=== PATIENT | female | born 1955 | race Caucasian/White ===

== ENCOUNTER 2020-04-12 12:18 | Emergency (ER) | payer OTHER, SELFPAY ==
[2020-04-12 12:21] VITALS: BP 172/90; PULSE 87; RESP 16; TEMP 36.2; O2SAT 98
--- NOTE | 2020-04-12 12:26 | ECG_ITS ---
Measurements Intervals [place] Rate: 78 P: 156 WV: 151 QRS: 199 QRSD: 116 T: 163 QT: 386 QTc: 441 Interpretive Statements SINUS RHYTHM ARM LEADS REVERSED INTRAVENTRICULAR CONDUCTION DELAY ATYPICAL ECG Electronically Signed On 04-12-2020 15:16:59 TECHNICAL CUSTOMER SUPPORT SPECIALIST by Aníbal Ibarra D.O.
[2020-04-12 13:12] LABS: Alanine Aminotransferase 51 U/L (4-35); Albumin Level 4.7 g/dL (3.5-5.1); Alkaline Phosphatase 93 U/L (38-126); Anion Gap 12 mmol/L (8-16); Aspartate Amino Transferase 52 U/L (14-36); Bilirubin,Total 0.8 mg/dL (0.2-1.3); Blood Urea Nitrogen 12 mg/dL (7-17); Carbon Dioxide 27 mmol/L (22-30); Chloride 100 mmol/L (98-107); Estimated CRCL calculation 84 ml/min; Estimated Glomerular Filt Rate > 60; Glucose 145 mg/dL (65-105); Potassium 3.9 mmol/L (3.4-5.0); Sodium 139 mmol/L (137-145)
[2020-04-12 13:16] LABS: Basophils Percent Auto 0.4 % (0.2-1.2); Eosinophils Absolute Auto 0.1 K/mm3 (0-0.3); Eosinophils Percent Auto 1.6 % (0-4.4); Hematocrit 46.3 % (37.0-47.0); Hemoglobin 15.2 g/dL (12.0-15.0); Immature Granulocyte Absolute 0.02 K/mm3 (0.00-0.031); Immature Granulocyte Percent A 0.2 % (0-0.5); Immature Platelet Fraction Pct 5.2 % (0.9-11.2); Lymphocytes Percent Auto 21.2 % (18.3-44.2); Mean Corpuscular HGB Conc 32.8 g/dl (32-36); Mean Corpuscular Hemoglobin 30.2 pg (26-34); Mean Platelet Volume 10.3 fl (7.4-10.4); Monocytes Absolute Auto 0.7 K/mm3 (0.1-0.6); Monocytes Percent Auto 7.3 % (2.6-8.5); Neutrophils Absolute Auto 6.2 K/mm3 (1.3-6.7); Neutrophils Percent Auto 69.3 % (45.5-73.1); Platelet Count Result 221 k/mm3 (150-375); Red Blood Count 5.03 M/mm3 (4.2-5.4); Red Cell Distribution Width 12.6 % (11.5-14.5)
[2020-04-12 14:02] VITALS: BP 115/69; PULSE 81; RESP 16; O2SAT 99
[2020-04-12] MEDS: MECLIZINE HCL 25 MG TABLET PO (14:11)
--- NOTE | 2020-04-12 15:15 | ED.DIZZY ---
HPI - Dizziness General Chief Complaint: Dizziness Stated Complaint: dizziness, n/v Time Seen by Provider: 04/12/20 13:31 History of Present Illness HPI Narrative: Patient is a 64-year-old female who presents ER with dizziness. Worsening by laying down flat and turning head to the left. Has pressure in left ear. Has had this intermittently since November. Usually improves with meclizine. Has not tried it today. Occasional nausea and vomiting. No focal weakness in arm or leg. Related Data Allergies Allergy/AdvReac Type Severity Reaction Status Date / Time No Known Allergies Allergy Verified 04/12/20 12:26 Review of Systems Review of Systems: All systems reviewed & are unremarkable except as noted in HPI and below Constitutional: Constitutional: Denies chills, Denies fever(s) and Denies weakness ENT: Reports vertigo Comments: left ear pressure Gastrointestinal: Gastrointestinal: Reports nausea and Reports vomiting Neurologic: Denies syncope, Denies focal weakness and Denies numbness PMFSH Past Medical History Medical History (Updated 04/12/20 @ 15:23 by Federico Real MD) Hyperlipidemia Hypertension Surgical History Surgical History (Updated 04/12/20 @ 15:19 by Federico Real MD) H/O section Social History Social History (Updated 04/12/20 @ 15:19 by Federico Real MD) Smoking status: Never smoker Gender identity (if verbalized by the patient): Female Exam Narrative: Exam Narrative: GENERAL: Well-appearing, well-nourished, and in no acute distress. HEAD: Normocephalic, atraumatic. EYES: PERRL and EOMI. ENT:Mucous membranes moist. Left ear with fluid behind the eardrum. CHEST: Clear to auscultation. No respiratory distress. HEART: Regular rate and rhythm. Normal peripheral pulses. EXTREMITIES: Normal range of motion. No edema. NEURO: Alert and oriented x3. PSYCH: Normal mood and affect. Course Course Emergency Course: Sx improved with meclizine. Vital Signs Vital signs: Vital Signs Temperature 97.2 F L 04/12/20 12:21 Pulse Rate 87 04/12/20 12:21 Respiratory Rate 16 04/12/20 12:21 Blood Pressure 172/90 H 04/12/20 12:21 Pulse Oximetry 98 04/12/20 12:21 Temperature 97.2 F L 04/12/20 12:21 Pulse Rate 81 04/12/20 14:02 Respiratory Rate 16 04/12/20 14:02 Blood Pressure 115/69 04/12/20 14:02 Pulse Oximetry 99 04/12/20 14:02 MDM - Dizziness Lab Data Result diagrams: 04/12/20 12:29 04/12/20 12:29 Labs: Lab Results 04/12/20 04/12/20 Range/Units 12:29 12:29 WBC 9.0 (4.5-10.0) K/mm3 RBC 5.03 (4.2-5.4) M/mm3 Hgb 15.2 H (12.0-15.0) g/dL Hct 46.3 (37.0-47.0) % MCV 92.0 (80-100) fl MCH 30.2 (26-34) pg MCHC 32.8 (32-36) g/dl RDW 12.6 (11.5-14.5) % Plt Count 221 (150-375) k/mm3 MPV 10.3 (7.4-10.4) fl Immature Gran % (Auto) 0.2 (0-0.5) % Neut % (Auto) 69.3 (45.5-73.1) % Lymph % (Auto) 21.2 (18.3-44.2) % Slope % (Auto) 7.3 (2.6-8.5) % Eos % (Auto) 1.6 (0-4.4) % Baso % (Auto) 0.4 (0.2-1.2) % Lymph # (Auto) 1.90 (0.9-3.2) K/mm3 Slope # (Auto) 0.7 H (0.1-0.6) K/mm3 Eos # (Auto) 0.1 (0-0.3) K/mm3 Baso # (Auto) 0.0 (0.0-0.1) K/mm3 Abs Immat Gran (auto) 0.02 (0.00-0.031) K/mm3 Absolute Neuts (auto) 6.2 (1.3-6.7) K/mm3 Absolute Nucleated RBC 0.0 (0.0-0.012) K/mm3 Nucleated RBC % 0.0 (0.0-0.2) % % Immature Plt Fraction 5.2 (0.9-11.2) % Sodium 139 (137-145) mmol/L Potassium 3.9 (3.4-5.0) mmol/L Chloride 100 (98-107) mmol/L Carbon Dioxide 27 (22-30) mmol/L Anion Gap 12 (8-16) mmol/L BUN 12 (7-17) mg/dL Creatinine 0.80 (0.7-1.0) mg/dL Estim Creat Clear Calc 84 ml/min Estimated GFR > 60 (59 - ) Glucose 145 H (65-105) mg/dL Calcium 10.0 (8.4-10.2) mg/dL Total Bilirubin 0.8 (0.2-1.3) mg/dL AST 52 H (14-36) U/L ALT 51 H (4-35) U/L Alkaline Phosphatase 93 (3
[2020-04-12 15:17] VITALS: BP 136/67; PULSE 74; RESP 23; O2SAT 92
== END 2020-04-12 15:40 | disposition home or self-care (01) ==
PROVIDERS: Emergency Medicine; Emergency Provider Emergency Medicine; PCP Internal Medicine
DX: H81.10 Benign paroxysmal vertigo, unspecified ear (principal); E78.5 Hyperlipidemia, unspecified; I10 Essential (primary) hypertension
CPT/HCPCS: 36415; 80053; 85025; 85055; 93005; 99283; A9270

== ENCOUNTER 2020-06-03 15:30 | Outpatient (RCR) | payer OTHER, SELFPAY ==
--- NOTE | 2020-04-30 16:15 | PTOPEVAL ---
PHYSICAL THERAPY EVALUATION AND PLAN OF TREATMENT 04-30-20 Thank you for referring Kyung Roe to [facility] [place].? She is scheduled to be seen for therapy? 2x/week for 4 weeks. Please review, sign, date and return this plan of care BRENDON. I agree with and certify that the following plan of care is medically necessary. Referring Physician Date Attending Provider: Kyrie King MD *PT Outpatient Evaluation Document 04/30/20 14:55 JAMES (Rec: 04/30/20 16:15 JAMES [id number]) Therapy Assessment Status Assessment Status Assessment Status Evaluation Outpatient Past Medical History Past Medical History Source of Past Medical History Patient Neurological History Hx Neurological Disorders No Significant History Cardiovascular History Hx Hypercholesterolemia Yes: meds Hx Hypertension Yes: meds; normal per pt: 155/ 90 Respiratory History Hx Respiratory Disorders No Significant History Gastrointestinal History Hx Cholecystectomy Yes Genitourinary History Hx Genitourinary Disorders No Significant History Musculoskeletal History Hx Back Pain Yes: increase with standing/ ease with sitting to rest Hx Other Musculoskeletal Disorders Yes: neck pain Hematological History Hx Hematological Disorders No Significant History Endocrine History Hx Hypothyroidism Yes: meds HEENT History Hx HEENT Disorders No Significant History Reproductive History Hx Section Yes Other History Hx Other Medical Conditions Yes: obesity Evaluation Information Problem Diagnosis BPPV Onset Nov 2019 Prior Level of Function Activity Level (Last 3 Months) Occupation not working outside home Activity of Daily Living Ability Independent Indoor/Home Mobility Independent Community Mobility Independent Stairs Ability Independent Functional Cognition (Planning, Shopping Independent , Taking Medications) Cooking Yes Cleaning Yes Laundry Yes Shopping Yes Driving Yes Medications Home Meds (Include: OTC, RX, Vitamins, hydrochlorothiozide, Herbals, Dose, Route,and Frequency) hydrolazine, losartan- HTN; Query Text:Home Med Entries Will No levothryoxine- thyroid; Longer Recall From Past Visits. Home atorvastatin- cholesterol; Meds Must Be Re-entered With Each Visit. bupropion, omeprazole; vit D; Home Setting Mobility Assistive Devices (Used Last 3 None Months) Comments Additional Prior Level of Function limited home tasks due to low Comments back pain, require multiple
--- NOTE | 2020-05-09 14:09 | PCPTNOTE ---
pt called and canceled today's appt due to too tired ;
--- NOTE | 2020-05-22 12:35 | PCPTNOTE ---
Patient called & cancelled scheduled appointment this date due to the weather.
--- NOTE | 2020-05-27 12:00 | PCPTNOTE ---
pt canceled due to bad weather;
--- NOTE | 2020-06-03 15:27 | PTOPEVAL ---
PHYSICAL THERAPY DISCHARGE 06-03-20 Refer to the clinical summary below. Kyung has improved and all of the goals were achieved. Discharge PT services. Thank you for referring Kyung Roe to [facility]Note 3].? Please review, sign, date and return this discharge BRENDON. I agree with and certify that the following plan of care is medically necessary. Referring Physician Date Attending Provider: Kyrie King MD Document 06/03/20 14:45 JAMES (Rec: 06/03/20 15:26 JAMES [id number]) Assessment Status Discharge Subjective Information Kyung reports: still cautious Query Text:As Reported By Patient/ and move head slowly; is Family cautious when lying down; have not been dizzy for about 3-4 weeks; hectic at home and having problems with water and drains; too much activity and getting anxious about all these problems; is getting new glasses next week- to have bifocals and have to wear all the time; agrees with discharge from PT services. Pain Assessment Timing of Pain Assessment Timing of Pain Assessment Assessment Self Report Self Report Pain Level 0 Pain Score Pain Score 0: Self Report Additional Pain Score Comments reports pain in R groin/hip, neck and back pain; Vestibular Evaluation Vestibular Testing Vestibular Testing Comments 360' turn to R and L - no c/o' s; standing gaze stabilization with head turn to R/L at 80 bpm x 30 reps; walking 50' wtih 4 reps each of head R and L ; supine /sit without any s /s; pick item up off floor indep, with good balance and no dizziness; Dizziness Handicap Index score of 4/100; pt did report back and neck pain during activity; Safety Assessment Patient Safety Factors Affecting Safety No Concerns Rehab Teaching Rehab Teaching Teaching Topic Rehab Teaching Topic Components Exercise,Home Program As Pertains To Plan of Care Discussion Recipient Patient Learning Preferences Audio,Discussion,One-on-One Instruction,Written Barriers to Learning None Readiness to Learn Excellent Response
== END 2020-06-04 10:17 | disposition home or self-care (01) ==
LOC: ANHPT 15:30
PROVIDERS: PCP Internal Medicine; Referring Provider Otolaryngology; Visit Provider Otolaryngology
DX: H81.10 Benign paroxysmal vertigo, unspecified ear (principal)
CPT/HCPCS: 97110; 97162

== ENCOUNTER 2021-05-24 06:28 | Observation (INO) | payer OTHER, SELFPAY ==
[2021-05-24] VITALS (18 sets, daily range): BP systolic 116–169; BP diastolic 45–87; PULSE 61–98; RESP 14–24; TEMP 36.1–37; O2SAT 94–100; BMI 45.6
--- NOTE | ~2021-05-24 | MR_ITS ---
EXAMINATION: MR brain/brain stem wo/w con DATE: 05/26/2021 15:39 INDICATION: Transient ischemic episode with right-sided hemiparesis TECHNIQUE: Magnetic resonance imaging (MRI) of the brain and brainstem was performed without and with 20 mL Multihance intravenous contrast. Sequences included sagittal and axial T1-weighted SE, axial d iffusion-weighted FS SE, axial T2*-weighted GRE, axial T2-weighted FLAIR, and axial T2-weighted FSE. Postcontrast axial and coronal T1-weighted SE was obtained. Apparent diffusion coefficient (ADC) maps were created. COMPARISON: Head CT and CT angiogram dated 05/24/2021 FINDINGS: There are no areas of restricted diffusion to suggest acute infarction. No intracranial hemorrhage or abnormal intracranial mass lesion. There are scattered areas of nonspecific increased T2-weighted si gnal intensity in the cerebral white matter, predominantly involving the deep and periventricular whi te matter. There are no intraparenchymal signal abnormalities seen on the other pulse sequences. The ventricles are symmetric and normal in size. There are no abnormal extra-axial fluid collections. Luis Angel w voids are seen in the cerebral arteries on the T2-weighted sequences consistent with their expected patency. Visualized orbits and soft tissues are unremarkable. There are no areas of abnormal enhance ment on the post contrast images. IMPRESSION: 1. Nonspecific mild scattered foci of white matter T2 hyperintensity which is within normal limits fo r age and consistent with chronic small vessel ischemic disease. No acute intracranial process or abn ormally enhancing brain lesions. Reviewed, dictated and finalized at location A. RECORDER IMPRESSION: 1. Nonspecific mild scattered foci of white matter T2 hyperintensity which is w ithin normal limits for age and consistent with chronic small vessel ischemic d isease. No acute intracranial process or abnormally enhancing brain lesions.
--- NOTE | ~2021-05-24 | US_ITS ---
EXAMINATION: US carotid duplex BI DATE: 05/25/2021 10:42 INDICATION: Right hemiparesis. TECHNIQUE: Grayscale, color Doppler, and pulsed Doppler images of the cervical carotid arteries were obtained. The degree of vessel stenosis is placed in one of the following categories: normal, <50%, 5 0-69%, >=70% but less than near-occlusion, near-occlusion, or total occlusion. Note that percent sten osis relative to normal distal artery lumen diameter is indirectly measured from velocity measurement s as described by Umang, et al. Radiology 2003; 229:340-346. COMPARISON: CTA neck 05/24/2021 FINDINGS: RIGHT: The right common carotid artery (CCA) peak systolic velocity (PSV) is 127 cm/s. The right internal ca rotid artery (ICA) PSV is 107 cm/s. The right ICA end-diastolic velocity (EDV) is 21 cm/s. The right ICA/CCA PSV ratio is 0.8. Grayscale and color Doppler images yield an estimate of <50% diameter reduc tion from plaque in the ICA. There is antegrade flow in the right vertebral artery. LEFT: The left CCA PSV is 145 cm/s. The left ICA PSV is 78 cm/s. The left ICA EDV is 29 cm/s. The left ICA/ CCA PSV ratio is 0.5. Grayscale and color Doppler images yield an estimate of <50% diameter reduction from plaque in the ICA. There is antegrade flow in the left vertebral artery. IMPRESSION: 1. <50% stenosis in the right internal carotid artery. 2. <50% stenosis in the left internal carotid artery. Reviewed, dictated and finalized at location A. [employer] FARM MANAGER
--- NOTE | ~2021-05-24 | CT_ITS ---
EXAMINATION: CT brain wo con INDICATION: Right-sided weakness, dizziness and nausea COMPARISON: None TECHNIQUE: Standard unenhanced head CT. The dose-length product (DLP) was 605.33 mGy-cm. The mA was a djusted according to patient size. Iterative reconstruction technique was employed. FINDINGS: There is no intracranial hemorrhage, acute infarction, or abnormal mass lesion. The ventric les are normal. There is no abnormal mass effect or midline shift. The shea-white matter differentiat ion is normal. The basal cisterns are patent. The orbits are normal. There is mild mucosal thickening of the paranasal sinuses. IMPRESSION: 1. No acute intracranial abnormality. Reviewed, dictated and finalized at location A. UNITY DEVELOPMENT OFFICER
--- NOTE | ~2021-05-24 | CT_ITS ---
EXAMINATION: CTA brain carotid DATE: 05/24/2021 09:52 INDICATION: Right-sided weakness TECHNIQUE: Computed tomographic angiography (CTA) of the head was performed without and with 100 mL O mnipaque-350 intravenous contrast. CTA of the neck was performed with intravenous contrast. The dose- length product was 1171.77 mGy-cm. Maximum intensity projection and volume rendered 3D-reconstruction s were created by the technologist on a separate workstation. Automated exposure control and iterativ e reconstruction technique were employed. COMPARISON: None. FINDINGS: HEAD CTA: There is no intracranial hemorrhage, acute infarction, or abnormal mass lesion. The ventric les are normal. There is no abnormal mass effect or midline shift. The shea-white matter differentiat ion is normal. The basal cisterns are patent. The orbits are normal. The paranasal sinuses, mastoids and calvarium are normal. There is no significant stenosis of the basilar artery or posterior cerebral arteries. There is no si gnificant stenosis of the intracranial internal carotid arteries or the anterior or middle cerebral a rteries. The anterior communicating artery and posterior communicating arteries are normal. There is no aneurysm. NECK CTA: The thyroid gland is unremarkable. The submandibular and parotid glands are symmetric. Ther e is no lymphadenopathy. There are no masses identified. The airway is unremarkable. Mild cervical sp ondylosis is noted. There are healed right-sided rib fractures. The superior mediastinum is unremarka ble. There is 0% stenosis of the proximal right internal carotid artery relative to normal distal artery l umen diameter (NASCET criteria). There is 0% stenosis of the proximal left internal carotid artery re lative to normal distal artery lumen diameter. IMPRESSION: 1. No acute intracranial abnormality. Normal head CTA. 2. 0% stenosis of the proximal right internal carotid artery relative to normal distal artery lumen d iameter (NASCET criteria). 3. 0% stenosis of the proximal left internal carotid artery relative to normal distal artery lumen di ameter. Reviewed, dictated and finalized at location A. OW MAKER IMPRESSION: 1. No acute intracranial abnormality. Normal head CTA. 2. 0% stenosis of the proximal right internal carotid artery relative to normal distal artery lumen diameter (NASCET criteria). 3. 0% stenosis of the proximal left internal carotid artery relative to normal distal artery lumen diameter.
--- NOTE | ~2021-05-24 | XR_ITS ---
EXAMINATION: XR chest 1V portable INDICATION: Dizziness TECHNIQUE: Portable AP chest at 0714 hours COMPARISON: None available FINDINGS: The lungs are free of acute opacities. There is no pleural effusion or pneumothorax. The ca rdiomediastinal silhouette is normal. There is mild elevation of the right hemidiaphragm. IMPRESSION: 1. No acute cardiopulmonary abnormality. Reviewed, dictated and finalized at location A. ERVATOR ARTIFACTS
--- NOTE | 2021-05-24 07:11 | ECG_ITS ---
Measurements Intervals [place] Rate: 73 P: 62 NV: 149 QRS: -19 QRSD: 118 T: 82 QT: 388 QTc: 428 Interpretive Statements SINUS RHYTHM INTRAVENTRICULAR CONDUCTION DELAY DELAYED PRECORDIAL R/S TRANSITION LEFT VENTRICULAR HYPERTROPHY WITH ST-T CHANGE BASELINE ARTIFACT- I, II, III, AVR, AVL, AVF BORDERLINE ECG Electronically Signed On 05-24-2021 7:54:29 WELDER APPRENTICE ARC by Aníbal Ibarra D.O.
--- NOTE | 2021-05-24 07:19 | PC.NURSE ---
Assumed care of pt. at this time. Report from DG Cablalero
[2021-05-24 07:36] LABS: Basophils Absolute Auto 0.1 K/mm3 (0.0-0.1); Basophils Percent Auto 0.5 % (0.2-1.2); Eosinophils Absolute Auto 0.1 K/mm3 (0-0.3); Eosinophils Percent Auto 0.8 % (0-4.4); Hematocrit 48.9 % (37.0-47.0); Hemoglobin 16.1 g/dL (12.0-15.0); Immature Granulocyte Absolute 0.04 K/mm3 (0.00-0.031); Immature Granulocyte Percent A 0.3 % (0-0.5); Lymphocytes Absolute Auto 2.41 K/mm3 (0.9-3.2); Lymphocytes Percent Auto 18.6 % (18.3-44.2); Mean Corpuscular HGB Conc 32.9 g/dl (32-36); Mean Corpuscular Hemoglobin 30.2 pg (26-34); Mean Corpuscular Volume 91.7 fl (80-100); Mean Platelet Volume 10.1 fl (7.4-10.4); Monocytes Absolute Auto 1.1 K/mm3 (0.1-0.6); Monocytes Percent Auto 8.1 % (2.6-8.5); Neutrophils Absolute Auto 9.3 K/mm3 (1.3-6.7); Neutrophils Percent Auto 71.7 % (45.5-73.1); Platelet Count Result 351 k/mm3 (150-375); Red Blood Count 5.33 M/mm3 (4.2-5.4); Red Cell Distribution Width 12.9 % (11.5-14.5)
[2021-05-24 07:43] LABS: Prothrombin Time 12.9 Seconds (11.1-14.7)
[2021-05-24 07:44] LABS: Alanine Aminotransferase 28 U/L (4-35); Alkaline Phosphatase 79 U/L (38-126); Anion Gap 13 mmol/L (8-16); Aspartate Amino Transferase 34 U/L (14-36); Bilirubin,Total 1.1 mg/dL (0.2-1.3); Blood Urea Nitrogen 14 mg/dL (7-17); Calcium 10.3 mg/dL (8.4-10.2); Carbon Dioxide 25 mmol/L (22-30); Chloride 101 mmol/L (98-107); Estimated CRCL calculation 50 ml/min; Estimated Glomerular Filt Rate 45; Glucose 140 mg/dL (65-110); Partial Thromboplastin Time 25.2 SECONDS (22.3-36.8); Potassium 3.2 mmol/L (3.4-5.0); Sodium 139 mmol/L (137-145)
--- NOTE | 2021-05-24 07:46 | ED.GENADULT ---
HPI - General Adult General Chief complaint: Dizziness Stated complaint: ear pressure, dizziness Time Seen by Provider: 05/24/21 07:05 Source: RN notes reviewed History of Present Illness HPI narrative: Patient presents emergency department from home for right arm weakness. Patient states that approximately 4 AM this morning she woke up she states she felt nauseous at that time and had gone to the restroom she states that during this time she noted that her right arm was not working and she was having difficulty moving it having to move it with her left arm states that this weakness in the right arm lasted for approximately 5 minutes she had mild nausea with the episode she had approximately 5 minutes episode resolved she states she did not notice any facial droop or problems speaking during that time states she feels back to baseline at this time she denies any fevers or chills chest pain or shortness of breath. She states that she did stop taking all of her regular medications back in September after the of her boyfriend and just had restarted her medications this past Wednesday Related Data Home Medications Medication Instructions Recorded Confirmed atorvastatin 10 mg tablet 10 mg PO DAILY 04/18/20 05/24/21 bupropion HCl 150 mg 24 hr tablet, 150 mg PO QAM 04/18/20 05/24/21 extended release evening cap PO 04/18/20 gmebygpr-kglwvsun-nhcxqpj-cran 500 mg-365 mg-45 mg-200 mg cap hydralazine 25 mg tablet 25 mg PO BID 04/18/20 05/24/21 hydrochlorothiazide 12.5 mg capsule 12.5 mg PO DAILY 04/18/20 05/24/21 levothyroxine 125 mcg capsule 125 mcg PO DAILY 04/18/20 05/24/21 losartan 50 mg tablet 50 mg PO DAILY 04/18/20 05/24/21 omeprazole 40 mg capsule,delayed 40 mg PO BID 04/18/20 release citalopram 20 mg PO DAILY 05/24/21 05/24/21 Allergies Allergy/AdvReac Type Severity Reaction Status Date / Time No Known Allergies Allergy Verified 04/18/20 08:59 Review of Systems Review of Systems: Gen.: Denies fevers or chills Eyes: Denies eye pain or visual change ENT: Denies congestion Respiratory: Denies shortness of breath or cough CV: Denies chest pain or palpitations GI: Denies abdominal pain vomiting or diarrhea. Reports nausea Musculoskeletal: Denies back pain or muscle pain Neuro: See HPI Skin: Denies rash Except as documented, all other systems reviewed and negative [facility] Past Medical History Medical History Hyperlipidemia Hypertension Surgical History Surgical History H/O section Family History Family History Sibling Diabetes mellitus Father Congestive heart failure Social History Social History Smoking status: Never smoker Second hand tobacco smoke exposure: No Alcohol intake: never Substance use: never Substance use type: does not use Gender identity (if verbalized by the patient): Female Spiritual care concerns: No Exam Narrative: APPEARANCE: No acute distress, nontoxic, resting in bed HEENT: Normocephalic, atraumatic, OMM, TMs clear bilaterally EYES: PERRL, EOMI NECK: Supple, nontender, full range of motion without pain, no meningismus RESPIRATORY: No respiratory distress, clear to auscultation bilaterally with no rhonchi wheezing or rales CARDIOVASCULAR: RRR s murmur ABDOMINAL: Soft, nontender, nondistended MUSCULOSKELETAL: Moves all extremities. No clubbing, cyanosis or edema. NEURO: A and O ?3, following commands, speech normal, cranial nerves II through XII grossly intact,muscle strength 5 out of 5 bilateral upper and lower extremities, no pronator drift SKIN:: Warm, dry. Normal Color PSYCHIATRIC: Normal affect/mood Course Course Emergency Course: Called and discussed with Dr. Mclaughlin presentation work-up request patient receive aspirin 325 at this time request CTA head
[2021-05-24 07:55] LABS: Troponin I < 0.012 ng/mL (0.000-0.034)
[2021-05-24 07:59] LABS: Add Urine Microscopic? YES; Appearance Urine Cloudy (Clear); Bacteria Urine Trace /hpf; Bilirubin Urine Negative (Negative); Blood Urine Negative (Negative); Color Urine Amber (Yellow); Glucose Urine UA Negative (Negative); Hyaline Casts Urine 50+ /lpf; Ketones Urine Negative (Negative); Leukocyte Esterase Ur 3+ LEU/UL (Negative); Mucus Urine Moderate /lpf; Nitrate Urine Negative (Negative); Protein Urine 1+ mg/dL (Negative); Specific Grav Ur 1.025 (1.001-1.035); Squamous Epithelial Cell Urine Many /hpf (Few); Transitional Epi Cells Urine Rare /hpf (None Seen); WBC Urine 51-75 /hpf
[2021-05-24] MEDS: POTASSIUM CHLORIDE 20 MEQ TABLET PO (08:00)
[2021-05-24] MEDS: ASPIRIN 81 MG CHEWABLE TABLET 324 MG PO (09:06)
[2021-05-24] MEDS: SODIUM CHLORIDE 0.9% IV 1,000 ML 999 ML IV CONT (09:13)
--- NOTE | 2021-05-24 09:30 | PC.NURSE ---
pt. to CT
[2021-05-24 09:48] LABS: Lactic Acid Reflex 1.4 mmol/L (0.7-2.1)
--- NOTE | 2021-05-24 10:39 | ADMGEN ---
This patient, Kyung Roe, was admitted to Medical Room 258-01. Patient oriented to hospital policies and general routines including ID bracelet, bed and alarms, visiting hours, pain management, procedures, bathroom and other care routines, personal items, smoking policy, room service/diet, and visiting hours. Information on how to activate the Rapid Response Team has been discussed. Patient are encouraged to report perceived risks to care and to ask questions if they do not understand what they are told or what they should do.
--- NOTE | 2021-05-24 13:33 | WPDNEURCNPN ---
Assessment and Plan Additional Plan TIA Consult date: 05/24/21 HPI: Kyung Roe is a 65 year old female 65 years old right-handed female admitted to the hospital through the emergency room for the complaints of right upper extremity weakness since 4:00 a.m. on the day of admission to the ER along with mild nausea lasting for about 5 minutes without dated facial droop and returning back to the normal, outpatient medications included Wellbutrin 150 mg daily psych tele prime 20 mg daily in addition to the anticholesterol anti hypertension medication additionally she had the ongoing history of hypertension, being never smoker, and never substance abuser, initial CT scan of the head normal, CTA of the brain and carotid revealed no vascular involvement and chest x-ray negative, patient given aspirin in the emergency room and admitted for further observation MRI at this stage is not available, initial blood workup revealed a potassium of 3.2 with glucose 140 creatinine 1.20 AST 52 and ALT 51 in addition to TSH of 8.580, UA abnormal and patient already started on ceftriaxone along with aspirin Review of Systems Review of Systems: All systems reviewed & are unremarkable except as noted in HPI and below PMFSH Past Medical History Medical History Hyperlipidemia Hypertension Surgical History Surgical History H/O section Family History Family History Sibling Diabetes mellitus Father Congestive heart failure Social History Social History Smoking status: Never smoker Second hand tobacco smoke exposure: No Alcohol intake: never Substance use: never Substance use type: does not use Gender identity (if verbalized by the patient): Female Spiritual care concerns: No Meds Home Medications and Allergies Home Medications Medication Instructions Recorded Confirmed Type meclizine 25 mg PO TID PRN #20 tablet 04/12/20 Rx atorvastatin 10 mg tablet 10 mg PO DAILY 04/18/20 05/24/21 History bupropion HCl 150 mg 24 hr tablet, 150 mg PO QAM 04/18/20 05/24/21 History extended release evening cap PO 04/18/20 History vqsbaewq-ymyylwng-ptpctis-cran 500 mg-365 mg-45 mg-200 mg cap hydralazine 25 mg tablet 25 mg PO BID 04/18/20 05/24/21 History hydrochlorothiazide 12.5 mg capsule 12.5 mg PO DAILY 04/18/20 05/24/21 History levothyroxine 125 mcg capsule 125 mcg PO DAILY 04/18/20 05/24/21 History losartan 50 mg tablet 50 mg PO DAILY 04/18/20 05/24/21 History omeprazole 40 mg capsule,delayed 40 mg PO BID 04/18/20 History release citalopram 20 mg PO DAILY 05/24/21 05/24/21 History Allergies Allergy/AdvReac Type Severity Reaction Status Date / Time No Known Allergies Allergy Verified 04/18/20 08:59 Vital Signs Vital Signs - 24 hr 05/24/21 06:40 05/24/21 06:48 05/24/21 07:00 Temperature 37.0 C Pulse Rate 98 79 Respiratory Rate 18 19 Blood Pressure 169/73 H 149/87 H Pulse Oximetry 100 99 05/24/21 08:22 05/24/21 08:25 05/24/21 08:30 Temperature Pulse Rate 67 66 69 Respiratory Rate 16 14 14 Blood Pressure 118/59 L Pulse Oximetry 95 98 96 05/24/21 08:31 05/24/21 08:45 05/24/21 09:00 Temperature Pulse Rate 66 66 71 Respiratory Rate 16 19 17 Blood Pressure 127/67 Pulse Oximetry 96 94 98 05/24/21 09:01 05/24/21 09:15 05/24/21 10:10 Temperature Pulse Rate 76 67 75 Respiratory Rate 22 H 24 H 14 Blood Pressure 143/73 H 135/56 L Pulse Oximetry 97 96 98 05/24/21 10:45 05/24/21 12:00 Temperature 36.3 C L Pulse Rate 61 82 Respiratory Rate 16 Blood Pressure 129/55 L Pulse Oximetry 97 Exam Const: General: cooperative, comfortable and no acute distress Nutritional Appearance: obese Orientation/consciousness: oriented to person, oriented to place and orie
[2021-05-24 16:03] LABS: Troponin I < 0.012 ng/mL (0.000-0.034)
--- NOTE | 2021-05-24 20:18 | PM.IMHP ---
H&P: HPI History of Present Illness Date/Time: 05/24/211599 this is a 65-year-old female patient who lives home alone. The patient came to the emergency room today for complaints of right arm weakness. The patient stated that she got up at 4:00 a.m. this morning and made it to the bathroom because she felt nauseated. The patient did not notice any numbness or tingling to her arm and so she got back in bed and tried to roll over and felt that her arm was floppy. The patient stated that she did take some Pepto-Bismol due to the nausea and that relieve the nausea. And she stated that the weakness to the right arm lasted approximately 5 minutes. She did not notice any facial droop her any trouble speaking that she was aware of. The patient had not been taking any of her routine medication since her significant other Pap recently in September. However she just started taking her medication this last Wednesday. Head neck CTA was read as no acute intracranial abnormality. Normal head CT. 0% stenosis of the right and left internal carotid. Chest x-ray was read as no acute cardiopulmonary abnormality. Head CT was read as no acute intracranial abnormality.Her white count was 13.0. H&H is 16.1 And 48.9. potassium 3.2. Creatinine 1.2. Calcium is 10.3. Glucose 140. TSH was 8.580. Urine positive for UTI. The patient is being admitted to observation status on the date of service of 05/24/2021. Chief Complaint: Right arm weakness Review of Systems Review of Systems: All systems reviewed & are unremarkable except as noted in HPI and below Constitutional: Constitutional: Reports as per HPI and Reports no additional constitutional complaints Eyes: Eyes: Reports as per HPI and Reports no additional eye complaints ENT: Reports system reviewed and no additional complaints, except as documented and Reports Normal hearing present Cardiovascular: Cardiovascular: Reports no additional cardiovascular complaints Respiratory: Respiratory: Reports no additional respiratory complaints and Reports no additional respiratory complaints Gastrointestinal: Gastrointestinal: Reports as per HPI and Reports no additional gastrointestinal complaints Musculoskeletal: Musculoskeletal: Reports no additional musculoskeletal complaints Integumentary/Breasts: Skin/Breast: Reports system reviewed and no additional complaints, except as docu and Reports as per HPI Neurologic: Reports system reviewed and no additional complaints, except as documented, Reports as per HPI and Reports Normal hearing present Psychiatric: Psychiatric: Reports no additional psychiatric complaints and Reports as per HPI Endocrine: Endocrine: Reports no additional endocrine complaints Hematologic/Lymphatic: Hematologic/Lymphatic: Reports no additional hematologic/lymphatic complaints Allergic/Immunologic: Allergic/Immunologic: Reports no additional allergic/immunologic complaints [facility] Past Medical History Medical History (Updated 05/24/21 @ 22:08 by Nevaeh Lopez NP) Anxiety Chronic GERD Hyperlipidemia Hypertension Hypothyroidism Surgical History Surgical History (Updated 05/24/21 @ 22:08 by Nevaeh Lopez NP) H/O section Hx of cholecystectomy Family History Family History Sibling Diabetes mellitus Father Congestive heart failure Social History Social History (Updated 05/24/21 @ 22:09 by Nevaeh Lopez NP) Social History: the patient is a lifelong nonsmoker. She has 2 children. She is . She is unemployed. She does not use any alcohol marijuana or illicit drugs. She does not have a durable power income tax advisor for healthcare. Code status full code Smoking status: Never smoker Second hand tobacco smoke exposure: No Alcohol intake: never Substance use: never Substance use type: does not use Gender identity (if verbalized by the patient): Female Spiritual care gómez
[2021-05-24] MEDS: PANTOPRAZOLE 40 MG TABLET PO (21:19)
[2021-05-25] VITALS (12 sets, daily range): BP systolic 110–139; BP diastolic 52–65; PULSE 59–68; RESP 16–17; TEMP 36.1–36.7; O2SAT 94–100
[2021-05-25] MEDS: ACETAMINOPHEN 325 MG TABLET 650 MG PO ×3 (00:15→20:27)
[2021-05-25 05:13] LABS: Basophils Absolute Auto 0.1 K/mm3 (0.0-0.1); Basophils Percent Auto 0.6 % (0.2-1.2); Eosinophils Absolute Auto 0.1 K/mm3 (0-0.3); Eosinophils Percent Auto 1.5 % (0-4.4); Hematocrit 40.2 % (37.0-47.0); Hemoglobin 13.6 g/dL (12.0-15.0); Immature Granulocyte Absolute 0.02 K/mm3 (0.00-0.031); Immature Granulocyte Percent A 0.2 % (0-0.5); Lymphocytes Absolute Auto 2.87 K/mm3 (0.9-3.2); Lymphocytes Percent Auto 32.5 % (18.3-44.2); Mean Corpuscular HGB Conc 33.8 g/dl (32-36); Mean Corpuscular Hemoglobin 30.2 pg (26-34); Mean Corpuscular Volume 89.3 fl (80-100); Mean Platelet Volume 9.8 fl (7.4-10.4); Monocytes Absolute Auto 0.9 K/mm3 (0.1-0.6); Monocytes Percent Auto 9.8 % (2.6-8.5); Neutrophils Absolute Auto 4.9 K/mm3 (1.3-6.7); Neutrophils Percent Auto 55.4 % (45.5-73.1); Platelet Count Result 239 k/mm3 (150-375); Red Cell Distribution Width 12.5 % (11.5-14.5); White Blood Count 8.8 K/mm3 (4.5-10.0)
[2021-05-25 05:24] LABS: Lactic Acid Reflex 1.5 mmol/L (0.7-2.1)
[2021-05-25 05:26] LABS: Alanine Aminotransferase 22 U/L (4-35); Albumin Level 3.8 g/dL (3.5-5.1); Alkaline Phosphatase 65 U/L (38-126); Anion Gap 7 mmol/L (8-16); Aspartate Amino Transferase 25 U/L (14-36); Bilirubin,Total 0.5 mg/dL (0.2-1.3); Blood Urea Nitrogen 12 mg/dL (7-17); Calcium 9.2 mg/dL (8.4-10.2); Carbon Dioxide 25 mmol/L (22-30); Chloride 106 mmol/L (98-107); Estimated CRCL calculation 67 ml/min; Estimated Glomerular Filt Rate > 60; Glucose 113 mg/dL (65-110); Lipase 98 U/L (23-300); Magnesium 1.7 mg/dL (1.6-2.3); Potassium 3.2 mmol/L (3.4-5.0); Sodium 138 mmol/L (137-145)
[2021-05-25] MEDS: LEVOTHYROXINE SODIUM 125 MCG TABLET PO (05:37)
[2021-05-25 05:45] LABS: D Dimer 0.33 ug/mL (<0.48)
[2021-05-25] MEDS: CITALOPRAM HYDROBROMIDE 20 MG TABLET PO (08:55)
[2021-05-25] MEDS: ATORVASTATIN 10 MG TABLET PO (08:55)
[2021-05-25] MEDS: buPROPion HCL XL (24 HR) 150 MG TABCR PO (08:55)
[2021-05-25] MEDS: PANTOPRAZOLE 40 MG TABLET PO ×2 (08:55→20:28)
[2021-05-25] MEDS: ASPIRIN 325 MG ENTERIC TABLET PO (08:55)
--- NOTE | 2021-05-25 08:57 | PC.NURSE ---
waiting for pharmacy to send 0900 hydralazine and cozaar. will give when I receive them
--- NOTE | 2021-05-25 09:14 | PM.IMPN ---
Progress Note: A&P Assessment and Plan (1) Brain TIA: Code(s): G45.9 - Transient cerebral ischemic attack, unspecified Status: Acute Assessment and Plan: patient's symptoms resolved briefly. The patient was started on an aspirin. Internal carotid arteries are 0% stenosis. PENDING MRI. Neurology consult was greatly be appreciated. Further recommendations per Neurology. Patient has no deficits at this time. (2) UTI (urinary tract infection): Code(s): N39.0 - Urinary tract infection, site not specified Status: Acute Assessment and Plan: The patient was started on Rocephin. Blood cultures and urine cultures are pending. Treat accordingly. (3) Hypothyroidism: Code(s): E03.9 - Hypothyroidism, unspecified Status: Chronic Assessment and Plan: Patient's TSH was high however the patient had not been taking her medication and just recently started the week ago. I suggested that she follow-up with her primary care doctor and possibly recheck her labs in 1-3 months. I strongly encouraged her to continue with her medication. (4) Hypertension: Code(s): I10 - Essential (primary) hypertension Status: Chronic Assessment and Plan: Hold losartan and Hold Hydrochlorothiazide as her creatinine is slightly elevated.. p.r.n. hydralazine. . PERMISSIVE HYPERTENSION FOR THE 1ST 24 HOURS (5) Hyperlipidemia: Code(s): E78.5 - Hyperlipidemia, unspecified Status: Chronic Assessment and Plan: Continue with atorvastatin. (6) Anxiety: Code(s): F41.9 - Anxiety disorder, unspecified Status: Chronic Assessment and Plan: Continue with Celexa (7) Chronic GERD: Code(s): K21.9 - Gastro-esophageal reflux disease without esophagitis Status: Chronic Assessment and Plan: continue with pantoprazole (8) Acute hypokalemia: Code(s): E87.6 - Hypokalemia Status: Acute Assessment and Plan: replace as necessary. Additional Plan . Subjective Date/time seen: 05/25/21 09:14 Interval history: Patient seen and examined Patient feels better today on weakness has resolved Still have intermittent dizziness but patient also have history of benign positional vertigo Patient denies fever headache chest pain shortness of breath I am seeing the patient for TIA Objective Data Vital Signs Vital Signs: Vital Signs - 24 hr 05/24/21 09:15 05/24/21 10:10 02/12/22 10:45 Temperature 97.4 F L Pulse Rate 67 75 61 Respiratory Rate 24 H 14 16 Blood Pressure 135/56 L 129/55 L Pulse Oximetry 96 98 97 05/24/21 12:00 05/24/21 16:00 05/24/21 18:20 Temperature 97.0 F L Pulse Rate 82 64 70 Respiratory Rate Blood Pressure 148/67 H Pulse Oximetry 98 05/24/21 19:57 05/24/21 20:00 05/25/21 00:00 Temperature 97.6 F Pulse Rate 63 66 62 Respiratory Rate 18 Blood Pressure 116/45 L Pulse Oximetry 98 05/25/21 04:00 05/25/21 04:10 05/25/21 08:00 Temperature 97 F L Pulse Rate 59 L 61 63 Respiratory Rate 16 Blood Pressure 110/52 L Pulse Oximetry 99 05/25/21 08:47 Temperature 97.6 F Pulse Rate 66 Respiratory Rate 16 Blood Pressure 127/60 Pulse Oximetry 100 Intake/Output Intake/Output: Intake & Output 05/22/21 05/23/21 05/24/21 05/25/21 23:59 23:59 23:59 23:59 Intake Total 780 440 Output Total 500 800 Balance 280 -360 Meds/Results Medications: Active Medications Generic Name Dose Route Start Last Admin Trade Name Michelle PRN Reason Stop Dose Admin Acetaminophen 650 mg 05/24/21 23:59 05/25/21 08:55 Acetaminophen 325 Mg Tablet PO 650 mg Q4H PRN Administration Headache Aspirin 325 mg 05/25/21 09:00 05/25/21 08:55 Aspirin 325 Mg Enteric Tablet PO 325 mg QAM JUAQUIN Administration Atorvastatin Calcium 10 mg 05/25/21 09:00 05/25/21 08:55 Atorvastatin 10 Mg Tablet PO 10 mg DAILY JUAQUIN Administration Bupropion H
[2021-05-25] MEDS: hydrALAZINE HCL 25 MG TABLET PO ×2 (10:35→16:31)
[2021-05-25] MEDS: LOSARTAN POTASSIUM 50 MG TABLET PO (10:35)
[2021-05-25] MEDS: POTASSIUM CHLORIDE 20 MEQ TABLET 40 MEQ PO (10:36)
[2021-05-26] VITALS (11 sets, daily range): BP systolic 116–141; BP diastolic 51–54; PULSE 56–82; RESP 16; TEMP 36.4–36.6; O2SAT 96–100
--- NOTE | 2021-05-26 | ECHO_ITS ---
Patient Info Name: Kyung Roe Age: 65 years : 1955 Gender: Female Ht: 62 in Wt: 249 lbs BSA: 2.29 m2 HR: 68 bpm BP: 116 / 52 mmHg Heart Rhythm: Sinus Rhythm Technical Quality: Fair Exam Date: 05/26/2021 4:02 PM Exam Location: [facility] Pulmonary Exam Room: 258 Patient Status: Inpatient Admit Date: 05/24/2021 Staff Ordering Physician: Carleen Pardo PA-C Toggle Press Operator: Chiquita Cordero RDCS Attending Provider: Carleen Pardo PA-C Exam Type: CA echo dop color flow w con Study Info Indications - TIA HTN HLD Complete two-dimensional, color flow and Doppler transthoracic echocardiogram is performed with contrast to opacify the left ventricle and to improve the deliniation of the left ventricle endocardial borders. Contrast/Agitated Saline Contrast/Ag. Saline: Definity Amount: 2.00 ml Existing IV Access: Yes IV Access Condition: patent with no signs of infiltration Summary 1. Technically difficult study with limited views. Regional wall motion assessment limited due to poor endomyocardial border definition. With definity contrast enhancement no clear wall motion abnormalities identified. 2. Left ventricular systolic function is normal, estimated at 65-70%. 3. There is mildly increased left ventricular wall thickness. 4. The left ventricular diastolic function is grade I diastolic dysfunction. 5. Left atrial chamber dimension is moderately enlarged. 6. There is no aortic valve stenosis. 7. There is trace mitral valve regurgitation. 8. There is trace tricuspid valve regurgitation. 9. Mild pulmonary hypertension, estimated pulmonary arterial systolic pressure is 36 mmHg. Left Ventricle Left ventricular chamber dimension is normal. Left ventricular systolic function is normal, estimated at 65-70%. There is mildly increased left ventricular wall thickness. The left ventricular diastolic function is grade I diastolic dysfunction. Technically difficult study with limited views. Regional wall motion assessment limited due to poor endomyocardial border definition. With definity contrast enhancement no clear wall motion abnormalities identified. Right Ventricle Right ventricular chamber dimension is normal. Right ventricular systolic function is normal. Left Atria Left atrial chamber dimension is moderately enlarged. Right Atria Right atrial chamber dimension is mildly enlarged. Aortic Valve The aortic valve is probable trileaflet. There is no aortic valve stenosis. There is no aortic valve regurgitation. Pulmonic Valve The pulmonic valve is not well visualized. There is trace pulmonic regurgitation. Mitral Valve The mitral valve has normal leaflets. There is trace mitral valve regurgitation. Tricuspid Valve The tricuspid valve leaflets are not well visualized. There is trace tricuspid valve regurgitation. Mild pulmonary hypertension, estimated pulmonary arterial systolic pressure is 36 mmHg. Pericardium/Pleural The pericardium appears not well visualized. Aorta The aortic root size at the sinus of Valsalva is normal. Left Ventricular Outflow Tract Name Value Normal LVOT 2D LVOT Diameter 1.98 cm
[2021-05-26] MEDS: LEVOTHYROXINE SODIUM 125 MCG TABLET PO (05:54)
[2021-05-26] MEDS: ACETAMINOPHEN 325 MG TABLET 650 MG PO ×2 (05:56→11:27)
[2021-05-26] MEDS: LOSARTAN POTASSIUM 50 MG TABLET PO (08:44)
[2021-05-26] MEDS: buPROPion HCL XL (24 HR) 150 MG TABCR PO (08:44)
[2021-05-26] MEDS: CITALOPRAM HYDROBROMIDE 20 MG TABLET PO (08:44)
[2021-05-26] MEDS: ASPIRIN 325 MG ENTERIC TABLET PO (08:44)
[2021-05-26] MEDS: hydrALAZINE HCL 25 MG TABLET PO ×2 (08:44→16:41)
[2021-05-26] MEDS: ATORVASTATIN 10 MG TABLET PO (08:44)
[2021-05-26] MEDS: PANTOPRAZOLE 40 MG TABLET PO ×2 (08:44→20:11)
[2021-05-26 12:04] LABS: Basophils Absolute Auto 0.1 K/mm3 (0.0-0.1); Basophils Percent Auto 0.6 % (0.2-1.2); Eosinophils Absolute Auto 0.1 K/mm3 (0-0.3); Eosinophils Percent Auto 1.6 % (0-4.4); Hematocrit 41.6 % (37.0-47.0); Hemoglobin 13.8 g/dL (12.0-15.0); Immature Granulocyte Absolute 0.02 K/mm3 (0.00-0.031); Immature Granulocyte Percent A 0.2 % (0-0.5); Lymphocytes Absolute Auto 1.96 K/mm3 (0.9-3.2); Lymphocytes Percent Auto 22.7 % (18.3-44.2); Mean Corpuscular HGB Conc 33.2 g/dl (32-36); Mean Corpuscular Hemoglobin 30.3 pg (26-34); Mean Corpuscular Volume 91.4 fl (80-100); Monocytes Absolute Auto 0.8 K/mm3 (0.1-0.6); Monocytes Percent Auto 8.9 % (2.6-8.5); Neutrophils Absolute Auto 5.7 K/mm3 (1.3-6.7); Platelet Count Result 253 k/mm3 (150-375); Red Blood Count 4.55 M/mm3 (4.2-5.4); Red Cell Distribution Width 12.9 % (11.5-14.5); White Blood Count 8.6 K/mm3 (4.5-10.0)
[2021-05-26 12:24] LABS: Alanine Aminotransferase 22 U/L (4-35); Alkaline Phosphatase 62 U/L (38-126); Anion Gap 7 mmol/L (8-16); Aspartate Amino Transferase 25 U/L (14-36); Bilirubin,Total 0.6 mg/dL (0.2-1.3); Blood Urea Nitrogen 13 mg/dL (7-17); Calcium 9.2 mg/dL (8.4-10.2); Carbon Dioxide 26 mmol/L (22-30); Chloride 105 mmol/L (98-107); Estimated CRCL calculation 84 ml/min; Estimated Glomerular Filt Rate > 60; Glucose 81 mg/dL (65-110); Potassium 4.1 mmol/L (3.4-5.0); Sodium 138 mmol/L (137-145)
[2021-05-26] MEDS: LORazepam (*CRX) 0.5 MG TABLET PO (14:29)
--- NOTE | 2021-05-26 14:46 | P.PNIM_ITS ---
Progress Note: A&P Assessment and Plan (1) Brain TIA: Code(s): G45.9 - Transient cerebral ischemic attack, unspecified Status: Acute Assessment and Plan: Presented with right arm weakness that resolved. * Appreciate neurology consultation * Head CT showed no acute finding * CTA of the head and neck with no acute findings and no stenosis of the internal carotid arteries * Carotid Doppler also with <50% stenosis of the bilateral internal carotid arteries * MRI is pending. (MRI machine being replaced thus has been delayed) * Will also check echocardiogram * Continue atorvastatin. Will check lipid panel to determine if statin needs to be intensified. * Adequate BP control * Will check A1c * Appreciate PT/OT eval (2) UTI (urinary tract infection): Code(s): N39.0 - Urinary tract infection, site not specified Status: Acute Assessment and Plan: Ruled out. UA abnormal on presentation, however the patient was asymptomatic * Started on Rocephin on admission * Urine culture with no growth, therefore will discontinue IV antibiotics at this time. Blood cultures negative to date. (3) Hypothyroidism: Code(s): E03.9 - Hypothyroidism, unspecified Status: Chronic Assessment and Plan: TSH elevated at 8.5 * She had just started taking her medication 1 week ago * Continue her levothyroxine at the present dose and recheck in 4-6 weeks (4) Hypertension: Code(s): I10 - Essential (primary) hypertension Status: Chronic Assessment and Plan: Blood pressure reviewed and has been generally well controlled. Last BP 116/52 * Permissive hypertension allowed for the 1st 24 hours following symptom onset * Continue losartan and hydralazine * HCTZ was held as her creatinine was slightly elevated. Will discontinue as BP is controlled off this medication (5) Hyperlipidemia: Code(s): E78.5 - Hyperlipidemia, unspecified Status: Chronic Assessment and Plan: LFTs are within normal limit * Continue atorvastatin * As above, will evaluate lipid panel (6) Anxiety: Code(s): F41.9 - Anxiety disorder, unspecified Status: Chronic Assessment and Plan: She believes her anxiety has contributed to her symptoms * Continue citalopram and bupropion * Discussed with patient seeking a counselor or therapist, she declined (7) Acute hypokalemia: Code(s): E87.6 - Hypokalemia Status: Acute Assessment and Plan: Resolved. Potassium is 4.1 today * Continue to monitor BMP Subjective Date/time seen: 05/26/21 14:46 Interval history: Date of service: 05/26/2021 Kyung Roe is a 65 year old female with a history of hypertension, hyperlipidemia, hypothyroidism, and anxiety who is seen in follow-up for TIA. The patient was at home when she developed brief flaccidity in the right arm that has since resolved entirely. At this time, she is asymptomatic. She denies numbness or tingling in her extremities. She denies weakness. Denies visual changes, speech changes. No dysphagia. She admits to having anxiety and wonders if her symptoms are related to ?nerves.? She lives alone and often bec omes anxious regarding this after her . She also has vertigo and states that she is ?afraid of falling? so she holds onto things when she walks and tries to be extra cautious. She also endorses restless legs but states this has not been an issue today. She denies any dizziness or lightheadedness presently. No nausea, vomiting, fever, c
--- NOTE | 2021-05-26 14:46 | PM.IMPN ---
Progress Note: A&P Assessment and Plan (1) Brain TIA: Code(s): G45.9 - Transient cerebral ischemic attack, unspecified Status: Acute Assessment and Plan: Presented with right arm weakness that resolved. Appreciate neurology consultation Head CT showed no acute finding CTA of the head and neck with no acute findings and no stenosis of the internal carotid arteries Carotid Doppler also with <50% stenosis of the bilateral internal carotid arteries MRI is pending. (MRI machine being replaced thus has been delayed) Will also check echocardiogram Continue atorvastatin. Will check lipid panel to determine if statin needs to be intensified. Adequate BP control Will check A1c Appreciate PT/OT eval (2) UTI (urinary tract infection): Code(s): N39.0 - Urinary tract infection, site not specified Status: Acute Assessment and Plan: Ruled out. UA abnormal on presentation, however the patient was asymptomatic Started on Rocephin on admission Urine culture with no growth, therefore will discontinue IV antibiotics at this time. Blood cultures negative to date. (3) Hypothyroidism: Code(s): E03.9 - Hypothyroidism, unspecified Status: Chronic Assessment and Plan: TSH elevated at 8.5 She had just started taking her medication 1 week ago Continue her levothyroxine at the present dose and recheck in 4-6 weeks (4) Hypertension: Code(s): I10 - Essential (primary) hypertension Status: Chronic Assessment and Plan: Blood pressure reviewed and has been generally well controlled. Last BP 116/52 Permissive hypertension allowed for the 1st 24 hours following symptom onset Continue losartan and hydralazine HCTZ was held as her creatinine was slightly elevated. Will discontinue as BP is controlled off this medication (5) Hyperlipidemia: Code(s): E78.5 - Hyperlipidemia, unspecified Status: Chronic Assessment and Plan: LFTs are within normal limit Continue atorvastatin As above, will evaluate lipid panel (6) Anxiety: Code(s): F41.9 - Anxiety disorder, unspecified Status: Chronic Assessment and Plan: She believes her anxiety has contributed to her symptoms Continue citalopram and bupropion Discussed with patient seeking a counselor or therapist, she declined (7) Acute hypokalemia: Code(s): E87.6 - Hypokalemia Status: Acute Assessment and Plan: Resolved. Potassium is 4.1 today Continue to monitor BMP Subjective Date/time seen: 05/26/21 14:46 Interval history: Date of service: 05/26/2021 Kyung Roe is a 65 year old female with a history of hypertension, hyperlipidemia, hypothyroidism, and anxiety who is seen in follow-up for TIA. The patient was at home when she developed brief flaccidity in the right arm that has since resolved entirely. At this time, she is asymptomatic. She denies numbness or tingling in her extremities. She denies weakness. Denies visual changes, speech changes. No dysphagia. She admits to having anxiety and wonders if her symptoms are related to ?nerves.? She lives alone and often becomes anxious regarding this after her . She also has vertigo and states that she is ?afraid of falling? so she holds onto things when she walks and tries to be extra cautious. She also endorses restless legs but states this has not been an issue today. She denies any dizziness or lightheadedness presently. No nausea, vomiting, fever, chills. Appetite is fair. Review of Systems Review of Systems: All systems reviewed & are unremarkable except as noted in HPI and below Exam Narrative: General: Obese, well-appearing 65 year-old female, sitting up in bed, comfortable, NARD Neuro: awake, alert and oriented x4, speech clear, CN II-XII intact, strength 5/5 throughout, sensation intact, no pronator drift, bilateral prosthetics lab technician strength equal HEENMT:
[2021-05-26] MEDS: PERFLUTREN LIPID MICROSPHERES 1.5 ML VIAL DILUTED TO 10 ML TOTAL VOLUME IV PUSH (16:30)
--- NOTE | 2021-05-26 16:31 | IVDEFINITY ---
Prior to administration of IV Definity the patient was educated on the risks and benefits of the imaging enhancing agent including potential adverse side effects. The patient verbalized understanding. Allergies were verified. No exclusion criteria were identified and at least one of the following inclusion criteria were met: 1) physician request, 2) patient technically difficult to image (per the [place] [employer]chocardi[employer] guidelines of two or more segments not discernable within the apical view), or 3) questionable left ventricular function. ?
[2021-05-27] VITALS: PULSE 60
[2021-05-27 01:31] VITALS: O2SAT 96
[2021-05-27 04:00] VITALS: PULSE 71
[2021-05-27 05:24] VITALS: BP 115/55; PULSE 58; RESP 16; TEMP 36.8; O2SAT 98
[2021-05-27] MEDS: LEVOTHYROXINE SODIUM 125 MCG TABLET PO (05:47)
[2021-05-27 05:52] LABS: Hematocrit 41.1 % (37.0-47.0); Hemoglobin 13.4 g/dL (12.0-15.0); Mean Corpuscular HGB Conc 32.6 g/dl (32-36); Mean Corpuscular Hemoglobin 30.5 pg (26-34); Mean Corpuscular Volume 93.4 fl (80-100); Mean Platelet Volume 9.9 fl (7.4-10.4); Platelet Count Result 220 k/mm3 (150-375); Red Cell Distribution Width 12.6 % (11.5-14.5)
[2021-05-27 06:14] LABS: LDL Cholesterol Direct 85 mg/dL
[2021-05-27 07:03] LABS: Anion Gap 9 mmol/L (8-16); Blood Urea Nitrogen 11 mg/dL (7-17); Calcium 8.9 mg/dL (8.4-10.2); Carbon Dioxide 29 mmol/L (22-30); Chloride 103 mmol/L (98-107); Cholesterol 148 mg/dL (0-200); Estimated CRCL calculation 74 ml/min; Estimated Glomerular Filt Rate > 60; Glucose 106 mg/dL (65-110); HDL Direct 33 mg/dL; Potassium 3.7 mmol/L (3.4-5.0); Sodium 141 mmol/L (137-145); Triglycerides 159 mg/dL (<150)
[2021-05-27 08:03] VITALS: PULSE 65
[2021-05-27 08:07] LABS: Hemoglobin A1C 5.3 % (<5.7)
[2021-05-27] MEDS: PANTOPRAZOLE 40 MG TABLET PO (08:17)
[2021-05-27] MEDS: buPROPion HCL XL (24 HR) 150 MG TABCR PO (08:17)
[2021-05-27] MEDS: ATORVASTATIN 10 MG TABLET PO (08:17)
[2021-05-27] MEDS: CITALOPRAM HYDROBROMIDE 20 MG TABLET PO (08:17)
[2021-05-27] MEDS: ASPIRIN 325 MG ENTERIC TABLET PO (08:17)
[2021-05-27] MEDS: LOSARTAN POTASSIUM 50 MG TABLET PO (08:17)
[2021-05-27] MEDS: hydrALAZINE HCL 25 MG TABLET PO (08:17)
[2021-05-27 08:51] LABS: Alanine Aminotransferase 21 U/L (4-35); Albumin Level 3.9 g/dL (3.5-5.1); Alkaline Phosphatase 64 U/L (38-126); Anion Gap 8 mmol/L (8-16); Aspartate Amino Transferase 24 U/L (14-36); Bilirubin,Total 0.5 mg/dL (0.2-1.3); Blood Urea Nitrogen 12 mg/dL (7-17); Carbon Dioxide 29 mmol/L (22-30); Chloride 103 mmol/L (98-107); Estimated CRCL calculation 74 ml/min; Estimated Glomerular Filt Rate > 60; Glucose 102 mg/dL (65-110); Potassium 3.9 mmol/L (3.4-5.0); Sodium 140 mmol/L (137-145)
[2021-05-27 08:52] LABS: Basophils Percent Auto 0.5 % (0.2-1.2); Eosinophils Absolute Auto 0.3 K/mm3 (0-0.3); Eosinophils Percent Auto 2.8 % (0-4.4); Immature Granulocyte Absolute 0.03 K/mm3 (0.00-0.031); Immature Granulocyte Percent A 0.3 % (0-0.5); Lymphocytes Absolute Auto 2.56 K/mm3 (0.9-3.2); Lymphocytes Percent Auto 29.1 % (18.3-44.2); Monocytes Absolute Auto 0.7 K/mm3 (0.1-0.6); Monocytes Percent Auto 8.3 % (2.6-8.5); Neutrophils Absolute Auto 5.2 K/mm3 (1.3-6.7)
--- NOTE | 2021-05-27 12:22 | WPDNEUROPN ---
Progress Note: A&P Additional Plan continue aspirin Time Spent With Patient Time with patient: 15 - 25 minutes Subjective Date/time seen: 05/27/21 12:22 65 years old right-handed female admitted to the ER for the complaints of right upper extremity weakness and with the diagnosis of TIA in addition to the history of 1. Hypertension 2. Hyperlipidemia 3. Never smoker or substance abuse and 5. Negative CTA of the brain and carotid 5. Nonspecific scattered foci of white matter hyperintensities but within the normal limits on MRI compatible with small vessel disease 6. Normal Doppler study of the carotid and 7. Only abnormal UA otherwise lab norm Review of Systems Eyes: Eyes: Reports as per HPI Exam Const: General: cooperative and comfortable Nutritional Appearance: obese Orientation/consciousness: oriented to person, oriented to place and oriented to time Limitations: no limitations HENMT: Head: normocephalic Ears: hearing grossly normal bilaterally General nose exam: Normal external nose present Face and sinus: normal facial exam Eyes: General: appearance normal, both eyes and all related structures Visual Griffiths: normal visual griffiths by confrontation Alignment and Position: alignment normal Periorbital: periorbital findings normal Eyelids: eyelids normal Conjunctivae: conjunctivae normal Sclera: sclerae normal Cornea: corneas normal Pupils: Equal, round and reactive pupils present EOM: EOMs intact bilaterally Neck: Neck: full ROM Resp: Effort & Inspection: able to speak in complete sentences Auscultation: clear to auscultation bilaterally Neuro: General: oriented to person, oriented to place and oriented to time Cranial nerves: Yes CN's II-XII intact bilaterally Cognition (Neuro): normal cognition Speech: normal speech Motor exam (neuro): Pronator motor function not present, No tremor noted, Normal motor muscle tone present throughout and Motor abnormalities not present Sensory Exam: normal sensation Deep tendon reflexes (DTR's): Right triceps reflex intensity grade: 1+, Left triceps reflex intensity grade: 1+, Rt Biceps (C5, C6): 1+, Left biceps reflex intensity grade: 1+, Right brachioradialis reflex intensity grade: 1+, Left brachioradialis reflex intensity grade: 1+, Right patellar reflex intensity grade: 1+, Left patellar reflex intensity grade: 1+, Right ankle reflex intensity grade: 1+ and Left ankle reflex intensity grade: 1+ Plantar Reflex Responses: downgoing: bilateral Psych: Appearance: grossly normal Objective Data Vital Signs Vital Signs: Vital Signs - 24 hr 05/26/21 14:00 05/26/21 16:39 05/26/21 16:43 Temperature 36.4 C Pulse Rate 68 82 Respiratory Rate 16 Blood Pressure 116/52 L 141/54 H Pulse Oximetry 96 05/26/21 19:41 05/26/21 20:00 05/27/21 00:00 Temperature 36.6 C Pulse Rate 68 63 60 Respiratory Rate 16 16 Blood Pressure 129/52 L Pulse Oximetry 97 97 05/27/21 01:31 05/27/21 04:00 05/27/21 05:24 Temperature 36.8 C Pulse Rate 71 58 L Respiratory Rate 16 Blood Pressure 115/55 L Pulse Oximetry 96 98 05/27/21 08:03 Temperature Pulse Rate 65 Respiratory Rate Blood Pressure Pulse Oximetry Intake/Output Intake/Output: Intake & Output 05/24/21 05/25/21 05/26/21 05/27/21 23:59 23:59 23:59 23:59 Intake Total 780 2870 2394 930 Output Total 500 3000 2100 1100 Balance 280 -130 294 -170 Meds/Results Medications: Active Medications Generic Name Dose Route Start Last Admin Trade Name Freq PRN Reason Stop Dose Admin Acetaminophen 650 mg 05/24/21 23:59 05/26/21 11:27 Acetaminophen 325 Mg Tablet PO 650 mg Q4H PRN Administration Headache Aspirin 325 mg 05/25/21 09:00 05/27/21 08:17 Aspirin 325 Mg Enteric Tablet PO 325 mg QAM JUAQUIN Administration Atorvastatin Calcium 10 mg 05/25/21 09:00 05/27/21 08:17 Atorvastatin 10 Mg Tablet PO 10 mg DAILY JUAQUIN Administration Bupropion HCl 150 mg 05/25/21 09
--- NOTE | 2021-05-27 13:08 | P.DS_ITS ---
DS: Admitting Diagnosis Discharge Date 05/27/2021 Admitting Diagnosis Weakness DS: Discharge Diagnosis Discharge Diagnosis (1) Brain TIA: Code(s): G45.9 - Transient cerebral ischemic attack, unspecified Status: Acute Assessment and Plan: Presented with right arm weakness that promptly resolved. * She was seen in consultation by Neurology * Head CT showed no acute finding * CTA of the head and neck with no acute findings and no stenosis of the internal carotid arteries * Carotid Doppler also with <50% stenosis of the bilateral internal carotid arteries * Brain MRI showed findings consistent with chronic small-vessel ischemic disease, no acute intracranial findings * Echo with normal EF, grade 1 diastolic dysfunction, trace MR, no significant valvular disease * Findings felt to be consistent with TIA. ABCD2 score=4 * Participated in PT/OT with no ongoing therapy needs * Continue atorvastatin * Aspirin 81 mg daily * She can follow-up urology as an outpatient (2) UTI (urinary tract infection): Code(s): N39.0 - Urinary tract infection, site not specified Status: Acute Assessment and Plan: Ruled out. UA abnormal on presentation, however the patient was asymptomatic * Started on Rocephin on admission * Urine culture with no growth, therefore IV antibiotics discontinued * Blood cultures negative. (3) Hypothyroidism: Code(s): E03.9 - Hypothyroidism, unspecified Status: Chronic Assessment and Plan: TSH elevated at 8.5 * She had just started taking her medication 1 week ago * Continue her levothyroxine at the present dose and recheck in 4-6 weeks (4) Hypertension: Code(s): I10 - Essential (primary) hypertension Status: Chronic Assessment and Plan: Blood pressure reviewed and at first was elevated, overall improved and remained stable. * Permissive hypertension allowed for the first 24 hours following symptom onset * Losartan and hydralazine resumed. BP was stable. * HCTZ was held as her creatinine was slightly elevated. Ultimately discontinued as BP was controlled off this medication. (5) Hyperlipidemia: Code(s): E78.5 - Hyperlipidemia, unspecified Status: Chronic Assessment and Plan: LFTs are within normal limit * Continue atorvastatin (6) Anxiety: Code(s): F41.9 - Anxiety disorder, unspecified Status: Chronic Assessment and Plan: She believes her anxiety has contributed to her symptoms * Continue citalopram and bupropion * Discussed with patient seeking a counselor or therapist, she declined (7) Acute hypokalemia: Code(s): E87.6 - Hypokalemia Status: Acute Assessment and Plan: Mild hypokalemia resolved. * Potassium 3.7 at time of discharge. DS: Summary Hospital Course Hospital Course: Date of admission: 05/24/2021 Date of discharge: 05/27/2021 Kyung Roe is a 65-year-old female with history of hypertension, hyperlipidemia, hypothyroidism, anxiety who presented to the emergency department on 05/24/2021 with complaints of right arm weakness that lasted for approximately 5 minutes. She was admitted to the hospitalist service for further evaluation and management was seen in consultation by Neurology. Symptoms felt to be consistent with TIA. S patient complete resolution of symptoms and was feeling back to her usual state of health. She had no ongoing therapy requirements and felt comfortable to return home. She lives alone but her son is nearby to
--- NOTE | 2021-05-27 13:08 | PM.DS ---
DS: Admitting Diagnosis Discharge Date 05/27/2021 Admitting Diagnosis Weakness DS: Discharge Diagnosis Discharge Diagnosis (1) Brain TIA: Code(s): G45.9 - Transient cerebral ischemic attack, unspecified Status: Acute Assessment and Plan: Presented with right arm weakness that promptly resolved. She was seen in consultation by Neurology Head CT showed no acute finding CTA of the head and neck with no acute findings and no stenosis of the internal carotid arteries Carotid Doppler also with <50% stenosis of the bilateral internal carotid arteries Brain MRI showed findings consistent with chronic small-vessel ischemic disease, no acute intracranial findings Echo with normal EF, grade 1 diastolic dysfunction, trace MR, no significant valvular disease Findings felt to be consistent with TIA. ABCD2 score=4 Participated in PT/OT with no ongoing therapy needs Continue atorvastatin Aspirin 81 mg daily She can follow-up urology as an outpatient (2) UTI (urinary tract infection): Code(s): N39.0 - Urinary tract infection, site not specified Status: Acute Assessment and Plan: Ruled out. UA abnormal on presentation, however the patient was asymptomatic Started on Rocephin on admission Urine culture with no growth, therefore IV antibiotics discontinued Blood cultures negative. (3) Hypothyroidism: Code(s): E03.9 - Hypothyroidism, unspecified Status: Chronic Assessment and Plan: TSH elevated at 8.5 She had just started taking her medication 1 week ago Continue her levothyroxine at the present dose and recheck in 4-6 weeks (4) Hypertension: Code(s): I10 - Essential (primary) hypertension Status: Chronic Assessment and Plan: Blood pressure reviewed and at first was elevated, overall improved and remained stable. Permissive hypertension allowed for the first 24 hours following symptom onset Losartan and hydralazine resumed. BP was stable. HCTZ was held as her creatinine was slightly elevated. Ultimately discontinued as BP was controlled off this medication. (5) Hyperlipidemia: Code(s): E78.5 - Hyperlipidemia, unspecified Status: Chronic Assessment and Plan: LFTs are within normal limit Continue atorvastatin (6) Anxiety: Code(s): F41.9 - Anxiety disorder, unspecified Status: Chronic Assessment and Plan: She believes her anxiety has contributed to her symptoms Continue citalopram and bupropion Discussed with patient seeking a counselor or therapist, she declined (7) Acute hypokalemia: Code(s): E87.6 - Hypokalemia Status: Acute Assessment and Plan: Mild hypokalemia resolved. Potassium 3.7 at time of discharge. DS: Summary Hospital Course Hospital Course: Date of admission: 05/24/2021 Date of discharge: 05/27/2021 Kyung Roe is a 65-year-old female with history of hypertension, hyperlipidemia, hypothyroidism, anxiety who presented to the emergency department on 05/24/2021 with complaints of right arm weakness that lasted for approximately 5 minutes. She was admitted to the hospitalist service for further evaluation and management was seen in consultation by Neurology. Symptoms felt to be consistent with TIA. S patient complete resolution of symptoms and was feeling back to her usual state of health. She had no ongoing therapy requirements and felt comfortable to return home. She lives alone but her son is nearby to assist as needed. Given the patient's overall improvement, she was determined to no longer require inpatient care and was felt to be stable for discharge. Discussed worrisome signs and symptoms for which to return and she was educated on her medications. She was discharged in hemodynamically stable condition on 05/27/2021. Status at Discharge Functional status at discharge: independent ambulation Overall status at discharge: patient is ba
[2021-05-27 13:48] VITALS: BP 108/49; PULSE 70; RESP 20; TEMP 36.3; O2SAT 97
== END 2021-05-27 15:28 | disposition home or self-care (01) ==
LOC: ANHED 10:11 → ANH2MED 10:14
PROVIDERS: Nurse Practitioner; Admitting Provider Internal Medicine; Emergency Provider Emergency Medicine; PCP Internal Medicine; Visit Provider Physician Assistant
DX: G45.9 Transient cerebral ischemic attack, unspecified (principal); G81.91 Hemiplegia, unspecified affecting right dominant side; R82.90 Unspecified abnormal findings in urine; E03.9 Hypothyroidism, unspecified; I10 Essential (primary) hypertension; E78.5 Hyperlipidemia, unspecified; E87.6 Hypokalemia; E66.9 Obesity, unspecified; F41.9 Anxiety disorder, unspecified; K21.9 Gastro-esophageal reflux disease without esophagitis; Z68.42 Body mass index [BMI] 45.0-49.9, adult
CPT/HCPCS: 36415; 70450; 70496; 70498; 70553; 71045; 80048; 80053; 80061; 81001; 82728; 83036; 83605; 83690; 83735; 84443; 84484; 85025; 85027; 85380; 85610; 85730; 87040; 87086; 93005; 93880; 96365; 96375; 97161; 97165; 99285; A9270; A9577; C8929; G0378; G0379; J0696; J7030; Q9957; Q9967

== ENCOUNTER 2021-07-29 10:16 | Outpatient (CLI) | payer OTHER, SELFPAY ==
--- NOTE | ~2021-07-29 | MM_ITS ---
EXAMINATION: MM screening aditya BI w anthony HISTORY: Screening mammogram TECHNIQUE: Craniocaudal and mediolateral oblique 3-D tomosynthesis images were obtained and synthetic 2-D images were generated. CAD analysis was submitted and interpreted. COMPARISON: No prior mammogram is available for comparison at this institution. BREAST PARENCHYMAL COMPOSITION: The breasts are almost entirely fatty. FINDINGS: There is no evidence of suspicious mass, calcification, or architectural distortion to sugg est malignancy in either breast. There has been no suspicious interval change. IMPRESSION: 1. No mammographic evidence of malignancy. 2. Recommend routine screening mammography in one year. BI-RADS Category 1: Negative Reviewed, dictated and finalized at location A.
== END 2021-07-29 10:17 | disposition home or self-care (01) ==
PROVIDERS: PCP Internal Medicine; Visit Provider Internal Medicine
DX: Z12.31 Encounter for screening mammogram for malignant neoplasm of breast (principal)
CPT/HCPCS: 77063; 77067

== ENCOUNTER 2021-10-06 02:42 | Day surgery (SDC) | payer OTHER, SELFPAY ==
[2021-09-17 14:16] VITALS: BMI 41.1
[2021-10-06 11:33] VITALS: BP 144/78; PULSE 100; RESP 18; TEMP 36.3; O2SAT 96
[2021-10-06] MEDS: LACTATED RINGERS 1,000 ML 150 ML IV CONT (11:46)
--- NOTE | 2021-10-06 12:38 | WPDANESEPPF ---
Anes - Initial Pre Proc Eval Procedure: Operation Date: 10/06/21 13:00 Proposed Procedures p Screening Colonoscopy - Tod Hoskins MD Date/Time: 10/06/21 12:38 Surgeon: Tod Hoskins MD Pre Op Diagnosis: neoplasm screening Patient Data Age: 66 Gender: F Height: 1.57 m Weight: 99.4 kg Last Vital Signs Temp 97.3 F L 10/06/21 11:33 Pulse 100 10/06/21 11:33 Resp 18 10/06/21 11:33 BP 144/78 H 10/06/21 11:33 Pulse Ox 96 10/06/21 11:33 O2 Del Method Room Air 10/06/21 11:33 Allergies Allergy/AdvReac Type Severity Reaction Status Date / Time naltrexone Allergy Intermediate Unknown Verified 10/06/21 11:30 hydromorphone [From Dilaudid] AdvReac Nausea and Verified 10/06/21 11:30 Vomiting Home Medications Medication Instructions Recorded Confirmed Type bupropion HCl 150 mg 24 hr tablet, 150 mg PO BID 04/18/20 09/17/21 History extended release hydralazine 25 mg tablet 25 mg PO BID 04/18/20 09/17/21 History levothyroxine 125 mcg capsule 125 mcg PO DAILY 04/18/20 09/17/21 History losartan 50 mg tablet 50 mg PO DAILY 04/18/20 09/17/21 History omeprazole 40 mg capsule,delayed 40 mg PO BID 04/18/20 09/17/21 History release citalopram 20 mg tablet 20 mg PO DAILY 05/24/21 09/17/21 History aspirin 81 mg capsule 81 mg PO DAILY #30 caps 05/27/21 09/17/21 Rx atorvastatin 20 mg tablet 20 mg PO DAILY #90 tabs 08/13/21 09/17/21 Rx Patient hx anesthesia problems: none Family hx anesthesia problems: none Results Review: All pre-operative results and documents have been reviewed as part of the pre-operative evaluation. [facility] Past Medical History Medical History Anxiety Chronic GERD Hyperlipidemia Hypertension Hypothyroidism Surgical History Surgical History H/O section Hx of cholecystectomy Family History Family History Sibling Diabetes mellitus Father Congestive heart failure Social History Social History Social History: the patient is a lifelong nonsmoker. She has 2 children. She is . She is unemployed. She does not use any alcohol marijuana or illicit drugs. She does not have a durable power assistant district attorney for healthcare. Code status full code Smoking status: Never smoker Second hand tobacco smoke exposure: No Alcohol intake: never Substance use: never Substance use type: does not use Living arrangements: alone Gender identity (if verbalized by the patient): Female Spiritual care concerns: No Anes - Eval Final PreProcedure Day of Procedure 10/06/21 12:38 Patient weight: morbidly obese Heart: regular rate and rhythm Lungs: clear to auscultation Airway: Mallampati scale class II Neurological: alert and oriented Last oral intake: >/= 8 hours ASA classification: III Emergent: no Anesthetic plan: proceed Anesthesia type and monitoring: general GIVS and standard monitoring Results Review: All pre-operative results and documents have been reviewed as part of the pre-operative evaluation. Informed Consent: The patient's anesthetic plan and its attendant risks and benefits were discussed with the patient/family/POA. Questions were solicited and answers provided to the satisfaction of the patient/family/POA.
--- NOTE | 2021-10-06 12:52 | PM.HPGS ---
History of Present Illness History of Present Illness Consent: Risks, benefits, and alternatives have been discussed and questions answered. Patient agrees to proceed with procedure. Chief complaint: neoplasm screening Narrative: Kyung Roe is a 66 year old female here for first screening colonoscopy Review of Systems Constitutional: Constitutional: Denies headache(s) and Denies weakness Eyes: Eyes: Denies blurry vision ENT: Reports Normal hearing present, Denies headache(s) and Denies neck pain Cardiovascular: Cardiovascular: Denies chest pain and Denies dyspnea Respiratory: Respiratory: Denies dyspnea Gastrointestinal: Gastrointestinal: Reports no additional gastrointestinal complaints Genitourinary: Genitourinary: Denies dysuria Musculoskeletal: Musculoskeletal: Denies neck pain Integumentary/Breasts: Skin/Breast: Denies dry skin Neurologic: Reports Normal hearing present, Denies headache(s) and Denies weakness Psychiatric: Psychiatric: Denies anxiety Endocrine: Endocrine: Denies change in body appearance Hematologic/Lymphatic: Hematologic/Lymphatic: Denies easy bleeding Allergic/Immunologic: Allergic/Immunologic: Denies urticaria PMFSH Past Medical History Medical History (Updated 10/06/21 @ 12:53 by Tod Hoskins MD) Anxiety Chronic GERD Colon cancer screening Hyperlipidemia Hypertension Hypothyroidism Surgical History Surgical History H/O section Hx of cholecystectomy Family History Family History Sibling Diabetes mellitus Father Congestive heart failure Social History Social History Social History: the patient is a lifelong nonsmoker. She has 2 children. She is . She is unemployed. She does not use any alcohol marijuana or illicit drugs. She does not have a durable power real estate attorney for healthcare. Code status full code Smoking status: Never smoker Second hand tobacco smoke exposure: No Alcohol intake: never Substance use: never Substance use type: does not use Living arrangements: alone Gender identity (if verbalized by the patient): Female Spiritual care concerns: No Meds Home Medications and Allergies Home Medications Medication Instructions Recorded Confirmed Type bupropion HCl 150 mg 24 hr tablet, 150 mg PO BID 04/18/20 09/17/21 History extended release hydralazine 25 mg tablet 25 mg PO BID 04/18/20 09/17/21 History levothyroxine 125 mcg capsule 125 mcg PO DAILY 04/18/20 09/17/21 History losartan 50 mg tablet 50 mg PO DAILY 04/18/20 09/17/21 History omeprazole 40 mg capsule,delayed 40 mg PO BID 04/18/20 09/17/21 History release citalopram 20 mg tablet 20 mg PO DAILY 05/24/21 09/17/21 History aspirin 81 mg capsule 81 mg PO DAILY #30 caps 05/27/21 09/17/21 Rx atorvastatin 20 mg tablet 20 mg PO DAILY #90 tabs 08/13/21 09/17/21 Rx Allergies Allergy/AdvReac Type Severity Reaction Status Date / Time naltrexone Allergy Intermediate Unknown Verified 10/06/21 11:30 hydromorphone [From Dilaudid] AdvReac Nausea and Verified 10/06/21 11:30 Vomiting Vital Signs Vital Signs - 24 hr 10/06/21 11:33 Temperature 97.3 F L Pulse Rate 100 Respiratory Rate 18 Blood Pressure 144/78 H Pulse Oximetry 96 Oxygen Delivery Room Air Exam Const: General: comfortable and no acute distress HENMT: General nose exam: Normal nares present Eyes: General: appearance normal, both eyes and all related structures Neck: Neck: no JVD Resp: Auscultation: clear to auscultation bilaterally Cardio: Rate: regular rate Rhythm: regular rhythm GI: Inspection: non-distended GI Palp: Yes Soft to palpation Skin: General skin exam: normal color Neuro: General: gait normal Speech: normal speech Extrem: General: normal to inspection Psych: Mental Status: m
[2021-10-06 13:27] VITALS: BP 101/51; PULSE 79; RESP 18; O2SAT 98
[2021-10-06 13:37] VITALS: BP 112/54; PULSE 77; RESP 20; O2SAT 97
[2021-10-06 13:47] VITALS: BP 128/59; PULSE 80; RESP 20; O2SAT 100
== END 2021-10-06 13:56 | disposition home or self-care (01) ==
PROVIDERS: PCP Internal Medicine; Visit Provider Internal Medicine Gastroenterology
PROC: 0DJD8ZZ Inspection of Lower Intestinal Tract, Via Natural or Artificial Opening Endoscopic (ICD-10-PCS; CPT 45378; principal; 2021-10-06 13:00)
DX: Z12.11 Encounter for screening for malignant neoplasm of colon (principal); D12.3 Benign neoplasm of transverse colon; D12.0 Benign neoplasm of cecum; K57.30 Diverticulosis of large intestine without perforation or abscess without bleeding; K64.8 Other hemorrhoids; I10 Essential (primary) hypertension; E03.9 Hypothyroidism, unspecified; E78.5 Hyperlipidemia, unspecified; K21.9 Gastro-esophageal reflux disease without esophagitis; F41.9 Anxiety disorder, unspecified; Z79.82 Long term (current) use of aspirin; E66.01 Morbid (severe) obesity due to excess calories; Z68.41 Body mass index [BMI] 40.0-44.9, adult
CPT/HCPCS: 45385; 88305; J2704; J3010; J7120

== ENCOUNTER 2022-05-18 12:42 | Outpatient (CLI) | payer OTHER, SELFPAY ==
[2022-05-18 13:55] LABS: Basophils Percent Auto 0.5 % (0.2-1.2); Eosinophils Absolute Auto 0.1 K/mm3 (0-0.3); Eosinophils Percent Auto 2.3 % (0-4.4); Hemoglobin 12.7 g/dL (12.0-15.0); Immature Granulocyte Absolute 0.01 K/mm3 (0.00-0.031); Immature Granulocyte Percent A 0.2 % (0-0.5); Lymphocytes Absolute Auto 1.59 K/mm3 (0.9-3.2); Lymphocytes Percent Auto 28.4 % (18.3-44.2); Mean Corpuscular HGB Conc 31.8 g/dl (32-36); Mean Corpuscular Hemoglobin 30.2 pg (26-34); Mean Corpuscular Volume 95.2 fl (80-100); Mean Platelet Volume 9.6 fl (7.4-10.4); Monocytes Absolute Auto 0.4 K/mm3 (0.1-0.6); Monocytes Percent Auto 6.6 % (2.6-8.5); Neutrophils Absolute Auto 3.5 K/mm3 (1.3-6.7); Platelet Count Result 239 k/mm3 (150-375); Red Cell Distribution Width 12.5 % (11.5-14.5); White Blood Count 5.6 K/mm3 (4.5-10.0)
[2022-05-18 14:05] LABS: Alanine Aminotransferase 22 U/L (6-35); Albumin Level 3.8 g/dL (3.5-5.1); Alkaline Phosphatase 69 U/L (38-126); Anion Gap 5 mmol/L (8-16); Aspartate Amino Transferase 25 U/L (14-36); Bilirubin,Total 0.5 mg/dL (0.2-1.3); Blood Urea Nitrogen 9 mg/dL (7-17); Carbon Dioxide 32 mmol/L (22-30); Chloride 106 mmol/L (98-107); Estimated Glomerular Filt Rate > 60; Glucose 88 mg/dL (65-110); Potassium 4.3 mmol/L (3.4-5.0); Sodium 143 mmol/L (137-145)
[2022-05-18 14:21] LABS: T4 Thyroxine 9.51 ug/dL (5.53-11.0)
== END 2022-05-18 12:43 | disposition home or self-care (01) ==
LOC: ANHLAB 12:45
PROVIDERS: PCP Internal Medicine; Visit Provider Psychiatry & Neurology Neurology
DX: R25.1 Tremor, unspecified (principal)
CPT/HCPCS: 36415; 80053; 82607; 82746; 83036; 84436; 85025

== ENCOUNTER 2022-06-15 09:44 | Outpatient (CLI) | payer OTHER, SELFPAY | END 2022-06-15 09:45 | disposition home or self-care (01) | LOC: ANHAUDIO 09:46 | PROVIDERS: PCP Internal Medicine; Visit Provider Otolaryngology | DX: H93.19 Tinnitus, unspecified ear (principal); H90.3 Sensorineural hearing loss, bilateral | CPT/HCPCS: 92557; 92567 ==

== ENCOUNTER 2022-07-02 09:49 | Outpatient (CLI) | payer OTHER, SELFPAY ==
--- NOTE | 2022-07-02 11:15 | NEURO_ITS ---
Impression: # Complains of numbness of feet. # No evidence of Tarsal Tunnel Syndome. # Right Tibial proximal neuropathy, otherwise normal Nerve Conduction Study. # Normal needle/EMG exam. # Clinical correlation recommended. Motor Nerve Conduction Lower Extremities Peroneal Nerve Conduction Velocity (m/sec) Terminal Latency (msec) Response Voltage(mV) Popliteal space-Ankle Ankle Extensor Dig Brevis Popliteal space Ankle Right 40 4.0 2 4 Left 42 4.0 2 3 Tibial Nerve Conduction Velocity (m/sec) Terminal Latency (msec) Response Voltage(mV) Popliteal space-Ankle Ankle-Extensor Dig Brevis Popliteal space Ankle Right 33 4.4 2 3 Left 41 4.5 1 2 Right Lateral Plantar = 4.4ms Left Lateral Plantar = 4.6ms F-waves Peroneal Nerve (ms) Tibial Nerve (ms) Right 54.9 52.6 Left 54.2 54.6 Sensory Nerve Conduction Lower Extremities Sural Nerve Stimulation Terminal Latency (msec) Ankle Response Voltage (uV) Ankle Response Velocity (m/sec) Right 3.8 5 42 Left 3.8 8 42 Superficial Peroneal Nerve Stimulation Terminal Latency (msec) Ankle Response Voltage (uV) Ankle Response Velocity (m/sec) Right 4.0 8 40 Left 3.6 12 44 Left Right Muscles Examined Fibrillation Fasciculation Scarcity Voltage Duration Left Right Left Right Left Right Left Right Left Right X X Ant Tibialis X X Gastroc X X Fibularis Long X X Flex Dig Long X X Ext Dig Brev Abd Hallucis Quadriceps Paraspinals MTDD
== END 2022-07-02 09:50 | disposition home or self-care (01) ==
PROVIDERS: PCP Internal Medicine; Visit Provider Psychiatry & Neurology Neurology
DX: R56.9 Unspecified convulsions (principal)
CPT/HCPCS: 95886; 95911

== ENCOUNTER 2022-07-03 08:51 | Outpatient (CLI) | payer OTHER, SELFPAY ==
--- NOTE | ~2022-07-03 | DEXA_ITS ---
Bone Density Report Name: AKIRA PELAYO Age: 66 Sex: Female Ethnicity: White Date of : 1955 Indication: postmenopausal; screening for osteoporosis; Referring Provider: CELSO, LINUS Alvarez Study: Bone densitometry was performed. Exam Date: July 03, 2022 Accession number: [id number] Bone Density: Region BMD T-score Z-score Classification AP Spine(L1-L4) 1.325 2.5 4.3 Normal Femoral Neck (Left) 0.817 -0.3 1.2 Normal Total Hip (Left) 1.064 1.0 2.2 Normal Femoral Neck (Right) 0.700 -1.3 0.2 Osteopenia Total Hip (Right) 1.000 0.5 1.7 Normal Total Hip Mean 1.032 0.8 2.0 Normal World Health Organization criteria for BMD impression classify patients as: Normal (T-score at or above -1.0), Osteopenia (T-score between -1.0 and -2.5), or Osteoporosis (T-score at or below -2.5). 10-year Fracture Risk(1): Major Osteoporotic Fracture 7.7% Hip Fracture 0.7% Reported Risk Factors: [place] (), Neck BMD=0.700, BMI=37.2 (1) FRAX(R) Version 3.08. Fracture probability calculated for an untreated patient. Fracture probability may be lower if the patient has received treatment. Clinical Information Provided by Patient: Patient maximum height was 63 Menopause Age: 50 Onset of menses at age 15 Number of children 2 Impression: The patient has low bone mass, based on the Right Femoral Neck T-score. The patient has an estimated ten-year risk of hip fracture of 0.7% and an estimated ten-year risk of major fracture of 7.7%, based on the WHO FRAX algorithm. Discussion: BONE DENSITY IS LOW AT ONE OR MORE SKELETAL SITES. This patient's lowest T-score is low at one or more skeletal sites. It meets the World Health Organization's (WHO) criteria for ?low bone mass? (T-score between -1.0 and -2.5). The patient's 10-year risk of fracture as calculated by FRAX is less than the threshold where pharmacological therapy is recommended by the National Osteoporosis Foundation (NOF). However, all treatment decisions require clinical judgment and consideration of individual patient factors, including patient preferences, comorbidities, previous drug use, risk factors not captured in the FRAX model (e.g., frailty, falls, vitamin D deficiency, increased bone turnover, interval significant decline in bone density) and possible under or overestimation of fracture risk by FRAX. The patient should follow a healthful lifestyle (good nutrition with adequate calcium and vitamin D, and appropriate weight-bearing exercise). Follow-Up: Consider repeating this study in 2 to 3 years to reassess this patient's status, or sooner if there is some new clinical indication. Reported by: MARYLU on 07/03/2022 9:15:00 AM. Reviewed, dictated and finalized at location A. [place]
== END 2022-07-03 08:52 | disposition home or self-care (01) ==
PROVIDERS: PCP Internal Medicine; Visit Provider Internal Medicine
DX: Z13.820 Encounter for screening for osteoporosis (principal); M85.851 Other specified disorders of bone density and structure, right thigh
CPT/HCPCS: 77080

== ENCOUNTER 2022-11-05 07:21 | Outpatient (CLI) | payer MEDICARE, MEDICAID, SELFPAY ==
--- NOTE | ~2022-11-05 | MM_ITS ---
EXAMINATION: MM screening aditya BI w anthony HISTORY: Screening mammogram TECHNIQUE: Craniocaudal and mediolateral oblique 3-D tomosynthesis images were obtained and synthetic 2-D images were generated. CAD analysis was submitted and interpreted. COMPARISON: 07/29/2021 BREAST PARENCHYMAL COMPOSITION: The breasts are almost entirely fatty. FINDINGS: No suspicious mass, calcification, or architectural distortion are identified in either britt ast to suggest malignancy. There has been no suspicious interval change. IMPRESSION: 1. No mammographic evidence of malignancy. 2. Recommend routine screening mammography in one year. BI-RADS Category 1: Negative Reviewed, dictated and finalized at location A.
== END 2022-11-05 07:22 | disposition home or self-care (01) ==
PROVIDERS: PCP Internal Medicine; Visit Provider Internal Medicine
DX: Z12.31 Encounter for screening mammogram for malignant neoplasm of breast (principal)
CPT/HCPCS: 77063; 77067

== ENCOUNTER 2022-11-13 13:50 | Outpatient (CLI) | payer MEDICARE, MEDICAID, SELFPAY ==
[2022-11-13 14:29] LABS: Basophils Percent Auto 0.4 % (0.2-1.2); Eosinophils Absolute Auto 0.2 K/mm3 (0-0.3); Hematocrit 39.8 % (37.0-47.0); Hemoglobin 12.9 g/dL (12.0-15.0); Immature Granulocyte Absolute 0.02 K/mm3 (0.00-0.031); Immature Granulocyte Percent A 0.3 % (0-0.5); Lymphocytes Absolute Auto 1.73 K/mm3 (0.9-3.2); Lymphocytes Percent Auto 22.4 % (18.3-44.2); Mean Corpuscular HGB Conc 32.4 g/dl (32-36); Mean Corpuscular Hemoglobin 29.9 pg (26-34); Mean Corpuscular Volume 92.1 fl (80-100); Monocytes Absolute Auto 0.5 K/mm3 (0.1-0.6); Neutrophils Absolute Auto 5.3 K/mm3 (1.3-6.7); Neutrophils Percent Auto 67.9 % (45.5-73.1); Platelet Count Result 268 k/mm3 (150-375); Red Blood Count 4.32 M/mm3 (4.2-5.4); Red Cell Distribution Width 12.3 % (11.5-14.5); White Blood Count 7.7 K/mm3 (4.5-10.0)
[2022-11-13 20:15] LABS: Alanine Aminotransferase 25 U/L (6-35); Albumin Level 4.2 g/dL (3.5-5.1); Alkaline Phosphatase 73 U/L (38-126); Anion Gap 9 mmol/L (8-16); Aspartate Amino Transferase 28 U/L (14-36); Bilirubin,Total 0.4 mg/dL (0.2-1.3); Blood Urea Nitrogen 6 mg/dL (7-17); Calcium 9.2 mg/dL (8.4-10.2); Carbon Dioxide 25 mmol/L (22-30); Chloride 106 mmol/L (98-107); Cholesterol 165 mg/dL (0-200); Estimated Glomerular Filt Rate > 60; Glucose 85 mg/dL (65-110); HDL Direct 40 mg/dL; Sodium 140 mmol/L (137-145); Triglycerides 151 mg/dL (<150)
[2022-11-13 20:25] LABS: LDL Cholesterol Direct 90 mg/dL
[2022-11-17 07:22] LABS: SS-A <1.0; SS-B <1.0
[2022-11-18 19:18] LABS: Immunoglobulin A 296 mg/dL (70-320); TTG IGA AB <1.0 U/mL (<15.0)
== END 2022-11-13 13:51 | disposition home or self-care (01) ==
PROVIDERS: PCP Internal Medicine; Visit Provider Student in an Organized Health Care Education/Training Program
DX: G62.9 Polyneuropathy, unspecified (principal); I10 Essential (primary) hypertension; R25.1 Tremor, unspecified; R20.0 Anesthesia of skin
CPT/HCPCS: 36415; 80053; 80061; 82607; 82784; 84443; 85025; 86038; 86235; 86334; 86335; 86364

== ENCOUNTER 2022-12-29 13:24 | Outpatient (CLI) | payer MEDICARE, MEDICAID, SELFPAY ==
--- NOTE | 2022-12-29 15:00 | NEURO_ITS ---
Impression: # Complains of pain and numbness in hands. # Bilateral ulnar neuropathy across the elbows. # Subtle evolving right Carpal Tunnel Syndrome. # Needle/EMG exam mildly abnormal. Nerve Conduction Studies Anti Sensory Summary Table Stim Site NR Peak (ms) P-T Amp (?V) Site1 Site2 Delta-P (ms) Dist (cm) Jeromy (m/s) Left Median Anti Sensory (2-3nd Digit) Wrist 3.6 40.5 Wrist 2-3nd Digit 3.6 14.0 39 Wrist 3.6 18.8 Wrist 2-3nd Digit 3.6 14.0 39 Right Median Anti Sensory (2-3nd Digit) Wrist 3.9 30.0 Wrist 2-3nd Digit 3.9 14.0 36 Wrist 3.9 30.5 Wrist 2-3nd Digit 3.9 14.0 36 Left Radial Anti Sensory (Base 1st Digit) Wrist 2.2 14.6 Wrist Base 1st Digit 2.2 0.0 Right Radial Anti Sensory (Base 1st Digit) Wrist 2.9 10.0 Wrist Base 1st Digit 2.9 0.0 Left Ulnar Anti Sensory (5th Digit) Wrist 2.0 55.1 Wrist 5th Digit 2.0 14.0 70 Right Ulnar Anti Sensory (5th Digit) Wrist 3.0 25.0 Wrist 5th Digit 3.0 14.0 47 Motor Summary Table Stim Site NR Onset (ms) O-P Amp (mV) Site1 Site2 Delta-0 (ms) Dist (cm) Jeromy (m/s) Left Median Motor (Abd Poll Brev) Wrist 3.6 7.4 Elbow Wrist 4.8 26.0 54 Elbow 8.4 5.2 Right Median Motor (Abd Poll Brev) Wrist 4.1 2.0 Elbow Wrist 4.9 27.0 55 Elbow 9.0 2.8 Left Ulnar Motor (Abd Dig Minimi) Wrist 2.7 7.6 A Elbow Wrist 6.7 31.0 46 A Elbow 9.4 3.5 B Elbow Wrist 4.3 21.0 49 B Elbow 7.0 3.5 Right Ulnar Motor (Abd Dig Minimi) Wrist 3.0 4.8 A Elbow Wrist 7.5 28.0 37 A Elbow 10.5 3.0 B Elbow Wrist 4.2 19.0 45 B Elbow 7.2 4.5 F Wave Studies NR F-Lat (ms) L-R F-Lat (ms) Left Median (Mrkrs) (Abd Poll Brev) 30.22 0.48 Right Median (Mrkrs) (Abd Poll Brev) 29.73 0.48 Left Ulnar (Mrkrs) (Abd Dig Min) 31.95 2.18 Right Ulnar (Mrkrs) (Abd Dig Min) 29.77 2.18 EMG Side Muscle Nerve Root Ins Act Fibs Amp Dur Recrt Comment Right 1stDorInt Ulnar C8-T1 Nml Nml Nml Nml Nml Right Ext Indicis Radial (Post Int) C7-8 Nml Nml Nml Nml Nml Right Ext Digitorum Radial (Post Int) C7-8 Nml Nml Nml Nml Nml Right BrachioRad Radial C5-6 Nml Nml Nml Nml Nml Right PronatorTeres Median C6-7 Nml Nml Nml Nml Nml Right Abd Poll Brev Median C8-T1 Nml Nml Nml Nml Nml Left 1stDorInt Ulnar C8-T1 Nml Nml Nml Nml Nml Left Ext Indicis Radial (Post Int) C7-8 Nml Nml Nml Nml Nml Left Ext Digitorum Radial (Post Int) C7-8 Nml Nml Nml Nml Nml Left BrachioRad Radial C5-6 Nml Nml Nml Nml Nml Left PronatorTeres Median C6-7 Nml Nml Nml Nml Nml Left Abd Poll Brev Median C8-T1 Nml Nml Nml Nml Nml Right ABD Dig Min Ulnar C8-T1 Nml Nml Incr >12ms Reduced Left ABD Dig Min Ulnar C8-T1 Nml Nml Incr >12ms Reduced MTDD
== END 2022-12-29 13:25 | disposition home or self-care (01) ==
LOC: ANHNEURO 13:26
PROVIDERS: PCP Internal Medicine; Visit Provider Student in an Organized Health Care Education/Training Program
DX: G56.23 Lesion of ulnar nerve, bilateral upper limbs (principal)
CPT/HCPCS: 95886; 95911

== ENCOUNTER 2023-04-04 15:46 | Emergency (ER) | payer MEDICARE, MEDICAID, SELFPAY ==
--- NOTE | ~2023-04-04 | XR_ITS ---
XR elbow LT min 3V 04/04/2023 16:41 INDICATION: Left elbow pain PROCEDURE: 3 views left elbow COMPARISON: No prior studies for comparison. FINDINGS: Fracture, dislocation or subluxation is not identified. The soft tissues appear within norm al limits. No foreign bodies are identified. IMPRESSION: 1: NO ACUTE BONE OR JOINT ABNORMALITY IDENTIFIED. Reviewed, dictated and finalized at location A. 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
--- NOTE | ~2023-04-04 | XR_ITS ---
XR shoulder LT min 2V 04/04/2023 16:41 Indication: Left shoulder pain after fall Procedure: 3 views left shoulder Comparison: No prior studies for comparison. Findings: There is polyarticular osteoarthritis. No fracture or traumatic malalignment. No foreign arpita dies. Impression: 1: No acute fracture. Reviewed, dictated and finalized at location A. [employer]ING [employer] SALES Impression: 1: No acute fracture.
[2023-04-04 15:49] VITALS: BP 117/86; PULSE 67; RESP 18; TEMP 36.6; O2SAT 97
--- NOTE | 2023-04-04 16:49 | ED.FALL ---
HPI - Fall General Chief Complaint: Fall Stated Complaint: fall, left arm pain Time Seen by Provider: 04/04/23 16:05 Source: patient and RN notes reviewed Mode of arrival: ambulatory Limitations: no limitations History of Present Illness HPI Narrative: This is a 67 year old female who presents for evaluation of left elbow pain. She accidentally fell 1 hour prior to arrival. She states she was walking and misjudged a sidewalk and this caused her to fall. She states she fell onto her left elbow. She has abrasion and pain to her left elbow. She also reports pain to her left shoulder. She denies hitting her head. She denies any lower extremity injury. He saw reports when he took patient into the house she became nausea and was near syncope. PAtient reports history of vertigo but she states this is not present and it did not cause her to fall. She is unsure of her last tetanus immunization. Related Data Home Medications Medication Instructions Recorded Confirmed bupropion HCl 150 mg 24 hr tablet, 150 mg PO BID 04/18/20 11/13/22 extended release hydralazine 25 mg tablet 25 mg PO BID 04/18/20 11/13/22 losartan 50 mg tablet 50 mg PO DAILY 04/18/20 11/13/22 omeprazole 40 mg capsule,delayed 40 mg PO BID 04/18/20 11/13/22 release citalopram 20 mg tablet 20 mg PO DAILY 05/24/21 11/13/22 levothyroxine 125 mcg capsule 100 mcg PO DAILY 06/12/22 11/13/22 trazodone 100 mg tablet 100 mg PO 06/12/22 11/13/22 Allergies Allergy/AdvReac Type Severity Reaction Status Date / Time naltrexone Allergy Intermediate Unknown Verified 11/13/22 12:40 hydromorphone [From Dilaudid] AdvReac Nausea and Verified 11/13/22 12:40 Vomiting Review of Systems Review of Systems: All systems reviewed & are unremarkable except as noted in HPI and below PMFSH Past Medical History Medical History Anxiety Chronic GERD Colon cancer screening Hyperlipidemia Hypertension Hypothyroidism Surgical History Surgical History H/O section Hx of cholecystectomy Family History Family History Sibling Diabetes mellitus Father Congestive heart failure Social History Social History Social History: the patient is a lifelong nonsmoker. She has 2 children. She is . She is unemployed. She does not use any alcohol marijuana or illicit drugs. 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 Code status full code Smoking status: Never smoker Second hand tobacco smoke exposure: No Alcohol intake: never Substance use: never Substance use type: does not use Lack of Transportation: No Lack of Food: Sometimes True Current Housing: I Have Housing Concerned About Future Housing: No Difficulty Paying Gas/Electric Bills: YES Difficulty Paying for Meds: No Currently Unemployed: Decline to Answer Education: Don't Know Difficulty w/ Childcare or Family Care: No Living arrangements: alone Occupation/Education: retired Gender identity (if verbalized by the patient): Female Spiritual care concerns: No Exam Const: General: no acute distress and alert Nutritional Appearance: well nourished Orientation/consciousness: patient oriented x3 Limitations: no limitations HENMT: Head: normal to inspection Face and sinus: normal facial exam Mouth: Yes lip normal Eyes: EOM: EOMs intact bilaterally Chest: Chest palpation & inspection: normal inspection of the chest Resp: Effort & Inspection: normal respiratory effort Auscultation: clear to auscultation bilaterally Cardio: Rate: regular rate Rhythm: regular rhythm Heart sounds: no murmurs Skin: Other: small abrasion to left elbow Neuro: General: patient oriented x3, moves all extremities and CN's II-XI intact bilaterally Extr
[2023-04-04] MEDS: TETANUS,DIPHTHERIA,AC PERTUSSIS ADULT (0.5 ML) BOOSTRIX IM (16:51)
[2023-04-04] MEDS: ONDANSETRON HCL ODT 4 MG TABLET PO (16:51)
[2023-04-04] MEDS: IBUPROFEN 400 MG TABLET 800 MG PO (16:51)
== END 2023-04-04 17:19 | disposition home or self-care (01) ==
PROVIDERS: Emergency Provider General Practice; PCP Internal Medicine
DX: S50.02XA Contusion of left elbow, initial encounter (principal); S46.912A Strain of unspecified muscle, fascia and tendon at shoulder and upper arm level, left arm, initial encounter; E78.5 Hyperlipidemia, unspecified; I10 Essential (primary) hypertension; E03.9 Hypothyroidism, unspecified; Z23 Encounter for immunization; W01.0XXA Fall on same level from slipping, tripping and stumbling without subsequent striking against object, initial encounter
CPT/HCPCS: 73030; 73080; 90471; 90715; 99284; A4565; A9270

== ENCOUNTER 2023-06-16 12:32 | Outpatient (CLI) | payer MEDICARE, MEDICAID, SELFPAY ==
[2023-06-16 14:35] LABS: Folic Acid > 20.0 ng/mL (2.76->20); Vitamin B12 > 1000.0 pg/mL (239-931)
== END 2023-06-16 12:33 | disposition home or self-care (01) ==
LOC: ANHLAB 12:36
PROVIDERS: PCP Internal Medicine; Visit Provider Student in an Organized Health Care Education/Training Program
DX: R20.0 Anesthesia of skin (principal)
CPT/HCPCS: 36415; 82607; 82746

== ENCOUNTER 2023-11-08 07:36 | Outpatient (CLI) | payer MEDICARE, MEDICAID, SELFPAY ==
--- NOTE | ~2023-11-08 | MM_ITS ---
EXAMINATION: MM screening aditya BI w anthony HISTORY: Screening TECHNIQUE: Craniocaudal and mediolateral oblique 3-D tomosynthesis images were obtained and synthetic 2-D images were generated. CAD analysis was submitted and interpreted. COMPARISON: Comparison to multiple prior studies sequentially, with oldest reviewed study dated 07/29. BREAST PARENCHYMAL COMPOSITION: Not Dense: Breast are almost entirely fatty. FINDINGS: There is no evidence of suspicious mass, calcification, or architectural distortion to sugg est malignancy in either breast. There has been no suspicious interval change. IMPRESSION: 1. No mammographic evidence of malignancy. 2. Recommend routine screening mammography in one year. BI-RADS Category 1: Negative Reviewed, dictated and finalized at location B.
== END 2023-11-08 07:37 | disposition home or self-care (01) ==
PROVIDERS: PCP Internal Medicine; Visit Provider Emergency Medicine
DX: Z12.31 Encounter for screening mammogram for malignant neoplasm of breast (principal)
CPT/HCPCS: 77063; 77067

== ENCOUNTER 2024-02-22 07:52 | Outpatient (CLI) | payer MEDICARE, MEDICAID, SELFPAY ==
--- NOTE | 2024-03-20 12:51 | WPDSLEEPSTUD ---
Sleep Study Date of Study: 02/22/24 Ordering Provider: Cher Hirsch MD Interpreting Physician: Ginette Blunt DO Sleep Study Type: Polysomnogram Height: 1.57 m Weight: 108.862 kg Body Mass Index: 43.9 Neck Circumference (inches): 17 [place]: 2 Reason for Sleep Study Difficulty falling asleep Sleep History The patient is a 68-year-old female that had a sleep study ordered by her tourism radio presenter for evaluation of sleep apnea. The patient denies awakening from sleep short of breath. She denies awakening at night with heartburn, belching or cough. She occasionally has trouble sleeping when she has a cold. She denies waking up gasping for air throughout the night. She denies having breathing problems at night observed by herself or others. She denies sweating excessively at night. She denies having heart palpitations or irregular heartbeats during the night. She denies falling asleep during the day and while driving. She denies sleep paralysis and hypnagogic/ hypnopompic hallucinations. She denies having nightmares. She rarely remembers her dreams. She frequently has thoughts racing through her mind. She frequently feels sad or depressed. She constantly has anxiety. She occasionally has muscular tension. She frequently experiences crawling and aching feelings in her legs and occasionally has leg pain during the night. She denies grinding her teeth during sleep and denies awakening with morning jaw pain. She is occasionally bothered by pain during the day but rarely awakened by pain during the night. She occasionally wakes up feeling stiff in the morning. She occasionally wakes up with sore or achy muscles. She occasionally wakes up with pain in the neck, spine or other joints. She goes to bed at 10:00 p.m. on weekdays and at midnight on the weekends. It takes her 2-3 hours to fall asleep. She wakes up 1-2 times throughout the night to urinate and is able to fall back asleep within a few minutes. She wakes up between 7:30-8 a.m. on weekdays and between 9:30-10 a.m. on the weekends. She typically gets 4-5 hours of sleep per night. She will stay in bed for 20-30 minutes after waking up in the morning. She currently lives alone. She denies consuming any caffeinated beverages within 2 hours of bedtime. She denies engaging in physical exercise before bedtime. She denies reading or watching television before falling asleep. She denies taking naps in the afternoon or the evening. She denies consuming caffeinated beverages throughout the day. She denies tobacco, alcohol and recreational drug use. PMFSH Past Medical History Medical History Anxiety Chronic GERD Colon cancer screening Hyperlipidemia Hypertension Hypothyroidism Insomnia Restless leg syndrome Small fiber neuropathy Surgical History Surgical History H/O section Hx of cholecystectomy Family History Family History Sibling Diabetes mellitus Father Congestive heart failure Social History Social History Social History: the patient is a lifelong nonsmoker. She has 2 children. She is . She is unemployed. She does not use any alcohol marijuana or illicit drugs. 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 Code status full code Smoking status: Never smoker Second hand tobacco smoke exposure: No Alcohol intake: never Substance use: never Substance use type: does not use Do You Feel Safe in your Home?: Yes Lack of Transportation: No Lack of Food: Sometimes True Current Housing: I Have Housing Concerned About Future Housing: No Difficulty Paying Gas/Electric Bills: YES Difficulty Paying for Meds: No Currently Unemployed: Decline to Answer Education: Don't Know Difficulty w/ Childcare or Family Care: No Living arrangements: alone Occupation/Education: retired Gender identity (if verbalized by the patient): Female Spiritual care concerns: No Medications Home Medications ?Medication ?Instructions ?Recorded ?Confirmed ?Type hydralazine 25 mg tablet 25 mg PO BID 04/18/20 01/04/24 History losartan 50 mg tablet 50 mg PO DAILY 04/18/20 01/04/24 History omeprazole 40 mg capsule,delayed 40 mg PO BID 04/18/20 01/04/24 History release citalopram 20 mg tablet 20 mg PO DAILY 05/24/21 01/04/24 History aspirin 81 mg capsule 81 mg PO DAILY #30 caps 05/27/21 01/04/24 Rx atorvastatin 20 mg tablet 20 mg PO DAILY #90 tabs 08/13/21 01/04/24 Rx levothyroxine 125 mcg capsule 100 mcg PO DAILY 06/12/22 01/04/24 History gabapentin 300 mg capsule 300 mg PO Q12H #60 caps 10/12/23 01/04/24 Rx Sleep Procedure A full night polysomnogram using the [employer] multi-channel system recorded the standard physiologic parameters including EEG, EOG, submentalis EMG, anterior tibialis EMG, EKG, body position, nasal and oral airflow using nasal pressure sensor and thermistor.? Respiratory parameters of chest and abdominal movements were recorded with Respiratory Inductance Plethysmography belts. Oxygen saturation was recorded by pulse oximetry. Video monitoring was also performed. Sleep stages, periodic limb movements, and EEG arousals were scored in 30 second epochs according to the criteria of the AASM Scoring Manual. The Apnea-Hypopnea Index was calculated using CMS guidelines for definition of hypopnea with 4% O2 desaturations while scoring respiratory events. Sleep Architecture The total recording time was 460.1 minutes.? The total sleep time was 354.0 minutes. Sleep latency was 9.0 minutes. REM sleep was not achieved during this study. Sleep efficiency was 76.9%. The patient had 57 awakenings for an awakening index of 9.7. Wake after sleep onset time was 97.0 minutes. The patient spent 49.5 minutes, 14.0% of total sleep time in Stage N1. The patient spent 288.0 minutes, 81.4% in Stage N2. The patient spent 16.5 minutes, 4.7% in Stage N3. The patient spent 0.0 minutes, 0.0% in Stage REM sleep. Respiratory Analysis The patient had 16 hypopneas for an overall Apnea Hypopnea Index of 2.7. The REM Apnea Hypopnea Index was 0. The NREM Apnea Hypopnea Index was 2.7. The patient had a Central Apnea Hypopnea Index of 0. There was no evidence of Gerald-Antony Respirations. Arousals There were 407 total arousals for an arousal index of 69.0. There were 62 spontaneous arousals for an index of 10.5. There were 15 arousals due to respiratory events for an index of 2.5. There were 312 arousals due to periodic limb movements for an index of 52.9.? There were 19 arousals due to isolated limb movements for an index of 3.2. Periodic Limb Movements The patient had 23 isolated limb movements with an index of 3.9. The patient had 762 periodic limb movements with an index of 129.2, which is elevated (normal < 15). Patient had a total of 785 limb movements with a total limb movement index of 133.1. Oximetry Data The patient had an average oxygen saturation of 93.6% in sleep with a minimum oxygen saturation of 88.0% and a maximum oxygen saturation of 98.0%. The patient had 42 oxygen desaturations that were 4% or greater resulting in an Oxygen Desaturation Index of 7.1.? The patient spent 0.1 minutes of total sleep time with an oxygen saturation below 88%. Snoring Profile Mild snoring was present throughout the study. Cardiac Profile The EKG showed normal sinus rhythm with PACs/PVCs. The patient had an average pulse rate of 58.0 bpm with a minimum pulse of rate of 50.0 bpm and a maximum pulse rate of 80.0 bpm.? EEG Profile No signs of seizure activity seen. Assessment and Plan Assessment and Plan (1) PLMD (periodic limb movement disorder): Code(s): G47.61 - Periodic limb movement disorder Status: Acute Assessment and Plan: The patient had an overall AHI of 2.7 desaturation down to 88%. This is not consistent with sleep disordered breathing. The patient had a significant number of limb movements during the study with the majority being periodic in nature. Approximately 41% of the periodic limb movements caused arousals in the patient's sleep. The patient's sleep history is highly suggestive of Restless Leg Syndrome. I recommend that the patient have a serum ferritin drawn for evaluation of iron deficiency anemia. If the patient has a serum ferritin less than 75 ng/mL, I recommend starting a daily iron supplement and a Vitamin C supplement for better absorption. If the serum ferritin is greater than 75 ng/mL, I recommend starting a dopamine agonist and titrating the dose until symptoms resolve. There are nonpharmacological methods to treat limb movements including daily exercise, stretching calf muscles before bed, avoiding excessive amounts of caffeine and alcohol, vitamin B supplementation, magnesium lotion massaged into legs before bed, and use of a weighted blanket. If the patient's hypersomnia does not improve after treating the periodic limb movement disorder, I recommend that the patient repeat the sleep study for further evaluation. Her sleep was extremely fragmented by the periodic leg movements and once treated, she will likely be able to achieve deeper levels of sleep. The patient also mentioned having frequent symptoms of anxiety and depression in her sleep history. I recommend that the patient complete a PHQ-9 and REMY-7 for further evaluation of mood disorders and review the results with her PCP. Data The data obtained during this sleep study is adequate for interpretation. Certification This sleep study has been reviewed by a board certified sleep medicine physician.
[2024-03-21 08:32] VITALS: BMI 43.9
== END 2024-02-23 06:53 | disposition home or self-care (01) ==
LOC: ANHCSM 07:53
PROVIDERS: PCP Nurse Practitioner Family; Visit Provider Internal Medicine Critical Care Medicine
DX: G47.9 Sleep disorder, unspecified (principal); G47.61 Periodic limb movement disorder
CPT/HCPCS: 95810

== ENCOUNTER 2024-03-23 10:14 | Outpatient (CLI) | payer MEDICARE, MEDICAID, SELFPAY ==
--- OUTSIDE RECORDS SUMMARY | 2024-03-23 10:18 | XMS_ITS | Data Portability ---
Author Organization [facility] ANAMIKA [place] Marlow Address [address] [facility] [place] [address] Care Team Providers Care Chief Design Branch Name Role Phone SHRUTI HAYNES [employer] Instructor [phone] Assessment Encounter Date Assessment Date Assessment LastModified by Organization Details LastModified Time 02/11/2024 02/11/2024 Need to talk about colon cancer screening at follow up along with DEXA scan. [email or web address] Not available 02/11/2024 13:51:58 Plan of Treatment Reminders Order Date Submit Date Provider Last Modified By Organization Details Last Modified Time Details Appointments ANY 30 2024 09:00A Jefferson Lo MD Not available Not available Not available Lab CMP, serum or plasma 2023 024 WILLIAM INGRAM, [address] [place] [address], [facility] [address], [place], [address], 10/02/2023 08:25:08 CBC 2023 024 WILLIAM INGRAM, [facility], [address], [place], [address], 10/02/2023 08:25:10 lipid panel, serum 2023 024 WILLIAM INGRAM, [address] [place] [address] [address], [address], [place], [address], 10/02/2023 08:25:07 albumin/c reatinine , mass ratio, urine 2023 024 WILLIAM INGRAM, [address] [place] [address], [address], [place], [address], 10/02/2023 08:25:07 TSH, ultra-sen sitive, serum 2023 024 WILLIAM [facility], [address] [facility] [address], [address], [place], [address], 10/02/2023 08:25:09 HbA1c (hemoglob in A1c), blood 2023 024 [email or web address] [facility], [address] [facility] [address], [address], [place], [address], 03/15/2024 13:50:16 TSH, ultra-sen sitive, serum 2023 024 WILLIAM [facility], [address] [facility], [address], [place], [address], 01/19/2024 08:30:07 HbA1c (hemoglob in A1c), blood 2023 024 [email or web address] In-Office Order, Internal Use Only DO Not Attach Compendium DO Not Attach Compendium, Do Not Delete/merge, [id number] 01/07/2024 12:45:09 TSH, ultra-sen sitive, serum 2023 024 WILLIAM [facility], [address] [facility], [address], [place], [address], 02/26/2024 08:28:42 Referral orthopedi c surgeon referral 2023 024 [facility], [address] [facility], [place], [address], 05/28/2023 04:40:20 Procedures None recorded. Surgeries None recorded. Imaging MRI, shoulder, w/o contrast [address] [facility], [address] [facility] [address], [place], [address], 01/13/2024 10:19:26 Medication Orders baclofen 10 mg tablet 2023 024 [facility] [address], [address] [place] [address], [id number], 02/11/2024 13:52:38 omeprazol e 40 mg capsule,d elayed release 2023 024 [facility] [address], [address] [place] [address], [id number], 10/01/2023 10:50:16 hydralazi ne 25 mg tablet 2023 024 [facility] [address], [address] [place] [address], [address], 10/01/2023 10:50:16 losartan 50 mg tablet 2023 024 [facility] [address], [address] [place] [address], [address], 10/01/2023 10:50:16 atorvasta tin 20 mg tablet 2023 024 [place] [address], [address] [place] [address], [address], 10/01/2023 10:50:16 aspirin 81 mg tablet,de layed release 2023 024 [facility] [address], [address] [place] [address], [address], 02/11/2024 13:55:52 citalopra m 20 mg tablet 2023 024 [facility] [address], [address] [place] [address], [address], 01/07/2024 13:40:11 baclofen 10 mg tablet 2023 024 [facility] [address], [address] [place] [address], [address], 02/11/2024 13:52:27 levothyro xine 100 mcg tablet 2023 024 [email or web address] [facility] [address], [address] [place] [address], [address], 01/26/2024 11:18:56 loratadin e 10 mg tablet 2023 024 [facility] [address], [address] [place] [address], [address], 02/11/2024 14:31:48 prednison e 20 mg tablet 2023 024 [facility] [address], [address] [place] [address], [address], 01/07/2024 11:08:37 omeprazol e 40 mg capsule,d elayed release 2023 024 [facility] [address], [address] [place] [address], [address], 01/07/2024 13:41:54 hydralazi ne 25 mg tablet 2023 024 [facility] [address], [address] [place] [address], [address], 01/07/2024 13:41:53 losartan 50 mg tablet 2023 024 [facility] [address], [address] [place] [address], [address], 01/07/2024 13:41:51 duloxetin e 30 mg capsule,d elayed release 2023 024 [facility] [address], [address] [place] [address], [address], 02/11/2024 13:52:44 atorvasta tin 20 mg tablet 2023 024 [facility] [address], [address] [place] [address], [address], 01/07/2024 13:41:52 levothyro xine 100 mcg tablet 2023 024 [facility] [address], [address] [place] [address], [address], 01/26/2024 11:19:05 omeprazol e 40 mg capsule,d elayed release 2023 024 [place] [address], [address] [place] [address], [address], 02/11/2024 13:56:01 hydralazi ne 25 mg tablet 2023 024 [place] [address], [address] [place] [address], [address], 02/11/2024 13:56:00 losartan 50 mg tablet 2023 024 [place] [address], [address] [place] [address], [address], 02/11/2024 13:56:03 duloxetin e 60 mg capsule,d elayed release 2023 024 [place] [address], [address] [place] [address], [address], 02/11/2024 13:52:08 Patient TargetsNo targets recorded. Patient Instructions Encounter Date Encounter Id Patient Instructions Last Modified By Organization Details Last Modified Time 05/17/2023 [id number] A healthy lifestyle: care instructions [email or web address] Not available 05/17/2023 12:54:14 10/01/2023 [id number] A healthy lifestyle: care instructions [email or web address] Not available 10/01/2023 10:50:16 Reason for Referral Orthopedic Surgeon Referral for Pain of left shoulder joint Referring Physician: Ed Baptiste, Internal Medicine, Encounter Date: 05/17/2023 Results Created Date Observation Date Name Description Value Unit Range Abnormal Flag Note LastModifiedBy Organization Detail LastModifiedTime 10/01/19 24 10/02/2023 ALBUM IN/CR EATIN INE RATIO ,URIN E creatinine, urine 327.8 mg/dL notest ab. Not Available [facility] ([facility]) [address] [place], [address], 10/02/2023 08:25:07 10/01/19 24 10/02/2023 ALBUM IN/CR EATIN INE RATIO ,URIN E albumin, urine 53.1 ug/mL notest ab. Not Available [facility] ([facility]) [address] [place], [address], 10/02/2023 08:25:07 10/01/19 24 10/02/2023 ALBUM IN/CR EATIN INE RATIO ,URIN E alb/creat ratio 16 mg/g_ creat 0-29 Munira l: 0 - 29 Moder ately incre ased: 30 - 300 Sever haley incre ased: >300 Not Available [facility] ([facility]) [address] [place], [address], 10/02/2023 08:25:07 10/01/19 24 10/02/2023 LIPID PANEL cholesterol, total 155 mg/dL 100-19 9 Not Available [facility] ([facility]) [address] [place], [address], 10/02/2023 08:25:07 10/01/19 24 10/02/2023 LIPID PANEL triglyceride s 92 mg/dL 0-149 Not Available [facility]) [address] [place], [address], 10/02/2023 08:25:07 10/01/19 24 10/02/2023 LIPID PANEL HDL cholesterol 51 mg/dL >39 Not Available [facility]) [address] [place], [address], 10/02/2023 08:25:07 10/01/19 24 10/02/2023 LIPID PANEL VLDL cholesterol cameron 17 mg/dL 5-40 Not Available [facility] ([facility]) [address] [facility], [place], [address], 10/02/2023 08:25:07 10/01/19 24 10/02/2023 LIPID PANEL LDL chol calc ([facility]) 87 mg/dL 0-99 Not Available [facility]) [address] [facility] [place], [address], 10/02/2023 08:25:07 10/01/19 24 10/02/2023 COMP. METAB OLIC PANEL (14) glucose 91 mg/dL 70-99 Not Available [facility] ([facility]) [address] [facility] [place], [address], 10/02/2023 08:25:08 10/01/19 24 10/02/2023 COMP. METAB OLIC PANEL (14) BUN 11 mg/dL 8-27 Not Available [facility] ([facility]) [address] [place], [address], 10/02/2023 08:25:08 10/01/19 24 10/02/2023 COMP. METAB OLIC PANEL (14) creatinine 0.98 mg/dL 0.57-1 .00 Not Available [facility] ([facility]) [address] [facility], [place], [address], 10/02/2023 08:25:08 10/01/19 24 10/02/2023 COMP. METAB OLIC PANEL (14) eGFR 64 mL/mi n/1.7 3 >59 Not Available [facility] ([facility]) [address] [place], [address], 10/02/2023 08:25:08 10/01/19 24 10/02/2023 COMP. METAB OLIC PANEL (14) BUN/creatini ne ratio 11 12-28 below low normal Not Available [facility] ([facility]) [address] [place], [address], 10/02/2023 08:25:08 10/01/19 24 10/02/2023 COMP. METAB OLIC PANEL (14) sodium 142 mmol/ L 134-14 4 Not Available [facility] ([facility]) [address] [facility] [place], [address], 10/02/2023 08:25:08 10/01/19 24 10/02/2023 COMP. METAB OLIC PANEL (14) potassium 4.2 mmol/ L 3.5-5. 2 Not Available [facility] ([facility]) [address] [facility] [place], [address], 10/02/2023 08:25:08 10/01/19 24 10/02/2023 COMP. METAB OLIC PANEL (14) chloride 105 mmol/ L 96-106 Not Available [facility] ([facility]) [address] [facility] [place], [address], 10/02/2023 08:25:08 10/01/19 24 10/02/2023 COMP. METAB OLIC PANEL (14) carbon dioxide, total 24 mmol/ L 20-29 Not Available [facility] ([facility]) [address] [facility] [place], [address], 10/02/2023 08:25:08 10/01/19 24 10/02/2023 COMP. METAB OLIC PANEL (14) calcium 9.3 mg/dL 8.7-10 .3 Not Available [facility] ([facility]) [address] [facility] [place], [address], 10/02/2023 08:25:08 10/01/19 24 10/02/2023 COMP. METAB OLIC PANEL (14) protein, total 6.7 g/dL 6.0-8. 5 Not Available [facility] ([facility]) [address] [facility] [place], [address], 10/02/2023 08:25:08 10/01/19 24 10/02/2023 COMP. METAB OLIC PANEL (14) albumin 4.2 g/dL 3.9-4. 9 Not Available [facility] ([facility]) [address] [place], [address], 10/02/2023 08:25:08 10/01/19 24 10/02/2023 COMP. METAB OLIC PANEL (14) globulin, total 2.5 g/dL 1.5-4. 5 Not Available [facility] ([facility]) [address] [place], [address], 10/02/2023 08:25:08 10/01/19 24 10/02/2023 COMP. METAB OLIC PANEL (14) bilirubin, total 0.4 mg/dL 0.0-1. 2 Not Available [facility] ([facility]) [address] [place], [address], 10/02/2023 08:25:08 10/01/19 24 10/02/2023 COMP. METAB OLIC PANEL (14) alkaline phosphatase 83 IU/L 44-121 Not Available [facility]) [address] [place], [address], 10/02/2023 08:25:08 10/01/19 24 10/02/2023 COMP. METAB OLIC PANEL (14) AST (SGOT) 21 IU/L 0-40 Not Available [facility] ([facility]) [address] [place], [address], 10/02/2023 08:25:08 10/01/19 24 10/02/2023 COMP. METAB OLIC PANEL (14) ALT (SGPT) 17 IU/L 0-32 Not Available [facility] ([facility]) [address] [place], [address], 10/02/2023 08:25:08 10/01/19 24 10/02/2023 TSH RFX ON ABNOR MAL TO FREE T4 TSH 3.210 uIU/m L 0.450- 4.500 Not Available [facility] ([facility]) [address] [facility], [place], [address], 10/02/2023 08:25:09 10/01/19 24 10/01/2023 ABN OPTIO N 3 abn option 3 Commen t One or more tests were remov ed at the reque st of the patie nt and may not be repre sente d on this repor t. As a resul t, some or all of the tests origi taran reque sted may not have been perfo rmed or may be repor jamar separ ately . Pleas e conta ct your patie nt regar ding any neces estrella follo w-up. Not Available [facility] ([facility]) [address] [facility], [place], [address], 10/02/2023 08:25:09 10/01/19 24 10/02/2023 CBC, PLATE LET, NO DIFFE RENTI AL WBC 7.5 x10e3 /uL 3.4-10 .8 Not Available [facility] ([facility]) [address] [facility], [place], [address], 10/02/2023 08:25:10 10/01/19 24 10/02/2023 CBC, PLATE LET, NO DIFFE RENTI AL RBC 4.50 x10e6 /uL 3.77-5 .28 Not Available [facility] ([facility]) [address] [facility], [place], [address], 10/02/2023 08:25:10 10/01/19 24 10/02/2023 CBC, PLATE LET, NO DIFFE RENTI AL hemoglobin 13.0 g/dL 11.1-1 5.9 Not Available [facility] ([facility]) [address] [facility], [place], [address], 10/02/2023 08:25:10 10/01/19 24 10/02/2023 CBC, PLATE LET, NO DIFFE RENTI AL hematocrit 41.7 % 34.0-4 6.6 Not Available [facility] ([facility]) [address] [facility], [place], [address], 10/02/2023 08:25:10 10/01/19 24 10/02/2023 CBC, PLATE LET, NO DIFFE RENTI AL MCV 93 fL 79-97 Not Available [facility] ([facility]) [address] [facility], [place], [address], 10/02/2023 08:25:10 10/01/19 24 10/02/2023 CBC, PLATE LET, NO DIFFE RENTI AL MCH 28.9 pg 26.6-3 3.0 Not Available [facility] ([facility]) [address] [facility], [place], [address], 10/02/2023 08:25:10 10/01/19 24 10/02/2023 CBC, PLATE LET, NO DIFFE RENTI AL MCHC 31.2 g/dL 31.5-3 5.7 below low normal Not Available [facility] ([facility]) [address] [facility], [place], [address], 10/02/2023 08:25:10 10/01/19 24 10/02/2023 CBC, PLATE LET, NO DIFFE RENTI AL RDW 12.0 % 11.7-1 5.4 Not Available [facility] ([facility]) [address] [facility], [place], [address], 10/02/2023 08:25:10 10/01/19 24 10/02/2023 CBC, PLATE LET, NO DIFFE RENTI AL platelets 296 x10e3 /uL 150-45 0 Not Available [facility] ([facility]) [address] [place], [address], 10/02/2023 08:25:10 01/07/20 24 01/07/2024 HbA1c (hemo globi n A1c), blood HbA1c 5.6 Not Available In-Office Order Internal Use Only DO Not Attach Compendium DO Not Attach Compendium, Do Not Delete/merge, [id number] 01/07/2024 12:32:18 01/18/2001/19/2024 TSH RFX ON ABNOR MAL TO FREE T4 TSH 5.190 uIU/m L 0.450- 4.500 above high normal Not Available [facility] ([facility]) [address] [place], [address], 01/19/2024 08:30:07 01/18/20 24 01/19/2024 T4F T4,free (direct) 0.97 NG/dL 0.82-1 .77 Not Available [facility] ([facility]) [address] [place], [address], 01/19/2024 08:30:08 02/25/20 24 02/26/2024 TSH RFX ON ABNOR MAL TO FREE T4 TSH 0.215 uIU/m L 0.450- 4.500 below low normal Not Available [facility] ([facility]) [address] [place], [address], 02/26/2024 08:28:42 02/25/20 24 02/26/2024 T4F T4,free (direct) 1.53 NG/dL 0.82-1 .77 Not Available [facility] ([facility]) [address] [place], [address], 02/26/2024 08:28:43 11/08/19 24 11/08/2023 MAMMO [place], digit al, bilat eral No observ ation record ed. [address], [address], 11/10/2023 11:43:45 11/08/19 24 11/08/2023 MAMMO [place], digit al, bilat eral No observ ation record ed. [address], [address], 11/10/2023 11:44:03 11/08/19 24 11/08/2023 MAMMO , scree shelly, digit al, bilat eral No observ ation record ed. [email or web address], [place], [address], 11/10/2023 11:44:15 Result Notes None recorded. Problems Name Problem SNOMED Code Status Onset Date Resolution Date Notes Provider Name and Address Organization Details Recorded Time Screening for malignant neoplasm of colon Active 2017 Not Available [facility] 3 19:48:57 Hypertensive disorder 26195556 Active Not Available [facility] 3 19:48:57 Morbid obesity 367336615 Active Not Available [facility] 3 19:48:57 Edema of lower extremity 419671315 Active Not Available [facility] 3 19:48:57 Acid reflux 221010098 Active Not Available [facility] 3 19:48:57 Osteoarthriti s of knee 663712451 Active Not Available [facility] 3 19:48:57 Chronic low back pain 763719604 Active Not Available [facility] 3 19:48:57 Anxiety 91386653 Active Not Available [facility] 3 19:48:57 Hypothyroidis m 37089953 Active Not Available [facility] 3 19:48:57 Problem Notes None recorded. Procedures Surgical History Date Name Laterality Status Provider Name and Address Organization Details Recorded Time 08/22/19 22 Date of Last Pap Smear completed GLYNN Thakkar SIIsrael 08/21/2021 09:40:11 07/30/19 22 Date of Last Mammogram completed GLYNN Thakkar SIIsrael 08/21/2021 09:40:19 11/02/18 81 Caesarean Section completed GLYNN Thakkar 08/21/2021 09:49:37 02/26/19 72 Caesarean Section completed GLYNN Thakkar 08/21/2021 09:49:25 cholecystectomy completed GLYNN Sutherland [facility] 04/15/2020 15:52:27 Dilation and Curettage completed Ramon Bridges [place] - [facility] 10/30/2014 11:49:07 Imaging Results Imaging Date Name Status LastModified by Organiz ation Details LastModified Time 11/08/2023 MAMMO, screening, digital, bilateral completed [address], [address], 11/10/2023 11:43:45 11/08/2023 MAMMO, screening, digital, bilateral completed [address], [address], 11/10/2023 11:44:03 11/08/2023 MAMMO, screening, digital, bilateral completed [address], [address], 11/10/2023 11:44:15 Procedure Notes None recorded. Medical Equipment None Reported. Allergies Allergen ID Allergen Name Allergen Category Reaction Reaction Severity Criticality Documentation Date Start Date Code Code System Note Provider Name and Address Organization Details Recorded Time 911267 naltrexon e medicatio n dizziness moderate Not available 09/14/2018 7243 RxNorm Precious Wong MA null, [place] - [facility] 15:44:19 289130 Dilaudid medicatio n flushing moderate Not available 09/12/2021 29974 3 RxNorm Meagan Rodriguez RN null, [place] - [facility] 11:44:28 Medications Name Sig Start Date Stop Date Status Note LastModified by Organization Details LastModified Time losartan 50 mg tablet one tab po q d 2023 active Not Available Not Available Not Avai lable cyclobenzap rine 10 mg tablet Take 1 tablet twice a day by oral route as directed for 30 days. 11/22 completed Not Available Not Available Not Available amoxicillin 500 mg capsule 05/07 completed Not Available Not Available Not Available methocarbam ol 500 mg tablet TAKE ONE TABLET BY MOUTH THREE TIMES DAILY 01/06 completed Not Available Not Available Not Available bupropion HCl SR 150 mg tablet,12 hr sustained-r elease TAKE 1 TABLET BY MOUTH TWICE DAILY DIRECTED 01/06 completed Not Available Not Available Not Available L-Glutamine 500 mg tablet Take 1 tablet 3 times a day by oral route for 30 days. 05/04 completed Not Available Not Available Not Available atorvastati n 20 mg tablet TAKE 1 TABLET BY MOUTH ONCE DAILY AT BEDTIME active Not Available Not Available No t Available trazodone 50 mg tablet Take 1 tablet every day by oral route at bedtime for 90 days. 09/30 completed Not Available Not Available Not Available atorvastati n 10 mg tablet TAKE 1 TABLET BY MOUTH ONCE DAILY AFTER SUPPER 06/13 completed Not Available Not Available Not Available azithromyci n 250 mg tablet TAKE 2 TABLETS BY MOUTH ON DAY 1 AND THEN TAKE 1 TABLET BY MOUTH ONCE A DAY ON DAY 2 THROUGH DAY 5 04/15 completed Not Available Not Available Not Available ibuprofen 800 mg tablet 05/07 completed Not Available Not Available Not Available levetiracet am 500 mg tablet TAKE 1 TABLET BY MOUTH ONCE DAILY NEEDED 09/30 completed Not Available Not Available Not Available hydrocodone 5 mg-acetamin ophen 325 mg tablet 05/04 completed Not Available Not Available Not Available meloxicam 15 mg tablet TAKE 1 TABLET BY MOUTH ONCE DAILY NEEDED AFTER A MEAL 09/12 completed Not Available Not Available Not Available naltrexone 50 mg tablet Take 1 tablet every day by oral route as directed for 30 days. 09/14 completed Not Available Not Available Not Available prednisone 20 mg tablet TAKE 1 TABLET BY MOUTH TWICE DAILY WITH FOOD FOR 5 DAYS THEN TAKE 1 TAB DAILY FOR 5 DAYS 01/06 completed Not Available Not Available Not Available hydralazine 25 mg tablet one tab po bid 2023 active Not Available Not Available Not Avai lable meclizine 12.5 mg tablet TAKE 2 TABLETS BY MOUTH THREE TIMES DAILY DIRECTED FOR 10 DAYS 07/30 completed Not Available Not Available Not Available amlodipine 5 mg tablet TAKE ONE TABLET BY MOUTH ONCE DAILY 05/04 completed Not Available Not Available Not Available omeprazole 40 mg capsule,del ayed release one tab po q d before meals 2023 active Not Available Not Available Not Avai lable aspirin 81 mg tablet,bridget yed release one tab po q d 02/10 completed Not Available Not Available Not Available levothyroxi ne 25 mcg tablet Take 1 tablet every day by oral route as directed for 30 days. 01/06 completed Not Available Not Available Not Available baclofen 20 mg tablet Take 1 tablet 3 times a day by oral route for 30 days. 01/06 completed Not Available Not Available Not Available levothyroxi ne 75 mcg tablet Take 1 tablet every day by oral route as directed for 30 days. 06/21 completed Not Available Not Available Not Available meloxicam 7.5 mg tablet Take 1 tablet every day by oral route for 30 days. 05/04 completed Not Available Not Available Not Available levothyroxi ne 100 mcg tablet one tab po q d 01/25 completed Not Available Not Available Not Available citalopram 20 mg tablet TAKE 1 TABLET BY MOUTH ONCE DAILY NEEDED 01/06 completed Not Available Not Available Not Available famotidine 20 mg tablet Take 1 tablet twice a day 04/15 completed Not Available Not Available Not Available trazodone 100 mg tablet TAKE 1 TABLET BY MOUTH ONCE DAILY AT BEDTIME FOR 90 DAYS 09/30 completed Not Available Not Available Not Available meclizine 25 mg tablet TAKE 1 TABLET BY MOUTH THREE TIMES DAILY NEEDED FOR DIZZINESS 09/30 completed Not Available Not Available Not Available baclofen 10 mg tablet TAKE 1 TABLET BY MOUTH THREE TIMES DAILY NEEDED FOR PAIN 02/10 completed Not Available Not Available Not Available levothyroxi ne 50 mcg tablet Take 1 tablet every day by oral route as directed for 30 days. 01/06 completed Not Available Not Available Not Available levothyroxi ne 125 mcg tablet TAKE 1 TABLET BY MOUTH ONCE DAILY active Not Available Not Available No t Available ranitidine 150 mg tablet take one tablet by mouth twice daily 03/13 completed Not Available Not Available Not Available buspirone 10 mg tablet TAKE 1 TABLET BY MOUTH ONCE DAILY 05/25 completed Not Available Not Available Not Available lisinopril 10 mg tablet Take 1 tablet every day by oral route for 30 days. 05/04 completed Not Available Not Available Not Available hydrochloro thiazide 12.5 mg capsule TAKE 1 CAPSULE BY MOUTH ONCE DAILY 06/13 completed Not Available Not Available Not Available gabapentin 300 mg capsule TAKE 1 CAPSULE BY MOUTH EVERY 12 HOURS (MAY INCREASE TO 1 CAPSULE IN THE MORNING AND 2 CAPSULES AT BEDTIME IF NECESSARY ) active Not Available Not Available No t Available omeprazole 20 mg capsule,del ayed release TAKE 1 CAPSULE BY MOUTH TWICE DAILY 30 MINUTES BEFORE MEALS 04/15 completed Not Available Not Available Not Available furosemide 20 mg tablet Take 1 tablet(s) every day by oral route as needed for 30 days. 05/04 completed Not Available Not Available Not Available losartan 100 mg tablet Take 1 tablet every day by oral route for 30 days. 05/04 completed Not Available Not Available Not Available loratadine 10 mg tablet TAKE 1 TABLET BY MOUTH ONCE DAILY. CAN INCREASE TO TWICE DAILY IF NEEDED. 02/10 completed Not Available Not Available Not Available metoclopram evans 10 mg tablet Take 1 tablet 3 times a day by oral route around the clock for 30 days. 04/15 completed Not Available Not Available Not Available levothyroxi ne 112 mcg tablet one tab po q d active Not Available Not Available No t Available duloxetine 30 mg capsule,del ayed release TAKE 1 CAPSULE BY MOUTH ONCE DAILY 02/10 completed Not Available Not Available Not Available duloxetine 60 mg capsule,del ayed release TAKE 1 CAPSULE BY MOUTH ONCE DAILY active Not Available Not Available No t Available eszopiclone 2 mg tablet TAKE ONE TABLET BY MOUTH AT THE SLEEP STUDY, IF NEEDED, NOT AT HOME. DO NOT TAKE UNTIL SLEEP STUDY STARTS active Not Available Not Available No t Available Calcium 600 + D(3) 600 mg-5 mcg (200 unit) tablet Take 2 tablets every day by oral route around the clock for 30 days. 05/25 completed Not Available Not Available Not Available evening primrose oil 06/13 completed otc Not Available Not Available Not Available Prilosec 05/04 completed Not Available Not Available Not Available Fish Oil 300 mg-1,000 mg capsule one /twice with meals/day . 05/25 completed Not Available Not Available Not Available Calcium 600 + D(3) 600 mg-10 mcg (400 unit) tablet Take 2 tablets every day by oral route as directed for 30 days. 04/15 completed Not Available Not Available Not Available omeprazole 20 mg tablet,bridget yed release Take 2 tablet(s) every day by oral route before meals for 30 days. 05/04 completed Not Available Not Available Not Available Fluzone Quad (PF) 60 mcg (15 mcg x 4)/0.5 mL IM syringe 11/22 completed Not Available Not Available Not Available Vitals Date Recorded Body height Body mass index (BMI) Body weight Heart rate Oxygen saturation Oxygen saturation in Arterial blood by Pulse oximetry Systolic blood pressure Diastolic blood pressure Provider Name and Address Organization Details Last Updated DateTime 4 160.02 cm 38.8 kg/m2 40934.7 3 g 74 /min 98 % 98 % 126 mm[Hg] 77 mm[Hg] Cassy Marcum MA [facility] 4 10:04:59 Date Recorded Body height Body temperature Respiratory rate Body mass index (BMI) Body weight Oxygen saturation Oxygen saturation in Arterial blood by Pulse oximetry Heart rate Systolic blood pressure Diastolic blood pressure Provider Name and Address Organization Details Last Updated DateTime 4 160.02 cm 97.8 [degF] 16 /min 39.5 kg/m2 249379. 1 g 98 % 98 % 71 /min 122 mm[Hg] 78 mm[Hg] Rahel Ortiz MA [facility] 4 09:52:14 Date Recorded Body height Body mass index (BMI) Body weight Oxygen saturation Oxygen saturation in Arterial blood by Pulse oximetry Heart rate Systolic blood pressure Diastolic blood pressure Provider Name and Address Organization Details Last Updated DateTime 4 160.02 cm 40.6 kg/m2 585617. 65 g 99 % 99 % 71 /min 120 mm[Hg] 70 mm[Hg] Rahel Ortiz MA [facility] 4 16:52:49 Date Recorded Body height Body mass index (BMI) Body weight Oxygen saturation Oxygen saturation in Arterial blood by Pulse oximetry Heart rate Systolic blood pressure Diastolic blood pressure Provider Name and Address Organization Details Last Updated DateTime 4 160.02 cm 42.9 kg/m2 987354. 35 g 99 % 99 % 71 /min 124 mm[Hg] 78 mm[Hg] Rahel Ortiz MA [facility] 4 11:36:25 Date Recorded Body height Body mass index (BMI) Body weight Oxygen saturation Oxygen saturation in Arterial blood by Pulse oximetry Heart rate Systolic blood pressure Diastolic blood pressure Provider Name and Address Organization Details Last Updated DateTime 4 160.02 cm 42.9 kg/m2 221203. 35 g 98 % 98 % 62 /min 122 mm[Hg] 78 mm[Hg] Rahel Ortiz [place] [facility] 4 12:56:24 Social History Question Answer Notes LastModified by Organizat ion Details LastModified Time Tobacco Smoking Status Never Smoker Precious Wong MA null, [place] [facility] 04/15/2020 15:48:52 Do You Have An Advance Directive? No Information not available 04/15/2020 What Is Your Level Of Alcohol Consumption? None [email or web address] Information not available 10/30/2014 Are You Blind Or Do You Have Difficulty Seeing? No Information not available 11/22/2020 What Is Your Level Of Caffeine Consumption? Occasional Information not available 04/15/2020 How Much Tobacco Do You Chew? None Information not available 04/15/2020 In The 14 Days Before Symptom Onset, Have You Had Close Contact With A Laboratory-confir med COVID-19 While That Case Was Ill? No Information not available 04/15/2020 In The 14 Days Before Symptom Onset, Have You Had Close Contact With A Person Who Is Under Investigation For COVID-19 While That Person Was Ill? No Information not available 04/15/2020 Have You Been To An Area Known To Be High Risk For COVID-19? No Information not available 04/15/2020 Are You Deaf Or Do You Have Serious Difficulty Hearing? No Information not available 11/22/2020 What Type Of Diet Are You Following? REGULAR Information not available 04/15/2020 Which Illicit Or Recreational Drugs Have You Used? Denies Information not available 04/15/2020 Do You Or Have You Ever Used E-cigarettes Or Vape? Never Used Electronic Cigarettes Information not available 04/15/2020 Education 12 Information no t available 04/15/2020 What Is The Highest Grade Or Level Of School You Have Completed Or The Highest Degree You Have Received? [id number] [email or web address] Information not available 05/17/2023 Are There Any Guns Present In Your Home? No Information not available 04/15/2020 Hard Of Hearing Or Deaf In One Or Both Ears? No Information not available 04/15/2020 Legally Blind In One Or Both Eyes? No Information no t available 04/15/2020 Marital Status Informatio n not available 04/15/2020 What Was The Date Of Your Most Recent Tobacco Screening? 02/11/2024 Information not available 02/11/2024 Performs Monthly Self-breast Exam? Yes Information no t available 04/15/2020 What Is Your Relationship Status? Single Information not available 08/21/2021 Do You Use Your Seat Belt Or Car Seat Routinely? Yes Information not available 11/22/2020 Seat Belts Used Routinely Yes Information not available 04/15/2020 Are You Sexually Active? No Information not available 08/21/2021 Smoke Alarm In Home Yes Information not available 04/15/2020 Do You Have Smoke And Carbon Monoxide Detectors In Your Home? Yes Information not available 11/22/2020 Are You Passively Exposed To Smoke? No Information no t available 08/21/2021 Do You Or Have You Ever Used Smokeless Tobacco? Never Used Smokeless Tobacco Information not available 04/15/2020 How Much Tobacco Do You Smoke? No Information not available 04/15/2020 Do You Use Any Illicit Or Recreational Drugs? No Information not available 11/22/2020 Do You Use Sunscreen Routinely? Yes Information not available 04/15/2020 Has Tobacco Cessation Counseling Been Provided? No Information not available 08/21/2021 On What Date Was Tobacco Cessation Counseling Provided? 02/11/2024 Information not available 02/11/2024 How Many Years Have You Smoked Tobacco? 0 Information not available 04/15/2020 Do You Or Have You Ever Used Any Other Forms Of Tobacco Or Nicotine? No Information not available 08/21/2021 Sex: Female Functional Status Question Answer Note LastModified by Organization D etails LastModified Time Are you able to care for yourself? Yes Information n ot available 11/22/2020 What is your exercise level? None Information not available 04/15/2020 Mental Status None recorded. Family History Relationship Description Onset Age of this Age Resolved Age Notes LastModified by Organization Details LastModified Time Sister Diabetes mellitus [email or web address] Not available 10/30 11:49:07 Sister Hypertensive disorder [email or web address] Not available 10/30 11:49:07 Father Heart disease [email or web address] Not available 10/30 11:49:07 Medical History Condition Response Diabetes N Anxiety Disorder Y Muscle, Joint, or Bone Problems N Other N High Blood Pressure Y Seizures/Epilepsy N Acid Reflux (GERD) Y Kidney or Bladder Problems N GI Problems N Allergies N Depression Y Asthma N Skin Problems N Anemia N High Cholesterol N Hepatitis N Liver Disease N Heart Attack ([place]) N Headaches Y Heart Failure N Osteoporosis N Gynecological History Statement/Question Response Date of Last Mammogram 07/29/2021 Menses Monthly N Date of Last Pap Smear 08/21/2021 Age at Menarche 15 Current Control Method Menopause Age at First Child 22 LMP Obstetrics History GPAL:G 3 P 2 0 1 2 Type Value Multiple Births 0 Full Term 2 Induced 0 Spontaneous 1 Premature 0 Living 2 Ectopics 0 Total 3 Immunizations Vaccine Type Date Status Note Provider Nam e and Address Organization Details Recorded Time Tdap 2 completed Not Available [facility] 11/30/2022 19:48:57 influenza, unspecified formulation 2 completed Not Available [facility] 11/30/2022 19:48:57 zoster recombinant 2 completed Not Available [facility] 11/30/2022 19:48:57 Influenza, split virus, quadrivalent, PF 0 completed Not Available [facility] 11/30/2022 19:48:57 Influenza, split virus, quadrivalent, PF 1 completed Not Available [facility] 11/30/2022 19:48:57 Influenza, split virus, quadrivalent, PF 8 completed Not Available [facility] 04/29/2019 02:36:24 Past Encounters Encounter ID Performer Location Encounter Start Date Encounter Closed Date Diagnosis/Indication Diagnosis SNOMED-CT Code Diagnosis ICD10 Code [id number] Jovanna (Adult Med) [address] [place] [address] [id number] 10/30/2014 11:17:23 10/30/2014 13:18:41 Hypertensive disorder 86504071 Morbid obesity 745165961 Edema of l ower extremity 906818508 Family his tory of diabetes mellitus 787372163 Acid reflux 843637112 Osteoarthr itis of knee 571817634 Chronic low back pain 27 9571755 [id number] SAMUEL Kong (Adult Med) [address] [place] [address] [id number] 0 01/21/2015 11:03:09 01/21/2015 14:47:50 Hypertensive disorder 78898161 I10 Morbid obesity 721984119 E66.01 Osteoarthr itis of knee 843293204 M17.9 Chronic low back pain 27 3680314 M54.5 Edema of l ower extremity 949307707 R60.0 Acid reflux 976319165 K2 1.9 [id number] Chula Francisco is Jovanna (Adult Med) [address] [place] [address] [id number] 0 04/16/2015 11:47:53 04/16/2015 18:08:21 Acid reflux 849323413 K21.9 Chronic low back pain 27 7511738 M54.5 Edema of l ower extremity 247577002 R60.0 Hypertensive disorder 38 864167 I10 Morbid obesity 569880519 E66.01 Osteoarthr itis of knee 463843329 M17.9 [id number] Abel Nugent (Adult Med) [address] [place] [address] [id number] 0 07/17/2015 09:35:00 07/17/2015 11:12:59 Hypertensive disorder 84314106 I10 Morbid obesity 300614750 E66.01 Osteoarthr itis of knee 098534041 M17.9 Chronic low back pain 27 1580909 M54.5 Acid reflux 453944147 K2 1.9 [id number] MD Jovanna Sauceda (Adult Med) [address] [place] [address] [id number] 12/20/2015 10:51:35 12/20/2015 17:09:11 Hypertensive disorder 14503406 I10 Acid reflux 135463365 K2 1.9 Anxiety 73757161 F41.9 Edema of l ower extremity 365828171 R60.0 Family his tory of diabetes mellitus 821611522 Z83.3 Osteoarthr itis of knee 673072217 M17.9 Morbid obesity 641470798 E66.01 Family his tory of Thyroid disorder 834247284 Z83.49 [id number] Chula Singh is Jovanna (Adult Med) [address] [place] [address] [id number] 01/20/2016 16:13:17 01/20/2016 18:01:56 Anxiety 40692252 F41.9 Hypertensive disorder 38 655835 I10 Morbid obesity 529189752 E66.01 Osteoarthr itis of knee 784985442 M17.9 Hypothyroidism 63239056 E03.9 [id number] [facility] [address] [place] [address] [id number] 0 05/07/2016 10:11:23 05/11/2016 12:01:27 Hypothyroidism 89096113 E03.9 Hypertensive disorder 38 427044 I10 Chronic low back pain 27 7063556 M54.5 Osteoarthr itis of knee 486430374 M17.9 Morbid obesity 760058496 E66.01 Anxiety 30156058 F41.9 Acid reflux 619650565 K2 1.9 Acute pharyngitis 005749 003 J02.9 [id number] [facility] [address] [place] [address] [id number] 08/20/2016 09:45:20 08/20/2016 17:07:26 Subclinical hypothyroidism 83608932 E03.9 Morbid obesity 827941776 E66.01 [id number] MD Jovanna Sauceda (Adult Med) [address] [place] [address] [id number] 05/04/2017 10:03:00 05/04/2017 13:58:23 Essential hypertension 71659573 I10 Morbid obesity 676428026 E66.01 Subclinica l hypothyroidism 46852581 E03.9 Screening mammography 24 108871 Z12.31 Screening for malignant neoplasm of cervix 237093900 Z12.4 Screening for malignant neoplasm of colon 837487249 Z12.11 [id number] SOLEDAD Matthews (Adult Med) [address] [place] [address] [id number] 0 10/12/2017 09:41:08 10/18/2017 09:36:39 Morbid obesity 961705491 E66.01 Hypothyroidism 17899961 E03.9 Screening for malignant neoplasm of colon 635258573 Z12.11 Chronic low back pain 27 3441961 M54.5 Hypertensive disorder 38 584264 I10 Anxiety 06894560 F41.9 Acid reflux 155121727 K2 1.9 [id number] MD Jovanna Sauceda (Adult Med) [address] [place] [address] [id number] 01/06/2018 11:27:01 01/06/2018 13:56:30 Morbid obesity 564405049 E66.01 Osteoarthr itis of knee 812539466 M17.9 Hypothyroidism 85186584 E03.9 Anxiety 59138615 F41.9 Acid reflux 445203741 K2 1.9 Essential hypertension 02779937 I10 Administra tion of influenza vaccine 11119708 Z23 [id number] MD Jovanna Sauceda (Adult Med) [address] [place] [address] [id number] 03/31/2018 11:27:23 03/31/2018 13:04:51 Morbid obesity 620098554 E66.01 Hypothyroidism 69413010 E03.9 [id number] MD Jovanna Sauceda (Adult Med) [address] [place] [address] [id number] 0 06/21/2018 11:20:13 06/22/2018 11:33:38 Morbid obesity 979115355 E66.01 Hypothyroidism 37800867 E03.9 [id number] MD Jovanna Sauceda (Adult Med) [address] [place] [address] [id number] 0 09/14/2018 15:47:56 09/14/2018 17:00:21 Morbid obesity 279287905 E66.01 Hypothyroidism 71175928 E03.9 [id number] MD Jovanna Sauceda (Adult Med) [address] [place] [address] [id number] 0 12/15/2018 11:46:54 12/15/2018 12:56:34 Morbid obesity 907449170 E66.01 Hypothyroidism 29010658 E03.9 Acid reflux 929532356 K2 1.9 Vitamin D deficiency 347 56510 E55.9 Essential hypertension 47303524 I10 [id number] MD Jovanna Sauceda (Adult Med) [address] [place] [address] [id number] 0 03/13/2019 09:36:07 03/14/2019 10:11:02 Hypertensive disorder 74140091 I10 Hypothyroidism 31167143 E03.9 Morbid obesity 871793920 E66.01 Anxiety 29961186 F41.9 Acid reflux 820145721 K2 1.9 [id number] MD Jovanna Sauceda (Adult Med) [address] [place] [address] [id number] 0 05/25/2019 15:52:18 05/25/2019 17:02:39 Acid reflux 481203612 K21.9 Essential hypertension 96692688 I10 Chronic low back pain 27 8295105 M54.5 [id number] MD Jovanna Sauceda (Adult Med) [address] [place] [address] [id number] 0 01/19/2020 08:09:12 01/22/2020 11:47:48 Acid reflux 117777431 K21.9 Edema of l ower extremity 040708638 R60.0 Hypertensive disorder 38 461581 I10 Hypothyroidism 61588298 E03.9 Essential hypertension 65572943 I10 [id number] MD Jovanna Sauceda (Adult Med) [address] [place] [address] [id number] 0 01/30/2020 09:00:13 01/31/2020 10:38:54 Otitis media 84446307 H66.93 [id number] MD Jovanna Sauceda (Adult Med) [address] [place] [address] [id number] 0 04/15/2020 09:44:25 04/16/2020 12:58:25 Benign paroxysmal positional vertigo 380611438 H81.13 [id number] MD Jovanna Sauceda (Adult Med) [address] [place] [address] [id number] 0 07/30/2020 08:01:37 07/31/2020 14:19:01 Acid reflux 270527761 K21.9 Anxiety 01643022 F41.9 Chronic low back pain 27 9336083 M54.5 Edema of l ower extremity 092056573 R60.0 Hypertensive disorder 38 332397 I10 Hypothyroidism 14904683 E03.9 Morbid obesity 143600700 E66.01 Osteoarthr itis of knee 808508736 M17.9 Hyperlipidemia 43678911 E78.5 Benign par oxysmal positional vertigo 880532937 H81.13 [id number] MD Jovanna Sauceda (Adult Med) [address] [place] [address] [id number] 0 11/22/2020 10:32:32 11/25/2020 12:26:17 Acid reflux 514656701 K21.9 Anxiety 54692071 F41.9 Chronic low back pain 27 3576092 M54.5 Edema of l ower extremity 552873056 R60.0 Hypertensive disorder 38 191606 I10 Hypothyroidism 82407256 E03.9 Morbid obesity 825612808 E66.01 Hyperlipidemia 50402785 E78.5 Benign par oxysmal positional vertigo 115856526 H81.13 [id number] MD Jovanna Sauceda (Adult Med) [address] [place] [address] [id number] 0 06/13/2021 11:19:53 06/17/2021 10:35:00 Screening for malignant neoplasm of colon 930680081 Z12.11 Screening for malignant neoplasm of cervix 370175630 Z12.4 Screening mammography 24 683209 Z12.31 Bilateral tinnitus 33958 90487 102 H93.13 Chronic tremor 328193647 R25.1 Drug-induc ed hypokalemia 743757138 T50.905A [id number] TERRELL RODRIGUEZ (NUCLEAR SPECTROSCOPIST) [address] [place] [address] [id number] 0 08/21/2021 09:26:38 08/21/2021 10:35:19 Gynecologic examination 15303123 Z01.419 Obesity 087358682 E66.9 [id number] MD Jovanna Sauceda (Adult Med) [address] [place] [address] [id number] 0 09/12/2021 11:21:09 09/23/2021 09:46:22 Acid reflux 923301521 K21.9 Hypothyroidism 25324389 E03.9 Morbid obesity 244791561 E66.01 [id number] MD Jovanna Sauceda (Adult Med) [address] [place] [address] [id number] 0 12/12/2021 11:18:56 12/16/2021 09:48:11 Acid reflux 178643131 K21.9 Anxiety 56089759 F41.9 Chronic low back pain 27 4049765 M54.51 Edema of l ower extremity 905059101 R60.0 Hypothyroidism 68834766 E03.9 Morbid obesity 303942963 E66.01 Osteoarthr itis of knee 615285115 M17.9 Hypertensive disorder 38 322098 I10 Insomnia 888761555 G47.0 0 Dyslipidemia 965341954 E 78.5 [id number] MD Jovanna Sauceda (Adult Med) [address] [place] [address] [id number] 0 05/20/2022 12:31:07 05/22/2022 15:07:01 Anxiety 21771691 F41.9 Hypertensive disorder 38 846097 I10 Hypothyroidism 61020066 E03.9 Morbid obesity 205836023 E66.01 Dyslipidemia 889058222 E 78.5 Renewal of prescription 313803189 Z76.0 Benign par oxysmal positional vertigo 178719578 H81.13 Acid reflux 361540520 K2 1.9 Insomnia 259382257 G47.0 0 Screening for osteoporosis 675814899 Z13.820 Migraine 70555634 G43.90 9 Chronic constipation 236 798283 K59.09 [id number] MD Jovanna Sauceda (Adult Med) [address] [place] [address] [id number] 0 09/11/2022 09:16:50 09/14/2022 16:28:10 Obesity 782130052 E66.9 Insomnia 555121315 G47.0 0 Hypertensive disorder 38 690980 I10 Hypothyroidism 00887843 E03.9 Administra tion of pneumococcal vaccine 09713927 Z23 [id number] MD Jovanna Sauceda (Adult Med) [address] [place] [address] [id number] 0 02/02/2023 09:22:24 02/05/2023 10:57:29 Ulnar nerve entrapment at elbow 453247507 G56.23 Acid reflux 416864811 K2 1.9 Anxiety 12427133 F41.9 Chronic low back pain 27 2831250 M54.51 Hypothyroidism 55297572 E03.9 Morbid obesity 056918048 E66.01 Osteoarthr itis of knee 859920934 M17.9 Influenza vaccination declined 152774723 Z28.21 Administra tion of pneumococcal vaccine 16318172 Z23 Dyslipidemia 845546224 E 78.5 Essential hypertension 29811846 I10 Hypertensive disorder 38 132918 I10 Migraine 51105769 G43.90 9 Insomnia 064091160 G47.0 0 [id number] Ed Baptiste MD [facility] (Adult Med) [address] [place] [address] [id number] 0 05/17/2023 09:25:55 05/19/2023 15:24:06 Pain of left shoulder joint 5298171962 7824253 M25.512 Obesity 106455501 E66.9 [id number] Allie Lo MD Jovanna (Adult Med) [address] [place] [address] [id number] 0 10/01/2023 09:26:58 10/04/2023 12:34:47 Body mass index 30+ - obesity 719060704 Z68.38 Rupture of rotator cuff of left shoulder 0126185264 3230578 M75.102 Essential hypertension 25239290 I10 Hypothyroidism 52614760 E03.9 Idiopathic peripheral neuropathy 41588095 G60.9 Gastroesop hageal reflux disease without esophagitis 012742176 K21.9 Adjustment disorder with depressed mood 75744764 F43.21 History of transient ischemic attack 133990546 Z86.73 Morbid obesity 318033535 E66.01 Dyslipidemia 520994186 E 78.5 Pain of le ft shoulder joint 4348048946 1357032 M25.512 Anxiety 52095372 F41.9 Hypertensive disorder 38 196999 I10 Acid reflux 771403995 K2 1.9 [id number] MD Jovanna Thornton (Adult Med) [address] [place] [address] [id number] 0 11/29/2023 16:46:37 12/01/2023 13:02:32 Acute dermatitis 40930100 L30.9 Anxiety 49200230 F41.9 [id number] MD Jovanna Thornton (Adult Med) [address] [place] [address] 04830-178 0 01/07/2024 10:58:12 01/11/2024 11:05:43 Body mass index 40+ - severely obese 204619764 Z68.41 Anxiety 58141334 F41.9 Weight gain 5919424 R63. 5 Essential hypertension 28416280 I10 Hyperlipidemia 79966743 E78.5 Hypertensive disorder 38 881923 I10 Hypothyroidism 51173178 E03.9 Acid reflux 950369183 K2 1.9 [id number] MD Jovanna Thornton (Adult Med) [address] [place] [address] 86227-082 0 02/11/2024 11:58:24 02/15/2024 14:43:42 Anxiety 36347891 F41.9 Body mass index 40+ - severely obese 463707721 Z68.41 Hypothyroidism 62713141 E03.9 Essential hypertension 63447238 I10 Hyperlipidemia 18958605 E78.5 Acid reflux 769173236 K2 1.9 Health Concerns Section Related Observation LastModified by Organization Detai ls LastModified Time None Recorded Concern Status LastModified by Organization Details LastModified Time None Recorded Advance Directives Directive N: Payers Encounter Date Sequence Insurance Name Policy Number Policy Zarate Covered Member ID Zarate Member ID Guarantor Name 05/17/2023 1 [place] Kyung Roe [id number] Kyung Roe 05/17/2023 2 [place] OR [place]IC[place] REPLACEMENT [place]IMARY) Kyung Roe [id number] Kyung Roe 10/01/2023 1 [place] Kyung Roe [id number] Kyung Roe 10/01/2023 2 [place]PLACEMENT [place]) Kyung Roe [id number] Kyung Roe 11/29/2023 1 [place] Kyung Roe [id number] Kyung Roe 11/29/2023 2 [place]PLACEMENT [place]) Kyung Roe [id number] Kyung Roe 01/07/2024 1 [place] Kyung Roe [id number] Kyung Roe 01/07/2024 2 [place]PLACEMENT [place]) Kyung Roe [id number] Kyung Roe 02/11/2024 1 [place] Kyung Roe [id number] Kyung Roe 02/11/2024 2 [place]AC[place]) Kyung Roe [id number] Kyung Roe Notes Date Note Type Note Provider Name and Address Organization Details Recorded Time 05/17/2023 text/html Office visit, C/ C fell at home since Xmas, went to [facility] , negative x ray of left shoulder for fracture, but still has pain, wilmer to raise arm up. Right -handed. Will refer to Orthopedic and muscle relaxant. No chest pain, no shortness of breath, no fever, On other complaint. ROS as noted in HPI. Allergic to dilaudid and naltrexone. Ed Baptiste MD Attn: Accounting,[address] [facility], [place], [address], [facility] 05/17/2023 12:54:37 10/01/2023 text/html here to donald marlow as new patient, fell on left shoulder [place] and can't raise arm all the way, did ten weeks of physical therapy, it is better but still can't raise arm above shoulder, still very painful, hurts into the biceps, had an xray, takes Bupropion, was prescribed it to help loose weight, took another medication with it but it made her sick so stopped it, wonders if she needs to continue it, treated for htn, anxiety, hypothyroid, TIA, struggles with motivation, doesn't want to do the simple things, gets up and does bathroom things and lays back down, has to make herself get up, by herself a lot, of cancer in [age], boyfriend three years ago, had a Prevnar vaccine Allie Lo MD Attn: Accounting,[address] [place], [address], [facility] 10/01/2023 10:51:00 11/29/2023 text/html here for pruriti c rash, started Nov 17,was outside weed eating that day, the next day noticed skin rash, first noticed it on eye, started with itching around right eye, then noticed it on hands and arms, itching under neck, a little bit on right upper thigh, when wakes up skin is red, no shortness of breath, no edema, many years ago had a similar reaction, has tried Benadryl and it did not help, she would like to talk about something different for her anxiety Allie Lo MD Attn: Accounting,[address] [place], [address], [facility] 11/29/2023 18:30:52 01/07/2024 text/html follow up, skin is better, no itching, rash is better, within a couple days of last visit itching stopped and rash improved, weight going up, when gets nervous eating more, last night when knew it was supposed to rain nervous about driving over, no chest pain, no shortness of breath, no stomach pain, no nausea or vomiting, knees hurt, taking Citalopram for anxiety but not sure it is helping, was originally started on Wellbutrin for weight loss but not sure it is helping Allie Lo MD Attn: Accounting,[address] [place], [address], [facility] 01/07/2024 13:42:08 02/11/2024 text/html follow up, tolerating new anxiety medication fine, not sure it is helping yet, still has times doesn't want to do anything, yesterday didn't want to do anything but in the evening did get up and got things done, had stuff everywhere in the kitchen and started putting it away, once gets moving not too bad, no thoughts of hurting self, has been walking, keeping track of steps, knees hurt but thinks that is because of weight, at one time was down to 207 pounds, Allie Lo MD Attn: Accounting,[address] [place], [address], [facility] 02/11/2024 13:56:25 OBGyn Episode No OBEpisode recorded.
--- OUTSIDE RECORDS SUMMARY | 2024-03-23 10:18 | XMS_ITS | Continuity of Care Document ---
Author Organization [facility] ANAMIKA[facility]ovanna Wood (Adult Med) Address [address] [place] [address] Care Team Providers Care Supervisor Cook House Name Role Phone SHRUTI HAYNES Woodworker Helper Assessment Encounter Date Assessment Date Assessment LastModified [...] Not available Not available Not available Lab TSH, ultra-sen sitive, serum 2023 [facility], [address] [place] [address], [address], [address], 02/26/2024 08:28:42 Referral None recorded. Procedures None recorded. Surgeries None recorded. Imaging None recorded. Medication Orders omeprazol e 40 mg capsule,d elayed release 2023 [facility] [place], [address], 02/11/2024 13:56:01 hydralazi ne 25 mg tablet 2023 024 [facility] [place], [address], 02/11/2024 13:56:00 losartan 50 mg tablet 2023 024 [facility], [address] [place], [address], 02/11/2024 13:56:03 duloxetin e 60 mg capsule,d elayed release 2023 024 [facility] [place], [address], 02/11/2024 13:52:08 Patient TargetsNo targets recorded. Patient InstructionsNo instructions recorded. Reason for Referral None Reported. Problems Name Problem SNOMED Code Status Onset Date Resolution Date Notes Provider Name and Address Organization Details Recorded Time Screening for malignant neoplasm of colon Active 2017 Not Available [facility] 3 19:48:57 Hypertensive disorder 56182818 Active Not Available [facility] 3 19:48:57 Morbid obesity 203233956 Active Not Available [facility] 3 19:48:57 Edema of lower extremity 473086398 Active Not Available [facility] 3 19:48:57 Acid reflux 596822786 Active Not Available [facility] 3 19:48:57 Osteoarthriti s of knee 781271239 Active Not Available [facility] 3 19:48:57 Chronic low back pain 635856699 Active Not Available [facility] 3 19:48:57 Anxiety 76744977 Active Not Available [facility] 3 19:48:57 Hypothyroidis m 77156126 Active Not Available [facility] 3 19:48:57 Problem Notes None recorded. Procedures Surgical History Date Name Laterality Status Provider Name and Address Organization Details Recorded Time 08/22/19 22 Date of Last Pap Smear completed GLYNN Thakkar 08/21/2021 09:40:11 07/30/19 22 Date of Last Mammogram completed GLYNN Thakkar 08/21/2021 09:40:19 11/02/18 81 Caesarean Section completed GLYNN Thakkar 08/21/2021 09:49:37 11/17/19 72 Caesarean Section completed Rosa Santana [place] [facility] 08/21/2021 09:49:25 cholecystectomy completed Precious Wong [place] [facility] 04/15/2020 15:52:27 Dilation and Curettage completed Ramon Bridges MA [place] [facility] 10/30/2014 11:49:07 Imaging Results None recorded. Procedure Notes None recorded. Medical Equipment None Reported. Allergies Allergen ID Allergen Name Allergen Category Reaction Reaction Severity Criticality Documentation Date Start Date Code Code System Note Provider Name and Address Organization Details Recorded Time 693882 naltrexon e medicatio n dizziness moderate Not available 09/14/2018 7243 RxNorm Precious Wong MA null, [place] - [facility] 1 15:44:19 864199 Dilaudid medicatio n flushing moderate Not available 09/12/2021 14937 3 RxNorm Meagan Rodriguez RN null, [facility] 2 11:44:28 Medications Name Sig Start Date [...] TABLET BY MOUTH ONCE DAILY AFTER SUPPER 03/04 /2022 completed Not Available Not Available Not Available [...] Updated DateTime 4 160.02 cm 42.9 kg/m2 168117. 35 g 98 % 98 % 62 /min 122 mm[Hg] 78 mm[Hg] Rahel Ortiz MA [place] - [facility] 12:56:24 Social History Question Answer Notes LastModified by Organizat ion Details LastModified Time Tobacco Smoking Status Never Smoker Precious GLYNN Wong null, [place] - [facility] 04/15/2020 15:48:52 Do You Have An Advance [...] Or The Highest Degree You Have Received? [id number] adavisma Information not available 05/17/2023 Are There [...] available 10/30 11:49:07 Medical History Condition Response Other N High Blood Pressure Y Depression Y Anxiety Disorder Y Muscle, Joint, or Bone Problems N Acid Reflux (GERD) Y High Cholesterol N Liver Disease N Headaches Y Kidney or Bladder Problems N GI Problems N Skin Problems N Anemia N Heart Attack ([place]) N Diabetes N Seizures/Epilepsy N Asthma N Allergies N Hepatitis N Heart Failure N Osteoporosis N Gynecological History [...] Recorded Time Tdap 2 completed Not Available [facility] 11/30/2022 19:48:57 influenza, unspecified formulation 2 completed Not Available [facility] 11/30/2022 19:48:57 zoster recombinant 2 completed Not Available [facility] 11/30/2022 19:48:57 Influenza, split virus, quadrivalent, PF 0 completed Not Available [facility] 11/30/2022 19:48:57 Influenza, split virus, quadrivalent, PF 1 completed Not Available [facility] 11/30/2022 19:48:57 Influenza, split virus, quadrivalent, PF 8 completed Not Available [facility] 04/29/2019 02:36:24 Past Encounters Encounter ID Performer Location Encounter Start Date Encounter Closed Date Diagnosis/Indication Diagnosis SNOMED-CT Code Diagnosis ICD10 Code [id number] Allie Lo MD [facility] (Adult Med) [address] [place] [address] [place] [address] 02/11/2024 11:58:24 02/15/2024 14:43:42 Anxiety 68783533 F41.9 Body mass index 40+ - severely obese 950721835 Z68.41 Hypothyroidism 04145826 E03.9 Essential hypertension 50096102 I10 Hyperlipidemia 07201145 E78.5 Acid reflux 640379341 K2 1.9 Health Concerns Section Related Observation LastModified by Organization Detai ls LastModified Time None Recorded Concern Status LastModified by Organization Details LastModified Time None Recorded Payers Encounter Date Sequence Insurance Name Policy Number Policy Zarate Covered Member ID Zarate Member ID Guarantor Name 02/11/2024 1 [place] Kyung Roe [id number] Kyung Roe 02/11/2024 2 [place] WHEN MEDICARE OR MEDICARE REPLACEMENT PRIMARY) Kyung Roe [id number] Kyung Roe Notes Date Note Type Note Provider Name and Address Organization Details Recorded Time 02/11/2024 text/html follow up, tolerating new anxiety [...] 207 pounds, Allie Lo MD Attn: Accounting,[address] [facility], [place], [address], [facility] 02/11/2024 13:56:25 OBGyn Episode No OBEpisode recorded.
--- OUTSIDE RECORDS SUMMARY | 2024-03-23 10:18 | XMS_ITS | Data Portability ---
Author Organization [place] [facility] [place] [facility], Main Office Address [address] [place] [phone] Care Team Providers Care Stone Engraver Name Role Phone LINUS HOUSTON Primary Care Provider [phone] LINUS HOUSTON Referring Provider Assessment Encounter Date Assessment Date Assessment LastModified by Organization Details LastModified Time 05/26/2023 05/26/2023 67-year-old female presents for evaluation of her left shoulder she is left-hand dominant. She had a fall on [employer] when she landed her left arm. She has weakness in lifting the arm. Currently rates her she has been using ice, heat, and topicals, as well as baclofen. She is unable to take NSAIDs. She has a history of a TIA. Review of systems per patient questionnaire Physical exam: She has diffuse soreness over the anterolateral shoulder. Range of motion 130/30/lower lumbar. She has 4/5 strength in external rotation, 3/5 in elevation. Positive Padmini's, positive Neer and Mirza, positive speed and Yergason's. X-rays from previously were reviewed, demonstrating no acute bony abnormality We will begin with a course of conservative management. We will send her to physical therapy, and recommend Voltaren gel as she can not take oral NSAIDs. We will see her back after 4-6 weeks after a course of treatment. At that time, if she does not have improvement, we may consider cortisone injection or a MRI. [email or web address] Not available 05/28/2023 00:39:30 06/30/2023 06/30/2023 67-year-old female presents for re-evaluation of her left shoulder. She had a fall on [employer] when she landed her left arm. Since her last appointment she has been working with therapy. She feels that she is making improvements but she still has weakness in lifting the arm and pain that keeps her up at night. Her last PT appointment is scheduled for Wednesday. Physical exam: She has diffuse soreness over the anterolateral shoulder. Range of motion 140/40/lower lumbar. She has 4/5 strength in external rotation, 3/5 in elevation. Positive Padmini's, positive Neer and Mirza, positive speed and Yergason's. Today we discussed the risks and benefits of a cortisone injection. She would like to proceed with the injection today. We will send her a renewal for physical therapy, as she feels there is still progress to be made. We will see her back as needed after the therapy for pain. She is in agreement with this plan. [email or web address] Not available 06/30/2023 12:50:12 Plan of Treatment Reminders Order Date Submit Date Provider Last Modified By Organization Details Last Modified Time Details Appointments None recorded. Lab None recorded. Referral physical therapist referral - eval and treat 2023 024 [email or web address] [facility], [address], [place], [address], 4 10:52:13 physical therapist referral - CONTINUE PT 2023 024 [email or web address] [facility], [address], [place], [address], 4 16:36:01 Procedures injection/a spiration joint/bursa (PROC) - in office procedure, administere d by provider 2023 024 [email or web address] 3 In-Office Order, Internal Use Only DO Not Attach Compendium DO Not Attach Compendium, Do Not Delete/merge, [address] 11:58:51 Surgeries None recorded. Imaging None recorded. Medication Orders Kenalog 10 mg/mL suspension for injection 2023 024 [email or web address] [facility], [address] [facility], [place], [address], 4 16:36:01 Marcaine (PF) 0.5 % (5 mg/mL) injection solution 2023 024 [email or web address] Not available 12:00:46 Patient TargetsNo targets recorded. Patient InstructionsNo instructions recorded. Reason for Referral Physical Therapist Referral for Pain of left shoulder joint eval and treat Referring Physician: Osman Bird, Orthopedic Surgery, Encounter Date: 05/26/2023 Physical Therapist Referral for Pain of left shoulder joint CONTINUE PT Referring Physician: Carli Loo, Orthopedic Surgery, Encounter Date: 06/30/2023 Results Created Date Observation Date Name Description Value Unit Range Abnormal Flag Note LastModifiedBy Organization Detail LastModifiedTime 06/02/1904/04/2023 XR, shoul angela No observ ation record ed. [address] [place] [address], [address], 06/02/2023 10:24:47 Result Notes None recorded. Problems Name Problem SNOMED Code Status Onset Date Resolution Date Notes Provider Name and Address Organization Details Recorded Time Pain of left shoulder joint 912144440175754 09 Active 2023 CRISTY Greer [facility] 11:05:25 Problem Notes None recorded. Procedures Surgical History Date Name Laterality Status Provider Name and Address Organization Details Recorded Time Ortho - Cortisone Injection completed Carli Loo, FABIEN [address] [facility], [facility] [address], [place], [address], [facility] 06/30/2023 12:50:40 section completed CRISTY Greer [facility] 05/26/2023 11:04:30 Gallbladder Surgery completed CRISTY Greer [facility] 05/26/2023 11:04:42 Imaging Results Imaging Date Name Status LastModified by Organiz ation Details LastModified Time 04/04/2023 XR, shoulder completed [address] [place] [address], [address], 06/02/2023 10:24:47 Procedure Notes None recorded. Medical Equipment None Reported. Allergies Allergen ID Allergen Name Allergen Category Reaction Reaction Severity Criticality Documentation Date Start Date Code Code System Note Provider Name and Address Organization Details Recorded Time 78047 naldemedi ne medicatio n Not available Not available Not available 05/26/2023 66945 97 RxNorm Leigha Myers, CRISTY null, [place] [facility] [place] [employer] [facility] 11:02:14 Medications Name Sig Start Date Stop Date Status Note LastModified by Organization Details LastModified Time losartan 50 mg tablet TAKE 1 TABLET BY MOUTH ONCE DAILY DIRECTED active Not Available Not Available No t Available bupropion HCl SR 150 mg tablet,12 hr sustained-rele ase TAKE 1 TABLET BY MOUTH TWICE DAILY DIRECTED active Not Available Not Available No t Available atorvastatin 20 mg tablet TAKE 1 TABLET BY MOUTH ONCE DAILY AT BEDTIME active Not Available Not Available No t Available levetiracetam 500 mg tablet TAKE 1 TABLET BY MOUTH ONCE DAILY NEEDED active Not Available Not Available No t Available hydralazine 25 mg tablet TAKE 1 TABLET BY MOUTH TWICE DAILY active Not Available Not Available No t Available omeprazole 40 mg capsule,delaye d release TAKE 1 CAPSULE BY MOUTH ONCE DAILY BEFORE MEAL(S) active Not Available Not Available No t Available aspirin 81 mg tablet,delayed release TAKE 1 TABLET BY MOUTH ONCE DAILY active Not Available Not Available No t Available levothyroxine 100 mcg tablet TAKE 1 TABLET BY MOUTH ONCE DAILY DIRECTED active Not Available Not Available No t Available citalopram 20 mg tablet TAKE 1 TABLET BY MOUTH ONCE DAILY NEEDED active Not Available Not Available No t Available trazodone 100 mg tablet TAKE 1 TABLET BY MOUTH ONCE DAILY AT BEDTIME FOR 90 DAYS active Not Available Not Available No t Available Kenalog 10 mg/mL suspension for injection IN OFFICE 2023 active [facility]: [id number] [id number] [phone] Not Available Not Available Not Available baclofen 10 mg tablet TAKE 1 TABLET BY MOUTH THREE TIMES DAILY DIRECTED active Not Available Not Available No t Available gabapentin 300 mg capsule TAKE 1 CAPSULE BY MOUTH TWICE DAILY active Not Available Not Available No t Available Marcaine (PF) 0.5 % (5 mg/mL) injection solution IN OFFICE 2023 active Not Available Not Available Not Avai lable Vitals Date Recorded Body height Body mass index (BMI) Body weight Provider Name and Address Organization Details Last Updated DateTime 05/26/2023 157.48 cm 39.3 kg/m2 82681.36 CRISTY Olvera [facility] [employer] 05/26/2023 11:01:34 Date Recorded Body height Body mass index (BMI) Body weight Provider Name and Address Organization Details Last Updated DateTime 06/30/2023 157.48 cm 39.3 kg/m2 82721.36 CRISTY Olvera [facility] [employer] 06/30/2023 11:41:00 Social History Question Answer Notes LastModified by [employer] ion Details LastModified Time Tobacco Smoking Status Unknown If Ever Smoked CRISTY Greer [facility] [employer] 05/26/2023 11:03:42 What Is Your Level Of Alcohol Consumption? None [email or web address] Information not available 05/26/2023 What Was The Date Of Your Most Recent Tobacco Screening? 05/26/2023 [email or web address] Information not available 05/26/2023 Sex: Unknown Functional Status None recorded. Mental Status None recorded. Family History Relationship Description Onset Age of this Age Resolved Age Notes LastModified by Organization Details LastModified Time Sister Heart disease [email or web address] Not available 2023 11:03:08 Sister Hypertensive disorder Not available 2023 11:03:20 Sister Diabetes mellitus [email or web address] Not available 2023 11:03:29 Medical History Condition Response ARTHRITIS Y STROKE/TIA Y Gynecological HistoryNo gynecological history recorded. Obstetrics History GPAL:G 0 P 0 0 0 0 Past Encounters Encounter ID Performer Location Encounter Start Date Encounter Closed Date Diagnosis/Indication Diagnosis SNOMED-CT Code Diagnosis ICD10 Code [id number] Osman Bird MD [facility] [address] [place] [address] 05/26/2023 10:38:24 05/26/2023 11:53:29 Pain of left shoulder joint 2591966480 1075629 M25.280 [id number] Carli Loo NP [facility] [address] [place] [address] 06/30/2023 11:38:50 06/30/2023 12:08:13 Pain of left shoulder joint 9922124912 6366789 M25.512 Health Concerns Section Related Observation LastModified by Organization Detai ls LastModified Time None Recorded Concern Status LastModified by Organization Details LastModified Time None Recorded Advance Directives Directive None Recorded Payers Encounter Date Sequence Insurance Name Policy Number Policy Zarate Covered Member ID Zarate Member ID Guarantor Name 05/26/2023 1 [place] Kyung Roe [id number] Kyung Roe 05/26/2023 2 [place] [employer] [facility] [employer] yKung Roe [id number] Kyung Roe 06/30/2023 1 [place] Kyung Roe [id number] Kyung Roe 06/30/2023 2 [place] [employer] Kyung Roe [id number] Kyung Roe OBGyn Episode No OBEpisode recorded.
== END 2024-03-23 10:15 | disposition home or self-care (01) ==
LOC: ANHLAB 10:16
PROVIDERS: PCP Nurse Practitioner Family; Visit Provider Internal Medicine Critical Care Medicine
DX: D64.9 Anemia, unspecified (principal)
CPT/HCPCS: 36415; 82728

== ENCOUNTER 2024-08-21 08:07 | Outpatient (CLI) | payer MEDICARE, MEDICAID, SELFPAY ==
--- OUTSIDE RECORDS SUMMARY | 2024-08-21 08:12 | XMS_ITS | Data Portability ---
Author Organization [facility] ANAMIKAIsrael T[place] Marlow Address [address] [place] [address] Care Team Providers Care Surfacing Technician Name Role Phone [facility]UTI [facility] Nurse [phone] Assessment Encounter Date Assessment Date Assessment LastModified by Organization Details LastModified Time 02/11/2024 02/11/2024 Need to talk about colon cancer screening at follow up along with DEXA scan. [email or web address] Not available 02/11/2024 13:51:58 Plan of Treatment Reminders Order Date Submit Date Provider Last Modified By Organization Details Last Modified Time Details Appointments ANY 30 2024 10:30A M Allie Lo MD Not available Not available Not available Lab TSH, ultra-sen sitive, serum 2023 024 [facility], [address] [place] [address], [address], [place], [address], 02/26/2024 08:28:42 TSH, ultra-sen sitive, serum 2023 024 [facility], [address] [place] [address], [address], [place], [address], 01/19/2024 08:30:07 HbA1c (hemoglob in A1c), blood 2023 024 [email or web address] In-Office Order, Internal Use Only DO Not Attach Compendium DO Not Attach Compendium, Do Not Delete/merge, [id number] 01/07/2024 12:45:09 CMP, serum or plasma 2023 024 [facility], [address] [place], [place] [address]ot [place], [address], [place], [address], 10/02/2023 08:25:08 CBC 2023 024 [facility], [address], [address], [place], [address], 10/02/2023 08:25:10 lipid panel, serum 2023 024 [facility], [address] [facility], [address], [place], [address], 10/02/2023 08:25:07 albumin/c reatinine , mass ratio, urine 2023 024 [facility], [address] [facility], [address], [place], [address], 10/02/2023 08:25:07 TSH, ultra-sen sitive, serum 2023 024 [facility], [address] [facility], [address], [place], [address], 10/02/2023 08:25:09 HbA1c (hemoglob in A1c), blood 2023 024 [email or web address] [facility], [address] [place] [address], [address], [place], [address], 03/30/2024 16:08:43 Referral orthopedi c surgeon referral [address] [facility], [address] [facility], [place], [address], 05/28/2023 04:40:20 Procedures None recorded. Surgeries None recorded. Imaging MRI, shoulder, w/o contrast 2023 024 [facility] [address], [place], [address], 01/13/2024 10:19:26 Medication Orders omeprazol e 40 mg capsule,d elayed release 2023 024 [facility], [address] [place] [address], [address], 02/11/2024 13:56:01 hydralazi ne 25 mg tablet 2023 024 [facility], [address] [place] [address], [address], 02/11/2024 13:56:00 losartan 50 mg tablet 2023 024 [facility], [address] [place] [address], [address], 02/11/2024 13:56:03 duloxetin e 60 mg capsule,d elayed release 2023 024 [facility], [address] [place] [address], [address], 02/11/2024 13:52:08 omeprazol e 40 mg capsule,d elayed release 2023 024 [facility], [address] [place] [address], [address], 01/07/2024 13:41:54 hydralazi ne 25 mg tablet 2023 024 [facility], [address] [place] [address], [address], 01/07/2024 13:41:53 losartan 50 mg tablet 2023 024 [facility], [address] [place] [address], [address], 01/07/2024 13:41:51 duloxetin e 30 mg capsule,d elayed release 2023 024 [facility], [facility] [place] [address], [address], 02/11/2024 13:52:44 atorvasta tin 20 mg tablet 2023 024 [facility], [address] [place] [address], [address], 01/07/2024 13:41:52 levothyro xine 100 mcg tablet 2023 024 [facility], [address] [place] [address], [address], 01/26/2024 11:19:05 loratadin e 10 mg tablet 2023 024 [facility], [address] [place] [address], [address], 02/11/2024 14:31:48 prednison e 20 mg tablet 2023 024 [facility], [address] [place] [address], [address], 01/07/2024 11:08:37 omeprazol e 40 mg capsule,d elayed release 2023 024 [facility], [address] [place] [address], [place], [address], 10/01/2023 10:50:16 hydralazi ne 25 mg tablet 2023 024 [facility], [address] [place] [address], [address], 10/01/2023 10:50:16 losartan 50 mg tablet 2023 024 [facility], [address] [place] [address], [address], 10/01/2023 10:50:16 atorvasta tin 20 mg tablet 2023 024 [facility], [address] [place] [address], [address], 10/01/2023 10:50:16 aspirin 81 mg tablet,de layed release 2023 024 [facility], [address] [place] [address], [address], 02/11/2024 13:55:52 citalopra m 20 mg tablet 2023 024 [facility], [address] [place] [address], [address], 01/07/2024 13:40:11 baclofen 10 mg tablet 2023 024 [facility], [address] [place] [address], [address], 02/11/2024 13:52:27 levothyro xine 100 mcg tablet 2023 024 [facility], [address] [place] [address], [address], 01/26/2024 11:18:56 baclofen 10 mg tablet 2023 024 [facility], [address] [place] [address], [address], 02/11/2024 13:52:38 Patient TargetsNo targets recorded. Patient Instructions Encounter Date Encounter Id Patient Instructions Last Modified By Organization Details Last Modified Time 05/17/2023 [id number] A healthy lifestyle: care instructions [facility] Not available 05/17/2023 12:54:14 10/01/2023 [id number] A healthy lifestyle: care instructions [facility] Not available 10/01/2023 10:50:16 Reason for Referral Orthopedic Surgeon Referral for Pain of left shoulder joint Referring Physician: Ed Baptiste, Internal Medicine, Encounter Date: 05/17/2023 Results Created Date Observation Date Name Description Value Unit Range Abnormal Flag Note LastModifiedBy Organization Detail LastModifiedTime 10/01/19 24 10/02/2023 ALBUM IN/CR EATIN INE RATIO ,URIN E creatinine, urine 327.8 mg/dL notest ab. Not Available [facility] ([facility]) [address] [place], [address], 10/02/2023 08:25:07 10/01/19 24 10/02/2023 ALBUM IN/CR EATIN INE RATIO ,URIN E albumin, urine 53.1 ug/mL notest ab. Not Available [facility] ([facility]) [address] [facility], [place], [address], 10/02/2023 08:25:07 10/01/19 24 10/02/2023 ALBUM IN/CR EATIN INE RATIO ,URIN E alb/creat ratio 16 mg/g_ creat 0-29 Munira l: 0 - 29 Moder ately incre ased: 30 - 300 Sever haley incre ased: >300 Not Available [facility] ([facility]) [address] [place], [address], 10/02/2023 08:25:07 10/01/19 24 10/02/2023 LIPID PANEL cholesterol, total 155 mg/dL 100-19 9 Not Available [facility] ([facility]) [address] [place], [address], 10/02/2023 08:25:07 10/01/19 24 10/02/2023 LIPID PANEL triglyceride s 92 mg/dL 0-149 Not Available [facility] ([facility]) [address] [place], [address], 10/02/2023 08:25:07 10/01/19 24 10/02/2023 LIPID PANEL HDL cholesterol 51 mg/dL >39 Not Available [facility] ([facility]) [address] [place], [address], 10/02/2023 08:25:07 10/01/19 24 10/02/2023 LIPID PANEL VLDL cholesterol cameron 17 mg/dL 5-40 Not Available [facility] ([facility]) [address] [place], [address], 10/02/2023 08:25:07 10/01/19 24 10/02/2023 LIPID PANEL LDL chol calc ([facility]) 87 mg/dL 0-99 Not Available [facility] ([facility]) [address] [place], [address], 10/02/2023 08:25:07 10/01/19 24 10/02/2023 COMP. METAB OLIC PANEL (14) glucose 91 mg/dL 70-99 Not Available [facility] ([facility]) [address] [place], [address], 10/02/2023 08:25:08 10/01/19 24 10/02/2023 COMP. METAB OLIC PANEL (14) BUN 11 mg/dL 8-27 Not Available [facility] ([facility]) [address] [place], [address], 10/02/2023 08:25:08 10/01/19 24 10/02/2023 COMP. METAB OLIC PANEL (14) creatinine 0.98 mg/dL 0.57-1 .00 Not Available [facility] ([facility]) [address] [place], [address], 10/02/2023 08:25:08 10/01/19 24 10/02/2023 COMP. METAB OLIC PANEL (14) eGFR 64 mL/mi n/1.7 3 >59 Not Available [facility] ([facility]) [address] [place], [address], 10/02/2023 08:25:08 10/01/19 24 10/02/2023 COMP. METAB OLIC PANEL (14) BUN/creatini ne ratio 11 12-28 below low normal Not Available [facility] ([facility]) [address] [place], [address], 10/02/2023 08:25:08 10/01/19 24 10/02/2023 COMP. METAB OLIC PANEL (14) sodium 142 mmol/ L 134-14 4 Not Available [facility] ([facility]) [address] [facility], [place], [address], 10/02/2023 08:25:08 10/01/19 24 10/02/2023 COMP. METAB OLIC PANEL (14) potassium 4.2 mmol/ L 3.5-5. 2 Not Available [facility] ([facility]) [address] [facility], [place], [address], 10/02/2023 08:25:08 10/01/19 24 10/02/2023 COMP. METAB OLIC PANEL (14) chloride 105 mmol/ L 96-106 Not Available [facility] ([facility]) [address] [facility], [place], [address], 10/02/2023 08:25:08 10/01/19 24 10/02/2023 COMP. METAB OLIC PANEL (14) carbon dioxide, total 24 mmol/ L 20-29 Not Available [facility] ([facility]) [address] [facility], [place], [address], 10/02/2023 08:25:08 10/01/19 24 10/02/2023 COMP. METAB OLIC PANEL (14) calcium 9.3 mg/dL 8.7-10 .3 Not Available [facility] ([facility]) [address] [facility] [place], [address], 10/02/2023 08:25:08 10/01/19 24 10/02/2023 COMP. METAB OLIC PANEL (14) protein, total 6.7 g/dL 6.0-8. 5 Not Available [facility] ([facility]) [address] [facility] [place], [address], 10/02/2023 08:25:08 10/01/19 24 10/02/2023 COMP. METAB OLIC PANEL (14) albumin 4.2 g/dL 3.9-4. 9 Not Available [facility] ([facility]) [address] [place], [address], 10/02/2023 08:25:08 10/01/19 24 10/02/2023 COMP. METAB OLIC PANEL (14) globulin, total 2.5 g/dL 1.5-4. 5 Not Available [facility] ([facility]) [address] [place], [address], 10/02/2023 08:25:08 10/01/19 24 10/02/2023 COMP. METAB OLIC PANEL (14) bilirubin, total 0.4 mg/dL 0.0-1. 2 Not Available [facility] ([facility]) [address] [place], [address], 10/02/2023 08:25:08 10/01/19 24 10/02/2023 COMP. METAB OLIC PANEL (14) alkaline phosphatase 83 IU/L 44-121 Not Available [facility]) [address] [place], [address], 10/02/2023 08:25:08 10/01/19 24 10/02/2023 COMP. METAB OLIC PANEL (14) AST (SGOT) 21 IU/L 0-40 Not Available [facility] ([facility]) [address] [place], [address], 10/02/2023 08:25:08 10/01/19 24 10/02/2023 COMP. METAB OLIC PANEL (14) ALT (SGPT) 17 IU/L 0-32 Not Available [facility] ([facility]) [address] [place], [address], 10/02/2023 08:25:08 10/01/19 24 10/02/2023 TSH RFX ON ABNOR MAL TO FREE T4 TSH 3.210 uIU/m L 0.450- 4.500 Not Available [facility] ([facility]) [address] [facility], [place], [address], 10/02/2023 08:25:09 10/01/19 24 10/01/2023 ABN OPTIO [...] neces estrella follo w-up. Not Available [facility] ([facility]) [address] [facility], [place], [address], 10/02/2023 08:25:09 10/01/19 24 10/02/2023 CBC, PLATE LET, NO DIFFE RENTI AL WBC 7.5 x10e3 /uL 3.4-10 .8 Not Available [facility] ([facility]) [address] [facility], [place], [address], 10/02/2023 08:25:10 10/01/19 24 10/02/2023 CBC, PLATE LET, NO DIFFE RENTI AL RBC 4.50 x10e6 /uL 3.77-5 .28 Not Available [facility] ([facility]) [address] [facility], [place], [address], 10/02/2023 08:25:10 10/01/19 24 10/02/2023 CBC, PLATE LET, NO DIFFE RENTI AL hemoglobin 13.0 g/dL 11.1-1 5.9 Not Available [facility] ([facility]) [address] [facility], [place], [address], 10/02/2023 08:25:10 10/01/19 24 10/02/2023 CBC, PLATE LET, NO DIFFE RENTI AL hematocrit 41.7 % 34.0-4 6.6 Not Available [facility] ([facility]) [address] [place], [address], 10/02/2023 08:25:10 10/01/19 24 10/02/2023 CBC, PLATE LET, NO DIFFE RENTI AL MCV 93 fL 79-97 Not Available [facility] ([facility]) [address] [place], [address], 10/02/2023 08:25:10 10/01/19 24 10/02/2023 CBC, PLATE LET, NO DIFFE RENTI AL MCH 28.9 pg 26.6-3 3.0 Not Available [facility] ([facility]) [address] [facility], [place], [address], 10/02/2023 08:25:10 10/01/19 24 10/02/2023 CBC, PLATE LET, NO DIFFE RENTI AL MCHC 31.2 g/dL 31.5-3 5.7 below low normal Not Available [facility] ([facility]) [address] [place], [address], 10/02/2023 08:25:10 10/01/19 24 10/02/2023 CBC, PLATE LET, NO DIFFE RENTI AL RDW 12.0 % 11.7-1 5.4 Not Available [facility] ([facility]) [address] [place], [address], 10/02/2023 08:25:10 10/01/19 24 10/02/2023 CBC, PLATE LET, NO DIFFE RENTI AL platelets 296 x10e3 /uL 150-45 0 Not Available [facility] ([facility]) [address] [place], [address], 10/02/2023 08:25:10 01/07/20 24 01/07/2024 HbA1c (hemo globi n A1c), blood HbA1c 5.6 Not Available In-Office Order Internal Use Only DO Not Attach Compendium DO Not Attach Compendium, Do Not Delete/merge, [id number] 01/07/2024 12:32:18 01/18/2001/19/2024 TSH RFX ON ABNOR MAL TO FREE T4 TSH 5.190 uIU/m L 0.450- 4.500 above high normal Not Available [facility] ([facility]) [address] [facility], [place], [address], 01/19/2024 08:30:07 01/18/20 24 01/19/2024 T4F T4,free (direct) 0.97 NG/dL 0.82-1 .77 Not Available [facility] ([facility]) [address] [place], [address], 01/19/2024 08:30:08 02/25/20 24 02/26/2024 TSH RFX ON ABNOR MAL TO FREE T4 TSH 0.215 uIU/m L 0.450- 4.500 below low normal Not Available [facility] ([facility]) [address] [facility], [place], [address], 02/26/2024 08:28:42 02/25/20 24 02/26/2024 T4F T4,free (direct) 1.53 NG/dL 0.82-1 .77 Not Available [facility] ([facility]) [address] [place], [address], 02/26/2024 08:28:43 11/08/19 24 11/08/2023 MAMMO , scree shelly, digit al, bilat eral No observ ation record ed. [address] [place] [address], [address], 11/10/2023 11:43:45 11/08/19 24 11/08/2023 MAMMO , scree shelly, digit al, bilat eral No observ ation record ed. [place] [id number] [facility] [address], [address], 11/10/2023 11:44:03 11/08/19 24 11/08/2023 MAMMO , scree shelly, digit al, bilat eral No observ ation record ed. [address], [place], [address], 11/10/2023 11:44:15 Result Notes None recorded. Problems Name Problem SNOMED Code Status Onset Date Resolution Date Notes Provider Name and Address Organization Details Recorded Time Screening for malignant neoplasm of colon Active 2017 Not Available [facility] 3 19:48:57 Hypertensive disorder 45792113 Active Not Available [facility] 3 19:48:57 Morbid obesity 702549765 Active Not Available [facility] 3 19:48:57 Edema of lower extremity 440173383 Active Not Available [facility] 3 19:48:57 Acid reflux 168445595 Active Not Available [facility] 3 19:48:57 Osteoarthriti s of knee 042857541 Active Not Available [facility] 3 19:48:57 Chronic low back pain 404910480 Active Not Available [facility] 3 19:48:57 Anxiety 15264850 Active Not Available [facility] 3 19:48:57 Hypothyroidis m 84364339 Active Not Available [facility] 3 19:48:57 Problem Notes None recorded. Procedures Surgical History Date Name Laterality Status Provider Name and Address Organization Details Recorded Time 08/22/19 22 Date of Last Pap Smear completed GLYNN Thakkar SIIsrael 08/21/2021 09:40:11 07/30/19 22 Date of Last Mammogram completed GLYNN Thakkar SIIsrale 08/21/2021 09:40:19 11/02/18 81 Caesarean Section completed GLYNN Thakkar 08/21/2021 09:49:37 02/26/19 72 Caesarean Section completed GLYNN Thakkar SIIsrael 08/21/2021 09:49:25 cholecystectomy completed GLYNN Sutherland [facility] 04/15/2020 15:52:27 Dilation and Curettage completed Ramon Bridges MA [place] - [facility] 10/30/2014 11:49:07 Imaging Results Imaging Date Name Status LastModified by Organiz ation Details LastModified Time 11/08/2023 MAMMO, screening, digital, bilateral completed [address], [address], 11/10/2023 11:43:45 11/08/2023 MAMMO, screening, digital, bilateral completed [address], [address], 11/10/2023 11:44:03 11/08/2023 MAMMO, screening, digital, bilateral completed [address], [address], 11/10/2023 11:44:15 Procedure Notes None recorded. Medical Equipment None Reported. Allergies Allergen ID Allergen Name Allergen Category Reaction Reaction Severity Criticality Documentation Date Start Date Code Code System Note Provider Name and Address Organization Details Recorded Time 770794 naltrexon e medicatio n dizziness moderate Not available 09/14/2018 7243 RxNorm Precious Wong [place] null, [place] - [facility] 1 15:44:19 517576 Dilaudid medicatio n flushing moderate Not available 09/12/2021 53211 3 RxNorm Meagan Rodriguez RN null, [place] - [facility] 2 11:44:28 Medications Name Sig [...] Available omeprazole 40 mg capsule,del ayed release TAKE 1 CAPSULE BY MOUTH ONCE DAILY BEFORE MEAL(S) active Not Available Not Available No t Available aspirin 81 mg tablet,bridget yed release one tab po q d 02/104 completed Not Available Not Available Not Available [...] Not Available levothyroxi ne 112 mcg tablet Take 1 tablet by mouth once daily 2024 active Not Available Not Available Not Avai lable duloxetine 30 mg capsule,del ayed release TAKE 1 CAPSULE BY MOUTH ONCE DAILY 02/10 completed Not Available Not Available Not Available duloxetine 60 mg capsule,del ayed release Take 1 capsule by mouth once daily active Not Available Not Available No t [...] Updated DateTime 4 160.02 cm 38.8 kg/m2 98007.7 3 g 74 /min 98 % 98 % 126 mm[Hg] 77 mm[Hg] Cassy Marcum MA [facility] 4 10:04:59 Date Recorded Body height Body temperature Respiratory rate Body mass index (BMI) Body weight Oxygen saturation Oxygen saturation in Arterial blood by Pulse oximetry Heart rate Systolic blood pressure Diastolic blood pressure Provider Name and Address Organization Details Last Updated DateTime 4 160.02 cm 97.8 [degF] 16 /min 39.5 kg/m2 405585. 1 g 98 % 98 % 71 /min 122 mm[Hg] 78 mm[Hg] Rahel Ortiz MA [facility] 4 09:52:14 Date Recorded Body height Body mass index (BMI) Body weight Oxygen saturation Oxygen saturation in Arterial blood by Pulse oximetry Heart rate Systolic blood pressure Diastolic blood pressure Provider Name and Address Organization Details Last Updated DateTime 4 160.02 cm 40.6 kg/m2 547070. 65 g 99 % 99 % 71 /min 120 mm[Hg] 70 mm[Hg] Rahel Ortiz MA [facility] 4 16:52:49 Date Recorded Body height Body mass index (BMI) Body weight Oxygen saturation Oxygen saturation in Arterial blood by Pulse oximetry Heart rate Systolic blood pressure Diastolic blood pressure Provider Name and Address Organization Details Last Updated DateTime 4 160.02 cm 42.9 kg/m2 245345. 35 g 99 % 99 % 71 /min 124 mm[Hg] 78 mm[Hg] Rahel Ortiz MA [facility] 4 11:36:25 Date Recorded Body height Body mass index (BMI) Body weight Oxygen saturation Oxygen saturation in Arterial blood by Pulse oximetry Heart rate Systolic blood pressure Diastolic blood pressure Provider Name and Address Organization Details Last Updated DateTime 4 160.02 cm 42.9 kg/m2 810333. 35 g 98 % 98 % 62 /min 122 mm[Hg] 78 mm[Hg] Rahel Ortiz MA [place] - [facility] 4 12:56:24 Social History Question Answer Notes LastModified by Organizat ion Details LastModified Time Tobacco Smoking Status Never Smoker Precious Wong MA null, [place] - [facility] 04/15/2020 15:48:52 Do You Have An Advance Directive? No Information n ot available 04/15/2020 Are You Blind Or Do You Have Difficulty Seeing? No Information n ot available 11/22/2020 What Is Your Level Of Caffeine Consumption? Occasional Information not available 04/15/2020 How Much Tobacco Do You Chew? None Information not available 04/15/2020 In The 14 Days Before Symptom Onset, Have You Had Close Contact With A Laboratory-confirm ed COVID-19 While That Case Was Ill? No Information n ot available 04/15/2020 In The 14 Days Before [...] Of Diet Are You Following? REGULAR Information n ot available 04/15/2020 Which Illicit Or Recreational Drugs Have You Used? Denies Information not available 04/15/2020 Education 12 Information no t available 04/15/2020 What Is The Highest Grade Or Level Of School You Have Completed Or The Highest Degree You Have Received? [id number] [email or web address] Information not available 05/17/2023 Are There [...] Smoke? No Information no t available 08/21/2021 How Much Tobacco Do You Smoke? No Information not available 04/15/2020 Do You Use Sunscreen Routinely? Yes Information not available 04/15/2020 Has Tobacco Cessation Counseling Been Provided? No Information not available 08/21/2021 On What Date Was Tobacco Cessation Counseling Provided? 02/11/2024 Information not available 02/11/2024 How Many Years Have You Smoked Tobacco? 0 Information not available 04/15/2020 Sex: Female Functional Status Question Answer Note LastModified by Organizat ion Details LastModified Time Do you use any illicit or recreational drugs? No Information not available 11/22/2020 Do you or have you ever used any other forms of tobacco or nicotine? No Information not available 08/21/2021 What is your level of alcohol consumption? None [email or web address] Information not available 10/30/2014 Do you or have you ever used smokeless tobacco? Never used smokeless tobacco Information not available 04/15/2020 Are you able to care for yourself? Yes Information not available 11/22/2020 Do you or have you ever used e-cigarettes or vape? Never used electronic cigarettes Information not available 04/15/2020 What is your exercise level? None Information [...] Hepatitis N Liver Disease N Heart Attack ([place]) N Headaches Y Heart Failure N Osteoporosis [...] Recorded Time Tdap 2 completed Not Available [facility] 11/30/2022 19:48:57 influenza, unspecified formulation 2 completed Not Available [facility] 11/30/2022 19:48:57 zoster recombinant 2 completed Not Available [facility] 11/30/2022 19:48:57 Influenza, split virus, quadrivalent, PF 0 completed Not Available [facility] 11/30/2022 19:48:57 Influenza, split virus, quadrivalent, PF 1 completed Not Available [facility] 11/30/2022 19:48:57 Influenza, split virus, quadrivalent, PF 8 completed Not Available [facility] 04/29/2019 02:36:24 Past Encounters Encounter ID Performer Location Encounter Start Date Encounter Closed Date Diagnosis/Indication Diagnosis SNOMED-CT Code Diagnosis ICD10 Code Diagnosis Note [id number] Ed Baptiste MD [facility] (Adult Med) [address] [phone] 10/30/2014 11:17:23 10/30/2014 13:18:41 Hypertensive disorder 49611239 Morbid obesity 578308542 Edema of l ower extremity 584001291 Family his tory of diabetes mellitus 268703403 Acid reflux 159810633 Osteoarthr itis of knee 328641182 Chronic low back pain [id number] [id number] Ed Baptiste MD [facility] (Adult Med) [address] [phone] 01/21/2015 11:03:09 01/21/2015 14:47:50 Hypertensive disorder 92182339 I10 Morbid obesity 587246936 E66.01 Osteoarthr itis of knee 382949087 M17.9 Chronic low back pain 27 9447446 M54.5 Edema of l ower extremity 351761321 R60.0 Acid reflux 551851521 K2 1.9 [id number] [facility] [facility] (Adult Med) [address] [place] [address] 84040-106 0 04/16/2015 11:47:53 04/16/2015 18:08:21 Acid reflux 594782037 K21.9 Chronic low back pain 27 5216466 M54.5 Edema of l ower extremity 685332386 R60.0 Hypertensive disorder 38 170514 I10 Morbid obesity 142471143 E66.01 Osteoarthr itis of knee 819676148 M17.9 [id number] MD Jovanna Sauceda (Adult Med) [address] [place] [address] 49832-186 0 07/17/2015 09:35:00 07/17/2015 11:12:59 Hypertensive disorder 57740634 I10 Morbid obesity 983734539 E66.01 Osteoarthr itis of knee 131895812 M17.9 Chronic low back pain 27 0364096 M54.5 Acid reflux 076487914 K2 1.9 [id number] MD Jovanna Sauceda (Adult Med) [address] [place] [address] [phone] 0 12/20/2015 10:51:35 12/20/2015 17:09:11 Hypertensive disorder 73084189 I10 Acid reflux 863604526 K2 1.9 Anxiety 34653124 F41.9 Edema of l ower extremity 655471869 R60.0 Family his tory of diabetes mellitus 410997499 Z83.3 Osteoarthr itis of knee 811690684 M17.9 Morbid obesity 771049853 E66.01 Family his tory of Thyroid disorder 447099514 Z83.49 [id number] MD Jovanna Sauceda (Adult Med) [address] [place] [address] 73577-181 0 01/20/2016 16:13:17 01/20/2016 18:01:56 Anxiety 06386283 F41.9 Hypertensive disorder 38 136365 I10 Morbid obesity 438177700 E66.01 Osteoarthr itis of knee 915548302 M17.9 Hypothyroidism 83963481 E03.9 [id number] MD Jovanna Sauceda (Adult Med) [address] [place] [address] [phone] 0 05/07/2016 10:11:23 05/11/2016 12:01:27 Hypothyroidism 68775478 E03.9 Hypertensive disorder 38 096084 I10 Chronic low back pain 27 3022643 M54.5 Osteoarthr itis of knee 595404926 M17.9 Morbid obesity 339087382 E66.01 Anxiety 32274028 F41.9 Acid reflux 513895953 K2 1.9 Acute pharyngitis 707087 003 J02.9 [id number] MD Jovanna Sauceda (Adult Med) [address] [place] [address] 93586-375 0 08/20/2016 09:45:20 08/20/2016 17:07:26 Subclinical hypothyroidism 71958465 E03.9 She has lost weight, satisfied but not happy yet. Morbid obesity 834860982 E66.01 [id number] MD Jovanna Sauceda (Adult Med) [address] [place] [address] 64246-453 0 05/04/2017 10:03:00 05/04/2017 13:58:23 Essential hypertension 50880955 I10 Low salt diet. Morbid obesity 192909107 E66.01 Low salt diet, exercise and lose weight. May be metabolic syndrom X Subclinica l hypothyroidism 37131543 E03.9 She has lost weight, satisfied but not happy yet. Screening mammography 24 879929 Z12.31 Patient refuses. Screening for malignant neoplasm of cervix 128857619 Z12.4 Patient refuses. Screening for malignant neoplasm of colon 779831014 Z12.11 Patient refuses. [id number] Ed Baptiste MD [facility] (Adult Med) [address] [place] [address] 32276-273 0 10/12/2017 09:41:08 10/18/2017 09:36:39 Morbid obesity 921497211 E66.01 Hypothyroidism 97069429 E03.9 Screening for malignant neoplasm of colon 483772501 Z12.11 Chronic low back pain 27 5178162 M54.5 Hypertensive disorder 38 554330 I10 Anxiety 62499063 F41.9 Acid reflux 299470517 K2 1.9 [id number] Ed Baptiste MD [facility] (Adult Med) [address] [place] [address] 05716-028 0 01/06/2018 11:27:01 01/06/2018 13:56:30 Morbid obesity 324251515 E66.01 Low salt diet, exercise and lose weight. May be metabolic syndrom X Osteoarthr itis of knee 116080623 M17.9 Hypothyroidism 52663087 E03.9 Anxiety 42403120 F41.9 Acid reflux 447690482 K2 1.9 Essential hypertension 57797325 I10 Low salt diet. Administra tion of influenza vaccine 22647343 Z23 [id number] [facility] [address] [place] [address] 08210-010 0 03/31/2018 11:27:23 03/31/2018 13:04:51 Morbid obesity 568664605 E66.01 Low salt diet, exercise and lose weight. May be metabolic syndrom X Hypothyroidism 44002017 E03.9 Discussed with patient, will adjust thr dose and monitor the thyroid functions in 3 months. [id number] MD Jovanna Sauceda (Adult Med) [address] [place] [address] 51814-937 0 06/21/2018 11:20:13 06/22/2018 11:33:38 Morbid obesity 115823290 E66.01 Low salt diet, exercise and lose weight. May be metabolic syndrom X, discussed with patient, will D/C naltrexone , and to continue wellbutrin . Hypothyroidism 50918220 E03.9 Discussed with patient, will adjust thr dose and monitor the thyroid functions in 3 months. On levothyrox in 125 mcg/day, will re-check thyroid functions. [id number] Ed Baptiste MD [facility] (Adult Med) [address] [place] [address] 44116-451 0 09/14/2018 15:47:56 09/14/2018 17:00:21 Morbid obesity 341009380 E66.01 Low salt diet, exercise and lose weight. May be metabolic syndrom X, discussed with patient, will D/C naltrexone , and to continue wellbutrin . Hypothyroidism 94277667 E03.9 Discussed with patient, will adjust thr dose and monitor the thyroid functions in 3 months. On levothyrox in 125 mcg/day, will re-check thyroid functions. [id number] Ed Baptiste MD [facility] (Adult Med) [address] [place] [address] [phone] 0 12/15/2018 11:46:54 12/15/2018 12:56:34 Morbid obesity 553850417 E66.01 Low salt diet, exercise and lose weight. May be metabolic syndrom X, discussed with patient, will D/C naltrexone , and to continue wellbutrin . Hypothyroidism 22260916 E03.9 Discussed with patient, will adjust thr dose and monitor the thyroid functions in 3 months. On levothyrox in 125 mcg/day, will re-check thyroid functions. Copy of her last thyroid functions, free t4, T3 and TSH 12-06-2018 were normal and results provided to patient in this office 12-15-2018 . Acid reflux 773499769 K2 1.9 Stable. Vitamin D deficiency 347 15467 E55.9 Stable. Essential hypertension 09327975 I10 Low salt diet. [id number] Ed Baptiste MD [facility] (Adult Med) [address] [place] [address] [phone] 0 03/13/2019 09:36:07 03/14/2019 10:11:02 Hypertensive disorder 90068742 I10 On hydralazin e.and HCTZ, will add losartan, she agreed. Hypothyroidism 46330669 E03.9 Discussed with patient, will adjust thr dose and monitor the thyroid functions in 3 months. On levothyrox in 125 mcg/day, will re-check thyroid functions. Copy of her last thyroid functions, free t4, T3 and TSH 12-06-2018 were normal and results provided to patient in this office 12-15-2018 . on levothyrox in 125 mcg/day. Morbid obesity 261464644 E66.01 Low salt diet, exercise and lose weight. May be metabolic syndrom X, discussed with patient, will D/C naltrexone , and to continue wellbutrin . Anxiety 65544241 F41.9 On bupropion. Acid reflux 909957321 K2 1.9 Stable. On famotidine . [id number] Ed Baptiste MD [facility] (Adult Med) [address] [place] [address] 40530-016 0 05/25/2019 15:52:18 05/25/2019 17:02:39 Acid reflux 299270413 K21.9 Stable. On famotidine . Which is back order. Essential hypertension 81368911 I10 Low salt diet. Chronic low back pain 27 9033917 M54.5 Partial relief from cyclobenza carmen. [id number] Ed Baptiste MD [facility] (Adult Med) [address] [place] [address] 48420-890 0 01/19/2020 08:09:12 01/22/2020 11:47:48 Acid reflux 773108895 K21.9 Stable. On famotidine . Which is back order. Edema of l ower extremity 929382116 R60.0 Hypertensive disorder 38 003862 I10 On hydralazin e.and HCTZ, will add losartan, she agreed. Hypothyroidism 87035606 E03.9 Discussed with patient, will adjust thr dose and monitor the thyroid functions in 3 months. On levothyrox in 125 mcg/day, will re-check thyroid functions. Copy of her last thyroid functions, free t4, T3 and TSH 12-06-2018 were normal and results provided to patient in this office 12-15-2018 . on levothyrox in 125 mcg/day. Essential hypertension 47201147 I10 Low salt diet. [id number] Ed Baptiste MD [facility] (Adult Med) [address] [place] [address] [phone] 0 01/30/2020 09:00:13 01/31/2020 10:38:54 Otitis media 01817642 H66.93 Discussed with patient , willing to try antibiotic s. and will keep this office informed. [id number] MD Jovanna Sauceda (Adult Med) [address] [place] [address] [phone] 0 04/15/2020 09:44:25 04/16/2020 12:58:25 Benign paroxysmal positional vertigo 235634862 H81.13 She is going to see a ENT this week, and will keep this office informed. [id number] MD Jovanna Sauceda (Adult Med) [address] [place] [address] [phone] 0 07/30/2020 08:01:37 07/31/2020 14:19:01 Acid reflux 616511252 K21.9 Stable. On famotidine . Which is back order. Anxiety 08226656 F41.9 On bupropion. Chronic low back pain 27 9365742 M54.5 Partial relief from cyclobenza carmen. Edema of l ower extremity 074613263 R60.0 Low salt diet,, also on HCTZ. Hypertensive disorder 38 021684 I10 On hydralazin e.and HCTZ, will add losartan, she agreed. Hypothyroidism 14958532 E03.9 Discussed with patient, will adjust thr dose and monitor the thyroid functions in 3 months. On levothyrox in 125 mcg/day, will re-check thyroid functions. Copy of her last thyroid functions, free t4, T3 and TSH 12-06-2018 were normal and results provided to patient in this office 12-15-2018 . on levothyrox in 125 mcg/day. Morbid obesity 642715625 E66.01 Low salt diet, exercise and lose weight. May be metabolic syndrom X, discussed with patient, will D/C naltrexone , and to continue wellbutrin . Osteoarthr itis of knee 150830469 M17.9 Stable. Hyperlipidemia 40820221 E78.5 Low saturated and low animal fat diet. Benign par oxysmal positional vertigo 276124081 H81.13 She is going to see a ENT this week, and will keep this office informed. [id number] MD Jovanna Sauceda (Adult Med) [address] [place] [address] [phone] 0 11/22/2020 10:32:32 11/25/2020 12:26:17 Acid reflux 754489527 K21.9 Stable. On famotidine . Which is back order. Anxiety 25852268 F41.9 On bupropion. Chronic low back pain 27 8622999 M54.5 Partial relief from cyclobenza carmen. Edema of l ower extremity 842924698 R60.0 Low salt diet,, also on HCTZ. Hypertensive disorder 38 375249 I10 On hydralazin e.and HCTZ, will add losartan, she agreed. Hypothyroidism 78654945 E03.9 Discussed with patient, will adjust thr dose and monitor the thyroid functions in 3 months. On levothyrox in 125 mcg/day, will re-check thyroid functions. Copy of her last thyroid functions, free t4, T3 and TSH 12-06-2018 were normal and results provided to patient in this office 12-15-2018 . on levothyrox in 125 mcg/day. Morbid obesity 318945138 E66.01 Low salt diet, exercise and lose weight. May be metabolic syndrom X, discussed with patient, will D/C naltrexone , and to continue wellbutrin . Lost about 24 pounds since the her living in [place]. Hyperlipidemia 51370519 E78.5 Low saturated and low animal fat diet. Benign par oxysmal positional vertigo 650730511 H81.13 She is going to see a ENT this week, and will keep this office informed. [id number] MD Jovanna Sauceda (Adult Med) [address] [place] [address] [phone] 0 06/13/2021 11:19:53 06/17/2021 10:35:00 Screening for malignant neoplasm of colon 745143323 Z12.11 Patient refuses in the past..But now, 06-13-2021 , she agreed to have screening, abdomen soft, no mass felt, old scars from previous gallbladde r and C -section. Screening for malignant neoplasm of cervix 274408030 Z12.4 Patient refuses in the past, .But now , 06-13-2021 agreed to be referred. Screening mammography 24 719557 Z12.31 Patient refuses in the past,. But now , 06-13-2021 she agreed to be done. Bilateral tinnitus 07282 88551 102 H93.13 Will refer to ENT, she agreed. Chronic tremor 761455624 R25.1 Drug-induc ed hypokalemia 329726260 T50.905A Advised her to stop HCTZ, and do BMP today. [id number] TERRELL RODRIGUEZ ([employer] WORK[employer]) [address] [place] [address] [phone] 0 08/21/2021 09:26:38 08/21/2021 10:35:19 Gynecologic examination 13906342 Z01.419 Normal gynecologi c exam today.Cerv ical cancer screening: Last Pap unknown, updated todayBreas t cancer screening: Last mammogram 07/29/21, BIRADS 1.Colonosc opy: scheduled next monthDiet/ exercise: Counseled regarding importance of physical activity, healthy diet and appropriat e calcium intake.RTC in 1yr Obesity 313854754 E66.9 BMI 40.7. Discussed diet high in fruits and vegetables . Limit fat, sugar, and processed foods. Exercise at least 30 minutes 5x/week. [id number] MD Jovanna Sauceda (Adult Med) [address] [place] [address] [phone] 0 09/12/2021 11:21:09 09/23/2021 09:46:22 Acid reflux 537510983 K21.9 Stable. On famotidine . Which is back order. Hypothyroidism 72244767 E03.9 Discussed with patient, will adjust thr dose and monitor the thyroid functions in 3 months. On levothyrox in 125 mcg/day, will re-check thyroid functions. Copy of her last thyroid functions, free t4, T3 and TSH 12-06-2018 were normal and results provided to patient in this office 12-15-2018 . on levothyrox in 125 mcg/day. Morbid obesity 669605253 E66.01 Low salt diet, exercise and lose weight. May be metabolic syndrom X, discussed with patient, will D/C naltrexone , and to continue wellbutrin . Lost about 24 pounds since the her living in boyfriend. [id number] MD Jovanna Sauceda (Adult Med) [address] [place] [address] [phone] 0 12/12/2021 11:18:56 12/16/2021 09:48:11 Acid reflux 879254486 K21.9 Stable. On famotidine . Which is back order. Anxiety 57440173 F41.9 On bupropion. Chronic low back pain 27 2178258 M54.51 Stable, she is able to ambulating without assistance . Edema of l ower extremity 611886931 R60.0 Low salt diet,, also was on HCTZ.. No edema today 12-12-2021 . Hypothyroidism 36590160 E03.9 Discussed with patient, will adjust thr dose and monitor the thyroid functions in 3 months. On levothyrox in 125 mcg/day, will re-check thyroid functions. Copy of her last thyroid functions, free t4, T3 and TSH 12-06-2018 were normal and results provided to patient in this office 12-15-2018 . on levothyrox in 125 mcg/day. Suppressio n of TSH, will adjust thyroid hormone downward. to 100 MCG/day as 10-01- 2. Morbid obesity 595704813 E66.01 Low salt diet, exercise and lose weight. May be metabolic syndrom X, discussed with patient, will D/C naltrexone , and to continue wellbutrin . Lost about 24 pounds since the her living in boyfriend. Osteoarthr itis of knee 774470816 M17.9 Stable. Hypertensive disorder 38 248132 I10 On hydralazin e.and HCTZ, will add losartan, she agreed.As 12-12-2021 , blood pressure is 112/68. Insomnia 483820919 G47.0 0 Wants some pill for sleep. Dyslipidemia 803057365 E 78.5 Low animal fat diet. [id number] MD Jovanna Sauceda (Adult Med) [address] [place] [address] 02973-301 0 05/20/2022 12:31:07 05/22/2022 15:07:01 Anxiety 23846712 F41.9 On bupropion. and hydroxyzin e Hypertensive disorder 38 203707 I10 On hydralazin e.and HCTZ, will add losartan, she agreed.As 12-12-2021 , blood pressure is 112/68. As 05-20-2022 BP is 124/80. Hypothyroidism 52170857 E03.9 Discussed with patient, will adjust thr dose and monitor the thyroid functions in 3 months. On levothyrox in 125 mcg/day, will re-check thyroid functions. Copy of her last thyroid functions, free t4, T3 and TSH 12-06-2018 were normal and results provided to patient in this office 12-15-2018 . on levothyrox in 125 mcg/day. Suppressio n of TSH, will adjust thyroid hormone downward. to 100 MCG/day as 2. Morbid obesity 834320240 E66.01 Low salt diet, exercise and lose weight. May be metabolic syndrom X, discussed with patient, will D/C naltrexone , and to continue wellbutrin . Lost about 24 pounds since the her living [place]. Dyslipidemia 390507726 E 78.5 Low animal fat diet. Renewal of prescription 730695298 Z76.0 Benign par oxysmal positional vertigo 221490059 H81.13 She is going to see a ENT this week, and will keep this office informed. Acid reflux 723914414 K2 1.9 Stable. On famotidine . Which is back order. Insomnia 885423721 G47.0 0 Wants some pill for sleep. Screening for osteoporosis 910154819 Z13.820 She agreed. Migraine 76721790 G43.90 9 She agreed to try. Chronic constipation 236 070609 K59.09 Ok to try OTC miralax. [id number] Ed Baptiste MD [facility] (Adult Med) [facility] [place] [address] 09/11/2022 09:16:50 09/14/2022 16:28:10 Obesity 904919320 E66.9 BMI is 38. advised her to watch diet, exercise and keep the weight down. Insomnia 851520570 G47.0 0 Trazadone not helping. she would like to try something else. Hypertensive disorder 38 333351 I10 On hydralazin e.and HCTZ, will add losartan, she agreed.As 12-12-2021 , blood pressure is 112/68. As 05-20-2022 BP is 124/80. As 09-11-22, BP is 138/83. will continue med and monitor blood pressure. Hypothyroidism 03867579 E03.9 Discussed with patient, will adjust thr dose and monitor the thyroid functions in 3 months. On levothyrox in 125 mcg/day, will re-check thyroid functions. Copy of her last thyroid functions, free t4, T3 and TSH 12-06-2018 were normal and results provided to patient in this office 12-15-2018 . on levothyrox in 125 mcg/day. Suppressio n of TSH, will adjust thyroid hormone downward. to 100 MCG/day as 2. Administra tion of pneumococcal vaccine 63718638 Z23 She declined today 09-11-22. [id number] Ed Baptiste MD [facility] (Adult Med) [address] [place] [address] [phone] 0 02/02/2023 09:22:24 02/05/2023 10:57:29 Ulnar nerve entrapment at elbow 911878464 G56.23 NCS provided to her today 02-02-23. At this time she dose not wants surgery. She got gabapentin from neurologis t for the neuropathy of feet. Acid reflux 350740786 K2 1.9 Stable. On famotidine . Which is back order. Anxiety 00819751 F41.9 On bupropion. and hydroxyzin e Chronic low back pain 27 9583697 M54.51 Stable, she is able to ambulating without assistance . Hypothyroidism 74049319 E03.9 Discussed with patient, will adjust thr dose and monitor the thyroid functions in 3 months. On levothyrox in 125 mcg/day, will re-check thyroid functions. Copy of her last thyroid functions, free t4, T3 and TSH 12-06-2018 were normal and results provided to patient in this office 12-15-2018 . on levothyrox in 125 mcg/day. Suppressio n of TSH, will adjust thyroid hormone downward. to 100 MCG/day as 2. Morbid obesity 770319962 E66.01 Low salt diet, exercise and lose weight. May be metabolic syndrom X, discussed with patient, will D/C naltrexone , and to continue wellbutrin . Lost about 24 pounds since the her living in boyfriend. As 02-02-23, BMI is 38.4 today. Osteoarthr itis of knee 868029458 M17.9 Stable. Ambulating . Influenza vaccination declined 851494705 Z28.21 She declined today, she wants to get at her pharmacy store. 02-02-23. Administra tion of pneumococcal vaccine 58895666 Z23 She declined today 09-11-22. She wants to get it at her pharmacy store, 02-02-23. Dyslipidemia 586708887 E 78.5 Low animal fat diet. Essential hypertension 38796739 I10 Low salt diet. Avoid NSAID or OTC decongesta nt if possible. BP is well controlled , 108/60, No dizziness, no chest pain, no difficulty of breathing. , no palpitatio n. will renew med. Hypertensive disorder 38 812576 I10 On hydralazin e.and HCTZ, will add losartan, she agreed.As 12-12-2021 , blood pressure is 112/68. As 05-20-2022 BP is 124/80. As 09-11-22, BP is 138/83. will continue med and monitor blood pressure. Migraine 39121548 G43.90 9 She agreed to try. Insomnia 887701753 G47.0 0 On bupropion. and hydroxyzin e [id number] MD Jovanna Sauceda (Adult Med) [address] [place] [address] 05/17/2023 09:25:55 05/19/2023 15:24:06 Pain of left shoulder joint 5956100417 1559755 M25.512 Has sling at home ,but it hard manual to put close on. Agreed for muscle relaxant and referral. Informatio n provided. Obesity 873488101 E66.9 BMI is 38. advised her to watch diet, exercise and keep the weight down. BMI is 38.8 today 05-17-23. [id number] MD [facility] (Adult Med) [address] [place] [address] 10/01/2023 09:26:58 10/04/2023 12:34:47 Body mass index 30+ - obesity 376511238 Z68.38 Will wean off Bupropion. Was put on it for weight loss. Was going to take it with another medication but could not tolerate the second medication . Does not feel like it is doing anything. Will wean off it. Will have her take one a day for a week and then every other day for a week. Rupture of rotator cuff of left shoulder 3638142607 5085965 M75.102 Injury to left shoulder last [place]. Did physical therapy. Still has pain and cannot raise arm above shoulder. Likely has a rotator cuff tear. Will proceed with MRI. Takes a muscle relaxer for the pain. Will continue that for now. Essential hypertension 46972157 I10 Will get fasting blood work and urine today. Blood pressure good today. Continue present medication . Hypothyroidism 58665068 E03.9 Will check TSH. Idiopathic peripheral neuropathy 78939785 G60.9 Has seen neurologis t. Takes Gabapentin . Gastroesop hageal reflux disease without esophagitis 182490569 K21.9 Controlled with Omeprazole . 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 Has support with children and sisters. Takes Citalopram . Still struggles with motivation . Will discuss further at follow up. History of transient ischemic attack 403281797 Z86.73 Continue aspirin a day. Morbid obesity 963568601 E66.01 Dyslipidemia 350732633 E 78.5 Pain of le ft shoulder joint 9940725992 4566057 M25.512 Anxiety 04012567 F41.9 Hypertensive disorder 38 921730 I10 Acid reflux 121245151 K2 1.9 [id number] Allie Lo MD [facility] (Adult Med) [address] [place] [address] [phone] 0 11/29/2023 16:46:37 12/01/2023 13:02:32 Acute dermatitis 07647734 L30.9 This rash started the day after working outside. It is around her eyes and on her chin and forearms, mostly areas of exposed skin. It is likely a dermatitis from something she was exposed to while working outside. She took Benadryl which did not help at all, so I think she will need some Prednisone . She was taking Wellbutrin but she has been considerin g stopping it, and she was down to one pill a day. Wellbutrin and Prednisone together increase the risk of seizures, so she is going to stop the Wellbutrin and then start the Prednisone . I told her it could cause some irritabili ty and if that is uncomforta ble she should let me know. She will also take Loratidine one or two a day. If it is not improving by later in the week or if it becomes worse, she should let me know. She has a follow up in December. Anxiety 64330564 F41.9 I told her that I do not want to start a new medication until this problem is treated, but at her follow up appointmen t we can discuss her anxiety further. [id number] MD [facility] (Adult Med) [address] [place] [address] [phone] 0 01/07/2024 10:58:12 01/11/2024 11:05:43 Body mass index 40+ - severely obese 335226719 Z68.41 Anxiety 54754542 F41.9 She does not really feel she is getting any benefit from her current medication s for her anxiety, so we are going to try to discontinu e them and try a different medication . She will wean off the Citalopram over two weeks and then wean off the Wellbutrin over two weeks. She will then start Duloxetine . If she has any issues with her anxiety during this process she will let me know. Weight gain 7879423 R63. 5 Weight gain which she attributes to her anxiety. Will check a TSH. No evidence of fluid overload. Will work on weight loss. Discussed healthy eating. Have her limit carbohydra susannah. Will try walking at [employer] most days of the week. Follow up in three months. Essential hypertension 52178872 I10 Blood pressure controlled . Last had blood work and urine checked in September. Last lipid in September good. Hyperlipidemia 30896986 E78.5 Currently taking Atorvastat in. Hypertensive disorder 38 423526 I10 Hypothyroidism 33468634 E03.9 Will check TSH. Acid reflux 749095070 K2 1.9 [id number] MD [facility]anna [facility] (Adult Med) [address] [place] [address] [phone] 0 02/11/2024 11:58:24 02/15/2024 14:43:42 Anxiety 25673732 F41.9 Tolerating the Duloxetine well and it may be providing her some benefit. Will increase to 60 mg daily. Follow up in three months. Body mass index 40+ - severely obese 938787141 Z68.41 Weight stable. Has been working on increasing activity. Brings in her phone and shows me the steps she has been walking which she has been keeping track of. Encouraged her to continue and to have a minimum goal, such as 1,000 steps a day. Also recommende d she get a food journal and record all food intake so I can get a better idea of what she is eating. She will drop it off when she gets her thyroid labs done. Hypothyroidism [id number] E03.9 Last TSH slightly elevated. Increased thyroid medication . Will repeat a TSH in about six weeks. Should not need refill before three month follow up. Had prescripti on mid January for two months with one refill. Essential hypertension [id number] I10 Blood pressure controlled . Last had blood work and urine checked in September. Continue present medication . Hyperlipidemia [id number] E78.5 Currently taking Atorvastat in. Acid reflux [id number] K2 1.9 Health Concerns Section Related Observation LastModified by Organization Detai ls LastModified Time None Recorded Concern Status LastModified by Organization Details LastModified Time None Recorded Advance Directives Directive N: Payers Encounter Date Sequence Insurance Name Policy Number Policy Zarate Covered Member ID Zarate Member ID Guarantor Name 05/17/2023 1 [place] Kyung Kay Bhupinder [id number] Kyung Roe 05/17/2023 2 [place] OR MEDICARE REPLACEMENT PRIMARY) Kyung Roe [id number] Kyung Roe 10/01/2023 1 [place] Kyung Roe [id number] Kyung Roe 10/01/2023 2 [place]PLACEMENT PR[place]) Kyung Roe [id number] Kyung Roe 11/29/2023 1 [place] Kyung Roe [id number] Kyung Roe 11/29/2023 2 [place]PLACEMENT PR[place]) Kyung Roe [id number] Kyung Roe 01/07/2024 1 [place] Kyung Roe [id number] Kyung Roe 01/07/2024 2 [place] REPLACEMENT PR[place]) Kyung Roe [id number] Kyung Roe 02/11/2024 1 [place] Kyung Roe [id number] Kyung Roe 02/11/2024 2 [place]PLACEMENT [place]) Kyung Roe [id number] Kyung Roe Notes Date Note Type Note Provider Name and Address Organization Details Recorded Time 05/17/2023 text/html Office visit, C/ C fell at home since Xmas, went to [facility] ER , negative x ray of left shoulder for fracture, but still has pain, wilmer to raise arm up. Right -handed. Will refer to Orthopedic and muscle relaxant. No chest pain, no shortness of breath, no fever, On other complaint. ROS as noted in HPI. Allergic to dilaudid and naltrexone. Ed Baptiste MD Attn: [facility],[address] [place], [address], [facility] 05/17/2023 12:54:37 10/01/2023 text/html here to donald marlow as new patient, fell on left shoulder Nata Cronin and can't raise arm all the way, [...] Prevnar vaccine Allie Lo MD Attn: [address] [place], [address], [facility] 10/01/2023 10:51:00 11/29/2023 text/html here [...] about something different for her anxiety Allie oL MD Attn: [facility],[address] [place], [address], [facility] 11/29/2023 18:30:52 01/07/2024 text/html follow up, skin [...] is helping Allie Lo MD Attn: [address] [place], [address], [facility] 01/07/2024 13:42:08 02/11/2024 text/html follow up, tolerating [...] to 207 pounds, Allie Lo MD Attn: [facility],[address] [place], [address], [facility] 02/11/2024 13:56:25 OBGyn Episode No OBEpisode recorded.
--- OUTSIDE RECORDS SUMMARY | 2024-08-21 08:12 | XMS_ITS | Data Portability ---
Author Organization [place] [facility] [employer] [facility], Main Office Address [address] [place] [address] Care Team Providers Care Measurement Specialist Name Role Phone LINUS [place] Primary Care Provider LINUS [place] Referring Provider Assessment Encounter Date Assessment Date Assessment LastModified by Organization Details LastModified Time 05/26/2023 05/26/2023 67-year-old female presents for evaluation of her left shoulder she is left-hand dominant. She had a fall on [employer] when she landed her left arm. She [...] left shoulder. She had a fall on [employer] when she landed her left arm. Since [...] None recorded. Referral physical therapist referral - CONTINUE PT 2023 024 [email or web address] [facility], [address], [place], [address], 4 16:36:01 physical therapist referral - eval and treat 2023 024 [email or web address] [facility], [address], [place], [address], 4 10:52:13 Procedures injection/a spiration joint/bursa (PROC) - in office procedure, administere d by provider 2023 024 [email or web address] 3 In-Office Order, Internal Use Only DO Not Attach Compendium DO Not Attach Compendium, Do Not Delete/merge, [id number] 11:58:51 Surgeries None recorded. Imaging None recorded. Medication Orders Kenalog 10 mg/mL suspension for injection 2023 024 [email or web address] [facility], [place], [address], 4 16:36:01 Marcaine (PF) 0.5 % (5 [...] shoul angela No observ ation record ed. [address] [place] [address], [id number], 06/02/2023 10:24:47 Result Notes None recorded. Problems Name Problem SNOMED Code Status Onset Date Resolution Date Notes Provider Name and Address Organization Details Recorded Time Pain of left shoulder joint 937450723232646 09 Active 2023 CRISTY Greer [employer] 11:05:25 Problem Notes None recorded. Procedures Surgical History Date Name Laterality Status Provider Name and Address Organization Details Recorded Time Ortho - Cortisone Injection completed Carli Loo, FABIEN [address] [facility], [facility] [address], [place], [address], [employer] 06/30/2023 12:50:40 section completed CRISTY Greer [employer] 05/26/2023 11:04:30 Gallbladder Surgery completed CRISTY Greer [employer] 05/26/2023 11:04:42 Imaging Results Imaging Date Name Status LastModified by Organiz ation Details LastModified Time 04/04/2023 XR, shoulder completed [address] [place] [address], [address], 06/02/2023 10:24:47 Procedure Notes None recorded. Medical Equipment None Reported. Allergies Allergen ID Allergen Name Allergen Category Reaction Reaction Severity Criticality Documentation Date Start Date Code Code System Note Provider Name and Address Organization Details Recorded Time 93183 naldemedi ne medicatio n Not available Not available Not available 05/26/2023 36182 97 RxNorm Leigha Myers, CRISTY null, [place] [facility] [employer] [facility] 11:02:14 Medications Name Sig Start Date Stop [...] suspension for injection IN OFFICE 2023 active [facility]: 0003- 0494- 20 Not Available Not Available [...] height Body mass index (BMI) Body weight Pain severity - 0-10 verbal numeric rating [Score] - Reported Provider Name and Address Organization Details Last Updated DateTime 05/26/2023 157.48 cm 39.3 kg/m2 30972.36 g 7 CRISTY Greer [facility] [employer] [facility] 05/26/2023 11:01:52 Date Recorded Body height Body mass index (BMI) Body weight Pain severity - 0-10 verbal numeric rating [Score] - Reported Provider Name and Address Organization Details Last Updated DateTime 06/30/2023 157.48 cm 39.3 kg/m2 65470.36 g 5 CRISTY Greer [facility] [email or web address] [facility] 06/30/2023 11:41:10 Social History Question Answer Notes LastModified by Organizat ion Details LastModified Time Tobacco Smoking Status Unknown If Ever Smoked CRISTY Greer [facility] [employer] [facility] 05/26/2023 11:03:42 What Was The Date Of Your Most Recent Tobacco Screening? 05/26/2023 [email or web address] Information not available 05/26/2023 Sex: Unknown Functional Status Question Answer Note LastModified by Organization D etails LastModified Time What is your level of alcohol consumption? None [email or web address] Information not available 05/26/2023 Mental Status None recorded. Family History Relationship Description Onset Age of this Age Resolved Age Notes LastModified by Organization Details LastModified Time Sister Heart disease Not available 2023 11:03:08 Sister Hypertensive disorder Not available 2023 11:03:20 Sister Diabetes mellitus [email or web address] Not available 2023 11:03:29 Medical History Condition Response ARTHRITIS Y STROKE/TIA Y Gynecological HistoryNo gynecological history recorded. Obstetrics History GPAL:G 0 P 0 0 0 0 Past Encounters Encounter ID Performer Location Encounter Start Date Encounter Closed Date Diagnosis/Indication Diagnosis SNOMED-CT Code Diagnosis ICD10 Code Diagnosis Note [id number] Osman Bird MD [facility] [address] [place] [address] 05/26/2023 10:38:24 05/26/2023 11:53:29 Pain of left shoulder joint 7308260458 7200365 M25.735 [id number] Osman Bird MD [facility] [place] [address] [place] [address] 06/30/2023 11:38:50 06/30/2023 12:08:13 Pain of left shoulder joint 1582731426 2767921 M25.512 Health Concerns Section Related Observation LastModified by Organization Detai ls LastModified Time None Recorded Concern Status LastModified by Organization Details LastModified Time None Recorded Advance Directives Directive None Recorded Payers Encounter Date Sequence Insurance Name Policy Number Policy Zarate Covered Member ID Zarate Member ID Guarantor Name 05/26/2023 1 [place] Kyung Roe [id number] Kyung Roe 05/26/2023 2 [place] [facility] Kyung Roe [id number] Kyung Roe 06/30/2023 1 [place] Kyung Roe [id number] Kyung Roe 06/30/2023 2 [place] Kyung Roe [id number] Kyung Roe OBGyn Episode No OBEpisode recorded.
[2024-08-21 09:10] LABS: Iron 94 ug/dL (37-170)
[2024-08-21 09:25] LABS: Percent Iron Saturation 32 % (20-50)
== END 2024-08-21 08:08 | disposition home or self-care (01) ==
PROVIDERS: PCP Emergency Medicine; Visit Provider Internal Medicine Critical Care Medicine
DX: D64.9 Anemia, unspecified (principal)
CPT/HCPCS: 36415; 82728; 83540; 83550

== ENCOUNTER 2024-09-11 05:57 | Emergency (ER) | payer MEDICARE, MEDICAID, SELFPAY ==
[2024-09-11 06:00] VITALS: BP 188/78; PULSE 76; RESP 16; TEMP 36.3; O2SAT 97
--- OUTSIDE RECORDS SUMMARY | 2024-09-11 06:01 | XMS_ITS | Data Portability ---
Author Organization [facility] ANAMIKA [place] Marlow Address [address] [place] [address] Care Team Providers Care Ecmo Specialist Name Role Phone SHRUTI HAYNES Solid State Tester [phone] Assessment Encounter Date Assessment Date Assessment LastModified by Organization Details LastModified Time 02/11/2024 02/11/2024 Need to talk about colon cancer screening at follow up along with DEXA scan. [email or web address] Not available 02/11/2024 13:51:58 08/28/2024 08/28/2024 ninety day script [email or web address] Not available 08/28/2024 11:39:14 Plan of Treatment Reminders Order Date Submit Date Provider Last Modified By Organization Details Last Modified Time Details Appointments ANY 15 2024 10:00A M Allie Lo MD Not available Not available Not available Lab TSH, ultra-sen sitive, serum 2024 025 [facility], [address] [facility], [address], [place], [address], 08/29/2024 13:11:28 lipid panel, serum 2024 025 [facility], [address] [facility], [address], [place], [address], 08/29/2024 13:11:27 CMP, serum or plasma 2024 025 [facility], [address] [facility], [address], [place], [address], 08/29/2024 13:11:28 CBC 2024 025 [facility], [address], [address], [place], [address], 08/29/2024 13:11:29 albumin/c reatinine , mass ratio, urine 2024 025 [facility], [address], [address], [place], [address], 08/29/2024 13:11:26 TSH, ultra-sen sitive, serum 2023 024 [facility], [address], [address], [place], [address], 02/26/2024 08:28:42 TSH, ultra-sen sitive, serum 2023 024 [facility], [address], [address], [place], [address], 01/19/2024 08:30:07 HbA1c (hemoglob in A1c), blood 2023 024 [email or web address] In-Office Order, Internal Use Only DO Not Attach Compendium DO Not Attach Compendium, Do Not Delete/merge, [id number] 01/07/2024 12:45:09 CMP, serum or plasma 2023 024 [facility], [address], [address], [place], [address], 10/02/2023 08:25:08 CBC 2023 024 [facility], [address], [address], [place], [address], 10/02/2023 08:25:10 lipid panel, serum 2023 024 [facility], [address] [facility], [address], [place], [address], 10/02/2023 08:25:07 albumin/c reatinine , mass ratio, urine 2023 024 [facility], [address] [facility] [address], [address], [place], [address], 10/02/2023 08:25:07 TSH, ultra-sen sitive, serum 2023 024 [facility], [address] [facility], [address], [place], [address], 10/02/2023 08:25:09 HbA1c (hemoglob in A1c), blood 2023 024 [email or web address] [facility], [address] [place] [address], [address], [place], [address], 03/30/2024 16:08:43 Referral None recorded. Procedures None recorded. Surgeries None recorded. Imaging MRI, shoulder, w/o contrast 2023 024 [facility], [address] [place] [address] [address], [place], [address], 01/13/2024 10:19:26 Medication Orders omeprazol e 40 mg capsule,d elayed release 2024 025 [facility], [address] [place], [address], 08/28/2024 11:57:51 atorvasta tin 20 mg tablet 2024 025 [facility], [address] [place], [address], 08/28/2024 11:57:49 duloxetin e 30 mg capsule,d elayed release 2024 025 [facility], [address] [place] [address], [address], 08/28/2024 11:57:48 buspirone 5 mg tablet 2024 025 [facility], [address] [place] [address], [address], 08/28/2024 11:57:48 hydralazi ne 25 mg tablet 2024 025 [facility], [address] [place] [address], [address], 08/28/2024 11:57:46 losartan 50 mg tablet 2024 025 [facility] [address], [address] [place] [address], [address], 08/28/2024 11:57:52 levothyro xine 112 mcg tablet 2024 025 [facility] [address], [address] [place] [address], [address], 08/28/2024 11:57:51 omeprazol e 40 mg capsule,d elayed release 2023 024 [facility] [address], [address] [place] [address], [address], 02/11/2024 13:56:01 hydralazi ne 25 mg tablet 2023 024 [facility], [address] [place] [address], [address], 02/11/2024 13:56:00 losartan 50 mg tablet 2023 024 [facility], [address] [place] [address], [address], 02/11/2024 13:56:03 duloxetin e 60 mg capsule,d elayed release 2023 024 [facility] [address], [address] [place] [address], [address], 02/11/2024 13:52:08 omeprazol e 40 mg capsule,d elayed release 2023 024 [facility], [address] [place] [address], [address], 01/07/2024 13:41:54 hydralazi ne 25 mg tablet 2023 024 [facility], [address] [place] [address], [address], 01/07/2024 13:41:53 losartan 50 mg tablet 2023 024 [facility] [address], [address] [place] [address], [address], 01/07/2024 13:41:51 duloxetin e 30 mg capsule,d elayed release 2023 024 [facility], [address] [place] [address], [address], 02/11/2024 13:52:44 atorvasta tin 20 mg tablet 2023 024 [facility] [address], [address] [place] [address], [address], 01/07/2024 13:41:52 levothyro xine 100 mcg tablet 2023 024 [facility], [address] [place] [address], [address], 01/26/2024 11:19:05 loratadin e 10 mg tablet 2023 024 [facility], [address] [place] [address], [address], 02/11/2024 14:31:48 prednison e 20 mg tablet 2023 024 [facility], [address] [place] [address], [address], 01/07/2024 11:08:37 omeprazol e 40 mg capsule,d elayed release 2023 024 [facility], [address] [place] [address], [address], 10/01/2023 10:50:16 hydralazi ne 25 mg tablet 2023 024 [facility], [address] [place] [address], [address], 10/01/2023 10:50:16 losartan 50 mg tablet 2023 024 [facility] [address], [address] [place] [address], [address], 10/01/2023 10:50:16 atorvasta tin 20 mg tablet 2023 024 [facility], [address] [place] [address], [address], 10/01/2023 10:50:16 aspirin 81 mg tablet,de layed release 2023 024 [facility], [address] [place] [address], [address], 02/11/2024 13:55:52 citalopra m 20 mg tablet 2023 024 [facility], [address] [place] [address], [address], 01/07/2024 13:40:11 baclofen 10 mg tablet 2023 024 [facility], [address] [place] [address], [address], 02/11/2024 13:52:27 levothyro xine 100 mcg tablet 2023 024 [email or web address], [address] [place], [address], 01/26/2024 11:18:56 Patient TargetsNo targets recorded. Patient Instructions Encounter Date Encounter Id Patient Instructions Last Modified By Organization Details Last Modified Time 10/01/2023 [id number] A healthy lifestyle: care instructions roxana Not available 10/01/2023 10:50:16 08/28/2024 [id number] complete PFT w/ post bronchodilator spirometry* WILLIAM Not available 09/11/2024 04:18:25 Reason for Referral None Reported. Results Created Date Observation Date Name Description Value Unit Range Abnormal Flag Note LastModifiedBy Organization Detail LastModifiedTime 10/01/19 24 10/02/2023 ALBUM IN/CR EATIN INE RATIO ,URIN E creatinine, urine 327.8 mg/dL notest ab. Not Available [facility] ([facility]) [address] [place], [address], 10/02/2023 08:25:07 10/01/19 24 10/02/2023 ALBUM IN/CR EATIN INE RATIO ,URIN E albumin, urine 53.1 ug/mL notest ab. Not Available [facility] ([facility]) [address] [place], [address], 10/02/2023 08:25:07 10/01/19 24 10/02/2023 ALBUM IN/CR EATIN INE RATIO ,URIN E alb/creat ratio 16 mg/g_ creat 0-29 Munira l: 0 - 29 Moder ately incre ased: 30 - 300 Sever haley incre ased: >300 Not Available [facility] ([facility]) [address] [place], [address], 10/02/2023 08:25:07 10/01/19 24 10/02/2023 LIPID PANEL cholesterol, total 155 mg/dL 100-19 9 Not Available [facility] ([facility]) [address] [place], [address], 10/02/2023 08:25:07 10/01/19 24 10/02/2023 LIPID PANEL triglyceride s 92 mg/dL 0-149 Not Available [facility] ([facility]) [address] [place], [address], 10/02/2023 08:25:07 10/01/19 24 10/02/2023 LIPID PANEL HDL cholesterol 51 mg/dL >39 Not Available [facility] ([facility]) [address] [place], [address], 10/02/2023 08:25:07 10/01/19 24 10/02/2023 LIPID PANEL VLDL cholesterol cameron 17 mg/dL 5-40 Not Available [facility] ([facility]) [address] [place], [address], 10/02/2023 08:25:07 10/01/19 24 10/02/2023 LIPID PANEL LDL chol calc ([facility]) 87 mg/dL 0-99 Not Available [facility] ([facility]) [address] [place], [address], 10/02/2023 08:25:07 10/01/19 24 10/02/2023 COMP. METAB OLIC PANEL (14) glucose 91 mg/dL 70-99 Not Available [facility] ([facility]) [address] [place], [address], 10/02/2023 08:25:08 10/01/19 24 10/02/2023 COMP. METAB OLIC PANEL (14) BUN 11 mg/dL 8-27 Not Available [facility] ([facility]) [address] [place], [address], 10/02/2023 08:25:08 10/01/19 24 10/02/2023 COMP. METAB OLIC PANEL (14) creatinine 0.98 mg/dL 0.57-1 .00 Not Available [facility] ([facility]) [address] [place], [address], 10/02/2023 08:25:08 10/01/19 24 10/02/2023 COMP. METAB OLIC PANEL (14) eGFR 64 mL/mi n/1.7 3 >59 Not Available [facility] ([facility]) [address] [facility], [place], [address], 10/02/2023 08:25:08 10/01/19 24 10/02/2023 COMP. METAB OLIC PANEL (14) BUN/creatini ne ratio 11 12-28 below low normal Not Available [facility] ([facility]) [address] [facility], [place], [address], 10/02/2023 08:25:08 10/01/19 24 10/02/2023 COMP. METAB OLIC PANEL (14) sodium 142 mmol/ L 134-14 4 Not Available [facility] ([facility]) [address] [facility], [place], [address], 10/02/2023 08:25:08 10/01/19 24 10/02/2023 COMP. METAB OLIC PANEL (14) potassium 4.2 mmol/ L 3.5-5. 2 Not Available [facility] ([facility]) [address] [place], [address], 10/02/2023 08:25:08 10/01/19 24 10/02/2023 COMP. METAB OLIC PANEL (14) chloride 105 mmol/ L 96-106 Not Available [facility] ([facility]) [address] [place], [address], 10/02/2023 08:25:08 10/01/19 24 10/02/2023 COMP. METAB OLIC PANEL (14) carbon dioxide, total 24 mmol/ L 20-29 Not Available [facility] ([facility]) [address] [place], [address], 10/02/2023 08:25:08 10/01/19 24 10/02/2023 COMP. METAB OLIC PANEL (14) calcium 9.3 mg/dL 8.7-10 .3 Not Available [facility] ([facility]) [address] [place], [address], 10/02/2023 08:25:08 10/01/19 24 10/02/2023 COMP. METAB OLIC PANEL (14) protein, total 6.7 g/dL 6.0-8. 5 Not Available [facility] ([facility]) [address] [place], [address], 10/02/2023 08:25:08 10/01/19 24 10/02/2023 COMP. METAB OLIC PANEL (14) albumin 4.2 g/dL 3.9-4. 9 Not Available [facility] ([facility]) [address] [place], [address], 10/02/2023 08:25:08 10/01/19 24 10/02/2023 COMP. METAB OLIC PANEL (14) globulin, total 2.5 g/dL 1.5-4. 5 Not Available [facility] ([facility]) [address] [place], [address], 10/02/2023 08:25:08 10/01/19 24 10/02/2023 COMP. METAB OLIC PANEL (14) bilirubin, total 0.4 mg/dL 0.0-1. 2 Not Available [facility] ([facility]) [address] [place], [address], 10/02/2023 08:25:08 10/01/19 24 10/02/2023 COMP. METAB OLIC PANEL (14) alkaline phosphatase 83 IU/L 44-121 Not Available [facility] ([facility]) [address] [place], [address], 10/02/2023 08:25:08 10/01/19 24 10/02/2023 COMP. METAB OLIC PANEL (14) AST (SGOT) 21 IU/L 0-40 Not Available [facility] ([facility]) [address] [facility], [place], [address], 10/02/2023 08:25:08 10/01/19 24 10/02/2023 COMP. METAB OLIC PANEL (14) ALT (SGPT) 17 IU/L 0-32 Not Available [facility] ([facility]) [address] [facility], [place], [address], 10/02/2023 08:25:08 10/01/19 24 10/02/2023 TSH RFX ON ABNOR MAL TO FREE T4 TSH 3.210 uIU/m L 0.450- 4.500 Not Available [facility] ([facility]) [address] [facility], [place], [address], 10/02/2023 08:25:09 10/01/19 24 10/01/2023 ABN OPTIO [...] neces estrella follo w-up. Not Available [facility] ([facility]) [address] [facility], [place], [address], 10/02/2023 08:25:09 10/01/19 24 10/02/2023 CBC, PLATE LET, NO DIFFE RENTI AL WBC 7.5 x10e3 /uL 3.4-10 .8 Not Available [facility] ([facility]) [address] [facility], [place], [address], 10/02/2023 08:25:10 10/01/19 24 10/02/2023 CBC, PLATE LET, NO DIFFE RENTI AL RBC 4.50 x10e6 /uL 3.77-5 .28 Not Available [facility] ([facility]) [address] [facility], [place], [address], 10/02/2023 08:25:10 10/01/19 24 10/02/2023 CBC, PLATE LET, NO DIFFE RENTI AL hemoglobin 13.0 g/dL 11.1-1 5.9 Not Available [facility] ([facility]) [address] [facility], [place], [address], 10/02/2023 08:25:10 10/01/19 24 10/02/2023 CBC, PLATE LET, NO DIFFE RENTI AL hematocrit 41.7 % 34.0-4 6.6 Not Available [facility] ([facility]) [address] [facility], [place], [address], 10/02/2023 08:25:10 10/01/19 24 10/02/2023 CBC, PLATE LET, NO DIFFE RENTI AL MCV 93 fL 79-97 Not Available [facility] ([facility]) [address] [facility], [place], [address], 10/02/2023 08:25:10 10/01/19 24 10/02/2023 CBC, PLATE LET, NO DIFFE RENTI AL MCH 28.9 pg 26.6-3 3.0 Not Available [facility] ([facility]) [address] [facility], [place], [address], 10/02/2023 08:25:10 10/01/19 24 10/02/2023 CBC, PLATE LET, NO DIFFE RENTI AL MCHC 31.2 g/dL 31.5-3 5.7 below low normal Not Available [facility] ([facility]) [address] [facility], [place], [address], 10/02/2023 08:25:10 10/01/19 24 10/02/2023 CBC, PLATE LET, NO DIFFE RENTI AL RDW 12.0 % 11.7-1 5.4 Not Available [facility] ([facility]) [address] [facility], [place], [address], 10/02/2023 08:25:10 10/01/19 24 10/02/2023 CBC, PLATE LET, NO DIFFE RENTI AL platelets 296 x10e3 /uL 150-45 0 Not Available [facility] ([facility]) [address] [facility], [place], [address], 10/02/2023 08:25:10 01/07/20 24 01/07/2024 HbA1c (hemo globi n A1c), blood HbA1c 5.6 Not Available In-Office Order Internal Use Only DO Not Attach Compendium DO Not Attach Compendium, Do Not Delete/merge, [id number] 01/07/2024 12:32:18 01/18/20 24 01/19/2024 TSH RFX ON ABNOR MAL TO FREE T4 TSH 5.190 uIU/m L 0.450- 4.500 above high normal Not Available [facility] ([facility]) [address] [place], [address], 01/19/2024 08:30:07 01/18/20 24 01/19/2024 T4F T4,free (direct) 0.97 NG/dL 0.82-1 .77 Not Available [facility] ([facility]) [address] [place], [address], 01/19/2024 08:30:08 02/25/20 24 02/26/2024 TSH RFX ON ABNOR MAL TO FREE T4 TSH 0.215 uIU/m L 0.450- 4.500 below low normal Not Available [facility] ([facility]) [address] [place], [address], 02/26/2024 08:28:42 02/25/20 24 02/26/2024 T4F T4,free (direct) 1.53 NG/dL 0.82-1 .77 Not Available [facility] ([facility]) [address] [place], [address], 02/26/2024 08:28:43 08/29/19 25 08/29/2024 ALBUM IN/CR EATIN INE RATIO ,URIN E creatinine, urine 256.8 mg/dL notest ab. Not Available [facility] ([facility]) [address] [place], [address], 08/29/2024 13:11:26 08/29/19 25 08/29/2024 ALBUM IN/CR EATIN INE RATIO ,URIN E albumin, urine 27.7 ug/mL notest ab. Not Available [facility] ([facility]) [address] [place], [address], 08/29/2024 13:11:26 08/29/19 25 08/29/2024 ALBUM IN/CR EATIN INE RATIO ,URIN E alb/creat ratio 11 mg/g_ creat 0-29 Munira l: 0 - 29 Moder ately incre ased: 30 - 300 Sever haley incre ased: >300 Not Available [facility] ([facility]) [address] [place], [address], 08/29/2024 13:11:26 08/29/19 25 08/29/2024 LIPID PANEL cholesterol, total 195 mg/dL 100-19 9 Not Available [facility] ([facility]) [address] [place], [address], 08/29/2024 13:11:27 08/29/19 25 08/29/2024 LIPID PANEL triglyceride s 169 mg/dL 0-149 above high normal Not Available [facility] ([facility]) [address] [place], [address], 08/29/2024 13:11:27 08/29/19 25 08/29/2024 LIPID PANEL HDL cholesterol 43 mg/dL >39 Not Available [facility] ([facility]) [address] [place], [address], 08/29/2024 13:11:27 08/29/19 25 08/29/2024 LIPID PANEL VLDL cholesterol cameron 30 mg/dL 5-40 Not Available [facility] ([facility]) [address] [place], [address], 08/29/2024 13:11:27 08/29/19 25 08/29/2024 LIPID PANEL LDL chol calc ([facility]) 122 mg/dL 0-99 above high normal Not Available [facility] ([facility]) [address] [place], [address], 08/29/2024 13:11:27 08/29/19 25 08/29/2024 COMP. METAB OLIC PANEL (14) glucose 107 mg/dL 70-99 above high normal Not Available [facility] ([facility]) [address] [place], [address], 08/29/2024 13:11:27 08/29/19 25 08/29/2024 COMP. METAB OLIC PANEL (14) BUN 11 mg/dL 8-27 Not Available [facility] ([facility]) [address] [place], [address], 08/29/2024 13:11:27 08/29/19 25 08/29/2024 COMP. METAB OLIC PANEL (14) creatinine 0.92 mg/dL 0.57-1 .00 Not Available [facility] ([facility]) [address] [place], [address], 08/29/2024 13:11:27 08/29/19 25 08/29/2024 COMP. METAB OLIC PANEL (14) eGFR 69 mL/mi n/1.7 3 >59 Not Available [facility] ([facility]) [address] [place], [address], 08/29/2024 13:11:27 08/29/19 25 08/29/2024 COMP. METAB OLIC PANEL (14) BUN/creatini ne ratio 12 12-28 Not Available [facility] ([facility]) [address] [facility] [place], [address], 08/29/2024 13:11:27 08/29/19 25 08/29/2024 COMP. METAB OLIC PANEL (14) sodium 142 mmol/ L 134-14 4 Not Available [facility] ([facility]) [address] [facility] [place], [address], 08/29/2024 13:11:27 08/29/19 25 08/29/2024 COMP. METAB OLIC PANEL (14) potassium 4.2 mmol/ L 3.5-5. 2 Not Available [facility] ([facility]) [address] [facility] [place], [address], 08/29/2024 13:11:27 08/29/19 25 08/29/2024 COMP. METAB OLIC PANEL (14) chloride 105 mmol/ L 96-106 Not Available [facility] ([facility]) [address] [facility] [place], [address], 08/29/2024 13:11:27 08/29/19 25 08/29/2024 COMP. METAB OLIC PANEL (14) carbon dioxide, total 21 mmol/ L 20-29 Not Available [facility] ([facility]) [address] [place], [address], 08/29/2024 13:11:27 08/29/19 25 08/29/2024 COMP. METAB OLIC PANEL (14) calcium 9.7 mg/dL 8.7-10 .3 Not Available [facility] ([facility]) [address] [place], [address], 08/29/2024 13:11:27 08/29/19 25 08/29/2024 COMP. METAB OLIC PANEL (14) protein, total 7.1 g/dL 6.0-8. 5 Not Available [facility] ([facility]) [address] [place], [address], 08/29/2024 13:11:27 08/29/19 25 08/29/2024 COMP. METAB OLIC PANEL (14) albumin 4.3 g/dL 3.9-4. 9 Not Available [facility] ([facility]) [address] [facility] [place], [address], 08/29/2024 13:11:27 08/29/19 25 08/29/2024 COMP. METAB OLIC PANEL (14) globulin, total 2.8 g/dL 1.5-4. 5 Not Available [facility] ([facility]) [address] [facility] [place], [address], 08/29/2024 13:11:27 08/29/19 25 08/29/2024 COMP. METAB OLIC PANEL (14) bilirubin, total 0.7 mg/dL 0.0-1. 2 Not Available [facility] ([facility]) [address] [facility], [place], [address], 08/29/2024 13:11:27 08/29/19 25 08/29/2024 COMP. METAB OLIC PANEL (14) alkaline phosphatase 112 IU/L 44-121 Not Available [facility] ([facility]) [address] [facility], [place], [address], 08/29/2024 13:11:27 08/29/19 25 08/29/2024 COMP. METAB OLIC PANEL (14) AST (SGOT) 21 IU/L 0-40 Not Available [facility] ([facility]) [address] [facility] [place], [address], 08/29/2024 13:11:27 08/29/19 25 08/29/2024 COMP. METAB OLIC PANEL (14) ALT (SGPT) 20 IU/L 0-32 Not Available [facility] ([facility]) [address] [place], [address], 08/29/2024 13:11:27 08/29/19 25 08/29/2024 TSH RFX ON ABNOR MAL TO FREE T4 TSH 2.930 uIU/m L 0.450- 4.500 Not Available [facility] ([facility]) [address] [facility], [place], [address], 08/29/2024 13:11:28 08/29/19 25 08/29/2024 CBC, PLATE LET, NO DIFFE RENTI AL WBC 7.9 x10e3 /uL 3.4-10 .8 Not Available [facility] ([facility]) [address] [facility], [place], [address], 08/29/2024 13:11:29 08/29/19 25 08/29/2024 CBC, PLATE LET, NO DIFFE RENTI AL RBC 4.76 x10e6 /uL 3.77-5 .28 Not Available [facility] ([facility]) [address] [facility], [place], [address], 08/29/2024 13:11:29 08/29/19 25 08/29/2024 CBC, PLATE LET, NO DIFFE RENTI AL hemoglobin 13.7 g/dL 11.1-1 5.9 Not Available [facility] ([facility]) [address] [facility], [place], [address], 08/29/2024 13:11:29 08/29/19 25 08/29/2024 CBC, PLATE LET, NO DIFFE RENTI AL hematocrit 43.7 % 34.0-4 6.6 Not Available [facility] ([facility]) [address] [facility], [place], [address], 08/29/2024 13:11:29 08/29/19 25 08/29/2024 CBC, PLATE LET, NO DIFFE RENTI AL MCV 92 fL 79-97 Not Available [facility] ([facility]) [address] [facility], [place], [address], 08/29/2024 13:11:29 08/29/19 25 08/29/2024 CBC, PLATE LET, NO DIFFE RENTI AL MCH 28.8 pg 26.6-3 3.0 Not Available [facility] ([facility]) [address] [facility], [place], [address], 08/29/2024 13:11:29 08/29/19 25 08/29/2024 CBC, PLATE LET, NO DIFFE RENTI AL MCHC 31.4 g/dL 31.5-3 5.7 below low normal Not Available [facility] ([facility]) [address] [place], [address], 08/29/2024 13:11:29 08/29/19 25 08/29/2024 CBC, PLATE LET, NO DIFFE RENTI AL RDW 12.6 % 11.7-1 5.4 Not Available [facility] ([facility]) [address] [facility], [place], [address], 08/29/2024 13:11:29 08/29/19 25 08/29/2024 CBC, PLATE LET, NO DIFFE RENTI AL platelets 277 x10e3 /uL 150-45 0 Not Available [facility] ([facility]) [address] [facility], [place], [address], 08/29/2024 13:11:29 11/08/19 24 11/08/2023 MAMMO elgin, digit al, bilat eral No observ ation record ed. [address], [address], 11/10/2023 11:43:45 11/08/19 24 11/08/2023 MAMMelgin Lee, digit al, bilat eral No observ ation record ed. [id number] [address], [place], [address], 11/10/2023 11:44:03 11/08/19 24 11/08/2023 MAMMO , scree shelly, digit al, bilat eral No observ ation record ed. [email or web address] [facility] [address], [place], [address], 11/10/2023 11:44:15 Result Notes None recorded. Problems Name Problem SNOMED Code Status Onset Date Resolution Date Notes Provider Name and Address Organization Details Recorded Time Screening for malignant neoplasm of colon Active 2017 Not Available [facility] 3 19:48:57 Hypertensive disorder 25256206 Active Not Available [facility] 3 19:48:57 Morbid obesity 948853960 Active Not Available [facility] 3 19:48:57 Edema of lower extremity 400853659 Active Not Available [facility] 3 19:48:57 Acid reflux 825798561 Active Not Available [facility] 3 19:48:57 Osteoarthriti s of knee 647870650 Active Not Available [facility] 3 19:48:57 Chronic low back pain 441689870 Active Not Available [facility] 3 19:48:57 Anxiety 82270595 Active Not Available [facility] 3 19:48:57 Hypothyroidis m 26356727 Active Not Available [facility] 3 19:48:57 Problem Notes None recorded. Procedures Surgical History Date Name Laterality Status Provider Name and Address Organization Details Recorded Time 08/22/19 22 Date of Last Pap Smear completed Rosa Santana MA [facility] 08/21/2021 09:40:11 07/30/19 22 Date of Last Mammogram completed GLYNN Thakkar [facility] 08/21/2021 09:40:19 11/02/18 81 Caesarean Section completed Rosa Santana MA [facility] 08/21/2021 09:49:37 02/26/19 72 Caesarean Section completed Rosa Santana MA [facility] 08/21/2021 09:49:25 cholecystectomy completed GLYNN Sutherland [facility] 04/15/2020 15:52:27 Dilation and Curettage completed Ramon Bridges MA [facility] 10/30/2014 11:49:07 Imaging Results None recorded. Procedure Notes None recorded. Medical Equipment None Reported. Allergies Allergen ID Allergen Name Allergen Category Reaction Reaction Severity Criticality Documentation Date Start Date Code Code System Note Provider Name and Address Organization Details Recorded Time 004533 naltrexon e medicatio n dizziness moderate Not available 09/14/2018 7243 RxNorm Precious Wong [place] null, [place] - [facility] 1 15:44:19 945325 Dilaudid medicatio n flushing moderate Not available 09/12/2021 28756 3 RxNorm Meagan Rodriguez RN null, [place] [facility] 2 11:44:28 Medications Name Sig Start Date Stop Date Status Note LastModified by Organization Details LastModified Time losartan 50 mg tablet one tab po q d 2024 active Not Available Not Available Not [...] Not Available Not Available Not Available buspirone 5 mg tablet TAKE ONE TABLET BY MOUTH DAILY FOR ONE WEEK, THEN INCREASE TO TWICE A DAY IF WELL TOLERATED . START MED AFTER STOPPING THE DULOXETIN E. active Not Available Not Available No t Available bupropion HCl SR 150 mg tablet,12 hr sustained-r elease TAKE 1 TABLET BY MOUTH TWICE DAILY DIRECTED 01/06 completed Not Available Not Available Not Available L-Glutamine 500 mg tablet Take 1 tablet 3 times a day by oral route for 30 days. 05/04 completed Not Available Not Available Not Available atorvastati n 20 mg tablet one tab po q d 2024 active Not Available Not Available Not Avai lable trazodone 50 mg tablet Take 1 tablet [...] 25 mg tablet one tab po bid 2024 active Not Available Not Available Not [...] one tab po q d before meals 2024 active Not Available Not Available Not [...] TAKE 1 TABLET BY MOUTH ONCE DAILY 08/28 completed Not Available Not Available Not Available ranitidine 150 mg tablet take one [...] Not Available levothyroxi ne 112 mcg tablet TAKE 1 TABLET BY MOUTH ONCE DAILY active Not Available Not Available No t Available duloxetine 30 mg capsule,del ayed release TAKE 2 CAPSULES BY MOUTH DAILY FOR 1 WEEK, THEN DECREASE TO 1 CAPSULE DAILY FOR 2 WEEKS, THEN 1 CAPSULE EVERY OTHER DAY FOR 2 WEEKS THEN STOP active Not Available Not Available No t Available duloxetine 60 mg capsule,del ayed release TAKE 1 CAPSULE BY MOUTH ONCE DAILY active Not Available Not Available No t Available eszopiclone 2 mg tablet TAKE ONE TABLET BY MOUTH AT THE SLEEP STUDY, IF NEEDED, NOT AT HOME. DO NOT TAKE UNTIL SLEEP STUDY STARTS 08/28 completed Not Available Not Available Not Available Calcium 600 + D(3) 600 mg-5 [...] completed Not Available Not Available Not Available FeroSul 325 mg (65 mg iron) tablet TAKE 1 TABLET BY MOUTH ONCE DAILY FOR ANEMIA. IF CONSTIPAT ION OCCURS, TAKE EVERY OTHER DAY. active Not Available Not Available No t Available omeprazole 20 mg tablet,bridget yed release [...] Arterial blood by Pulse oximetry Heart rate Body temperature Systolic blood pressure Diastolic blood pressure Provider Name and Address Organization Details Last Updated DateTime 5 160.02 cm 44.1 kg/m2 378099. 5 g 98 % 98 % 81 /min 97.8 [degF] 132 mm[Hg] 80 mm[Hg] Rahel Ortiz MA [facility] 5 11:01:06 Date Recorded Body height Body temperature Respiratory rate Body mass index (BMI) Body weight Oxygen saturation Oxygen saturation in Arterial blood by Pulse oximetry Heart rate Systolic blood pressure Diastolic blood pressure Provider Name and Address Organization Details Last Updated DateTime 4 160.02 cm 97.8 [degF] 16 /min 39.5 kg/m2 221293. 1 g 98 % 98 % 71 /min 122 mm[Hg] 78 mm[Hg] Rahel Ortiz MA [facility] 4 09:52:14 Date Recorded Body height Body mass index (BMI) Body weight Oxygen saturation Oxygen saturation in Arterial blood by Pulse oximetry Heart rate Systolic blood pressure Diastolic blood pressure Provider Name and Address Organization Details Last Updated DateTime 4 160.02 cm 40.6 kg/m2 795417. 65 g 99 % 99 % 71 /min 120 mm[Hg] 70 mm[Hg] Rahel Ortiz MA [facility] 4 16:52:49 Date Recorded Body height Body mass index (BMI) Body weight Oxygen saturation Oxygen saturation in Arterial blood by Pulse oximetry Heart rate Systolic blood pressure Diastolic blood pressure Provider Name and Address Organization Details Last Updated DateTime 4 160.02 cm 42.9 kg/m2 228752. 35 g 99 % 99 % 71 /min 124 mm[Hg] 78 mm[Hg] Rahel Ortiz MA [facility] 4 11:36:25 Date Recorded Body height Body mass index (BMI) Body weight Oxygen saturation Oxygen saturation in Arterial blood by Pulse oximetry Heart rate Systolic blood pressure Diastolic blood pressure Provider Name and Address Organization Details Last Updated DateTime 4 160.02 cm 42.9 kg/m2 398288. 35 g 98 % 98 % 62 /min 122 mm[Hg] 78 mm[Hg] Rahel Ortiz [place] - [facility] 4 12:56:24 Social History Question Answer Notes LastModified by Organizat ion Details LastModified Time Tobacco Smoking Status Never Smoker Precious GLYNN Wong null, [place] [facility] 04/15/2020 15:48:52 Do You Have [...] Or The Highest Degree You Have Received? [id number] adavisma Information not available 05/17/2023 Are There Any Guns Present In Your Home? No Information not available 04/15/2020 Hard Of Hearing Or Deaf In One Or Both Ears? No Information not available 04/15/2020 Legally Blind In One Or Both Eyes? No Information no t available 04/15/2020 Marital Status Informatio n not available 04/15/2020 What Was The Date Of Your Most Recent Tobacco Screening? 08/28/2024 Information not available 08/28/2024 Performs Monthly Self-breast Exam? Yes Information no [...] What Date Was Tobacco Cessation Counseling Provided? 08/28/2024 Information not available 08/28/2024 How Many Years Have You Smoked Tobacco? [...] Hepatitis N Liver Disease N Heart Attack (NM) N Headaches Y Heart Failure N Osteoporosis [...] Time Tdap 2 completed Not Available [facility] 11/30/2022 19:48:57 influenza, unspecified formulation 2 completed Not Available [facility] 11/30/2022 19:48:57 zoster recombinant 2 completed Not Available [facility] 11/30/2022 19:48:57 Influenza, split virus, quadrivalent, PF 0 completed Not Available [facility] 11/30/2022 19:48:57 Influenza, split virus, quadrivalent, PF 1 completed Not Available [facility] 11/30/2022 19:48:57 zoster recombinant 2 completed Not Available [facility] 08/28/2024 10:52:44 Influenza, high-dose, quadrivalent, PF 3 completed Not Available [facility] 08/28/2024 10:52:44 RSV, recombinant, protein subunit RSVpreF, adjuvant reconstituted, 0.5 mL, PF 3 completed Not Available [facility] 08/28/2024 10:52:44 Pneumococcal conjugate PCV20, polysaccharide CGA328 conjugate, adjuvant, PF 3 completed Not Available [facility] 08/28/2024 10:52:44 Tdap 3 completed Not Available [facility] 08/28/2024 10:52:44 Influenza, high-dose, trivalent, PF 4 completed Not Available [facility] 08/28/2024 10:52:44 MMR 5 completed Not Available [facility] 08/28/2024 10:52:44 Influenza, split virus, quadrivalent, PF 8 completed Not Available [facility] 04/29/2019 02:36:24 Past Encounters Encounter ID Performer Location Encounter Start Date Encounter Closed Date Diagnosis/Indication Diagnosis SNOMED-CT Code Diagnosis ICD10 Code Diagnosis Note [id number] [facility] [address] [place] [address] [phone] 10/30/2014 11:17:23 10/30/2014 13:18:41 Hypertensive disorder 07028435 Morbid obesity 100753099 Edema of l ower extremity 531671340 Family his tory of diabetes mellitus 885483825 Acid reflux 130294924 Osteoarthr itis of knee 170516144 Chronic low back pain 486984958 [id number] Ed Baptiste MD [facility] (Adult Med) [address] [place] [address] [id number] 0 01/21/2015 11:03:09 01/21/2015 14:47:50 Hypertensive disorder 65045492 I10 Morbid obesity 138877556 E66.01 Osteoarthr itis of knee 721064273 M17.9 Chronic low back pain 27 1756281 M54.5 Edema of l ower extremity 579844624 R60.0 Acid reflux 796378914 K2 1.9 [id number] Ed Baptiste MD [facility] (Adult Med) [address] [place] [address] [phone] 0 04/16/2015 11:47:53 04/16/2015 18:08:21 Acid reflux 676260650 K21.9 Chronic low back pain 27 4000517 M54.5 Edema of l ower extremity 343451202 R60.0 Hypertensive disorder 38 268119 I10 Morbid obesity 143528364 E66.01 Osteoarthr itis of knee 772065087 M17.9 [id number] MD Jovanna Sauceda (Adult Med) [address] [place] [address] [id number] 0 07/17/2015 09:35:00 07/17/2015 11:12:59 Hypertensive disorder 29174656 I10 Morbid obesity 487435326 E66.01 Osteoarthr itis of knee 323298094 M17.9 Chronic low back pain 27 5662650 M54.5 Acid reflux 873562079 K2 1.9 [id number] [facility] [address] [place] [address] [id number] 12/20/2015 10:51:35 12/20/2015 17:09:11 Hypertensive disorder 88989997 I10 Acid reflux 910770653 K2 1.9 Anxiety 10020765 F41.9 Edema of l ower extremity 518400561 R60.0 Family his tory of diabetes mellitus 008210386 Z83.3 Osteoarthr itis of knee 605151203 M17.9 Morbid obesity 976934506 E66.01 Family his tory of Thyroid disorder 428400669 Z83.49 [id number] [facility] [address] [place] [address] [phone] 01/20/2016 16:13:17 01/20/2016 18:01:56 Anxiety 23909506 F41.9 Hypertensive disorder 38 426706 I10 Morbid obesity 067604245 E66.01 Osteoarthr itis of knee 945388777 M17.9 Hypothyroidism 93984278 E03.9 [id number] MD Jovanna Sauceda (Adult Med) [address] [place] [address] [id number] 05/07/2016 10:11:23 05/11/2016 12:01:27 Hypothyroidism 84920849 E03.9 Hypertensive disorder 38 170349 I10 Chronic low back pain 27 8277145 M54.5 Osteoarthr itis of knee 246887308 M17.9 Morbid obesity 345139440 E66.01 Anxiety 86089366 F41.9 Acid reflux 514881203 K2 1.9 Acute pharyngitis 932231 003 J02.9 [id number] Ed Baptiste MD [facility] (Adult Med) [address] [place] [address] [phone] 08/20/2016 09:45:20 08/20/2016 17:07:26 Subclinical hypothyroidism 43991653 E03.9 She has lost weight, satisfied but not happy yet. Morbid obesity 282972265 E66.01 [id number] Ed Baptiste MD [facility] (Adult Med) [address] [place] [address] [id number] 05/04/2017 10:03:00 05/04/2017 13:58:23 Essential hypertension 00331704 I10 Low salt diet. Morbid obesity 083180207 E66.01 Low salt diet, exercise and lose weight. May be metabolic syndrom X Subclin[facility] l hypothyroidism 63252464 E03.9 She has lost weight, satisfied but not happy yet. Screening mammography 24 813174 Z12.31 Patient refuses. Screening for malignant neoplasm of cervix 924030353 Z12.4 Patient refuses. Screening for malignant neoplasm of colon 864659836 Z12.11 Patient refuses. [id number] Ed Baptiste MD [facility] (Adult Med) [address] [place] [address] [id number] 0 10/12/2017 09:41:08 10/18/2017 09:36:39 Morbid obesity 749465491 E66.01 Hypothyroidism 84719359 E03.9 Screening for malignant neoplasm of colon 091277700 Z12.11 Chronic low back pain 27 2868838 M54.5 Hypertensive disorder 38 346470 I10 Anxiety 95708523 F41.9 Acid reflux 377913125 K2 1.9 [id number] Ed Baptiste MD [facility] (Adult Med) [address] [place] [address] [id number] 01/06/2018 11:27:01 01/06/2018 13:56:30 Morbid obesity 306662787 E66.01 Low salt diet, exercise and lose weight. May be metabolic syndrom X Osteoarthr itis of knee 726215352 M17.9 Hypothyroidism 53914468 E03.9 Anxiety 51102101 F41.9 Acid reflux 844102273 K2 1.9 Essential hypertension 54262060 I10 Low salt diet. Administra tion of influenza vaccine 73674514 Z23 [id number] Ed Baptiste MD [facility] (Adult Med) [address] [place] [address] [id number] 03/31/2018 11:27:23 03/31/2018 13:04:51 Morbid obesity 044164168 E66.01 Low salt diet, exercise and lose weight. May be metabolic syndrom X Hypothyroidism 22609777 E03.9 Discussed with patient, will adjust thr dose and monitor the thyroid functions in 3 months. [id number] [facility] [address] [place] [address] [id number] 06/21/2018 11:20:13 06/22/2018 11:33:38 Morbid obesity 191111370 E66.01 Low salt diet, exercise and lose weight. May be metabolic syndrom X, discussed with patient, will D/C naltrexone , and to continue wellbutrin . Hypothyroidism 23388761 E03.9 Discussed with patient, will adjust thr dose and monitor the thyroid functions in 3 months. On levothyrox in 125 mcg/day, will re-check thyroid functions. [id number] [facility] [address] [place] [address] [phone] 0 09/14/2018 15:47:56 09/14/2018 17:00:21 Morbid obesity 325524120 E66.01 Low salt diet, exercise and lose weight. May be metabolic syndrom X, discussed with patient, will D/C naltrexone , and to continue wellbutrin . Hypothyroidism 44170916 E03.9 Discussed with patient, will adjust thr dose and monitor the thyroid functions in 3 months. On levothyrox in 125 mcg/day, will re-check thyroid functions. [id number] Ed Baptiste MD [facility] (Adult Med) [address] [place] [address] [phone] 12/15/2018 11:46:54 12/15/2018 12:56:34 Morbid obesity 895951215 E66.01 Low salt diet, exercise and lose weight. May be metabolic syndrom X, discussed with patient, will D/C naltrexone , and to continue wellbutrin . Hypothyroidism 06793635 E03.9 Discussed with patient, will adjust thr dose and monitor the thyroid functions in 3 months. On levothyrox in 125 mcg/day, will re-check thyroid functions. Copy of her last thyroid functions, free t4, T3 and TSH 12-06-2018 were normal and results provided to patient in this office 12-15-2018 . Acid reflux 818617932 K2 1.9 Stable. Vitamin D deficiency 347 08047 E55.9 Stable. Essential hypertension 51952481 I10 Low salt diet. [id number] MD [facility] Sauceda (Adult Med) [address] [place] [address] 0 03/13/2019 09:36:07 03/14/2019 10:11:02 Hypertensive disorder 51930145 I10 On hydralazin e.and HCTZ, will add losartan, she agreed. Hypothyroidism 30614123 E03.9 Discussed with patient, will adjust thr dose and monitor the thyroid functions in 3 months. On levothyrox in 125 mcg/day, will re-check thyroid functions. Copy of her last thyroid functions, free t4, T3 and TSH 12-06-2018 were normal and results provided to patient in this office 12-15-2018 . on levothyrox in 125 mcg/day. Morbid obesity 387115059 E66.01 Low salt diet, exercise and lose weight. May be metabolic syndrom X, discussed with patient, will D/C naltrexone , and to continue wellbutrin . Anxiety 71010632 F41.9 On bupropion. Acid reflux 854152583 K2 1.9 Stable. On famotidine . [id number] MD J[facility]anna Sauceda (Adult Med) [address] [place] [address] [phone] 05/25/2019 15:52:18 05/25/2019 17:02:39 Acid reflux 173841392 K21.9 Stable. On famotidine . Which is back order. Essential hypertension 15933008 I10 Low salt diet. Chronic low back pain 27 8369118 M54.5 Partial relief from cyclobenza carmen. [id number] MD Jovanna Sauceda (Adult Med) [address] [place] [address] [id number] 0 01/19/2020 08:09:12 01/22/2020 11:47:48 Acid reflux 981429095 K21.9 Stable. On famotidine . Which is back order. Edema of l ower extremity 097402948 R60.0 Hypertensive disorder 38 165304 I10 On hydralazin e.and HCTZ, will add losartan, she agreed. Hypothyroidism 93036568 E03.9 Discussed with patient, will adjust thr dose and monitor the thyroid functions in 3 months. On levothyrox in 125 mcg/day, will re-check thyroid functions. Copy of her last thyroid functions, free t4, T3 and TSH 12-06-2018 were normal and results provided to patient in this office 12-15-2018 . on levothyrox in 125 mcg/day. Essential hypertension 98724715 I10 Low salt diet. [id number] MD J[facility]anna Sauceda (Adult Med) [address] [place] [address] [phone] 01/30/2020 09:00:13 01/31/2020 10:38:54 Otitis media 40426022 H66.93 Discussed with patient , willing to try antibiotic s. and will keep this office informed. [id number] [facility] [address] [place] [address] [phone] 0 04/15/2020 09:44:25 04/16/2020 12:58:25 Benign paroxysmal positional vertigo 106868057 H81.13 She is going to see a ENT this week, and will keep this office informed. [id number] [facility] [address] [place] [address] [phone] 07/30/2020 08:01:37 07/31/2020 14:19:01 Acid reflux 526455026 K21.9 Stable. On famotidine . Which is back order. Anxiety 87645367 F41.9 On bupropion. Chronic low back pain 27 0116531 M54.5 Partial relief from cyclobenza carmen. Edema of l ower extremity 772931886 R60.0 Low salt diet,, also on HCTZ. Hypertensive disorder 38 799835 I10 On hydralazin e.and HCTZ, will add losartan, she agreed. Hypothyroidism 79399307 E03.9 Discussed with patient, will adjust thr dose and monitor the thyroid functions in 3 months. On levothyrox in 125 mcg/day, will re-check thyroid functions. Copy of her last thyroid functions, free t4, T3 and TSH 12-06-2018 were normal and results provided to patient in this office 12-15-2018 . on levothyrox in 125 mcg/day. Morbid obesity 331878727 E66.01 Low salt diet, exercise and lose weight. May be metabolic syndrom X, discussed with patient, will D/C naltrexone , and to continue wellbutrin . Osteoarthr itis of knee 153360514 M17.9 Stable. Hyperlipidemia 75980901 E78.5 Low saturated and low animal fat diet. Benign par oxysmal positional vertigo 431496434 H81.13 She is going to see a ENT this week, and will keep this office informed. [id number] Ed Baptiste MD [facility] (Adult Med) [address] [place] [address] [phone] 0 11/22/2020 10:32:32 11/25/2020 12:26:17 Acid reflux 513400858 K21.9 Stable. On famotidine . Which is back order. Anxiety 56455775 F41.9 On bupropion. Chronic low back pain 27 4910758 M54.5 Partial relief from cyclobenza carmen. Edema of l ower extremity 863650919 R60.0 Low salt diet,, also on HCTZ. Hypertensive disorder 38 390905 I10 On hydralazin e.and HCTZ, will add losartan, she agreed. Hypothyroidism 42512278 E03.9 Discussed with patient, will adjust thr dose and monitor the thyroid functions in 3 months. On levothyrox in 125 mcg/day, will re-check thyroid functions. Copy of her last thyroid functions, free t4, T3 and TSH 12-06-2018 were normal and results provided to patient in this office 12-15-2018 . on levothyrox in 125 mcg/day. Morbid obesity 183279970 E66.01 Low salt diet, exercise and lose weight. May be metabolic syndrom X, discussed with patient, will D/C naltrexone , and to continue wellbutrin . Lost about 24 pounds since the her living in boyfriend. Hyperlipidemia 76960923 E78.5 Low saturated and low animal fat diet. Benign par oxysmal positional vertigo 739964040 H81.13 She is going to see a ENT this week, and will keep this office informed. [id number] MD [facility] Sauceda (Adult Med) [address] [place] [address] [id number] 06/13/2021 11:19:53 06/17/2021 10:35:00 Screening for malignant neoplasm of colon 802875150 Z12.11 Patient refuses in the past..But now, 06-13-2021 , she agreed to have screening, abdomen soft, no mass felt, old scars from previous gallbladde r and C -section. Screening for malignant neoplasm of cervix 608309601 Z12.4 Patient refuses in the past, .But now , 06-13-2021 agreed to be referred. Screening mammography 24 470735 Z12.31 Patient refuses in the past,. But now , 06-13-2021 she agreed to be done. Bilateral tinnitus 39275 29537 102 H93.13 Will refer to ENT, she agreed. Chronic tremor 429723416 R25.1 Drug-induc ed hypokalemia 774852686 T50.905A Advised her to stop HCTZ, and do BMP today. [id number] [facility] [address] [place] [address] [phone] 0 08/21/2021 09:26:38 08/21/2021 10:35:19 Gynecologic examination 30455693 Z01.419 Normal gynecologi c exam today.Cerv ical cancer screening: Last Pap unknown, updated todayBreas t cancer screening: Last mammogram 07/29/21, BIRADS 1.Colonosc opy: scheduled next monthDiet/ exercise: Counseled regarding importance of physical activity, healthy diet and appropriat e calcium intake.RTC in 1yr Obesity 981928090 E66.9 BMI 40.7. Discussed diet high in fruits and vegetables . Limit fat, sugar, and processed foods. Exercise at least 30 minutes 5x/week. [id number] Ed Baptiste MD [facility] (Adult Med) [address] [place] [address] [phone] 09/12/2021 11:21:09 09/23/2021 09:46:22 Acid reflux 643714914 K21.9 Stable. On famotidine . Which is back order. Hypothyroidism 47166338 E03.9 Discussed with patient, will adjust thr dose and monitor the thyroid functions in 3 months. On levothyrox in 125 mcg/day, will re-check thyroid functions. Copy of her last thyroid functions, free t4, T3 and TSH 12-06-2018 were normal and results provided to patient in this office 12-15-2018 . on levothyrox in 125 mcg/day. Morbid obesity 268186498 E66.01 Low salt diet, exercise and lose weight. May be metabolic syndrom X, discussed with patient, will D/C naltrexone , and to continue wellbutrin . Lost about 24 pounds since the her living in boyfriend. [id number] Ed Baptiste MD [facility] (Adult Med) [address] [place] [address] 12/12/2021 11:18:56 12/16/2021 09:48:11 Acid reflux 850674417 K21.9 Stable. On famotidine . Which is back order. Anxiety 81706598 F41.9 On bupropion. Chronic low back pain 27 2267997 M54.51 Stable, she is able to ambulating without assistance . Edema of l ower extremity 092302940 R60.0 Low salt diet,, also was on HCTZ.. No edema today 12-12-2021 . Hypothyroidism 33331001 E03.9 Discussed with patient, will adjust thr [...] 100 MCG/day as 10-01- 2. Morbid obesity 569871626 E66.01 Low salt diet, exercise and lose weight. May be metabolic syndrom X, discussed with patient, will D/C naltrexone , and to continue wellbutrin . Lost about 24 pounds since the her living in boyfriend. Osteoarthr itis of knee 115605759 M17.9 Stable. Hypertensive disorder 38 198363 I10 On hydralazin e.and HCTZ, will add losartan, she agreed.As 12-12-2021 , blood pressure is 112/68. Insomnia 462942306 G47.0 0 Wants some pill for sleep. Dyslipidemia 658627912 E 78.5 Low animal fat diet. [id number] Ed Baptiste MD [facility] (Adult Med) [address] [place] [address] 05/20/2022 12:31:07 05/22/2022 15:07:01 Anxiety 43533514 F41.9 On bupropion. and hydroxyzin e Hypertensive disorder 38 846573 I10 On hydralazin e.and HCTZ, will add losartan, she agreed.As 12-12-2021 , blood pressure is 112/68. As 05-20-2022 BP is 124/80. Hypothyroidism 62149789 E03.9 Discussed with patient, will adjust thr [...] 100 MCG/day as 10-01- 2. Morbid obesity 094708770 E66.01 Low salt diet, exercise and lose weight. May be metabolic syndrom X, discussed with patient, will D/C naltrexone , and to continue wellbutrin . Lost about 24 pounds since the her living in boyfriend. Dyslipidemia 871944505 E 78.5 Low animal fat diet. Renewal of prescription 227942663 Z76.0 Benign par oxysmal positional vertigo 164380343 H81.13 She is going to see a ENT this week, and will keep this office informed. Acid reflux 073936584 K2 1.9 Stable. On famotidine . Which is back order. Insomnia 501556779 G47.0 0 Wants some pill for sleep. Screening for osteoporosis 212175307 Z13.820 She agreed. Migraine 30334556 G43.90 9 She agreed to try. Chronic constipation 236 544366 K59.09 Ok to try OTC miralax. [id number] Ed Baptiste MD [facility] (Adult Med) [address] [place] [address] 09/11/2022 09:16:50 09/14/2022 16:28:10 Obesity 812040243 E66.9 BMI is 38. advised her to watch diet, exercise and keep the weight down. Insomnia 075888724 G47.0 0 Trazadone not helping. she would like to try something else. Hypertensive disorder 38 510154 I10 On hydralazin e.and HCTZ, will add losartan, she agreed.As 12-12-2021 , blood pressure is 112/68. As 05-20-2022 BP is 124/80. As 09-11-22, BP is 138/83. will continue med and monitor blood pressure. Hypothyroidism 73112427 E03.9 Discussed with patient, will adjust thr [...] as 2. Administra tion of pneumococcal vaccine 63578008 Z23 She declined today 09-11-22. [id number] Ed Baptiste MD [facility] (Adult Med) [address] [place] [phone] 02/02/2023 09:22:24 02/05/2023 10:57:29 Ulnar nerve entrapment at elbow 961835332 G56.23 NCS provided to her today 02-02-23. At this time she dose not wants surgery. She got gabapentin from neurologis t for the neuropathy of feet. Acid reflux 536336286 K2 1.9 Stable. On famotidine . Which is back order. Anxiety 69989652 F41.9 On bupropion. and hydroxyzin e Chronic low back pain 27 9513573 M54.51 Stable, she is able to ambulating without assistance . Hypothyroidism 39382292 E03.9 Discussed with patient, will adjust thr [...] to 100 MCG/day as 2. Morbid obesity 921039263 E66.01 Low salt diet, exercise and lose weight. May be metabolic syndrom X, discussed with patient, will D/C naltrexone , and to continue wellbutrin . Lost about 24 pounds since the her living in boyfriend. As 02-02-23, BMI is 38.4 today. Osteoarthr itis of knee 980288499 M17.9 Stable. Ambulating . Influenza vaccination declined 668286691 Z28.21 She declined today, she wants to get at her pharmacy store. 02-02-23. Administra tion of pneumococcal vaccine 43551775 Z23 She declined today 09-11-22. She wants to get it at her pharmacy store, 02-02-23. Dyslipidemia 571049991 E 78.5 Low animal fat diet. Essential hypertension 28456733 I10 Low salt diet. Avoid NSAID or OTC decongesta nt if possible. BP is well controlled , 108/60, No dizziness, no chest pain, no difficulty of breathing. , no palpitatio n. will renew med. Hypertensive disorder 38 794960 I10 On hydralazin e.and HCTZ, will add losartan, she agreed.As 12-12-2021 , blood pressure is 112/68. As 05-20-2022 BP is 124/80. As 09-11-22, BP is 138/83. will continue med and monitor blood pressure. Migraine 87499808 G43.90 9 She agreed to try. Insomnia 103083432 G47.0 0 On bupropion. and hydroxyzin e [id number] MD [facility] (Adult Med) [address] [place] [address] 05/17/2023 09:25:55 05/19/2023 15:24:06 Pain of left shoulder joint 1598213708 9456441 M25.512 Has sling at home ,but it hard manual to put close on. Agreed for muscle relaxant and referral. Informatio n provided. Obesity 984858561 E66.9 BMI is 38. advised her to watch diet, exercise and keep the weight down. BMI is 38.8 today 05-17-23. [id number] MD [facility] Thornton (Adult Med) [address] [place] [phone] 10/01/2023 09:26:58 10/04/2023 12:34:47 Body mass index 30+ - obesity 593244534 Z68.38 Will wean off Bupropion. Was put [...] Rupture of rotator cuff of left shoulder 6158379262 6681483 M75.102 Injury to left shoulder last Nata. Did physical therapy. Still has pain and cannot raise arm above shoulder. Likely has a rotator cuff tear. Will proceed with MRI. Takes a muscle relaxer for the pain. Will continue that for now. Essential hypertension 88925696 I10 Will get fasting blood work and urine today. Blood pressure good today. Continue present medication . Hypothyroidism 42185190 E03.9 Will check TSH. Idiopathic peripheral neuropathy 17782783 G60.9 Has seen neurologis t. Takes Gabapentin . Gastroesop hageal reflux disease without esophagitis 774151750 K21.9 Controlled with Omeprazole . Adjustment disorder with depressed mood 97828928 F43.21 Has lost two group home partners. Has support with children and sisters. Takes Citalopram . Still struggles with motivation . Will discuss further at follow up. History of transient ischemic attack 323032746 Z86.73 Continue aspirin a day. Morbid obesity 275889416 E66.01 Dyslipidemia 767156044 E 78.5 Pain of le ft shoulder joint 8473871859 5689595 M25.512 Anxiety 78584936 F41.9 Hypertensive disorder 38 540312 I10 Acid reflux 055319474 K2 1.9 [id number] MD [facility] Thornton (Adult Med) [address] [place] [phone] 11/29/2023 16:46:37 12/01/2023 13:02:32 Acute dermatitis 88875837 L30.9 This rash started the day after [...] has a follow up in December. Anxiety 43104553 F41.9 I told her that I do not want to start a new medication until this problem is treated, but at her follow up appointmen t we can discuss her anxiety further. [id number] Allie Lo MD [facility] (Adult Med) [address] [place] [phone] 01/07/2024 10:58:12 01/11/2024 11:05:43 Body mass index 40+ - severely obese 152785881 Z68.41 Anxiety 61704252 F41.9 She does not really feel she [...] she will let me know. Weight gain 3680501 R63. 5 Weight gain which she attributes to her anxiety. Will check a TSH. No evidence of fluid overload. Will work on weight loss. Discussed healthy eating. Have her limit carbohydra susannah. Will try walking at [employer] most days of the week. Follow up in three months. Essential hypertension 66163001 I10 Blood pressure controlled . Last had blood work and urine checked in September. Last lipid in September good. Hyperlipidemia 83550383 E78.5 Currently taking Atorvastat in. Hypertensive disorder 38 029576 I10 Hypothyroidism 30202259 E03.9 Will check TSH. Acid reflux 525738993 K2 1.9 [id number] MD [facility] Thornton (Adult Med) [address] [place] [phone] 02/11/2024 11:58:24 02/15/2024 14:43:42 Anxiety 87625632 F41.9 Tolerating the Duloxetine well and it may be providing her some benefit. Will increase to 60 mg daily. Follow up in three months. Body mass index 40+ - severely obese 611512765 Z68.41 Weight stable. Has been working on [...] she gets her thyroid labs done. Hypothyroidism 36137422 E03.9 Last TSH slightly elevated. Increased thyroid medication . Will repeat a TSH in about six weeks. Should not need refill before three month follow up. Had prescripti on mid January for two months with one refill. Essential hypertension 73828624 I10 Blood pressure controlled . Last had blood work and urine checked in September. Continue present medication . Hyperlipidemia 50583435 E78.5 Currently taking Atorvastat in. 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 Once discontinu ed will start Buspirone. Discussed side effect of dizziness. She will let me know if she has any problems. Will have her make a counseling appointmen t. She seems to deflect when starts to talk about emotions or reasons for her fears. Has not cried once since boyfriend' s four years ago. Will follow up in six to eight weeks. Essential hypertension 95465375 I10 Blood pressure normal. Has had high readings at home. Using a wrist cuff which is not as reliable. Will bring it in to her next visit so we can calibrate it with our wall cuff. Will get fasting blood work and urine today. Continue present medication . Primary hypothyroidism 92710268 E03.9 Last TSH abnormal. Adjusted thyroid medication . Will recheck today. Wheezing 59962710 R06.2 Notices occasional wheeze at night. Had a sleep study which she said was normal. I need to see those results. Complains of an occasional sound like wheezing at night. I will proceed with PFTs. Body mass index 40+ - severely obese 884848640 Z68.41 Now that the weather is better she is going to try to get outside more and do more activity. Hyperlipidemia 97431338 E78.5 Currently taking Atorvastat in. Checking fasting lipids today. Hypothyroidism 22727411 E03.9 Last TSH slightly elevated. Increased thyroid medication . Will repeat a TSH in about six weeks. Should not need refill before three month follow up. Had prescripti on mid January for two months with one refill. Acid reflux 475342938 K2 1.9 Health Concerns Section Related Observation LastModified by Organization Detai ls LastModified Time None Recorded Concern Status LastModified by Organization Details LastModified Time None Recorded Advance Directives Directive N: Payers Encounter Date Sequence Insurance Name Policy Number Policy Zarate Covered Member ID Zarate Member ID Guarantor Name 10/01/2023 1 [place] Kyung Roe [id number] Kyung Roe 10/01/2023 2 [place] MED[place] OR MEDICARE REPLACEMENT PRIMARY) Kyung Roe [id number] Kyung Roe 11/29/2023 1 [place] Roe [id number] Kyung Roe 11/29/2023 2 [place]PLACEMENT [place] Kyung Roe [id number] Kyung Roe 01/07/2024 1 [place] Kyung Roe [id number] Kyung Roe 01/07/2024 2 [place]PLACEMENT [place] Kyung Roe [id number] Kyung Roe 02/11/2024 1 [place] Kyung Roe [id number] Kyung Roe 02/11/2024 2 [place]PLACEMENT PRIMARY[place] Kyung Roe [id number] Kyung Roe 08/28/2024 1 [place] Kyung Roe [id number] Kyung Roe 08/28/2024 2 [place]AC[place] Kyung Roe [id number] Kyung Roe Notes Date Note Type Note Provider Name and Address Organization Details Recorded Time 10/01/2023 text/html here to donald marlow as new patient, fell on left shoulder Nata Roseanne and can't raise arm all the [...] Prevnar vaccine Allie Lo MD Attn: Accounting,[address] [place], [address], [facility] 10/01/2023 10:51:00 11/29/2023 text/html here [...] her anxiety Allie Lo MD Attn: Accounting,[address] [place], [address], [facility] 11/29/2023 18:30:52 01/07/2024 text/html follow up, skin [...] is helping Allie Lo MD Attn: Accounting,[address] [facility], [place], [address], [facility] 01/07/2024 13:42:08 02/11/2024 text/html follow up, tolerating [...] 207 pounds, Allie Lo MD Attn: Accounting,[address] [facility], [place], [address], [facility] 02/11/2024 13:56:25 08/28/2024 text/html follow up, kathie mcgee higher dose of Duloxetine, if has to go anywhere gets stressed, mainly at night, when lay down instead of going to sleep thinks, thinks about boyfriend not being there anymore, has been four years since boyfriend passed the seventh of next month, has not cried since boyfriend , has taken Bupropion which did not help, depressed, no thoughts of hurting self, no crying spells, doesn't feel down most days, no racing thoughts, no grandiose thoughts, no visual or auditory hallucinations, gets tired the next day, checks blood pressure at home and it is elevated, wrist cuff, no known asthma, at night has a sound like cat, does not have sleep apnea Allie Lo MD Attn: Accounting,[address] , [place], [address], [place] [facility] 08/28/2024 11:58:12 OBGyn Episode Ob Episode Information Episode Created Date Number of Fetuses Patient Bloodtype Patient rh Status Prepregnancy Weight lbs Domestic Partner Domestic Partner Phone Father Name Recruiter Specialist Status 08/31/19 25 1 DELETED Fetus Data First Name Last Name Admitted to NICU Weight (g) Sex Living Outcome Pediatric Complications Fetus ID Race Codes Race Delivery Type [id number] Cirilo Calculation Initial Cirilo Date Initial Exam Date Initial Exam Provider Initial Ultrasound Date Last Menstrual Period Date Ultra Sound Weeks Gestation 08/30/2024 0 Eighteen To Twenty Week Cirilo Update Ultra Sound Date Fundal Height At Umbil Quickening Date Ultra Sound Latest Weeks Gestation Final Cirilo Confirmed By Final Cirilo Confirmed Date Final Cirilo Date Ultra Sound Latest Days Gestation 0 0 Menstrual History Last Menstrual Date Menses Monthly On Bcp Conception Prior Menses Frequency Hcg Plus Date Menarche Onset Age Delivery Information Delivery Date Delivery Type Labor Anesthesia Weeks Gestation Incision Type Labor Labor Length Hrs Delivered By Post Complications Tubal Sterilization Discharge Date Comments Discharge Information Feeding Method Contraceptive Method Maternal HG B and HCT Levels
--- OUTSIDE RECORDS SUMMARY | 2024-09-11 06:01 | XMS_ITS | Data Portability ---
Author Organization [place] [facility], Main Office Address [address] [place] [address] Care Team Providers Care Telecommunication Operator Name Role Phone LINUS HOUSTON Primary Care Provider [phone] LINUS HOUSTON Referring Provider Assessment Encounter Date Assessment Date Assessment LastModified by Organization Details LastModified Time 05/26/2023 05/26/2023 67-year-old female presents for evaluation of her left shoulder she is left-hand dominant. She had a fall on [employer] when she landed her left arm. She [...] left shoulder. She had a fall on [employer] when she landed her left arm. Since [...] referral - CONTINUE PT 2023 024 [email or web address] [facility], [address], [place], [address], 4 16:36:01 physical therapist referral - eval and treat 2023 024 [id number] [facility], [address], [place], [address], 4 10:52:13 Procedures injection/a spiration joint/bursa (PROC) - in office procedure, administere d by provider 2023 024 [email or web address] 3 In-Office Order, Internal Use Only DO Not Attach Compendium DO Not Attach Compendium, Do Not Delete/merge, [id number] 11:58:51 Surgeries None recorded. Imaging None recorded. Medication Orders Kenalog 10 mg/mL suspension for injection 2023 024 [email or web address] [facility], [place], [address], 4 16:36:01 Marcaine (PF) 0.5 % (5 [...] shoul angela No observ ation record ed. [address], [place], [address], 06/02/2023 10:24:47 Result Notes None recorded. Problems Name Problem SNOMED Code Status Onset Date Resolution Date Notes Provider Name and Address Organization Details Recorded Time Pain of left shoulder joint 333436061692298 09 Active 2023 CRISTY Greer [employer] 11:05:25 Problem Notes None recorded. Procedures Surgical History Date Name Laterality Status Provider Name and Address Organization Details Recorded Time Ortho - Cortisone Injection completed Carli Loo NP [address] [facility] [address], [place], [address], [employer] 06/30/2023 12:50:40 section completed CRISTY Greer [employer] 05/26/2023 11:04:30 Gallbladder Surgery completed CRISTY Greer [employer] 05/26/2023 11:04:42 Imaging Results None recorded. Procedure Notes None recorded. Medical Equipment None Reported. Allergies Allergen ID Allergen Name Allergen Category Reaction Reaction Severity Criticality Documentation Date Start Date Code Code System Note Provider Name and Address Organization Details Recorded Time 11780 naldemedi ne medicatio n Not available Not available Not available 05/26/2023 41063 97 RxNorm CRISTY Greer [facility] [employer] 11:02:14 Medications Name Sig Start Date Stop [...] suspension for injection IN OFFICE 2023 active [facility]: 0003- 0494- 20 Not Available Not Available [...] Updated DateTime 05/26/2023 157.48 cm 39.3 kg/m2 53797.36 g CRISTY Greer [facility] [employer] 05/26/2023 11:01:34 Date Recorded Body height Body mass index (BMI) Body weight Provider Name and Address Organization Details Last Updated DateTime 06/30/2023 157.48 cm 39.3 kg/m2 10533.36 g Leigha CRISTY Myers [facility] [employer] 06/30/2023 11:41:00 Social History Question Answer Notes LastModified by Organizat ion Details LastModified Time Tobacco Smoking Status Unknown If Ever Smoked Leigha CRISTY Myers null, [facility] [employer] [facility] 05/26/2023 11:03:42 What Was The Date Of Your Most Recent Tobacco Screening? 05/26/2023 [email or web address] Information not available 05/26/2023 Sex: Unknown Functional Status Question Answer Note LastModified by Organization D etails LastModified Time What is your level of alcohol consumption? None [email or web address] Information not available 05/26/2023 Mental Status None recorded. Family History Relationship Description Onset Age of this Age Resolved Age Notes LastModified by Organization Details LastModified Time Sister Heart disease [email or web address] Not available 2023 11:03:08 Sister Hypertensive disorder [email or web address] Not available 2023 11:03:20 Sister Diabetes mellitus [email or web address] Not available 2023 11:03:29 Medical History Condition Response STROKE/TIA Y ARTHRITIS Y Gynecological HistoryNo gynecological history recorded. Obstetrics History GPAL:G 0 P 0 0 0 0 Past Encounters Encounter ID Performer Location Encounter Start Date Encounter Closed Date Diagnosis/Indication Diagnosis SNOMED-CT Code Diagnosis ICD10 Code Diagnosis Note [id number] Osman Bird MD [facility] [place] [address] [place] [address] 05/26/2023 10:38:24 05/26/2023 11:53:29 Pain of left shoulder joint 9025401121 8625478 M25.753 [id number] Osman Bird MD [facility] [place] [address] [place] [address] 06/30/2023 11:38:50 06/30/2023 12:08:13 Pain of left shoulder joint 5379829259 7890040 M25.512 Health Concerns Section Related Observation LastModified by Organization Detai ls LastModified Time None Recorded Concern Status LastModified by Organization Details LastModified Time None Recorded Advance Directives Directive None Recorded Payers Encounter Date Sequence Insurance Name Policy Number Policy Zarate Covered Member ID Zarate Member ID Guarantor Name 05/26/2023 1 [place] Kyung Roe [id number] Kynug Roe 05/26/2023 2 [place] [employer] Kyung Roe [id number] Kyung Roe 06/30/2023 1 [place] Kyung Roe [id number] Kyung Roe 06/30/2023 2 [place] [employer] Kyung Roe [id number] Kyung Roe OBGyn Episode No OBEpisode recorded.
--- NOTE | 2024-09-11 07:41 | ED.GENADULT ---
HPI - General Adult General Chief complaint: Extremity Injury, Upper Stated complaint: fall in march 2022 - shoulder pain x2 days Time Seen by Provider: 09/11/24 07:03 Source: patient Mode of arrival: ambulatory Limitations: no limitations History of Present Illness HPI narrative: 69-year-old with a history of hypertension, hypothyroidism, GERD here with a complains of left scapular pain on and off for some time. Patient states that this 1 single spot and the left scapular area which hurts with touch and movement. She denies any recent fall. Patient states that she fell 2 years ago and endorses states she has been having on and off intermittent pain. Onset (ago): day(s) Location: upper extremity Radiation: non-radiation Severity: moderate Quality: aching Pain Consistency: constant Relieving factors: immobilization Exacerbating factors: movement Associated symptoms: denies other symptoms Related Data Home Medications ?Medication ?Instructions ?Recorded ?Confirmed ?Last Taken ?Type hydralazine 25 mg tablet 25 mg PO BID 04/18/20 07/06/24 10/06/21 08:00 History losartan 50 mg tablet 50 mg PO DAILY 04/18/20 07/06/24 10/06/21 08:00 History omeprazole 40 mg capsule,delayed 40 mg PO BID 04/18/20 07/06/24 10/06/21 08:00 History release levothyroxine 125 mcg capsule 100 mcg PO DAILY 06/12/22 07/06/24 Unknown History baclofen 10 mg tablet 10 mg PO QHS 07/06/24 07/06/24 Unknown History duloxetine 60 mg capsule,delayed 60 mg PO DAILY 07/06/24 07/06/24 Unknown History release Allergies Allergy/AdvReac Type Severity Reaction Status Date / Time naltrexone Allergy Intermediate Unknown Verified 09/11/24 06:50 hydromorphone (From Dilaudid) AdvReac Nausea and Verified 09/11/24 06:50 Vomiting Review of Systems Review of Systems: All systems reviewed & are unremarkable except as noted in HPI and below Constitutional: Constitutional: Reports no additional constitutional complaints Eyes: Eyes: Reports no additional eye complaints ENT: Reports system reviewed and no additional complaints, except as documented Cardiovascular: Cardiovascular: Reports no additional cardiovascular complaints Respiratory: Respiratory: Reports no additional respiratory complaints Gastrointestinal: Gastrointestinal: Reports no additional gastrointestinal complaints Musculoskeletal: Musculoskeletal: Reports as per HPI Neurologic: Reports system reviewed and no additional complaints, except as documented PMFSH Past Medical History Medical History Insomnia Restless leg syndrome Small fiber neuropathy Colon cancer screening Chronic GERD Anxiety Hypothyroidism Hyperlipidemia Hypertension Surgical History Surgical History Hx of cholecystectomy H/O section Family History Family History Sibling Diabetes mellitus Father Congestive heart failure Social History Social History Social History: the patient is a lifelong nonsmoker. She has 2 children. She is . She is unemployed. She does not use any alcohol marijuana or illicit drugs. She does not have a durable power patent prosecution attorney for healthcare. Code status full code Smoking status: Never smoker Second hand tobacco smoke exposure: No Alcohol intake: never Substance use: never Substance use type: does not use Do You Feel Safe in your Home?: Yes Lack of Transportation: No Lack of Food: Sometimes True Current Housing: I Have Housing Concerned About Future Housing: No Difficulty Paying Gas/Electric Bills: YES Difficulty Paying for Meds: No Currently Unemployed: Decline to Answer Education: Don't Know Difficulty w/ Childcare or Family Care: No Living arrangements: alone Occupation/Education: retired Gender identity (if verbalized by the patient): Female Spiritual care concerns: No Exam Narrative: GENERAL: Well-appearing, well-nourished, and in no acute distress. HEAD: Normocephalic, atraumatic. EYES: PERRLA and EOMI. ENT: Nares clear NECK: Supple. CHEST: Clear to auscultation. No respiratory distress. HEART: Regular rate and rhythm. No murmur heard. Normal peripheral pulses. EXTREMITIES: Normal range of motion. No edema. Examination of the left scapular area appears to be normal, skin is normal no sign of infection , on palpation there is a single spot which is on the lateral aspect of the scapula is tender on palpation .no mass or abscess noted. SKIN: Warm, dry, no rash. NEURO: No focal deficits. Alert and oriented x3. PSYCH: Normal mood and affect. Course Course Emergency Course: informed pt about the possible diagnosis of muscle strain , as pain is reproducible. advised her to continue home medication and take pain medication as prescribed. Vital Signs Vital signs: Vital Signs Temperature 36.3 C L 09/11/24 06:00 Pulse Rate 76 09/11/24 06:00 Respiratory Rate 16 09/11/24 06:00 Blood Pressure 188/78 H 09/11/24 06:00 Pulse Oximetry 97 09/11/24 06:00 Oxygen Delivery Room Air 09/11/24 06:00 Temperature 36.3 C L 09/11/24 06:00 Pulse Rate 76 09/11/24 06:00 Respiratory Rate 16 09/11/24 06:00 Blood Pressure 188/78 H 09/11/24 06:00 Pulse Oximetry 97 09/11/24 06:00 Oxygen Delivery Room Air 09/11/24 06:00 Medical Decision Making Vital Signs Vital Signs: Vital Signs Temperature 36.3 C L 09/11/24 06:00 Pulse Rate 76 09/11/24 06:00 Respiratory Rate 16 09/11/24 06:00 Blood Pressure 188/78 H 09/11/24 06:00 Pulse Oximetry 97 09/11/24 06:00 Oxygen Delivery Room Air 09/11/24 06:00 Temperature 36.3 C L 09/11/24 06:00 Pulse Rate 76 09/11/24 06:00 Respiratory Rate 16 09/11/24 06:00 Blood Pressure 188/78 H 09/11/24 06:00 Pulse Oximetry 97 09/11/24 06:00 Oxygen Delivery Room Air 09/11/24 06:00 Discharge Plan Discharge Clinical Impression: Muscle strain Patient Disposition: Home Condition: Stable Instructions: Muscle Strain (DC) Patient Language: Portuguese Prescriptions: New naproxen 500 mg tablet 500 mg PO BID PRN (Reason: pain) Qty: 14 0RF No Action atorvastatin 20 mg tablet 20 mg PO DAILY Qty: 90 1RF gabapentin 300 mg capsule 300 mg PO Q12H Qty: 60 5RF Rx Instructions: May increase to 1 capsule in the morning and 2 at capsule at bedtime if necessary duloxetine 60 mg capsule,delayed release(DR/EC) 60 mg PO DAILY baclofen 10 mg tablet 10 mg PO QHS hydralazine 25 mg tablet 25 mg PO BID losartan 50 mg tablet 50 mg PO DAILY omeprazole 40 mg capsule,delayed release(DR/EC) 40 mg PO BID levothyroxine 125 mcg capsule 100 mcg PO DAILY aspirin 81 mg capsule 81 mg PO DAILY Qty: 30 0RF ferrous sulfate [FeroSul] 325 mg (65 mg iron) tablet 325 mg PO DAILY 90 Days Qty: 90 2RF Rx Instructions: Take one daily; if constipation occurs, take every other day. Follow-up/Referrals: Teresita,Allie Modi MD [Primary Care Provider] - Time of Disposition: 07:54
== END 2024-09-11 08:38 | disposition home or self-care (01) ==
LOC: ANHED 08:08
PROVIDERS: Emergency Provider Family Medicine; PCP Emergency Medicine
DX: S29.012A Strain of muscle and tendon of back wall of thorax, initial encounter (principal); G25.81 Restless legs syndrome; K21.9 Gastro-esophageal reflux disease without esophagitis; F41.9 Anxiety disorder, unspecified; E03.9 Hypothyroidism, unspecified; E78.5 Hyperlipidemia, unspecified; I10 Essential (primary) hypertension; X58.XXXA Exposure to other specified factors, initial encounter
CPT/HCPCS: 99283

== ENCOUNTER 2024-09-25 09:38 | Outpatient (CLI) | payer MEDICARE, MEDICAID, SELFPAY ==
--- OUTSIDE RECORDS SUMMARY | 2024-09-25 10:19 | XMS_ITS | Data Portability ---
Author Organization [facility] [place] Address [address] [facility] [place] [place] [address] Care Team Providers Care Rose Grading Supervisor Name Role Phone SHRUTI HAYNES Stope Miner [phone] Assessment Encounter Date Assessment Date Assessment LastModified [...] sitive, serum 2024 025 [facility], [address] [facility], [address], [place], [address], 08/29/2024 13:11:28 lipid panel, serum 2024 025 [facility], [address] [facility], [address], [place], [address], 08/29/2024 13:11:27 CMP, serum or plasma 2024 025 [facility], [address] [facility], [address], [place], [address], 08/29/2024 13:11:28 CBC 2024 025 [facility], [address], [address], [place], [address], 08/29/2024 13:11:29 albumin/c reatinine , mass ratio, urine 2024 025 [facility], [address], [address], [place], [address], 08/29/2024 13:11:26 TSH, ultra-sen sitive, serum 2023 024 [facility], [address], [address], [place], [address], 02/26/2024 08:28:42 TSH, ultra-sen sitive, serum 2023 024 [facility], [address], [address], [place], [address], 01/19/2024 08:30:07 HbA1c (hemoglob in A1c), blood 2023 024 [email or web address] In-Office Order, Internal Use Only DO Not Attach Compendium DO Not Attach Compendium, Do Not Delete/merge, [id number] 01/07/2024 12:45:09 CMP, serum or plasma 2023 024 [facility], [address], [address], [place], [address], 10/02/2023 08:25:08 CBC 2023 024 [facility], [address], [address], [place], [address], 10/02/2023 08:25:10 lipid panel, serum 2023 024 [facility], [address] [facility], [address], [place], [address], 10/02/2023 08:25:07 albumin/c reatinine , mass ratio, urine 2023 024 [facility], [address] [facility] [address], [address], [place], [address], 10/02/2023 08:25:07 TSH, ultra-sen sitive, serum 2023 024 [facility], [address] [facility], [address], [place], [address], 10/02/2023 08:25:09 HbA1c (hemoglob in A1c), blood 2023 024 [email or web address] [facility], [address] [place] [address], [address], [place], [address], 03/30/2024 16:08:43 Referral None recorded. Procedures None recorded. Surgeries None recorded. Imaging MRI, shoulder, w/o contrast 2023 024 [facility], [address] [place] [address] [address], [place], [address], 01/13/2024 10:19:26 Medication Orders omeprazol e 40 mg capsule,d elayed release 2024 025 [facility], [address] [place], [address], 08/28/2024 11:57:51 atorvasta tin 20 mg tablet 2024 025 [facility], [address] [place], [address], 08/28/2024 11:57:49 duloxetin e 30 mg capsule,d elayed release 2024 025 [facility] [address], [address] [place], [address], 08/28/2024 11:57:48 buspirone 5 mg tablet 2024 025 [facility], [address] [place], [address], 08/28/2024 11:57:48 hydralazi ne 25 mg tablet 2024 025 [facility] [address], [address] [place] [address], [address], 08/28/2024 11:57:46 losartan 50 mg tablet 2024 025 [facility], [facility] [place], [address], 08/28/2024 11:57:52 levothyro xine 112 mcg tablet 2024 025 [facility] [address], [address] [place] [address], [address], 08/28/2024 11:57:51 omeprazol e 40 mg capsule,d elayed release 2023 024 [facility] [address], [address] [place] [address], [address], 02/11/2024 13:56:01 hydralazi ne 25 mg tablet 2023 024 [facility], [address] [place] [address], [address], 02/11/2024 13:56:00 losartan 50 mg tablet 2023 024 [facility] [address], [address] [place] [address], [address], 02/11/2024 13:56:03 duloxetin e 60 mg capsule,d elayed release 2023 024 [email or web address], [address] [place], [address], 09/18/2024 08:57:54 omeprazol e 40 mg capsule,d elayed release 2023 024 [facility] [address], [address] [place], [address], 01/07/2024 13:41:54 hydralazi ne 25 mg tablet 2023 024 [facility], [address] [place] [address], [address], 01/07/2024 13:41:53 losartan 50 mg tablet 2023 024 [facility] [address], [address] [place] [address], [address], 01/07/2024 13:41:51 duloxetin e 30 mg capsule,d elayed release 2023 024 [facility], [address] [place] [address], [address], 02/11/2024 13:52:44 atorvasta tin 20 mg tablet 2023 024 [facility] [address], [address] [place] [address], [address], 01/07/2024 13:41:52 levothyro xine 100 mcg tablet 2023 024 [facility] [address], [address] [place] [address], [address], 01/26/2024 11:19:05 loratadin e 10 mg tablet 2023 024 [facility], [address] [place], [address], 02/11/2024 14:31:48 prednison e 20 mg tablet 2023 024 [facility], [address] [place], [address], 01/07/2024 11:08:37 omeprazol e 40 mg capsule,d elayed release 2023 024 [facility], [address] [place], [address], 10/01/2023 10:50:16 hydralazi ne 25 mg tablet 2023 024 [facility] [address], [address] [place] [address], [address], 10/01/2023 10:50:16 losartan 50 mg tablet 2023 024 [facility] [address], [address] [place] [address], [address], 10/01/2023 10:50:16 atorvasta tin 20 mg tablet 2023 024 [facility], [facility] [place], [address], 10/01/2023 10:50:16 aspirin 81 mg tablet,de layed release 2023 024 [facility], [address] [place], [address], 02/11/2024 13:55:52 citalopra m 20 mg tablet 2023 024 [facility] [address], [address] [place] [address], [address], 01/07/2024 13:40:11 baclofen 10 mg tablet 2023 024 [facility], [facility] [place], [address], 02/11/2024 13:52:27 levothyro xine 100 mcg tablet [email or web address] [facility], [facility], [place], [address], 01/26/2024 11:18:56 Patient TargetsNo targets recorded. Patient Instructions Encounter Date Encounter Id Patient Instructions Last Modified By Organization Details Last Modified Time 10/01/2023 [id number] A healthy lifestyle: care instructions [email or web address] Not available 10/01/2023 10:50:16 08/28/2024 [id number] complete PFT w/ post bronchodilator spirometry* [email or web address] Not available 09/12/2024 12:34:31 Reason for Referral None Reported. Results Created Date Observation Date Name Description Value Unit Range Abnormal Flag Note LastModifiedBy Organization Detail LastModifiedTime 10/01/1910/02/2023 ALBUM IN/CR EATIN INE RATIO ,URIN E creatinine, urine 327.8 mg/dL notest ab. Not Available [facility] ([facility]) [address] [place], [address], 10/02/2023 08:25:07 10/01/19 24 10/02/2023 ALBUM IN/CR EATIN INE RATIO ,URIN E albumin, urine 53.1 ug/mL notest ab. Not Available [facility] ([facility]) [address] [place], [address], 10/02/2023 08:25:07 10/01/19 24 10/02/2023 ALBUM IN/CR EATIN INE RATIO ,URIN E alb/creat ratio 16 mg/g_ creat 0-29 Munira l: 0 - 29 Moder ately incre ased: 30 - 300 Sever haley incre ased: >300 Not Available [facility] ([facility]) [address] [place], [address], 10/02/2023 08:25:07 10/01/19 24 10/02/2023 LIPID PANEL cholesterol, total 155 mg/dL 100-19 9 Not Available [facility] ([facility]) [address] [place], [address], 10/02/2023 08:25:07 10/01/19 24 10/02/2023 LIPID PANEL triglyceride s 92 mg/dL 0-149 Not Available [facility]) [address] [place], [address], 10/02/2023 08:25:07 10/01/19 24 10/02/2023 LIPID PANEL HDL cholesterol 51 mg/dL >39 Not Available [facility]) [address] [place], [address], 10/02/2023 08:25:07 10/01/19 24 10/02/2023 LIPID PANEL VLDL cholesterol cameron 17 mg/dL 5-40 Not Available [facility]) [address] [place], [address], 10/02/2023 08:25:07 10/01/19 24 10/02/2023 LIPID PANEL LDL chol calc ([facility]) 87 mg/dL 0-99 Not Available [facility]) [address] [place], [address], 10/02/2023 08:25:07 10/01/19 24 10/02/2023 COMP. METAB OLIC PANEL (14) glucose 91 mg/dL 70-99 Not Available [facility] ([facility]) [address] [place], [address], 10/02/2023 08:25:08 10/01/19 24 10/02/2023 COMP. METAB OLIC PANEL (14) BUN 11 mg/dL 8-27 Not Available [facility] ([facility]) [address] [place], [address], 10/02/2023 08:25:08 10/01/19 24 10/02/2023 COMP. METAB OLIC PANEL (14) creatinine 0.98 mg/dL 0.57-1 .00 Not Available [facility] ([facility]) [address] [place], [address], 10/02/2023 08:25:08 10/01/19 24 10/02/2023 COMP. METAB OLIC PANEL (14) eGFR 64 mL/mi n/1.7 3 >59 Not Available [facility] ([facility]) [address] [place], [address], 10/02/2023 08:25:08 10/01/19 24 10/02/2023 COMP. METAB OLIC PANEL (14) BUN/creatini ne ratio 11 12-28 below low normal Not Available [facility] ([facility]) [address] [facility], [place], [address], 10/02/2023 08:25:08 10/01/19 24 10/02/2023 COMP. METAB OLIC PANEL (14) sodium 142 mmol/ L 134-14 4 Not Available [facility] ([facility]) [address] [facility], [place], [address], 10/02/2023 08:25:08 10/01/19 24 10/02/2023 COMP. METAB OLIC PANEL (14) potassium 4.2 mmol/ L 3.5-5. 2 Not Available [facility] ([facility]) [address] [facility], [place], [address], 10/02/2023 08:25:08 10/01/19 24 10/02/2023 COMP. METAB OLIC PANEL (14) chloride 105 mmol/ L 96-106 Not Available [facility] ([facility]) [address] [facility], [place], [address], 10/02/2023 08:25:08 10/01/19 24 10/02/2023 COMP. METAB OLIC PANEL (14) carbon dioxide, total 24 mmol/ L 20-29 Not Available [facility] ([facility]) [address] [place], [address], 10/02/2023 08:25:08 10/01/19 24 10/02/2023 COMP. METAB OLIC PANEL (14) calcium 9.3 mg/dL 8.7-10 .3 Not Available [facility] ([facility]) [address] [place], [address], 10/02/2023 08:25:08 10/01/19 24 10/02/2023 COMP. METAB OLIC PANEL (14) protein, total 6.7 g/dL 6.0-8. 5 Not Available [facility] ([facility]) [address] [place], [address], 10/02/2023 08:25:08 10/01/19 24 10/02/2023 COMP. METAB OLIC PANEL (14) albumin 4.2 g/dL 3.9-4. 9 Not Available [facility] ([facility]) [address] [place], [address], 10/02/2023 08:25:08 10/01/19 24 10/02/2023 COMP. METAB OLIC PANEL (14) globulin, total 2.5 g/dL 1.5-4. 5 Not Available [facility] ([facility]) [address] [place], [address], 10/02/2023 08:25:08 10/01/19 24 10/02/2023 COMP. METAB OLIC PANEL (14) bilirubin, total 0.4 mg/dL 0.0-1. 2 Not Available [facility] ([facility]) [address] [place], [address], 10/02/2023 08:25:08 10/01/19 24 10/02/2023 COMP. METAB OLIC PANEL (14) alkaline phosphatase 83 IU/L 44-121 Not Available [facility] ([facility]) [address] [place], [address], 10/02/2023 08:25:08 10/01/19 24 10/02/2023 COMP. METAB OLIC PANEL (14) AST (SGOT) 21 IU/L 0-40 Not Available [facility] ([facility]) [address] [facility], [place], [address], 10/02/2023 08:25:08 10/01/19 24 10/02/2023 COMP. METAB OLIC PANEL (14) ALT (SGPT) 17 IU/L 0-32 Not Available [facility] ([facility]) [address] [facility], [place], [address], 10/02/2023 08:25:08 10/01/19 24 10/02/2023 TSH RFX ON ABNOR MAL TO FREE T4 TSH 3.210 uIU/m L 0.450- 4.500 Not Available [facility] ([facility]) [address] [facility], [place], [address], 10/02/2023 08:25:09 10/01/19 24 10/01/2023 ABN OPTIO [...] Available [facility] ([facility]) [address] [facility], [place], [address], 10/02/2023 08:25:09 10/01/19 24 10/02/2023 CBC, PLATE LET, NO DIFFE RENTI AL WBC 7.5 x10e3 /uL 3.4-10 .8 Not Available [facility] ([facility]) [address] [facility], [place], [address], 10/02/2023 08:25:10 10/01/19 24 10/02/2023 CBC, PLATE LET, NO DIFFE RENTI AL RBC 4.50 x10e6 /uL 3.77-5 .28 Not Available [facility] ([facility]) [address] [facility], [place], [address], 10/02/2023 08:25:10 10/01/19 24 10/02/2023 CBC, PLATE LET, NO DIFFE RENTI AL hemoglobin 13.0 g/dL 11.1-1 5.9 Not Available [facility] ([facility]) [address] [facility], [place], [address], 10/02/2023 08:25:10 10/01/19 24 10/02/2023 CBC, PLATE LET, NO DIFFE RENTI AL hematocrit 41.7 % 34.0-4 6.6 Not Available [facility] ([facility]) [address] [facility], [place], [address], 10/02/2023 08:25:10 10/01/19 24 10/02/2023 CBC, PLATE LET, NO DIFFE RENTI AL MCV 93 fL 79-97 Not Available [facility] ([facility]) [address] [facility], [place], [address], 10/02/2023 08:25:10 10/01/19 24 10/02/2023 CBC, PLATE LET, NO DIFFE RENTI AL MCH 28.9 pg 26.6-3 3.0 Not Available [facility] ([facility]) [address] [facility], [place], [address], 10/02/2023 08:25:10 10/01/19 24 10/02/2023 CBC, PLATE LET, NO DIFFE RENTI AL MCHC 31.2 g/dL 31.5-3 5.7 below low normal Not Available [facility] ([facility]) [address] [facility], [place], [address], 10/02/2023 08:25:10 10/01/19 24 10/02/2023 CBC, PLATE LET, NO DIFFE RENTI AL RDW 12.0 % 11.7-1 5.4 Not Available [facility] ([facility]) [address] [place], [address], 10/02/2023 08:25:10 10/01/19 24 10/02/2023 CBC, PLATE LET, NO DIFFE RENTI AL platelets 296 x10e3 /uL 150-45 0 Not Available [facility] ([facility]) [address] [facility], [place], [address], 10/02/2023 08:25:10 01/07/20 24 01/07/2024 HbA1c (hemo globi n A1c), blood HbA1c 5.6 Not Available In-Office Order Internal Use Only DO Not Attach Compendium DO Not Attach Compendium, Do Not Delete/merge, [id number] 01/07/2024 12:32:18 01/18/20 24 01/19/2024 TSH RFX ON ABNOR MAL TO FREE T4 TSH 5.190 uIU/m L 0.450- 4.500 above high normal Not Available [facility] ([facility]) [address] [place], [address], 01/19/2024 08:30:07 01/18/20 24 01/19/2024 T4F T4,free (direct) 0.97 NG/dL 0.82-1 .77 Not Available [facility] ([facility]) [address] [place], [address], 01/19/2024 08:30:08 02/25/20 24 02/26/2024 TSH RFX ON ABNOR MAL TO FREE T4 TSH 0.215 uIU/m L 0.450- 4.500 below low normal Not Available [facility] ([facility]) [address] [place], [address], 02/26/2024 08:28:42 02/25/20 24 02/26/2024 T4F T4,free (direct) 1.53 NG/dL 0.82-1 .77 Not Available [facility] ([facility]) [address] [place], [address], 02/26/2024 08:28:43 08/29/19 25 08/29/2024 ALBUM IN/CR EATIN INE RATIO ,URIN E creatinine, urine 256.8 mg/dL notest ab. Not Available [facility] ([facility]) [address] [place], [address], 08/29/2024 13:11:26 08/29/19 25 08/29/2024 ALBUM IN/CR EATIN INE RATIO ,URIN E albumin, urine 27.7 ug/mL notest ab. Not Available [facility] ([facility]) [address] [place], [address], 08/29/2024 13:11:26 08/29/19 25 08/29/2024 ALBUM IN/CR EATIN INE RATIO ,URIN E alb/creat ratio 11 mg/g_ creat 0-29 Munira l: 0 - 29 Moder ately incre ased: 30 - 300 Sever haley incre ased: >300 Not Available [facility] ([facility]) [address] [place], [address], 08/29/2024 13:11:26 08/29/19 25 08/29/2024 LIPID PANEL cholesterol, total 195 mg/dL 100-19 9 Not Available [facility] ([facility]) [address] [place], [address], 08/29/2024 13:11:27 08/29/19 25 08/29/2024 LIPID PANEL triglyceride s 169 mg/dL 0-149 above high normal Not Available [facility] ([facility]) [address] [place], [address], 08/29/2024 13:11:27 08/29/19 25 08/29/2024 LIPID PANEL HDL cholesterol 43 mg/dL >39 Not Available [facility] ([facility]) [address] [place], [address], 08/29/2024 13:11:27 08/29/19 25 08/29/2024 LIPID PANEL VLDL cholesterol cameron 30 mg/dL 5-40 Not Available [facility] ([facility]) [address] [place], [address], 08/29/2024 13:11:27 08/29/19 25 08/29/2024 LIPID PANEL LDL chol calc ([facility]) 122 mg/dL 0-99 above high normal Not Available [facility] ([facility]) [address] [place], [address], 08/29/2024 13:11:27 08/29/19 25 08/29/2024 COMP. METAB OLIC PANEL (14) glucose 107 mg/dL 70-99 above high normal Not Available [facility] ([facility]) [address] [place], [address], 08/29/2024 13:11:27 08/29/19 25 08/29/2024 COMP. METAB OLIC PANEL (14) BUN 11 mg/dL 8-27 Not Available [facility] ([facility]) [address] [place], [address], 08/29/2024 13:11:27 08/29/19 25 08/29/2024 COMP. METAB OLIC PANEL (14) creatinine 0.92 mg/dL 0.57-1 .00 Not Available [facility] ([facility]) [address] [place], [address], 08/29/2024 13:11:27 08/29/19 25 08/29/2024 COMP. METAB OLIC PANEL (14) eGFR 69 mL/mi n/1.7 3 >59 Not Available [facility] ([facility]) [address] [place], [address], 08/29/2024 13:11:27 08/29/19 25 08/29/2024 COMP. METAB OLIC PANEL (14) BUN/creatini ne ratio 12 12-28 Not Available [facility] ([facility]) [address] [place], [address], 08/29/2024 13:11:27 08/29/19 25 08/29/2024 COMP. METAB OLIC PANEL (14) sodium 142 mmol/ L 134-14 4 Not Available [facility] ([facility]) [address] [place], [address], 08/29/2024 13:11:27 08/29/19 25 08/29/2024 COMP. METAB OLIC PANEL (14) potassium 4.2 mmol/ L 3.5-5. 2 Not Available [facility] ([facility]) [address] [place], [address], 08/29/2024 13:11:27 08/29/19 25 08/29/2024 COMP. METAB OLIC PANEL (14) chloride 105 mmol/ L 96-106 Not Available [facility] ([facility]) [address] [place], [address], 08/29/2024 13:11:27 08/29/19 25 08/29/2024 COMP. METAB OLIC PANEL (14) carbon dioxide, total 21 mmol/ L 20-29 Not Available [facility] ([facility]) [address] [place], [address], 08/29/2024 13:11:27 08/29/19 25 08/29/2024 COMP. METAB OLIC PANEL (14) calcium 9.7 mg/dL 8.7-10 .3 Not Available [facility] ([facility]) [address] [place], [address], 08/29/2024 13:11:27 08/29/19 25 08/29/2024 COMP. METAB OLIC PANEL (14) protein, total 7.1 g/dL 6.0-8. 5 Not Available [facility] ([facility]) [address] [place], [address], 08/29/2024 13:11:27 08/29/19 25 08/29/2024 COMP. METAB OLIC PANEL (14) albumin 4.3 g/dL 3.9-4. 9 Not Available [facility] ([facility]) [address] [facility], [place], [address], 08/29/2024 13:11:27 08/29/19 25 08/29/2024 COMP. METAB OLIC PANEL (14) globulin, total 2.8 g/dL 1.5-4. 5 Not Available [facility] ([facility]) [address] [facility], [place], [address], 08/29/2024 13:11:27 08/29/19 25 08/29/2024 COMP. METAB OLIC PANEL (14) bilirubin, total 0.7 mg/dL 0.0-1. 2 Not Available [facility] ([facility]) [address] [facility], [place], [address], 08/29/2024 13:11:27 08/29/19 25 08/29/2024 COMP. METAB OLIC PANEL (14) alkaline phosphatase 112 IU/L 44-121 Not Available [facility] ([facility]) [address] [facility], [place], [address], 08/29/2024 13:11:27 08/29/19 25 08/29/2024 COMP. METAB OLIC PANEL (14) AST (SGOT) 21 IU/L 0-40 Not Available [facility] ([facility]) [address] [place], [address], 08/29/2024 13:11:27 08/29/19 25 08/29/2024 COMP. METAB OLIC PANEL (14) ALT (SGPT) 20 IU/L 0-32 Not Available [facility] ([facility]) [address] [place], [address], 08/29/2024 13:11:27 08/29/19 25 08/29/2024 TSH RFX ON ABNOR MAL TO FREE T4 TSH 2.930 uIU/m L 0.450- 4.500 Not Available [facility] ([facility]) [address] [facility], [place], [address], 08/29/2024 13:11:28 08/29/19 25 08/29/2024 CBC, PLATE LET, NO DIFFE RENTI AL WBC 7.9 x10e3 /uL 3.4-10 .8 Not Available [facility] ([facility]) [address] [facility], [place], [address], 08/29/2024 13:11:29 08/29/19 25 08/29/2024 CBC, PLATE LET, NO DIFFE RENTI AL RBC 4.76 x10e6 /uL 3.77-5 .28 Not Available [facility] ([facility]) [address] [facility], [place], [address], 08/29/2024 13:11:29 08/29/19 25 08/29/2024 CBC, PLATE LET, NO DIFFE RENTI AL hemoglobin 13.7 g/dL 11.1-1 5.9 Not Available [facility] ([facility]) [address] [facility], [place], [address], 08/29/2024 13:11:29 08/29/19 25 08/29/2024 CBC, PLATE LET, NO DIFFE RENTI AL hematocrit 43.7 % 34.0-4 6.6 Not Available [facility] ([facility]) [address] [facility], [place], [address], 08/29/2024 13:11:29 08/29/19 25 08/29/2024 CBC, PLATE LET, NO DIFFE RENTI AL MCV 92 fL 79-97 Not Available [facility] ([facility]) [address] [facility], [place], [address], 08/29/2024 13:11:29 08/29/19 25 08/29/2024 CBC, PLATE LET, NO DIFFE RENTI AL MCH 28.8 pg 26.6-3 3.0 Not Available [facility] ([facility]) [address] [facility], [place], [address], 08/29/2024 13:11:29 08/29/19 25 08/29/2024 CBC, PLATE LET, NO DIFFE RENTI AL MCHC 31.4 g/dL 31.5-3 5.7 below low normal Not Available [facility] ([facility]) [address] [facility], [place], [address], 08/29/2024 13:11:29 08/29/19 25 08/29/2024 CBC, PLATE LET, NO DIFFE RENTI AL RDW 12.6 % 11.7-1 5.4 Not Available [facility] ([facility]) [address] [facility], [place], [address], 08/29/2024 13:11:29 08/29/19 25 08/29/2024 CBC, PLATE LET, NO DIFFE RENTI AL platelets 277 x10e3 /uL 150-45 0 Not Available [facility] ([facility]) [address] [facility], [place], [address], 08/29/2024 13:11:29 11/08/19 24 11/08/2023 MAMMO , elgin ozunag, digit al, bilat eral No observ ation record ed. [address] [place] [address], [address], 11/10/2023 11:43:45 11/08/19 24 11/08/2023 MAMMO , lizziee shelly, digit al, bilat eral No observ ation record ed. [id number] [address], [place], [address], 11/10/2023 11:44:03 07/11/08/2023 MAMMO , scree shelly, digit al, bilat eral No observ ation record ed. [email or web address] [facility] [address], [place], [address], 11/10/2023 11:44:15 Result Notes None recorded. Problems Name Problem SNOMED Code Status Onset Date Resolution Date Notes Provider Name and Address Organization Details Recorded Time Screening for malignant neoplasm of colon Active 2017 Not Available [facility] 3 19:48:57 Hypertensive disorder 79365429 Active Not Available [facility] 3 19:48:57 Morbid obesity 719514903 Active Not Available [facility] 3 19:48:57 Edema of lower extremity 122404261 Active Not Available [facility] 3 19:48:57 Acid reflux 606819924 Active Not Available [facility] 3 19:48:57 Osteoarthriti s of knee 536274002 Active Not Available [facility] 3 19:48:57 Chronic low back pain 956984943 Active Not Available [facility] 3 19:48:57 Anxiety 07580653 Active Not Available [facility] 3 19:48:57 Hypothyroidis m [id number] Active Not Available [facility] 3 19:48:57 Problem Notes None recorded. Procedures Surgical History Date Name Laterality Status Provider Name and Address Organization Details Recorded Time 08/22/19 22 Date of Last Pap Smear completed Rosa Santana MA [facility] 08/21/2021 09:40:11 07/30/19 22 Date of Last Mammogram completed GLYNN Thakkar [facility] 08/21/2021 09:40:19 11/02/18 81 Caesarean Section completed GLYNN Thakkar [facility] 08/21/2021 09:49:37 02/26/19 72 Caesarean Section completed Rosa Santana MA [facility] 08/21/2021 09:49:25 cholecystectomy completed GLYNN Sutherland [facility] 04/15/2020 15:52:27 Dilation and Curettage completed GLYNN Ayoub - ANAMIKA 10/30/2014 11:49:07 Imaging Results None recorded. Procedure Notes None recorded. Medical Equipment None Reported. Allergies Allergen ID Allergen Name Allergen Category Reaction Reaction Severity Criticality Documentation Date Start Date Code Code System Note Provider Name and Address Organization Details Recorded Time 934626 naltrexon e medicatio n dizziness moderate Not available 09/14/2018 7243 RxNorm Precious Wong MA null, [place] - [facility] 1 15:44:19 824767 Dilaudid medicatio n flushing moderate Not available 09/12/2021 [id number] RxNorm Meagan Rodriguez RN null, [place] - [facility] 2 11:44:28 Medications Name Sig [...] completed Not Available Not Available Not Available naproxen 500 mg tablet TAKE 1 TABLET BY MOUTH TWICE DAILY NEEDED FOR PAIN active Not Available Not Available No t Available metoclopram evans 10 mg tablet Take [...] TAKE 1 CAPSULE BY MOUTH ONCE DAILY 09/18 completed Not Available Not Available Not Available eszopiclone 2 mg tablet TAKE ONE [...] Updated DateTime 5 160.02 cm 44.1 kg/m2 477027. 5 g 98 % 98 % 81 /min 97.8 [degF] 132 mm[Hg] 80 mm[Hg] Rahel Ortiz MA [facility] 5 11:01:06 Date Recorded Body height Body temperature Respiratory rate Body mass index (BMI) Body weight Oxygen saturation Oxygen saturation in Arterial blood by Pulse oximetry Heart rate Systolic blood pressure Diastolic blood pressure Provider Name and Address Organization Details Last Updated DateTime 4 160.02 cm 97.8 [degF] 16 /min 39.5 kg/m2 440042. 1 g 98 % 98 % 71 /min 122 mm[Hg] 78 mm[Hg] Rahel Ortiz MA [facility] 4 09:52:14 Date Recorded Body height Body mass index (BMI) Body weight Oxygen saturation Oxygen saturation in Arterial blood by Pulse oximetry Heart rate Systolic blood pressure Diastolic blood pressure Provider Name and Address Organization Details Last Updated DateTime 4 160.02 cm 40.6 kg/m2 170926. 65 g 99 % 99 % 71 /min 120 mm[Hg] 70 mm[Hg] Rahel Ortiz MA [facility] 4 16:52:49 Date Recorded Body height Body mass index (BMI) Body weight Oxygen saturation Oxygen saturation in Arterial blood by Pulse oximetry Heart rate Systolic blood pressure Diastolic blood pressure Provider Name and Address Organization Details Last Updated DateTime 4 160.02 cm 42.9 kg/m2 593226. 35 g 99 % 99 % 71 /min 124 mm[Hg] 78 mm[Hg] Rahel Ortiz MA [facility] 4 11:36:25 Date Recorded Body height Body mass index (BMI) Body weight Oxygen saturation Oxygen saturation in Arterial blood by Pulse oximetry Heart rate Systolic blood pressure Diastolic blood pressure Provider Name and Address Organization Details Last Updated DateTime 4 160.02 cm 42.9 kg/m2 742457. 35 g 98 % 98 % 62 /min 122 mm[Hg] 78 mm[Hg] Rahel Ortiz [place] [facility] 4 12:56:24 Social History Question Answer Notes LastModified by Organizat ion Details LastModified Time Tobacco Smoking Status Never Smoker Precious GLYNN Wong null, [place] - [facility] 04/15/2020 15:48:52 Do You Have [...] Or The Highest Degree You Have Received? [id number] adavisma Information not available 05/17/2023 Are There [...] Hepatitis N Liver Disease N Heart Attack ([place]) N Headaches Y Heart Failure N Osteoporosis [...] Recorded Time Tdap 2 completed Not Available [facility] 11/30/2022 19:48:57 influenza, unspecified formulation 2 completed Not Available [facility] 11/30/2022 19:48:57 zoster recombinant 2 completed Not Available [facility] 11/30/2022 19:48:57 Influenza, split virus, quadrivalent, PF 0 completed Not Available [facility] 11/30/2022 19:48:57 Influenza, split virus, quadrivalent, PF 1 completed Not Available [facility] 11/30/2022 19:48:57 zoster recombinant 2 completed Not Available [facility] 08/28/2024 10:52:44 Influenza, high-dose, quadrivalent, PF 3 completed Not Available [facility] 08/28/2024 10:52:44 RSV, recombinant, protein subunit RSVpreF, adjuvant reconstituted, 0.5 mL, PF 3 completed Not Available [facility] 08/28/2024 10:52:44 Pneumococcal conjugate PCV20, polysaccharide [id number] conjugate, adjuvant, PF 3 completed Not Available [facility] 08/28/2024 10:52:44 Tdap 3 completed Not Available [facility] 08/28/2024 10:52:44 Influenza, high-dose, trivalent, PF 4 completed Not Available [facility] 08/28/2024 10:52:44 MMR 5 completed Not Available [facility] 08/28/2024 10:52:44 Influenza, split virus, quadrivalent, PF 8 completed Not Available [facility] 04/29/2019 02:36:24 Past Encounters Encounter ID Performer Location Encounter Start Date Encounter Closed Date Diagnosis/Indication Diagnosis SNOMED-CT Code Diagnosis ICD10 Code Diagnosis Note [id number] Ed Baptiste MD [facility] (Adult Med) [address] [place] [id number] 10/30/2014 11:17:23 10/30/2014 13:18:41 Hypertensive disorder 91940996 Morbid obesity 500326832 Edema of l ower extremity 770037274 Family his tory of diabetes mellitus 458346148 Acid reflux 051740286 Osteoarthr itis of knee 156637429 Chronic low back pain 237242457 [id number] Ed Baptiste MD [facility] (Adult Med) [address] [place] [address] 78227-923 0 01/21/2015 11:03:09 01/21/2015 14:47:50 Hypertensive disorder 66694822 I10 Morbid obesity 738028002 E66.01 Osteoarthr itis of knee 949915419 M17.9 Chronic low back pain 27 8536560 M54.5 Edema of l ower extremity 918915783 R60.0 Acid reflux 560123717 K2 1.9 [id number] Ed Baptiste MD [facility] (Adult Med) [address] [place] [address] 07279-115 0 04/16/2015 11:47:53 04/16/2015 18:08:21 Acid reflux 449451794 K21.9 Chronic low back pain 27 3674013 M54.5 Edema of l ower extremity 423938496 R60.0 Hypertensive disorder 38 817040 I10 Morbid obesity 092227759 E66.01 Osteoarthr itis of knee 006648198 M17.9 [id number] MD Jovanna Sauceda (Adult Med) [address] [place] [address] 05108[address]939 0 07/17/2015 09:35:00 07/17/2015 11:12:59 Hypertensive disorder 83698340 I10 Morbid obesity 780809294 E66.01 Osteoarthr itis of knee 226373257 M17.9 Chronic low back pain 27 3180384 M54.5 Acid reflux 184893050 K2 1.9 [id number] MD Jovanna Sauceda (Adult Med) [address] [place] [address] 59904-933 0 12/20/2015 10:51:35 12/20/2015 17:09:11 Hypertensive disorder 36845196 I10 Acid reflux 695982097 K2 1.9 Anxiety 12911158 F41.9 Edema of l ower extremity 981644582 R60.0 Family his tory of diabetes mellitus 278797793 Z83.3 Osteoarthr itis of knee 090027796 M17.9 Morbid obesity 726841328 E66.01 Family his tory of Thyroid disorder 359173824 Z83.49 [id number] MD Jovanna Sauceda (Adult Med) [address] [place] [address] 61700[address]968 0 01/20/2016 16:13:17 01/20/2016 18:01:56 Anxiety 71065825 F41.9 Hypertensive disorder 38 939587 I10 Morbid obesity 965928947 E66.01 Osteoarthr itis of knee 641077421 M17.9 Hypothyroidism 43627164 E03.9 [id number] MD Jovanna Sauceda (Adult Med) [address] [place] [address] 42761-226 0 05/07/2016 10:11:23 05/11/2016 12:01:27 Hypothyroidism 28555416 E03.9 Hypertensive disorder 38 287531 I10 Chronic low back pain 27 6276868 M54.5 Osteoarthr itis of knee 647092880 M17.9 Morbid obesity 464778762 E66.01 Anxiety 63858381 F41.9 Acid reflux 630917379 K2 1.9 Acute pharyngitis 193422 003 J02.9 [id number] Ed Baptiste MD [facility] (Adult Med) [address] [place] [address] 90016-076 0 08/20/2016 09:45:20 08/20/2016 17:07:26 Subclinical hypothyroidism 20252086 E03.9 She has lost weight, satisfied but not happy yet. Morbid obesity 157475287 E66.01 [id number] MD Jovanna Sauceda (Adult Med) [address] [place] [address] 65407-671 0 05/04/2017 10:03:00 05/04/2017 13:58:23 Essential hypertension 39539889 I10 Low salt diet. Morbid obesity 699956533 E66.01 Low salt diet, exercise and lose weight. May be metabolic syndrom X [facility]clin[facility] hypothyroidism 91290027 E03.9 She has lost weight, satisfied but not happy yet. Screening mammography 24 749535 Z12.31 Patient refuses. Screening for malignant neoplasm of cervix 695946441 Z12.4 Patient refuses. Screening for malignant neoplasm of colon 220017339 Z12.11 Patient refuses. [id number] Ed Baptiste MD [facility] (Adult Med) [address] [place] [address] 03748-015 0 10/12/2017 09:41:08 10/18/2017 09:36:39 Morbid obesity 885052904 E66.01 Hypothyroidism 60437289 E03.9 Screening for malignant neoplasm of colon 275040742 Z12.11 Chronic low back pain 27 7461233 M54.5 Hypertensive disorder 38 011792 I10 Anxiety 25787224 F41.9 Acid reflux 459503344 K2 1.9 [id number] Ed Baptiste MD [facility] (Adult Med) [address] [place] [address] 87779-590 0 01/06/2018 11:27:01 01/06/2018 13:56:30 Morbid obesity 502909621 E66.01 Low salt diet, exercise and lose weight. May be metabolic syndrom X Osteoarthr itis of knee 740786234 M17.9 Hypothyroidism 78352674 E03.9 Anxiety 29401203 F41.9 Acid reflux 818596646 K2 1.9 Essential hypertension 53581584 I10 Low salt diet. Administra tion of influenza vaccine 46905321 Z23 [id number] MD Jovanna Sauceda (Adult Med) [address] [place] [address] 84616-481 0 03/31/2018 11:27:23 03/31/2018 13:04:51 Morbid obesity 230053010 E66.01 Low salt diet, exercise and lose weight. May be metabolic syndrom X Hypothyroidism 88212844 E03.9 Discussed with patient, will adjust thr dose and monitor the thyroid functions in 3 months. [id number] MD Jovanna Sauceda (Adult Med) [address] [place] [address] 21122-993 0 06/21/2018 11:20:13 06/22/2018 11:33:38 Morbid obesity 811254940 E66.01 Low salt diet, exercise and lose weight. May be metabolic syndrom X, discussed with patient, will D/C naltrexone , and to continue wellbutrin . Hypothyroidism 53461742 E03.9 Discussed with patient, will adjust thr dose and monitor the thyroid functions in 3 months. On levothyrox in 125 mcg/day, will re-check thyroid functions. [id number] MD Jovanna Sauceda (Adult Med) [address] [place] [address] 54443-123 0 09/14/2018 15:47:56 09/14/2018 17:00:21 Morbid obesity 521149198 E66.01 Low salt diet, exercise and lose weight. May be metabolic syndrom X, discussed with patient, will D/C naltrexone , and to continue wellbutrin . Hypothyroidism 51364447 E03.9 Discussed with patient, will adjust thr dose and monitor the thyroid functions in 3 months. On levothyrox in 125 mcg/day, will re-check thyroid functions. [id number] MD Jovanna Sauceda (Adult Med) [address] [place] [address] 37318-647 0 12/15/2018 11:46:54 12/15/2018 12:56:34 Morbid obesity 069446923 E66.01 Low salt diet, exercise and lose weight. May be metabolic syndrom X, discussed with patient, will D/C naltrexone , and to continue wellbutrin . Hypothyroidism 70913684 E03.9 Discussed with patient, will adjust thr dose and monitor the thyroid functions in 3 months. On levothyrox in 125 mcg/day, will re-check thyroid functions. Copy of her last thyroid functions, free t4, T3 and TSH 12-06-2018 were normal and results provided to patient in this office 12-15-2018 . Acid reflux 137866416 K2 1.9 Stable. Vitamin D deficiency 347 99619 E55.9 Stable. Essential hypertension 65074139 I10 Low salt diet. [id number] [facility] [address] [place] [address] 0 03/13/2019 09:36:07 03/14/2019 10:11:02 Hypertensive disorder 40082013 I10 On hydralazin e.and HCTZ, will add losartan, she agreed. Hypothyroidism 49814165 E03.9 Discussed with patient, will adjust thr dose and monitor the thyroid functions in 3 months. On levothyrox in 125 mcg/day, will re-check thyroid functions. Copy of her last thyroid functions, free t4, T3 and TSH 12-06-2018 were normal and results provided to patient in this office 12-15-2018 . on levothyrox in 125 mcg/day. Morbid obesity 773693905 E66.01 Low salt diet, exercise and lose weight. May be metabolic syndrom X, discussed with patient, will D/C naltrexone , and to continue wellbutrin . Anxiety 21138060 F41.9 On bupropion. Acid reflux 724965571 K2 1.9 Stable. On famotidine . [id number] MD Jovanna Sauceda (Adult Med) [address] [place] [address] 0 05/25/2019 15:52:18 05/25/2019 17:02:39 Acid reflux 656577614 K21.9 Stable. On famotidine . Which is back order. Essential hypertension 85316535 I10 Low salt diet. Chronic low back pain 27 6172869 M54.5 Partial relief from cyclobenza carmen. [id number] MD Jovanna Sauceda (Adult Med) [address] [place] [address] 0 01/19/2020 08:09:12 01/22/2020 11:47:48 Acid reflux 345956811 K21.9 Stable. On famotidine . Which is back order. Edema of l ower extremity 265146350 R60.0 Hypertensive disorder 38 373911 I10 On hydralazin e.and HCTZ, will add losartan, she agreed. Hypothyroidism 29004207 E03.9 Discussed with patient, will adjust thr dose and monitor the thyroid functions in 3 months. On levothyrox in 125 mcg/day, will re-check thyroid functions. Copy of her last thyroid functions, free t4, T3 and TSH 12-06-2018 were normal and results provided to patient in this office 12-15-2018 . on levothyrox in 125 mcg/day. Essential hypertension 95982500 I10 Low salt diet. [id number] Ed Baptiste MD [facility] (Adult Med) [address] [place] [address] 97669-454 0 01/30/2020 09:00:13 01/31/2020 10:38:54 Otitis media 98690066 H66.93 Discussed with patient , willing to try antibiotic s. and will keep this office informed. [id number] Ed Baptiste MD [facility] (Adult Med) [address] [place] [address] 19045[address]834 0 04/15/2020 09:44:25 04/16/2020 12:58:25 Benign paroxysmal positional vertigo 060009730 H81.13 She is going to see a ENT this week, and will keep this office informed. [id number] Ed Baptiste MD [facility] (Adult Med) [address] [place] [address] 95174-380 0 07/30/2020 08:01:37 07/31/2020 14:19:01 Acid reflux 534119432 K21.9 Stable. On famotidine . Which is back order. Anxiety 96764224 F41.9 On bupropion. Chronic low back pain 27 2259388 M54.5 Partial relief from cyclobenza carmen. Edema of l ower extremity 914570111 R60.0 Low salt diet,, also on HCTZ. Hypertensive disorder 38 072954 I10 On hydralazin e.and HCTZ, will add losartan, she agreed. Hypothyroidism 58626067 E03.9 Discussed with patient, will adjust thr dose and monitor the thyroid functions in 3 months. On levothyrox in 125 mcg/day, will re-check thyroid functions. Copy of her last thyroid functions, free t4, T3 and TSH 12-06-2018 were normal and results provided to patient in this office 12-15-2018 . on levothyrox in 125 mcg/day. Morbid obesity 806643989 E66.01 Low salt diet, exercise and lose weight. May be metabolic syndrom X, discussed with patient, will D/C naltrexone , and to continue wellbutrin . Osteoarthr itis of knee 030178874 M17.9 Stable. Hyperlipidemia 59335140 E78.5 Low saturated and low animal fat diet. Benign par oxysmal positional vertigo 731668870 H81.13 She is going to see a ENT this week, and will keep this office informed. [id number] Ed Baptiste MD [facility] (Adult Med) [address] [place] [address] 11/22/2020 10:32:32 11/25/2020 12:26:17 Acid reflux 758880819 K21.9 Stable. On famotidine . Which is back order. Anxiety 95573525 F41.9 On bupropion. Chronic low back pain 27 1170998 M54.5 Partial relief from cyclobenza carmen. Edema of l ower extremity 542577477 R60.0 Low salt diet,, also on HCTZ. Hypertensive disorder 38 250757 I10 On hydralazin e.and HCTZ, will add losartan, she agreed. Hypothyroidism 09283465 E03.9 Discussed with patient, will adjust thr dose and monitor the thyroid functions in 3 months. On levothyrox in 125 mcg/day, will re-check thyroid functions. Copy of her last thyroid functions, free t4, T3 and TSH 12-06-2018 were normal and results provided to patient in this office 12-15-2018 . on levothyrox in 125 mcg/day. Morbid obesity 604538440 E66.01 Low salt diet, exercise and lose weight. May be metabolic syndrom X, discussed with patient, will D/C naltrexone , and to continue wellbutrin . Lost about 24 pounds since the her living in boyfriend. Hyperlipidemia 95612549 E78.5 Low saturated and low animal fat diet. Benign par oxysmal positional vertigo 045635813 H81.13 She is going to see a ENT this week, and will keep this office informed. [id number] MD Jovanna Sauceda (Adult Med) [address] [place] [address] 97842-880 0 06/13/2021 11:19:53 06/17/2021 10:35:00 Screening for malignant neoplasm of colon 763146564 Z12.11 Patient refuses in the past..But now, 06-13-2021 , she agreed to have screening, abdomen soft, no mass felt, old scars from previous gallbladde r and C -section. Screening for malignant neoplasm of cervix 917339178 Z12.4 Patient refuses in the past, .But now , 06-13-2021 agreed to be referred. Screening mammography 24 052970 Z12.31 Patient refuses in the past,. But now , 06-13-2021 she agreed to be done. Bilateral tinnitus 46086 08542 102 H93.13 Will refer to ENT, she agreed. Chronic tremor 710425988 R25.1 Drug-induc ed hypokalemia 251602479 T50.905A Advised her to stop HCTZ, and do BMP today. [id number] TERRELL RODRIGUEZ (RETAIL SUPPORT SPECIALIST) [address] [place] [address] 74505-988 0 08/21/2021 09:26:38 08/21/2021 10:35:19 Gynecologic examination 62874719 Z01.419 Normal gynecologi c exam today.Cerv ical cancer screening: Last Pap unknown, updated todayBreas t cancer screening: Last mammogram 07/29/21, BIRADS 1.Colonosc opy: scheduled next monthDiet/ exercise: Counseled regarding importance of physical activity, healthy diet and appropriat e calcium intake.RTC in 1yr Obesity 643106906 E66.9 BMI 40.7. Discussed diet high in fruits and vegetables . Limit fat, sugar, and processed foods. Exercise at least 30 minutes 5x/week. [id number] MD Jovanna Sauceda (Adult Med) [address] [place] [address] 58316-372 0 09/12/2021 11:21:09 09/23/2021 09:46:22 Acid reflux 732261530 K21.9 Stable. On famotidine . Which is back order. Hypothyroidism 37950180 E03.9 Discussed with patient, will adjust thr dose and monitor the thyroid functions in 3 months. On levothyrox in 125 mcg/day, will re-check thyroid functions. Copy of her last thyroid functions, free t4, T3 and TSH 12-06-2018 were normal and results provided to patient in this office 12-15-2018 . on levothyrox in 125 mcg/day. Morbid obesity 105953528 E66.01 Low salt diet, exercise and lose weight. May be metabolic syndrom X, discussed with patient, will D/C naltrexone , and to continue wellbutrin . [facility] about [facility] [id number] Ed Baptiste MD [facility] (Adult Med) [address] [place] [address] 12/12/2021 11:18:56 12/16/2021 09:48:11 Acid reflux 104954233 K21.9 Stable. On famotidine . Which is back order. Anxiety 85996206 F41.9 On bupropion. Chronic low back pain 27 1862000 M54.51 Stable, she is able to ambulating without assistance . Edema of l ower extremity 869041808 R60.0 Low salt diet,, also was on HCTZ.. No edema today 12-12-2021 . Hypothyroidism 53958736 E03.9 Discussed with patient, will adjust thr [...] to 100 MCG/day as 2. Morbid obesity 364267528 E66.01 Low salt diet, exercise and lose weight. May be metabolic syndrom X, discussed with patient, will D/C naltrexone , and to continue wellbutrin . [facility] about [facility] Osteoarthr itis of knee 069309710 M17.9 Stable. Hypertensive disorder 38 040240 I10 On hydralazin e.and HCTZ, will add losartan, she agreed.As 12-12-2021 , blood pressure is 112/68. Insomnia 710555961 G47.0 0 Wants some pill for sleep. Dyslipidemia 509911634 E 78.5 Low animal fat diet. [id number] Ed Baptiste MD [facility] (Adult Med) [address] [place] [address] 56744-753 0 05/20/2022 12:31:07 05/22/2022 15:07:01 Anxiety 11277391 F41.9 On bupropion. and hydroxyzin e Hypertensive disorder 38 375614 I10 On hydralazin e.and HCTZ, will add losartan, she agreed.As 12-12-2021 , blood pressure is 112/68. As 05-20-2022 BP is 124/80. Hypothyroidism 97747852 E03.9 Discussed with patient, will adjust thr [...] 100 MCG/day as 10-01- 2. Morbid obesity 565887948 E66.01 Low salt diet, exercise and lose weight. May be metabolic syndrom X, discussed with patient, will D/C naltrexone , and to continue wellbutrin . Lost about 24 pounds since the her living in boyfriend. Dyslipidemia 650815707 E 78.5 Low animal fat diet. Renewal of prescription 384476570 Z76.0 Benign par oxysmal positional vertigo 187921869 H81.13 She is going to see a ENT this week, and will keep this office informed. Acid reflux 603839455 K2 1.9 Stable. On famotidine . Which is back order. Insomnia 371307539 G47.0 0 Wants some pill for sleep. Screening for osteoporosis 144098444 Z13.820 She agreed. Migraine 64155374 G43.90 9 She agreed to try. Chronic constipation 236 365023 K59.09 Ok to try OTC miralax. [id number] MD Jovanna Sauceda (Adult Med) [address] [place] [address] 42997-532 0 09/11/2022 09:16:50 09/14/2022 16:28:10 Obesity 120991324 E66.9 BMI is 38. advised her to watch diet, exercise and keep the weight down. Insomnia 527360190 G47.0 0 Trazadone not helping. she would like to try something else. Hypertensive disorder 38 419982 I10 On hydralazin e.and HCTZ, will add losartan, she agreed.As 12-12-2021 , blood pressure is 112/68. As 05-20-2022 BP is 124/80. As 09-11-22, BP is 138/83. will continue med and monitor blood pressure. Hypothyroidism 34010796 E03.9 Discussed with patient, will adjust thr [...] downward. to 100 MCG/day as 10-01- 2. Administra tion of pneumococcal vaccine 00057260 Z23 She declined today 09-11-22. [id number] MD Jovanna Sauceda (Adult Med) [address] [place] [address] 64988-539 0 02/02/2023 09:22:24 02/05/2023 10:57:29 Ulnar nerve entrapment at elbow 702665908 G56.23 NCS provided to her today 02-02-23. At this time she dose not wants surgery. She got gabapentin from neurologis t for the neuropathy of feet. Acid reflux 186171582 K2 1.9 Stable. On famotidine . Which is back order. Anxiety 52874721 F41.9 On bupropion. and hydroxyzin e Chronic low back pain 27 0689207 M54.51 Stable, she is able to ambulating without assistance . Hypothyroidism 76239779 E03.9 Discussed with patient, will adjust thr [...] thyroid hormone downward. to 100 MCG/day as 10-01-- 2. Morbid obesity 644606522 E66.01 Low salt diet, exercise and lose weight. May be metabolic syndrom X, discussed with patient, will D/C naltrexone , and to continue wellbutrin . Lost about 24 pounds since the her living in boyfriend. As 02-02-23, BMI is 38.4 today. Osteoarthr itis of knee 094526561 M17.9 Stable. Ambulating . Influenza vaccination declined 935857959 Z28.21 She declined today, she wants to get at her pharmacy store. 02-02-23. Administra tion of pneumococcal vaccine 49748415 Z23 She declined today 09-11-22. She wants to get it at her pharmacy store, 02-02-23. Dyslipidemia 812848916 E 78.5 Low animal fat diet. Essential hypertension 06168775 I10 Low salt diet. Avoid NSAID or OTC decongesta nt if possible. BP is well controlled , 108/60, No dizziness, no chest pain, no difficulty of breathing. , no palpitatio n. will renew med. Hypertensive disorder 38 383414 I10 On hydralazin e.and HCTZ, will add losartan, she agreed.As 12-12-2021 , blood pressure is 112/68. As 05-20-2022 BP is 124/80. As 09-11-22, BP is 138/83. will continue med and monitor blood pressure. Migraine 13466301 G43.90 9 She agreed to try. Insomnia 533546361 G47.0 0 On bupropion. and hydroxyzin e [id number] MD Jovanna Sauceda (Adult Med) [address] [place] [address] 80688-7[address] 0 05/17/2023 09:25:55 05/19/2023 15:24:06 Pain of left shoulder joint 6657414187 9626433 M25.512 Has sling at home ,but it hard manual to put close on. Agreed for muscle relaxant and referral. Informatio n provided. Obesity 842617798 E66.9 BMI is 38. advised her to watch diet, exercise and keep the weight down. BMI is 38.8 today 05-17-23. [id number] Allie Lo MD [facility] (Adult Med) [address] [place] [address] 62792-118 0 10/01/2023 09:26:58 10/04/2023 12:34:47 Body mass index 30+ - obesity 750282822 Z68.38 Will wean off Bupropion. Was put [...] Rupture of rotator cuff of left shoulder 8714260793 1051520 M75.102 Injury to left shoulder last [place]. Did physical therapy. Still has pain and cannot raise arm above shoulder. Likely has a rotator cuff tear. Will proceed with MRI. Takes a muscle relaxer for the pain. Will continue that for now. Essential hypertension 44178110 I10 Will get fasting blood work and urine today. Blood pressure good today. Continue present medication . Hypothyroidism 75714228 E03.9 Will check TSH. Idiopathic peripheral neuropathy 67630170 G60.9 Has seen neurologis t. Takes Gabapentin . Gastroesop hageal reflux disease without esophagitis 200997253 K21.9 Controlled with Omeprazole . Adjustment disorder with depressed mood 74499370 F43.21 Has lost two retirement partners. Has support with children and sisters. Takes Citalopram . Still struggles with motivation . Will discuss further at follow up. History of transient ischemic attack 397334294 Z86.73 Continue aspirin a day. Morbid obesity 667662893 E66.01 Dyslipidemia 860609580 E 78.5 Pain of le ft shoulder joint 3476182687 2621264 M25.512 Anxiety 65933593 F41.9 Hypertensive disorder 38 497318 I10 Acid reflux 856457573 K2 1.9 [id number] MD Jovanna Thornton (Adult Med) [address] [place] [address] [phone] 0 11/29/2023 16:46:37 12/01/2023 13:02:32 Acute dermatitis 24574521 L30.9 This rash started the day after [...] has a follow up in December. Anxiety 70686532 F41.9 I told her that I do not want to start a new medication until this problem is treated, but at her follow up appointmen t we can discuss her anxiety further. [id number] MD Jovanna Thornton (Adult Med) [address] [place] [address] [phone] 0 01/07/2024 10:58:12 01/11/2024 11:05:43 Body mass index 40+ - severely obese 522108084 Z68.41 Anxiety 14481271 F41.9 She does not really feel she [...] she will let me know. Weight gain 2976809 R63. 5 Weight gain which she attributes to her anxiety. Will check a TSH. No evidence of fluid overload. Will work on weight loss. Discussed healthy eating. Have her limit carbohydra susannah. Will try walking at [employer] most days of the week. Follow up in three months. Essential hypertension 14235132 I10 Blood pressure controlled . Last had blood work and urine checked in September. Last lipid in September good. Hyperlipidemia 17787033 E78.5 Currently taking Atorvastat in. Hypertensive disorder 38 541787 I10 Hypothyroidism 27780417 E03.9 Will check TSH. Acid reflux 168266391 K2 1.9 [id number] MD Jovanna Thornton (Adult Med) [address] [place] [address] [phone] 02/11/2024 11:58:24 02/15/2024 14:43:42 Anxiety 66745870 F41.9 Tolerating the Duloxetine well and it may be providing her some benefit. Will increase to 60 mg daily. Follow up in three months. Body mass index 40+ - severely obese 740871076 Z68.41 Weight stable. Has been working on [...] she gets her thyroid labs done. Hypothyroidism 79665678 E03.9 Last TSH slightly elevated. Increased thyroid medication . Will repeat a TSH in about six weeks. Should not need refill before three month follow up. Had prescripti on mid January for two months with one refill. Essential hypertension 68846350 I10 Blood pressure controlled . Last had blood work and urine checked in September. Continue present medication . Hyperlipidemia 51065358 E78.5 Currently taking Atorvastat in. Acid reflux 463111768 K2 1.9 [id number] MD Jovanna Thornton (Adult Med) [address] [place] [address] [phone] 08/28/2024 10:51:37 08/29/2024 11:13:08 Prolonged grief disorder 865587063 F43.29 Gradually decrease Duloxetine since it is [...] in six to eight weeks. Essential hypertension 55995843 I10 Blood pressure normal. Has had high readings at home. Using a wrist cuff which is not as reliable. Will bring it in to her next visit so we can calibrate it with our wall cuff. Will get fasting blood work and urine today. Continue present medication . Primary hypothyroidism 00362770 E03.9 Last TSH abnormal. Adjusted thyroid medication . Will recheck today. Wheezing 04512075 R06.2 Notices occasional wheeze at night. Had a sleep study which she said was normal. I need to see those results. Complains of an occasional sound like wheezing at night. I will proceed with PFTs. Body mass index 40+ - severely obese 121330860 Z68.41 Now that the weather is better she is going to try to get outside more and do more activity. Hyperlipidemia 12922310 E78.5 Currently taking Atorvastat in. Checking fasting lipids today. Hypothyroidism 63670426 E03.9 Last TSH slightly elevated. Increased thyroid medication . Will repeat a TSH in about six weeks. Should not need refill before three month follow up. Had prescripti on mid January for two months with one refill. Acid reflux 871202557 K2 1.9 Health Concerns Section Related Observation LastModified by Organization Detai ls LastModified Time None Recorded Concern Status LastModified by Organization Details LastModified Time None Recorded Advance Directives Directive N: Payers Insurance Date Sequence Insurance Name Policy Number Policy Zarate Covered Member ID Zarate Member ID Guarantor Name 08/25/2024 2 [place]CON[place] WHEN MEDICARE OR MEDICARE REPLACEMENT PRIMARY) Kyung Roe [id number] Kyung Roe 08/25/2024 1 [place] Kyung Roe [id number] Kyung Roe 11/29/2023 1 [facility] ON OR AFTER 10/10/20 (MEDICAID REPLACEMENT - HMO) Kyung Roe [id number] Kyung Roe 11/29/2023 1 [facility] PRIOR TO 10/10/2020 (MEDICAID REPLACEMENT - HMO) Kyung Roe [id number] Kyung Roe 08/25/2024 [place] - RHC - FQHC Kyung Roe [id number] Kyung Roe 11/29/2023 1 [place] [facility] Kyung Roe [id number] Kyung Roe Notes Date Note Type Note [...] Prevnar vaccine Allie Lo MD Attn: [address] [place], [address], [facility] 10/01/2023 10:51:00 11/29/2023 text/html here for pruriti [...] her anxiety Allie Lo MD Attn: [address] [facility], [place], [address], [facility] 11/29/2023 18:30:52 01/07/2024 text/html follow up, skin [...] is helping Allie Lo MD Attn: [address] [place], [address], [facility] 01/07/2024 13:42:08 02/11/2024 text/html follow up, tolerating [...] 207 pounds, Allie Lo MD Attn: [address] [place], [address], [facility] 02/11/2024 13:56:25 08/28/2024 text/html follow up, kathie [...] sleep apnea Allie Lo MD Attn: [address] [place], [address], [facility] 08/28/2024 11:58:12 OBGyn Episode Ob Episode Information Episode Created Date Number of Fetuses Patient Bloodtype Patient rh Status Prepregnancy Weight lbs Domestic Partner Domestic Partner Phone Father Name Registered Nurse Float Pool Status 08/31/19 25 1 DELETED Fetus Data First Name Last Name Admitted to NICU Weight (g) Sex Living Outcome Pediatric Complications Fetus ID Race Codes Race Delivery Type [id number] Cirilo Calculation Initial Cirilo Date Initial Exam [...]
--- OUTSIDE RECORDS SUMMARY | 2024-09-25 10:19 | XMS_ITS | Data Portability ---
Author Organization [place] - [facility] [place] [employer] [facility], Main Office Address [address] [place] [phone] Care Team Providers Care Bed And Breakfast Innkeeper Name Role Phone LINUS HOUSTON Primary Care Provider LINUS HOUSTON Referring Provider Assessment Encounter Date Assessment Date Assessment LastModified by Organization Details LastModified Time 05/26/2023 05/26/2023 67-year-old female presents for evaluation of her left shoulder she is left-hand dominant. She had a fall on [place] when she landed her left arm. She [...] left shoulder. She had a fall on [place] when she landed her left arm. Since [...] - CONTINUE PT 2023 024 [email or web address] [facility], [address], [place], [address], 4 16:36:01 physical therapist referral - eval and treat 2023 024 [email or web address] [facility], [address], [place], [address], 4 10:52:13 Procedures injection/a spiration joint/bursa (PROC) - in office procedure, administere d by provider 2023 024 [email or web address] 3 In-Office Order, Internal Use Only DO Not Attach Compendium DO Not Attach Compendium, Do Not Delete/merge, [id number] 11:58:51 Surgeries None recorded. Imaging None recorded. Medication Orders Kenalog 10 mg/mL suspension for injection 2023 024 [email or web address] [facility], [address] [facility], [place], [address], 4 16:36:01 Marcaine (PF) 0.5 % (5 [...] shoul angela No observ ation record ed. [address], [address], 06/02/2023 10:24:47 Result Notes None recorded. Problems Name Problem SNOMED Code Status Onset Date Resolution Date Notes Provider Name and Address Organization Details Recorded Time Pain of left shoulder joint 208422352043381 09 Active 2023 CRISTY Greer [facility] 11:05:25 Problem Notes None recorded. Procedures Surgical History Date Name Laterality Status Provider Name and Address Organization Details Recorded Time Ortho - Cortisone Injection completed Carli Loo NP [address] [facility] [address], [place], [address], [facility] 06/30/2023 12:50:40 section completed CRISTY Greer [facility] 05/26/2023 11:04:30 Gallbladder Surgery completed CRISTY Greer [facility] 05/26/2023 11:04:42 Imaging Results None recorded. Procedure Notes None recorded. Medical Equipment None Reported. Allergies Allergen ID Allergen Name Allergen Category Reaction Reaction Severity Criticality Documentation Date Start Date Code Code System Note Provider Name and Address Organization Details Recorded Time 41924 naldemedi ne medicatio n Not available Not available Not available 05/26/2023 16187 97 RxNorm CRISTY Greer [facility] [email or web address] 11:02:14 Medications Name Sig Start Date Stop [...] suspension for injection IN OFFICE 2023 active [facility]: 0003- 0494- 20 Not Available [...] Updated DateTime 05/26/2023 157.48 cm 39.3 kg/m2 53849.36 g CRISTY Greer [employer] [facility] [email or web address] 05/26/2023 11:01:34 Date Recorded Body height Body mass index (BMI) Body weight Provider Name and Address Organization Details Last Updated DateTime 06/30/2023 157.48 cm 39.3 kg/m2 55528.36 g Leigha CRISTY Myers [employer] [facility] [email or web address] 06/30/2023 11:41:00 Social History Question Answer Notes LastModified by Organizat ion Details LastModified Time Tobacco Smoking Status Unknown If Ever Smoked Leigha CRISTY Myers null, [facility] [email or web address] [facility] 05/26/2023 11:03:42 What Was The Date Of Your Most Recent Tobacco Screening? 05/26/2023 [email or web address] Information not available 05/26/2023 Sex: Unknown Functional Status Question Answer Note LastModified by Organization D etails LastModified Time What is your level of alcohol consumption? None Information not available 05/26/2023 Mental Status None recorded. Family History Relationship Description Onset Age of this Age Resolved Age Notes LastModified by Organization Details LastModified Time Sister Heart disease [email or web address] Not available 2023 11:03:08 Sister Hypertensive disorder [email or web address] Not available 2023 11:03:20 Sister Diabetes mellitus [email or web address] Not available 2023 11:03:29 Medical History Condition Response STROKE/TIA Y ARTHRITIS Y Gynecological HistoryNo gynecological history recorded. Obstetrics History GPAL:G 0 P 0 0 0 0 Past Encounters Encounter ID Performer Location Encounter Start Date Encounter Closed Date Diagnosis/Indication Diagnosis SNOMED-CT Code Diagnosis ICD10 Code Diagnosis Note [id number] Osman Bird MD [facility] [address] [place] [address] 05/26/2023 10:38:24 05/26/2023 11:53:29 Pain of left shoulder joint 5304817323 8460755 M25.863 [id number] Osman Bird MD [facility] [address] [place] [address] 06/30/2023 11:38:50 06/30/2023 12:08:13 Pain of left shoulder joint 8100650515 2959560 M25.512 Health Concerns Section Related Observation LastModified by Organization Detai ls LastModified Time None Recorded Concern Status LastModified by Organization Details LastModified Time None Recorded Advance Directives Directive None Recorded Payers Insurance Date Sequence Insurance Name Policy Number Policy Zarate Covered Member ID Zarate Member ID Guarantor Name 06/30/2023 1 [place] Kyung Roe [id number] Kyung Roe 06/30/2023 2 [place] [facility] OF PUBLIC AID Kyung Roe [id number] Kyung Roe OBGyn Episode No OBEpisode recorded.
--- NOTE | 2024-09-25 16:48 | WPDPFTINT ---
PFT Procedure Performed PFT Procedure Performed Spirometry with Pre/Post Bronchodilator Plethysmography (Lung Vol) Diffusing Cap (DLCO) Flow Vol Loop PFT Interpretation This is a pulmonary function test with pre and post-bronchodilator spirometry, plethysmography and diffusing capacity. The test was performed and results interpreted in accordance with the 2019 and 2005 ATS/ERS Task Force guidelines respectively using the Global Lung Function Initiative-2012 reference equations. Patient demonstrated good effort and cooperation. Reproducibility criteria were met. The quality of the pre bronchodilator spirometry maneuver was Grade B and post bronchodilator spirometry maneuver was Grade A. Findings: Spirometry: The contour the inspiratory and expiratory flow tracing are normal. The pre bronchodilator FVC is 2.36 L, 87% predicted. The pre bronchodilator FEV1 is 2.02 L, 95% predicted. The pre bronchodilator FEV1: FVC ratio is 86%. The post bronchodilator FVC is 2.58 L, representing a 10% increase. The post bronchodilator FEV1 is 2.26 L, representing a 12% increase. The post bronchodilator FEV1: FVC ratio is 87%. Plethysmography: The total lung capacity is 3.88 L, 82% predicted. The functional residual capacity is 1.94 L, 72% predicted. The residual volume is 1.14 L, 56% predicted. Diffusing capacity: The diffusing capacity unadjusted for hemoglobin and carboxyhemoglobin is 19.1, 96% predicted. The diffusing capacity adjusted for alveolar volume is 4.88, 110% predicted. Impression: The spirometry is normal without evidence of an obstructive abnormality. There is significant improvement after inhaling a single dose of albuterol. The total lung capacity and functional residual capacity are normal with a decreased residual volume. This is an abnormal but nonspecific lung volume pattern. The diffusing capacity is normal. There are no prior studies for comparison
== END 2024-09-25 09:39 | disposition home or self-care (01) ==
LOC: ANHPFT 09:42
PROVIDERS: PCP Emergency Medicine; Visit Provider Emergency Medicine
DX: R06.2 Wheezing (principal)
CPT/HCPCS: 94060; 94726; 94729

== ENCOUNTER 2024-11-21 02:51 | Emergency (ER) | payer MEDICARE, MEDICAID, SELFPAY ==
--- NOTE | ~2024-11-21 | CT_ITS ---
EXAMINATION: CT brain wo con DATE: 11/21/2024 03:59 INDICATION: Vertigo. Dizziness. TECHNIQUE: Computed tomography (CT) of the head was performed without intravenous contrast. The dose- length product was 756.67 mGy-cm. Automated exposure control and iterative reconstruction technique w ere employed. COMPARISON: CT dated 05/24/2021 FINDINGS: Brain parenchymal volume is normal for age. No ventriculomegaly or midline shift. Basilar c isterns are patent. There is intracranial atherosclerosis. Paranasal sinuses and mastoids are pneumat ized. No depressed skull fractures. Midline sagittal images demonstrate a normal corpus callosum and craniovertebral junction. IMPRESSION: 1. No acute intracranial abnormality. Reviewed, dictated and finalized at location A.
[2024-11-21 02:57] VITALS: BP 180/82; PULSE 75; RESP 13; TEMP 36.4; O2SAT 97
[2024-11-21 03:06] VITALS: PULSE 63
[2024-11-21 03:12] LABS: Hematocrit 42.2 % (37.0-47.0); Hemoglobin 13.5 g/dL (12.0-15.0); Immature Granulocyte Percent A 0.4 % (0-0.5); Lymphocytes Absolute Auto 2.48 K/mm3 (0.9-3.2); Mean Corpuscular HGB Conc 32.0 g/dl (32-36); Mean Corpuscular Hemoglobin 29.6 pg (26-34); Mean Corpuscular Volume 92.5 fl (80-100); Nucleated Red Blood Cells Absolute Auto 0.000 K/mm3 (0.0-0.012); Nucleated Red Blood Cells Perc 0.0 % (0.0-0.2); Platelet Count Result 252 k/mm3 (150-375); Red Blood Count 4.56 M/mm3 (4.2-5.4); White Blood Count 8.1 K/mm3 (4.5-10.0)
[2024-11-21 03:17] VITALS: BP 153/82; PULSE 71; RESP 15; O2SAT 98
--- NOTE | 2024-11-21 03:18 | ECG_ITS ---
Test Date: 2024-11-21 03:26:44 Measurements Intervals [place] Rate: 65 P: 1 RI: 163 QRS: -2 QRSD: 98 T: 56 QT: 394 QTc: 410 Interpretive Statements SINUS RHYTHM DELAYED PRECORDIAL R/S TRANSITION LEFT VENTRICULAR HYPERTROPHY WITH ST-T CHANGE MINIMAL Q WAVES- HIGH LATERAL LEADS BASELINE ARTIFACT- I, II, AVR, AVL, AVF, V1-V6 BORDERLINE ECG No previous ECG available for comparison Electronically Signed On 11-21-2024 06:13:53 CDT by Aníbal Ibarra D.O.
--- NOTE | 2024-11-21 03:21 | ED.DIZZY ---
HPI - Dizziness General Chief Complaint: Dizziness Stated Complaint: dizziness Time Seen by Provider: 11/21/24 02:57 History of Present Illness HPI Narrative: 69-year-old female with a history of vertigo, hypertension, hyperlipidemia, previous TIA. Patient presents to the emergency department with vertigo. She states she was sitting in bed watching her phone when she started feeling like the room was spinning around her. She got up and use the restroom and felt like the room was spinning even worse. She took 1 of her home meclizine 25 mg doses and the symptoms mostly subsided. She started having a headache and some mild hot flashing sensations. No chest pain difficulty breathing. No nausea vomiting, abdominal pain, back pain, fever, chills, neck pain, vision changes or loss of consciousness. No traumatic injuries. She states it feels like her vertigo but also wants to make sure that she is not having any brain issues as she has a TIA history. Related Data Home Medications ?Medication ?Instructions ?Recorded ?Confirmed ?Last Taken ?Type hydralazine 25 mg tablet 25 mg PO BID 04/18/20 07/06/24 10/06/21 08:00 History losartan 50 mg tablet 50 mg PO DAILY 04/18/20 07/06/24 10/06/21 08:00 History omeprazole 40 mg capsule,delayed 40 mg PO BID 04/18/20 07/06/24 10/06/21 08:00 History release levothyroxine 125 mcg capsule 100 mcg PO DAILY 06/12/22 07/06/24 Unknown History baclofen 10 mg tablet 10 mg PO QHS 07/06/24 07/06/24 Unknown History buspirone 5 mg tablet 5 mg PO BID 09/26/24 Unknown History Allergies Allergy/AdvReac Type Severity Reaction Status Date / Time naltrexone Allergy Intermediate Unknown Verified 11/21/24 02:52 hydromorphone (From Dilaudid) AdvReac Nausea and Verified 11/21/24 02:52 Vomiting Review of Systems Review of Systems: As reviewed above in HPI [facility] Past Medical History Medical History Insomnia Restless leg syndrome Small fiber neuropathy Colon cancer screening Chronic GERD Anxiety Hypothyroidism Hyperlipidemia Hypertension Surgical History Surgical History Hx of cholecystectomy H/O section Family History Family History Sibling Diabetes mellitus Father Congestive heart failure Social History Social History Social History: the patient is a lifelong nonsmoker. She has 2 children. She is . She is unemployed. She does not use any alcohol marijuana or illicit drugs. She does not have a durable power sports attorney for healthcare. Code status full code Smoking status: Never smoker Second hand tobacco smoke exposure: No Alcohol intake: never Substance use: never Substance use type: does not use Do You Feel Safe in your Home?: Yes Lack of Transportation: No Lack of Food: Sometimes True Current Housing: I Have Housing Concerned About Future Housing: No Difficulty Paying Gas/Electric Bills: YES Difficulty Paying for Meds: No Currently Unemployed: Decline to Answer Education: Don't Know Difficulty w/ Childcare or Family Care: No Living arrangements: alone Occupation/Education: retired Gender identity (if verbalized by the patient): Female Spiritual care concerns: No Exam Narrative: GENERAL: [Well-appearing, well-nourished, and in no acute distress.] HEAD: [Normocephalic, atraumatic.] EYES: [PERRLA and EOMI.] ENT: Nares clear, no rhinorrhea or epistaxis. Mucous membranes moist. NECK: Supple. CHEST: [Clear to auscultation. No respiratory distress.] HEART: [Regular rate and rhythm]. No murmur heard. [Normal peripheral pulses.] ABDOMEN: [Soft, nondistended], [nontender], [No rigidity or guarding] EXTREMITIES: Normal range of motion. [No edema.] SKIN: Warm, dry, no rash. NEURO: [No focal deficits]. Alert and oriented [x3.] No ataxia in the arms or legs, no strength deficits in the arms or legs, no facial asymmetry, slurring speech or nystagmus noted. PSYCH: [Normal mood and affect.] Course Vital Signs Vital signs: Vital Signs Temperature 36.4 C 11/21/24 02:57 Pulse Rate 75 11/21/24 02:57 Respiratory Rate 13 11/21/24 02:57 Blood Pressure 180/82 H 11/21/24 02:57 Pulse Oximetry 97 11/21/24 02:57 Oxygen Delivery Room Air 11/21/24 02:57 Temperature 36.4 C 11/21/24 02:57 Pulse Rate 69 11/21/24 05:44 Respiratory Rate 21 H 11/21/24 05:44 Blood Pressure 176/70 H 11/21/24 05:44 Pulse Oximetry 100 11/21/24 05:44 Oxygen Delivery Room Air 11/21/24 02:57 MDM - Dizziness MDM Narrative Medical decision making narrative: 69-year-old female with a history of vertigo, hypertension, hyperlipidemia, previous TIA. Patient presents to the emergency department with vertigo. She states she was sitting in bed watching her phone when she started feeling like the room was spinning around her. She got up and use the restroom and felt like the room was spinning even worse. She took 1 of her home meclizine 25 mg doses and the symptoms mostly subsided. She started having a headache and some mild hot flashing sensations. No chest pain difficulty breathing. No nausea vomiting, abdominal pain, back pain, fever, chills, neck pain, vision changes or loss of consciousness. No traumatic injuries. She states it feels like her vertigo but also wants to make sure that she is not having any brain issues as she has a TIA history. Patient has a normal neurological assessment, no nystagmus or ataxia. No strength or sensory deficits. No facial asymmetry slurring speech. Mildly hypertensive but chronic. No tachycardia, tachypnea, fever, hypoxemia. She has a mild headache but no neck pain or stiffness. No meningismal symptoms. Symptoms consistent with her previous diagnosis of vertigo but given her age and risk factors as well as elevated blood pressure further investigations such as cardiac workup with an EKG and laboratory assessment as well as a CT of the head was ordered for further evaluation of potential intracranial process such as stroke or hemorrhage which is less likely given her normal neurological exam. She was given a dose of Valium for her minor remaining vertiginous symptoms which have mostly subsided thus far with meclizine. Fluid bolus initiated. CT head shows no acute intracranial abnormalities. Workup is reassuring with no leukocytosis or anemia. Normal platelet count. Electrolytes are all normal. Normal creatinine, normal glucose, normal LFTs. EKG shows sinus rhythm without any ST segment elevations, depressions. Patient re-evaluated had symptomatic improvement with the Valium. No longer vertiginous and ambulatory without any significant concerns. Safe for discharge home with regular PCP follow-up. Medical Records Attestation: I reviewed the patient's medical records. Lab Data Attestation: I reviewed the patient's lab results. 11/21/24 03:06 11/21/24 03:06 Labs: Lab Results 11/21/24 Range/Units 03:06 WBC 8.1 (4.5-10.0) K/mm3 RBC 4.56 (4.2-5.4) M/mm3 Hgb 13.5 (12.0-15.0) g/dL Hct 42.2 (37.0-47.0) % MCV 92.5 (80-100) fl MCH 29.6 (26-34) pg MCHC 32.0 (32-36) g/dl RDW 12.7 (11.5-14.5) % Plt Count 252 (150-375) k/mm3 MPV 9.2 (7.4-10.4) fl Immature Gran % (Auto) 0.4 (0-0.5) % Neut % (Auto) 57.6 (45.5-73.1) % Lymph % (Auto) 30.5 (18.3-44.2) % Mariposa % (Auto) 8.5 (2.6-8.5) % Eos % (Auto) 2.3 (0-4.4) % Baso % (Auto) 0.7 (0.2-1.2) % Lymph # (Auto) 2.48 (0.9-3.2) K/mm3 [place] # (Auto) 0.7 H (0.1-0.6) K/mm3 Eos # (Auto) 0.2 (0-0.3) K/mm3 Baso # (Auto) 0.1 (0.0-0.1) K/mm3 Abs Immat Gran (auto) 0.03 (0.00-0.031) K/mm3 Absolute Neuts (auto) 4.7 (1.3-6.7) K/mm3 Absolute Nucleated RBC 0.000 (0.0-0.012) K/mm3 Nucleated RBC % 0.0 (0.0-0.2) % Sodium 141 (137-145) mmol/L Potassium 3.9 (3.4-5.0) mmol/L Chloride 107 (98-107) mmol/L Carbon Dioxide 24 (22-30) mmol/L Anion Gap 10 (4-12) mmol/L BUN 12 D (7-17) mg/dL Creatinine 0.85 (0.7-1.0) mg/dL Estim Creat Clear Calc 68 ml/min Estimated GFR > 60 (59 - ) Glucose 107 (65-110) mg/dL Calcium 9.2 (8.4-10.2) mg/dL Total Bilirubin 0.3 (0.2-1.3) mg/dL AST 30 (14-36) U/L ALT 23 (6-35) U/L Alkaline Phosphatase 103 (38-126) U/L Total Protein 7.3 (6.3-8.2) g/dL Albumin 4.1 (3.5-5.1) g/dL Imaging Data Attestation: I personally reviewed and interpreted this imaging study as follows: My impression: No acute intracranial findings Discharge Plan Discharge Clinical Impression: Benign paroxysmal positional vertigo Patient Disposition: Home Condition: Stable Instructions: Antibiotic Form, Benign Paroxysmal Positional Vertigo (ED), Dizziness (ED) Additional Instructions: All of your laboratory studies are normal and your CT of the head shows no acute intracranial abnormalities. Symptoms consistent with benign positional vertigo. Continue taking her meclizine up to 3 times daily as needed. Follow-up with regular specialist. Return with any emergent concerns. Patient Language: Syriac Prescriptions: No Action atorvastatin 20 mg tablet 20 mg PO DAILY Qty: 90 1RF buspirone 5 mg tablet 5 mg PO BID bupropion HCl [Wellbutrin XL] 150 mg tablet extended release 24 hr 150 mg PO QAM Qty: 90 3RF gabapentin 300 mg capsule 300 mg PO Q12H Qty: 180 4RF Rx Instructions: May increase to 1 capsule in the morning and 2 at capsule at bedtime if necessary baclofen 10 mg tablet 10 mg PO QHS hydralazine 25 mg tablet 25 mg PO BID losartan 50 mg tablet 50 mg PO DAILY omeprazole 40 mg capsule,delayed release(DR/EC) 40 mg PO BID levothyroxine 125 mcg capsule 100 mcg PO DAILY naproxen 500 mg tablet 500 mg PO BID PRN (Reason: pain) Qty: 14 0RF aspirin 81 mg capsule 81 mg PO DAILY Qty: 30 0RF ferrous sulfate [FeroSul] 325 mg (65 mg iron) tablet 325 mg PO DAILY 90 Days Qty: 90 2RF Rx Instructions: Take one daily; if constipation occurs, take every other day. Follow-up/Referrals: Teresita,Allie Modi MD [Primary Care Provider] - Time of Disposition: 05:48
[2024-11-21] MEDS: LACTATED RINGERS 1,000 ML 999 ML IV CONT (03:27)
[2024-11-21] MEDS: diazePAM INJ (*CRX) 10 MG/2 ML SYRINGE 2.5 MG IV PUSH (03:28)
[2024-11-21 03:32] VITALS: BP 171/84; PULSE 68; RESP 17; O2SAT 97
[2024-11-21 03:33] LABS: Alanine Aminotransferase 23 U/L (6-35); Albumin Level 4.1 g/dL (3.5-5.1); Alkaline Phosphatase 103 U/L (38-126); Anion Gap 10 mmol/L (4-12); Aspartate Amino Transferase 30 U/L (14-36); Bilirubin,Total 0.3 mg/dL (0.2-1.3); Blood Urea Nitrogen 12 mg/dL (7-17); Calcium 9.2 mg/dL (8.4-10.2); Carbon Dioxide 24 mmol/L (22-30); Chloride 107 mmol/L (98-107); Estimated CRCL calculation 68 ml/min; Estimated Glomerular Filt Rate > 60; Glucose 107 mg/dL (65-110); Potassium 3.9 mmol/L (3.4-5.0); Sodium 141 mmol/L (137-145); Total Protein 7.3 g/dL (6.3-8.2)
[2024-11-21 03:47] VITALS: BP 176/78; PULSE 72; RESP 14; O2SAT 99
[2024-11-21 05:44] VITALS: BP 176/70; PULSE 69; RESP 21; O2SAT 100
--- NOTE | 2024-11-21 05:47 | PC.NURSE ---
Pt ambulated with RN and states she no longer feels dizzy and ambulated with steady gait.
== END 2024-11-21 05:58 | disposition home or self-care (01) ==
PROVIDERS: Emergency Provider Student in an Organized Health Care Education/Training Program; PCP Emergency Medicine
DX: H81.10 Benign paroxysmal vertigo, unspecified ear (principal); I10 Essential (primary) hypertension; E78.5 Hyperlipidemia, unspecified; E03.9 Hypothyroidism, unspecified; Z86.73 Personal history of transient ischemic attack (TIA), and cerebral infarction without residual deficits
CPT/HCPCS: 36415; 70450; 80053; 85025; 93005; 96361; 96374; 99284; J3360; J7120

== ENCOUNTER 2024-12-15 06:58 | Outpatient (CLI) | payer MEDICARE, MEDICAID, SELFPAY ==
--- NOTE | ~2024-12-15 | MM_ITS ---
EXAMINATION: MM screening [facility] BI w anthony HISTORY: Screening TECHNIQUE: Craniocaudal and mediolateral oblique 3-D tomosynthesis images were obtained and synthetic 2-D images were generated. CAD analysis was submitted and interpreted. COMPARISON: Mammograms from 11/08/2023 and 11/05/2022 BREAST PARENCHYMAL COMPOSITION: Not Dense: The breasts are almost entirely fatty. FINDINGS: There is no evidence of suspicious mass, calcification, or architectural distortion to suggest malignancy in either breast. [There has been no significant interval change. IMPRESSION: 1. No mammographic evidence of malignancy. Recommend routine screening mammography in one year. BI-RADS Category 1: Negative Reviewed, dictated, and finalized at Location A. Reviewed, dictated and finalized at location Q. IMPRESSION: 1. No mammographic evidence of malignancy. Recommend routine screening mammogra phy in one year. BI-RADS Category 1: Negative
== END 2024-12-15 06:59 | disposition home or self-care (01) ==
LOC: ANHFOHIMG 07:00
PROVIDERS: PCP Emergency Medicine; Visit Provider Emergency Medicine
DX: Z12.31 Encounter for screening mammogram for malignant neoplasm of breast (principal)
CPT/HCPCS: 77063; 77067

== ENCOUNTER 2025-01-04 01:54 | Day surgery (SDC) | payer MEDICARE, MEDICAID, SELFPAY ==
--- OUTSIDE RECORDS SUMMARY | 2025-01-04 01:57 | XMS_ITS | Data Portability ---
Author Organization [place] [facility], Main Office Address [address] [place] [address] Care Team Providers Care Wheel Press Operator Name Role Phone LINUS HOUSTON Primary Care Provider LINUS HOUSTON Referring Provider Assessment Encounter Date Assessment Date Assessment LastModified by Organization Details LastModified Time 05/26/2023 05/26/2023 67-year-old female presents for evaluation of her left shoulder she is left-hand dominant. She had a fall on [employer] when she landed her left arm. She [...] left shoulder. She had a fall on [employer] when she landed her left arm. Since [...] referral - CONTINUE PT 2023 024 [email or web address] [facility], [address], [place], [address], 4 16:36:01 physical therapist referral - eval and treat 2023 024 [email or web address] [facility], [address], [place], [address], 4 10:52:13 Procedures injection/a spiration joint/bursa (PROC) - in office procedure, administere d by provider 2023 024 [email or web address] 3 In-Office Order, Internal Use Only DO Not Attach Compendium DO Not Attach Compendium, Do Not Delete/merge, 10[address] 11:58:51 Surgeries None recorded. Imaging None recorded. Medication Orders Kenalog 10 mg/mL suspension for injection 2023 024 [email or web address] [facility], [place], [address], 16:36:01 Marcaine (PF) 0.5 % (5 mg/mL) injection solution 2023 024 [email or web address] Not available 12:00:46 Patient TargetsNo targets [...] angela No observ ation record ed. [address], [place], [address], 06/02/2023 10:24:47 Result Notes None recorded. Problems Name Problem SNOMED Code Status Onset Date Resolution Date Notes Provider Name and Address Organization Details Recorded Time Pain of left shoulder joint 824062827696612 09 Active 2023 CRISTY Greer [employer] 11:05:25 Problem Notes None recorded. Procedures Surgical History Date Name Laterality Status Provider Name and Address Organization Details Recorded Time Ortho - Cortisone Injection completed Carli Loo NP [address], [place], [address], [email or web address] 06/30/2023 12:50:40 section completed CRISTY Greer [email or web address] 05/26/2023 11:04:30 Gallbladder Surgery completed CRISTY Greer [employer] 05/26/2023 11:04:42 Imaging Results None recorded. Procedure Notes None recorded. Medical Equipment None Reported. Allergies Allergen ID Allergen Name Allergen Category Reaction Reaction Severity Criticality Documentation Date Start Date Code Code System Note Provider Name and Address Organization Details Recorded Time [address] [facility] n Not available Not available Not available 05/26/2023 05901 97 RxNorm CRISTY Greer [place] [facility] 4 11:02:14 Medications Name Sig Start Date Stop [...] suspension for injection IN OFFICE 2023 active [facility]: 0003- 0494- 20 Not Available Not Available [...] Updated DateTime 05/26/2023 157.48 cm 39.3 kg/m2 21613.36 g 7 CRISTY Greer [facility] 05/26/2023 11:01:52 Date Recorded Body height Body mass index (BMI) Body weight Pain severity - 0-10 verbal numeric rating [Score] - Reported Provider Name and Address Organization Details Last Updated DateTime 06/30/2023 157.48 cm 39.3 kg/m2 12296.36 g 5 CRISTY Greer [facility] [place] [facility] 06/30/2023 11:41:10 Social History Question Answer Notes LastModified by Organizat ion Details LastModified Time Tobacco Smoking Status Unknown If Ever Smoked CRISTY Greer null, [facility] [place] [facility] 05/26/2023 11:03:42 What Was The Date Of Your Most Recent Tobacco Screening? 05/26/2023 [email or web address] Information not available 05/26/2023 Sex: Unknown Functional Status Question Answer Note LastModified by Organization D etails LastModified Time What is your level of alcohol consumption? None [email or web address] Information not available 05/26/2023 Mental Status None recorded. Family History Relationship Description Onset Age of this Age Resolved Age Notes LastModified by Organization Details LastModified Time Sister Heart disease [email or web address] Not available 2023 11:03:08 Sister Hypertensive disorder Not available 2023 11:03:20 Sister Diabetes mellitus [email or web address] Not available 2023 11:03:29 Medical History Condition Response STROKE/TIA Y ARTHRITIS Y Gynecological HistoryNo gynecological history recorded. Obstetrics History GPAL:G 0 P 0 0 0 0 Past Encounters Encounter ID Performer Location Encounter Start Date Encounter Closed Date Diagnosis/Indication Diagnosis SNOMED-CT Code Diagnosis ICD10 Code Diagnosis IMO Codes Diagnosis Note [id number] Osman Bird MD [facility] [address] [place] [address] 05/26/2023 10:38:24 05/26/2023 11:53:29 Pain of left shoulder joint 3127397022 7021820 M25.588 [id number] Osman Bird MD [facility] [address] [place] [address] 06/30/2023 11:38:50 06/30/2023 12:08:13 Pain of left shoulder joint [id number] 2924610 M25.512 Health Concerns Section Related Observation LastModified by Organization Detai ls LastModified Time None Recorded Concern Status LastModified by Organization Details LastModified Time None Recorded Advance Directives Directive None Recorded Payers Insurance Date Sequence Insurance Name Policy Number Policy Zarate Covered Member ID Zarate Member ID Guarantor Name 06/30/2023 1 [place] Kyung Roe [id number] Kyung Roe 06/30/2023 2 [place] Kyung Roe [id number] Kyung Roe OBGyn Episode No OBEpisode recorded.
--- OUTSIDE RECORDS SUMMARY | 2025-01-04 01:57 | XMS_ITS | Data Portability ---
Author Organization [facility] ANAMIKATee Wood Address [address] [place] [address] Care Team Providers Care Senior Software Qa Analyst Name Role Phone SHRUTI HAYNES Nutritional Services Host Assessment Encounter Date Assessment Date Assessment LastModified [...] Modified Time Details Appointments ANY 15 2024 02:00P Jefferson Lo MD Not available Not available Not available Lab TSH, ultra-sen sitive, serum 2024 025 [facility], [address] [facility], [address], [place], [address], 08/29/2024 13:11:28 lipid panel, serum 2024 025 [facility], [address] [facility], [address], [place], [address], 08/29/2024 13:11:27 CMP, serum or plasma 2024 025 [facility], [address] [facility], [address], [place], [address], 08/29/2024 13:11:28 CBC 2024 025 [facility], [address], [address], [place], [address], 08/29/2024 13:11:29 albumin/c reatinine , mass ratio, urine 2024 025 [facility], [address], [address], [place], [address], 08/29/2024 13:11:26 TSH, ultra-sen sitive, serum 2023 024 [facility], [address], [address], [place], [address], 02/26/2024 08:28:42 TSH, ultra-sen sitive, serum 2023 024 [facility], [address], [address], [place], [address], 01/19/2024 08:30:07 HbA1c (hemoglob in A1c), blood 2023 024 roxana In-Office Order, Internal Use Only DO Not Attach Compendium DO Not Attach Compendium, Do Not Delete/merge, [id number] 01/07/2024 12:45:09 CMP, serum or plasma 2023 024 [facility], [address], [address], [place], [address], 10/02/2023 08:25:08 CBC 2023 024 [facility], [address], [address], [place], [address], 10/02/2023 08:25:10 lipid panel, serum 2023 024 [facility], [address] [facility], [address], [place], [address], 10/02/2023 08:25:07 albumin/c reatinine , mass ratio, urine 2023 024 [facility], [address] [facility], [address], [place], [address], 10/02/2023 08:25:07 TSH, ultra-sen sitive, serum 2023 024 [facility], [address] [facility], [address], [place], [address], 10/02/2023 08:25:09 HbA1c (hemoglob in A1c), blood 2023 024 [email or web address] [facility], [address] [facility], [address], [place], [address], 03/30/2024 16:08:43 Referral None recorded. Procedures None recorded. Surgeries None recorded. Imaging MRI, shoulder, w/o contrast 2023 024 [facility], [address] [place] [address] [address], [place], [address], 01/13/2024 10:19:26 Medication Orders omeprazol e 40 mg capsule,d elayed release 2024 025 [facility], [address] [place], [address], 08/28/2024 11:57:51 atorvasta tin 20 mg tablet 2024 025 [facility], [address] [facility], [place], [address], 08/28/2024 11:57:49 duloxetin e 30 mg capsule,d elayed release 2024 025 [facility], [address] [place], [address], 08/28/2024 11:57:48 buspirone 5 mg tablet 2024 025 [facility], [address] [place], [address], 10/23/2024 15:52:12 hydralazi ne 25 mg tablet 2024 025 [facility], [address] [place] [address], [address], 08/28/2024 11:57:46 losartan 50 mg tablet 2024 025 [facility], [address] [place] [address], [address], 08/28/2024 11:57:52 levothyro xine 112 mcg tablet 2024 025 [facility], [address] [place] [address], [address], 08/28/2024 11:57:51 omeprazol e 40 mg capsule,d elayed release 2023 024 [facility], [address] [place] [address], [address], 02/11/2024 13:56:01 hydralazi ne 25 mg tablet 2023 024 [facility], [address] [place] [address], [address], 02/11/2024 13:56:00 losartan 50 mg tablet 2023 024 [facility], [address] [place] [address], [address], 02/11/2024 13:56:03 duloxetin e 60 mg capsule,d elayed release 2023 024 [facility], [address] [place], [address], 09/18/2024 08:57:54 omeprazol e 40 mg capsule,d elayed release 2023 [facility], [address] [place] [address], [address], 01/07/2024 13:41:54 hydralazi ne 25 mg tablet 2023 [facility], [address] [place] [address], [address], 01/07/2024 13:41:53 losartan 50 mg tablet 2023 [facility], [address] [place] [address], [address], 01/07/2024 13:41:51 duloxetin e 30 mg capsule,d elayed release 2023 [facility], [address] [place] [address], [address], 02/11/2024 13:52:44 atorvasta tin 20 mg tablet 2023 024 [facility], [address] [place] [address], [address], 01/07/2024 13:41:52 levothyro xine 100 mcg tablet 2023 024 [facility], [address] [place] [address], [address], 01/26/2024 11:19:05 loratadin e 10 mg tablet 2023 024 [facility], [address] [place] [address], [address], 02/11/2024 14:31:48 prednison e 20 mg tablet 2023 024 [facility], [address] [place], [address], 01/07/2024 11:08:37 omeprazol e 40 mg capsule,d elayed release 2023 024 [facility], [address] [place] [address], [address], 10/01/2023 10:50:16 hydralazi ne 25 mg tablet 2023 024 [facility], [address] [place] [address], [address], 10/01/2023 10:50:16 losartan 50 mg tablet 2023 024 [facility], [address] [place] [address], [address], 10/01/2023 10:50:16 atorvasta tin 20 mg tablet 2023 024 [facility], [address] [place] [address], [address], 10/01/2023 10:50:16 aspirin 81 mg tablet,de layed release 2023 024 [facility], [address] [place] [address], [address], 02/11/2024 13:55:52 citalopra m 20 mg tablet 2023 024 [facility], [address] [place] [address], [address], 01/07/2024 13:40:11 baclofen 10 mg tablet 2023 024 [facility], [address] [place] [address], [address], 02/11/2024 13:52:27 levothyro xine 100 mcg tablet 2023 024 [email or web address], [address] [facility], [place], [address], 01/26/2024 11:18:56 Patient TargetsNo targets recorded. Patient Instructions Encounter Date Encounter Id Patient Instructions Last Modified By Organization Details Last Modified Time 10/01/2023 [id number] A healthy lifestyle: care instructions roxana Not available 10/01/2023 10:50:16 08/28/2024 [id number] complete PFT w/ post bronchodilator spirometry* [facility] Not available 10/03/2024 13:30:26 Reason for Referral None Reported. Results Created Date Observation Date Name Description Value Unit Range Abnormal Flag Note LastModifiedBy Organization Detail LastModifiedTime 10/01/19 24 10/02/2023 ALBUM IN/CR EATIN INE RATIO ,URIN E creatinine, urine 327.8 mg/dL notest ab. Not Available [facility] ([facility]) [address] [place], [address], 10/02/2023 08:25:07 10/01/19 24 10/02/2023 ALBUM IN/CR EATIN INE RATIO ,URIN E albumin, urine 53.1 ug/mL notest ab. Not Available [facility] ([facility]) [address] [place], [address], 10/02/2023 08:25:07 10/01/19 24 10/02/2023 ALBUM IN/CR EATIN INE RATIO ,URIN E alb/creat ratio 16 mg/g_ creat 0-29 Munira l: 0 - 29 Moder ately incre ased: 30 - 300 Sever haley incre ased: >300 Not Available [facility] ([facility]) [address] [place], [address], 10/02/2023 08:25:07 10/01/19 24 10/02/2023 LIPID PANEL cholesterol, total 155 mg/dL 100-19 9 Not Available [facility] ([facility]) [address] [place], [address], 10/02/2023 08:25:07 10/01/19 24 10/02/2023 LIPID PANEL triglyceride s 92 mg/dL 0-149 Not Available [facility] ([facility]) [address] [place], [address], 10/02/2023 08:25:07 10/01/19 24 10/02/2023 LIPID PANEL HDL cholesterol 51 mg/dL >39 Not Available [facility] ([facility]) [address] [place], [address], 10/02/2023 08:25:07 10/01/19 24 10/02/2023 LIPID PANEL VLDL cholesterol cameron 17 mg/dL 5-40 Not Available [facility] ([facility]) [address] [place], [address], 10/02/2023 08:25:07 10/01/19 24 10/02/2023 LIPID PANEL LDL chol calc ([facility]) 87 mg/dL 0-99 Not Available [facility] ([facility]) [address] [place], [address], 10/02/2023 08:25:07 10/01/19 24 10/02/2023 COMP. METAB OLIC PANEL (14) glucose 91 mg/dL 70-99 Not Available [facility] ([facility]) [address] [place], [address], 10/02/2023 08:25:08 10/01/19 24 10/02/2023 COMP. METAB OLIC PANEL (14) BUN 11 mg/dL 8-27 Not Available [facility] ([facility]) [address] [place], [address], 10/02/2023 08:25:08 10/01/19 24 10/02/2023 COMP. METAB OLIC PANEL (14) creatinine 0.98 mg/dL 0.57-1 .00 Not Available [facility] ([facility]) [address] [place], [address], 10/02/2023 08:25:08 10/01/19 24 10/02/2023 COMP. METAB OLIC PANEL (14) eGFR 64 mL/mi n/1.7 3 >59 Not Available [facility] ([facility]) [address], [place], [address], 10/02/2023 08:25:08 10/01/19 24 10/02/2023 COMP. METAB OLIC PANEL (14) BUN/creatini ne ratio 11 12-28 below low normal Not Available [facility] ([facility]) [address] [place], [address], 10/02/2023 08:25:08 10/01/19 24 10/02/2023 COMP. METAB OLIC PANEL (14) sodium 142 mmol/ L 134-14 4 Not Available [facility] ([facility]) [address], [place], [address], 10/02/2023 08:25:08 10/01/19 24 10/02/2023 COMP. METAB OLIC PANEL (14) potassium 4.2 mmol/ L 3.5-5. 2 Not Available [facility] ([facility]) [address], [place], [address], 10/02/2023 08:25:08 10/01/19 24 10/02/2023 COMP. METAB OLIC PANEL (14) chloride 105 mmol/ L 96-106 Not Available [facility] ([facility]) [address], [place], [address], 10/02/2023 08:25:08 10/01/19 24 10/02/2023 COMP. METAB OLIC PANEL (14) carbon dioxide, total 24 mmol/ L 20-29 Not Available [facility] ([facility]) [address], [place], [address], 10/02/2023 08:25:08 10/01/19 24 10/02/2023 COMP. METAB OLIC PANEL (14) calcium 9.3 mg/dL 8.7-10 .3 Not Available [facility] ([facility]) [address] [facility], [place], [address], 10/02/2023 08:25:08 10/01/19 24 10/02/2023 COMP. METAB OLIC PANEL (14) protein, total 6.7 g/dL 6.0-8. 5 Not Available [facility] ([facility]) [address] [facility], [place], [address], 10/02/2023 08:25:08 10/01/19 24 10/02/2023 COMP. METAB OLIC PANEL (14) albumin 4.2 g/dL 3.9-4. 9 Not Available [facility] ([facility]) [address] [facility], [place], [address], 10/02/2023 08:25:08 10/01/19 24 10/02/2023 COMP. METAB OLIC PANEL (14) globulin, total 2.5 g/dL 1.5-4. 5 Not Available [facility] ([facility]) [address] [facility], [place], [address], 10/02/2023 08:25:08 10/01/19 24 10/02/2023 COMP. METAB OLIC PANEL (14) bilirubin, total 0.4 mg/dL 0.0-1. 2 Not Available [facility] ([facility]) [address] [facility], [place], [address], 10/02/2023 08:25:08 10/01/19 24 10/02/2023 COMP. METAB OLIC PANEL (14) alkaline phosphatase 83 IU/L 44-121 Not Available [facility]) [address] [facility], [place], [address], 10/02/2023 08:25:08 10/01/19 24 10/02/2023 COMP. METAB OLIC PANEL (14) AST (SGOT) 21 IU/L 0-40 Not Available [facility] ([facility]) [address] [facility], [place], [address], 10/02/2023 08:25:08 10/01/19 24 10/02/2023 COMP. METAB OLIC PANEL (14) ALT (SGPT) 17 IU/L 0-32 Not Available [facility] ([facility]) [address] [facility], [place], [address], 10/02/2023 08:25:08 10/01/19 24 10/02/2023 TSH RFX ON ABNOR MAL TO FREE T4 TSH 3.210 uIU/m L 0.450- 4.500 Not Available [facility] ([facility]) [address] [facility], [place], [address], 10/02/2023 08:25:09 10/01/19 24 10/01/2023 ABN OPTIO [...] neces estrella follo w-up. Not Available [facility] ([facility]) [address] [facility], [place], [address], 10/02/2023 08:25:09 10/01/19 24 10/02/2023 CBC, PLATE LET, NO DIFFE RENTI AL WBC 7.5 x10e3 /uL 3.4-10 .8 Not Available [facility] ([facility]) [address] [facility], [place], [address], 10/02/2023 08:25:10 10/01/19 24 10/02/2023 CBC, PLATE LET, NO DIFFE RENTI AL RBC 4.50 x10e6 /uL 3.77-5 .28 Not Available [facility] ([facility]) [address] [facility], [place], [address], 10/02/2023 08:25:10 10/01/19 24 10/02/2023 CBC, PLATE LET, NO DIFFE RENTI AL hemoglobin 13.0 g/dL 11.1-1 5.9 Not Available [facility] ([facility]) [address] [facility], [place], [address], 10/02/2023 08:25:10 10/01/19 24 10/02/2023 CBC, PLATE LET, NO DIFFE RENTI AL hematocrit 41.7 % 34.0-4 6.6 Not Available [facility] ([facility]) [address] [facility], [place], [address], 10/02/2023 08:25:10 10/01/19 24 10/02/2023 CBC, PLATE LET, NO DIFFE RENTI AL MCV 93 fL 79-97 Not Available [facility] ([facility]) [address] [facility], [place], [address], 10/02/2023 08:25:10 10/01/19 24 10/02/2023 CBC, PLATE LET, NO DIFFE RENTI AL MCH 28.9 pg 26.6-3 3.0 Not Available [facility] ([facility]) [address] [facility], [place], [address], 10/02/2023 08:25:10 10/01/19 24 10/02/2023 CBC, PLATE LET, NO DIFFE RENTI AL MCHC 31.2 g/dL 31.5-3 5.7 below low normal Not Available [facility] ([facility]) [address] [facility], [place], [address], 10/02/2023 08:25:10 10/01/19 24 10/02/2023 CBC, PLATE LET, NO DIFFE RENTI AL RDW 12.0 % 11.7-1 5.4 Not Available [facility] ([facility]) [address] [place], [address], 10/02/2023 08:25:10 10/01/19 24 10/02/2023 CBC, PLATE LET, NO DIFFE RENTI AL platelets 296 x10e3 /uL 150-45 0 Not Available [facility] ([facility]) [address] [facility], [place], [address], 10/02/2023 08:25:10 01/07/20 24 01/07/2024 HbA1c (hemo globi n A1c), blood HbA1c 5.6 Not Available In-Office Order Internal Use Only DO Not Attach Compendium DO Not Attach Compendium, Do Not Delete/merge, [id number] 01/07/2024 12:32:18 01/18/20 24 01/19/2024 TSH RFX ON ABNOR MAL TO FREE T4 TSH 5.190 uIU/m L 0.450- 4.500 above high normal Not Available [facility] ([facility]) [address] [place], [address], 01/19/2024 08:30:07 01/18/20 24 01/19/2024 T4F T4,free (direct) 0.97 NG/dL 0.82-1 .77 Not Available [facility] ([facility]) [address] [place], [address], 01/19/2024 08:30:08 02/25/20 24 02/26/2024 TSH RFX ON ABNOR MAL TO FREE T4 TSH 0.215 uIU/m L 0.450- 4.500 below low normal Not Available [facility] ([facility]) [address] [place], [address], 02/26/2024 08:28:42 02/25/20 24 02/26/2024 T4F T4,free (direct) 1.53 NG/dL 0.82-1 .77 Not Available [facility] ([facility]) [address] [facility] [place], [address], 02/26/2024 08:28:43 08/29/19 25 08/29/2024 ALBUM IN/CR EATIN INE RATIO ,URIN E creatinine, urine 256.8 mg/dL notest ab. Not Available [facility] ([facility]) [address] [place], [address], 08/29/2024 13:11:26 08/29/19 25 08/29/2024 ALBUM IN/CR EATIN INE RATIO ,URIN E albumin, urine 27.7 ug/mL notest ab. Not Available [facility] ([facility]) [address] [place], [address], 08/29/2024 13:11:26 08/29/19 25 08/29/2024 ALBUM IN/CR EATIN INE RATIO ,URIN E alb/creat ratio 11 mg/g_ creat 0-29 Munira l: 0 - 29 Moder ately incre ased: 30 - 300 Sever haley incre ased: >300 Not Available [facility] ([facility]) [address] [place], [address], 08/29/2024 13:11:26 08/29/19 25 08/29/2024 LIPID PANEL cholesterol, total 195 mg/dL 100-19 9 Not Available [facility] ([facility]) [address] [place], [address], 08/29/2024 13:11:27 08/29/19 25 08/29/2024 LIPID PANEL triglyceride s 169 mg/dL 0-149 above high normal Not Available [facility] ([facility]) [address] [place], [address], 08/29/2024 13:11:27 08/29/19 25 08/29/2024 LIPID PANEL HDL cholesterol 43 mg/dL >39 Not Available [facility] ([facility]) [address] [place], [address], 08/29/2024 13:11:27 08/29/19 25 08/29/2024 LIPID PANEL VLDL cholesterol cameron 30 mg/dL 5-40 Not Available [facility] ([facility]) [address] [place], [address], 08/29/2024 13:11:27 08/29/19 25 08/29/2024 LIPID PANEL LDL chol calc ([facility]) 122 mg/dL 0-99 above high normal Not Available [facility] ([facility]) [address] [place], [address], 08/29/2024 13:11:27 08/29/19 25 08/29/2024 COMP. METAB OLIC PANEL (14) glucose 107 mg/dL 70-99 above high normal Not Available [facility] ([facility]) [address] [place], [address], 08/29/2024 13:11:27 08/29/19 25 08/29/2024 COMP. METAB OLIC PANEL (14) BUN 11 mg/dL 8-27 Not Available [facility] ([facility]) [address] [place], [address], 08/29/2024 13:11:27 08/29/19 25 08/29/2024 COMP. METAB OLIC PANEL (14) creatinine 0.92 mg/dL 0.57-1 .00 Not Available [facility] ([facility]) [address] [place], [address], 08/29/2024 13:11:27 08/29/19 25 08/29/2024 COMP. METAB OLIC PANEL (14) eGFR 69 mL/mi n/1.7 3 >59 Not Available [facility] ([facility]) [address] [place], [address], 08/29/2024 13:11:27 08/29/19 25 08/29/2024 COMP. METAB OLIC PANEL (14) BUN/creatini ne ratio 12 12-28 Not Available [facility] ([facility]) [address] [facility], [place], [address], 08/29/2024 13:11:27 08/29/19 25 08/29/2024 COMP. METAB OLIC PANEL (14) sodium 142 mmol/ L 134-14 4 Not Available [facility] ([facility]) [address] [facility], [place], [address], 08/29/2024 13:11:27 08/29/19 25 08/29/2024 COMP. METAB OLIC PANEL (14) potassium 4.2 mmol/ L 3.5-5. 2 Not Available [facility] ([facility]) [address] [facility], [place], [address], 08/29/2024 13:11:27 08/29/19 25 08/29/2024 COMP. METAB OLIC PANEL (14) chloride 105 mmol/ L 96-106 Not Available [facility] ([facility]) [address] [facility], [place], [address], 08/29/2024 13:11:27 08/29/19 25 08/29/2024 COMP. METAB OLIC PANEL (14) carbon dioxide, total 21 mmol/ L 20-29 Not Available [facility] ([facility]) [address] [facility], [place], [address], 08/29/2024 13:11:27 08/29/19 25 08/29/2024 COMP. METAB OLIC PANEL (14) calcium 9.7 mg/dL 8.7-10 .3 Not Available [facility] ([facility]) [address] [facility] [place], [address], 08/29/2024 13:11:27 08/29/19 25 08/29/2024 COMP. METAB OLIC PANEL (14) protein, total 7.1 g/dL 6.0-8. 5 Not Available [facility] ([facility]) [address] [facility], [place], [address], 08/29/2024 13:11:27 08/29/19 25 08/29/2024 COMP. METAB OLIC PANEL (14) albumin 4.3 g/dL 3.9-4. 9 Not Available [facility] ([facility]) [address] [facility], [place], [address], 08/29/2024 13:11:27 08/29/19 25 08/29/2024 COMP. METAB OLIC PANEL (14) globulin, total 2.8 g/dL 1.5-4. 5 Not Available [facility] ([facility]) [address] [facility], [place], [address], 08/29/2024 13:11:27 08/29/19 25 08/29/2024 COMP. METAB OLIC PANEL (14) bilirubin, total 0.7 mg/dL 0.0-1. 2 Not Available [facility] ([facility]) [address] [facility], [place], [address], 08/29/2024 13:11:27 08/29/19 25 08/29/2024 COMP. METAB OLIC PANEL (14) alkaline phosphatase 112 IU/L 44-121 Not Available [facility] ([facility]) [address] [facility], [place], [address], 08/29/2024 13:11:27 08/29/19 25 08/29/2024 COMP. METAB OLIC PANEL (14) AST (SGOT) 21 IU/L 0-40 Not Available [facility] ([facility]) [address] [facility], [place], [address], 08/29/2024 13:11:27 08/29/19 25 08/29/2024 COMP. METAB OLIC PANEL (14) ALT (SGPT) 20 IU/L 0-32 Not Available [facility] ([facility]) [address] [facility], [place], [address], 08/29/2024 13:11:27 08/29/19 25 08/29/2024 TSH RFX ON ABNOR MAL TO FREE T4 TSH 2.930 uIU/m L 0.450- 4.500 Not Available [facility] ([facility]) [address] [place], [address], 08/29/2024 13:11:28 08/29/19 25 08/29/2024 CBC, PLATE LET, NO DIFFE RENTI AL WBC 7.9 x10e3 /uL 3.4-10 .8 Not Available [facility] ([facility]) [address] [place], [address], 08/29/2024 13:11:29 08/29/19 25 08/29/2024 CBC, PLATE LET, NO DIFFE RENTI AL RBC 4.76 x10e6 /uL 3.77-5 .28 Not Available [facility] ([facility]) [address] [place], [address], 08/29/2024 13:11:29 08/29/19 25 08/29/2024 CBC, PLATE LET, NO DIFFE RENTI AL hemoglobin 13.7 g/dL 11.1-1 5.9 Not Available [facility] ([facility]) [address] [place], [address], 08/29/2024 13:11:29 08/29/19 25 08/29/2024 CBC, PLATE LET, NO DIFFE RENTI AL hematocrit 43.7 % 34.0-4 6.6 Not Available [facility] ([facility]) [address] [place], [address], 08/29/2024 13:11:29 08/29/19 25 08/29/2024 CBC, PLATE LET, NO DIFFE RENTI AL MCV 92 fL 79-97 Not Available [facility] ([facility]) [address] [place], [address], 08/29/2024 13:11:29 08/29/19 25 08/29/2024 CBC, PLATE LET, NO DIFFE RENTI AL MCH 28.8 pg 26.6-3 3.0 Not Available [facility] ([facility]) [address] [facility], [place], [address], 08/29/2024 13:11:29 08/29/19 25 08/29/2024 CBC, PLATE LET, NO DIFFE RENTI AL MCHC 31.4 g/dL 31.5-3 5.7 below low normal Not Available [facility] ([facility]) [address] [place], [address], 08/29/2024 13:11:29 08/29/19 25 08/29/2024 CBC, PLATE LET, NO DIFFE RENTI AL RDW 12.6 % 11.7-1 5.4 Not Available [facility] ([facility]) [address] [facility], [place], [address], 08/29/2024 13:11:29 08/29/19 25 08/29/2024 CBC, PLATE LET, NO DIFFE RENTI AL platelets 277 x10e3 /uL 150-45 0 Not Available [facility] ([facility]) [address] [facility], [place], [address], 08/29/2024 13:11:29 11/08/19 24 11/08/2023 MAMMO elgin, digit al, bilat eral No observ ation record ed. [place] [id number] [facility] [address] [facility], [place], [address], 11/10/2023 11:43:45 11/08/19 24 11/08/2023 MAMMO elging, digit al, bilat eral No observ ation record ed. [place] [id number] [facility] [address], [place], [address], 11/10/2023 11:44:03 11/08/19 24 11/08/2023 MAMMO , scree shelly, digit al, bilat eral No observ ation record ed. [email or web address], [place], [address], 11/10/2023 11:44:15 10/04/19 25 09/25/2024 compl ete PFT w/ [facility] hodil ator mauricio metry * No observ ation record ed. [facility] (Pulmonary) [address], [place], [address], 10/26/2024 16:37:02 11/22/19 25 11/21/2024 CT, brain , w/o contr ast No observ ation record ed. [email or web address] Not Available 2024 17:14:25 12/20/19 MAMMO , scree shelly, digit al, bilat eral No observ ation record ed. [facility] Not Available 2024 11:37:00 Result Notes None recorded. Problems Name Problem SNOMED Code Status Onset Date Resolution Date Notes Provider Name and Address Organization Details Recorded Time Hypertensive disorder 23701140 Active Not Available [facility] 3 19:48:57 Morbid obesity 475343898 Active Not Available [facility] 3 19:48:57 Edema of lower extremity 745483224 Active Not Available [facility] 3 19:48:57 Acid reflux 125579601 Active Not Available [facility] 3 19:48:57 Osteoarthriti s of knee 879446644 Active Not Available [facility] 3 19:48:57 Chronic low back pain 077418710 Active Not Available [facility] 3 19:48:57 Anxiety 90435095 Active Not Available [facility] 3 19:48:57 Hypothyroidis m 91792618 Active Not Available [facility] 3 19:48:57 Screening for malignant neoplasm of colon Active 2017 Not Available [facility] 3 19:48:57 Problem Notes None recorded. Procedures Surgical History Date Name Laterality Status Provider Name and Address Organization Details Recorded Time 08/22/19 22 Date of Last Pap Smear completed Rosa Santana MA [facility] 08/21/2021 09:40:11 07/30/19 22 Date of Last Mammogram completed Rosa Santana MA [facility] 08/21/2021 09:40:19 11/02/18 81 Caesarean Section completed Rosa Santana MA [facility] 08/21/2021 09:49:37 02/26/19 72 Caesarean Section completed Rosa Santana MA [facility] 08/21/2021 09:49:25 cholecystectomy completed Precious Wong MA [facility] 04/15/2020 15:52:27 Dilation and Curettage completed Ramon Bridges MA [facility] 10/30/2014 11:49:07 Imaging Results None recorded. Procedure Notes None recorded. Medical Equipment None Reported. Allergies Allergen ID Allergen Name Allergen Category Reaction Reaction Severity Criticality Documentation Date Start Date Code Code System Note Provider Name and Address Organization Details Recorded Time 659586 naltrexon e medicatio n dizziness moderate Not available 09/14/2018 7243 RxNorm Precious Wong MA null, [facility] 1 15:44:19 959519 Dilaudid medicatio n [place] moderate Not available 09/12/2021 95592 3 RxNorm Meagan Rodriguez RN [facility], [facility] 2 11:44:28 Medications Name Sig Start Date Stop Date Status Note LastModified by Organization Details LastModified Time losartan 50 mg tablet TAKE 1 TABLET BY MOUTH ONCE DAILY active Not Available Not Available No t Available cyclobenzap rine 10 mg tablet Take 1 [...] START MED AFTER STOPPING THE DULOXETIN E. 10/23 completed Not Available Not Available Not Available [...] Available Not Available hydralazine 25 mg tablet TAKE 1 TABLET BY MOUTH TWICE DAILY active Not Available Not Available No t Available meclizine 12.5 mg tablet TAKE 2 TABLETS [...] Available Not Available meclizine 25 mg tablet active Not Available Not Available Not Available baclofen [...] Take 1 tablet by mouth once daily active Not Available Not Available No t Available bupropion HCl XL 150 mg 24 hr tablet, extended release TAKE 1 TABLET BY MOUTH IN THE MORNING active Not Available Not Available No t [...] completed Not Available Not Available Not Available Breyna 160 mcg-4.5 mcg/actuati on HFA aerosol inhaler Inhale 2 puffs by mouth twice daily 2024 active Not Available Not Available Not Avai lable Vitals Date Recorded Body height Body mass index (BMI) Body weight Oxygen saturation Oxygen saturation in Arterial blood by Pulse oximetry Heart rate Body temperature Systolic And Diastolic Provider Name and Address Organization Details Last Updated DateTime 5 160.02 cm 44.1 kg/m2 978926. 5 g 98 % 98 % 81 /min 97.8 [degF] 132/80 mm[Hg] Rahel Ortiz MA [facility] SIF 5 11:01:06 Date Recorded Body height Body temperature Respiratory rate Body mass index (BMI) Body weight Oxygen saturation Oxygen saturation in Arterial blood by Pulse oximetry Heart rate Systolic And Diastolic Provider Name and Address Organization Details Last Updated DateTime 4 160.02 cm 97.8 [degF] 16 /min 39.5 kg/m2 817979. 1 g 98 % 98 % 71 /min 122/78 mm[Hg] Rahel Ortiz MA [facility] 4 09:52:14 Date Recorded Body height Body mass index (BMI) Body weight Oxygen saturation Oxygen saturation in Arterial blood by Pulse oximetry Heart rate Systolic And Diastolic Provider Name and Address Organization Details Last Updated DateTime 4 160.02 cm 40.6 kg/m2 162883. 65 g 99 % 99 % 71 /min 120/70 mm[Hg] Rahel Ortiz MA [facility] 4 16:52:49 Date Recorded Body height Body mass index (BMI) Body weight Oxygen saturation Oxygen saturation in Arterial blood by Pulse oximetry Heart rate Systolic And Diastolic Provider Name and Address Organization Details Last Updated DateTime 4 160.02 cm 42.9 kg/m2 021489. 35 g 99 % 99 % 71 /min 124/78 mm[Hg] Rahel Ortiz MA [facility] 4 11:36:25 Date Recorded Body height Body mass index (BMI) Body weight Oxygen saturation Oxygen saturation in Arterial blood by Pulse oximetry Heart rate Systolic And Diastolic Provider Name and Address Organization Details Last Updated DateTime 4 160.02 cm 42.9 kg/m2 403450. 35 g 98 % 98 % 62 /min 122/78 mm[Hg] Rahel Ortiz MA [facility] 4 12:56:24 Social History Question Answer Notes LastModified by [email or web address] ion Details LastModified Time Tobacco Smoking Status Never Smoker Precious Wong MA [facility], [facility] 04/15/2020 15:48:52 Do You Have An Advance [...] Or The Highest Degree You Have Received? [id number] adavisma Information not available 05/17/2023 Are There [...] 04/15/2020 Are you able to care for yourself independently? Yes Information not available 11/22/2020 Do you [...] Response Other N High Blood Pressure Y Kidney or Bladder Problems N Depression Y GI Problems N Skin Problems N Anemia N Heart Attack (IA) N Anxiety Disorder Y Diabetes N Muscle, Joint, or Bone Problems N Seizures/Epilepsy N Acid Reflux (GERD) Y Asthma N Allergies N High Cholesterol N Hepatitis N Liver Disease N Headaches Y Osteoporosis N Heart Failure N Gynecological History Statement/Question Response Date of [...] Recorded Time Tdap 2 completed Not Available [facility] 11/30/2022 19:48:57 influenza, unspecified formulation 2 completed Not Available [facility] 11/30/2022 19:48:57 zoster recombinant 2 completed Not Available [facility] 11/30/2022 19:48:57 Influenza, split virus, quadrivalent, PF 0 completed Not Available [facility] 11/30/2022 19:48:57 Influenza, split virus, quadrivalent, PF 1 completed Not Available [facility] 11/30/2022 19:48:57 zoster recombinant 2 completed Not Available [facility] 08/28/2024 10:52:44 Influenza, high-dose, quadrivalent, PF 3 completed Not Available [facility] 08/28/2024 10:52:44 RSV, recombinant, protein subunit RSVpreF, adjuvant reconstituted, 0.5 mL, PF 3 completed Not Available [facility] 08/28/2024 10:52:44 Pneumococcal conjugate PCV20, polysaccharide RXO318 conjugate, adjuvant, PF 3 completed Not Available [facility] 08/28/2024 10:52:44 Tdap 3 completed Not Available [facility] 08/28/2024 10:52:44 Influenza, high-dose, trivalent, PF 4 completed Not Available [facility] 08/28/2024 10:52:44 MMR 5 completed Not Available [facility] 08/28/2024 10:52:44 Influenza, split virus, quadrivalent, PF 8 completed Not Available [facility] 04/29/2019 02:36:24 Past Encounters Encounter ID Performer Location Encounter Start Date Encounter Closed Date Diagnosis/Indication Diagnosis SNOMED-CT Code Diagnosis ICD10 Code Diagnosis IMO Codes Diagnosis Note [id number] Ed Baptiste MD [facility] (Adult Med) [address] [place] [address] [phone] 10/30/2014 11:17:23 10/30/2014 13:18:41 Hypertensive disorder 08347125 Morbid obesity 086179045 Edema of l ower extremity 454212610 Family his tory of diabetes mellitus 521929656 Acid reflux 910744469 Osteoarthr itis of knee 743367315 Chronic low back pain 814400997 [id number] Ed Baptiste MD [facility] (Adult Med) [address] [place] [address] [id number] 01/21/2015 11:03:09 01/21/2015 14:47:50 Hypertensive disorder 52568763 I10 Morbid obesity 493309494 E66.01 Osteoarthr itis of knee 978935965 M17.9 Chronic low back pain 27 7371192 M54.5 Edema of l ower extremity 550055291 R60.0 Acid reflux 403762361 K2 1.9 [id number] Ed Baptiste MD [facility] (Adult Med) [address] [place] [address] [id number] 04/16/2015 11:47:53 04/16/2015 18:08:21 Acid reflux 045126959 K21.9 Chronic low back pain 27 3046477 M54.5 Edema of l ower extremity 642620237 R60.0 Hypertensive disorder 38 780765 I10 Morbid obesity 259619282 E66.01 Osteoarthr itis of knee 579987126 M17.9 [id number] Ed Baptiste MD [facility] (Adult Med) [address] [place] [address] [phone] 0 07/17/2015 09:35:00 07/17/2015 11:12:59 Hypertensive disorder 06612112 I10 Morbid obesity 506672399 E66.01 Osteoarthr itis of knee 417566127 M17.9 Chronic low back pain 27 2426250 M54.5 Acid reflux 183691035 K2 1.9 [id number] [facility] [address] [place] [address] [phone] 0 12/20/2015 10:51:35 12/20/2015 17:09:11 Hypertensive disorder 72392884 I10 Acid reflux 674376906 K2 1.9 Anxiety 28107740 F41.9 Edema of l ower extremity 740759240 R60.0 Family his tory of diabetes mellitus 267295965 Z83.3 Osteoarthr itis of knee 919424951 M17.9 Morbid obesity 190966023 E66.01 Family his tory of Thyroid disorder 636390045 Z83.49 [id number] Ed Baptiste MD [facility] (Adult Med) [address] [place] [address] [phone] 0 01/20/2016 16:13:17 01/20/2016 18:01:56 Anxiety 82533736 F41.9 Hypertensive disorder 38 416647 I10 Morbid obesity 482716277 E66.01 Osteoarthr itis of knee 051961432 M17.9 Hypothyroidism 80516815 E03.9 [id number] Ed Baptiste MD [facility] (Adult Med) [address] [place] [address] [id number] 05/07/2016 10:11:23 05/11/2016 12:01:27 Hypothyroidism 92551900 E03.9 Hypertensive disorder 38 965732 I10 Chronic low back pain 27 7954553 M54.5 Osteoarthr itis of knee 474658637 M17.9 Morbid obesity 310844641 E66.01 Anxiety 40729023 F41.9 Acid reflux 110599583 K2 1.9 Acute pharyngitis 682598 003 J02.9 [id number] Ed Baptiste MD [facility] (Adult Med) [address] [place] [address] [id number] 08/20/2016 09:45:20 08/20/2016 17:07:26 Subclinical hypothyroidism 89278324 E03.9 She has lost weight, satisfied but not happy yet. Morbid obesity 281196256 E66.01 [id number] Ed Baptiste MD [facility] (Adult Med) [address] [place] [address] [id number] 05/04/2017 10:03:00 05/04/2017 13:58:23 Essential hypertension 89012292 I10 Low salt diet. Morbid obesity 018814149 E66.01 Low salt diet, exercise and lose weight. May be metabolic syndrom X Subclin[facility] l hypothyroidism 10010406 E03.9 She has lost weight, satisfied but not happy yet. Screening mammography 24 424410 Z12.31 Patient refuses. Screening for malignant neoplasm of cervix 079740989 Z12.4 Patient refuses. Screening for malignant neoplasm of colon 122201703 Z12.11 Patient refuses. [id number] Ed Baptiste MD [facility] (Adult Med) [address] [place] [address] [id number] 10/12/2017 09:41:08 10/18/2017 09:36:39 Morbid obesity 358314200 E66.01 Hypothyroidism 02197911 E03.9 Screening for malignant neoplasm of colon 355904806 Z12.11 Chronic low back pain 27 1453593 M54.5 Hypertensive disorder 38 737535 I10 Anxiety 15566172 F41.9 Acid reflux 138496333 K2 1.9 [id number] Ed Baptiste MD [facility] (Adult Med) [address] [place] [address] [id number] 01/06/2018 11:27:01 01/06/2018 13:56:30 Morbid obesity 514951827 E66.01 Low salt diet, exercise and lose weight. May be metabolic syndrom X Osteoarthr itis of knee 275803281 M17.9 Hypothyroidism 16607623 E03.9 Anxiety 75475156 F41.9 Acid reflux 425167595 K2 1.9 Essential hypertension 70319610 I10 Low salt diet. Administra tion of influenza vaccine 43728306 Z23 [id number] [facility] [address] [place] [address] [id number] 0 03/31/2018 11:27:23 03/31/2018 13:04:51 Morbid obesity 861107248 E66.01 Low salt diet, exercise and lose weight. May be metabolic syndrom X Hypothyroidism 26500996 E03.9 Discussed with patient, will adjust thr dose and monitor the thyroid functions in 3 months. [id number] MD Jovanna Sauceda (Adult Med) [address] [place] [address] [id number] 06/21/2018 11:20:13 06/22/2018 11:33:38 Morbid obesity 809233209 E66.01 Low salt diet, exercise and lose weight. May be metabolic syndrom X, discussed with patient, will D/C naltrexone , and to continue wellbutrin . Hypothyroidism 48452928 E03.9 Discussed with patient, will adjust thr dose and monitor the thyroid functions in 3 months. On levothyrox in 125 mcg/day, will re-check thyroid functions. [id number] MD Jovanna Sauceda (Adult Med) [address] [place] [address] [id number] 09/14/2018 15:47:56 09/14/2018 17:00:21 Morbid obesity 550102885 E66.01 Low salt diet, exercise and lose weight. May be metabolic syndrom X, discussed with patient, will D/C naltrexone , and to continue wellbutrin . Hypothyroidism 10027944 E03.9 Discussed with patient, will adjust thr dose and monitor the thyroid functions in 3 months. On levothyrox in 125 mcg/day, will re-check thyroid functions. [id number] Ed Baptiste MD [facility] (Adult Med) [address] [place] [address] [phone] 0 12/15/2018 11:46:54 12/15/2018 12:56:34 Morbid obesity 100567621 E66.01 Low salt diet, exercise and lose weight. May be metabolic syndrom X, discussed with patient, will D/C naltrexone , and to continue wellbutrin . Hypothyroidism 80569049 E03.9 Discussed with patient, will adjust thr dose and monitor the thyroid functions in 3 months. On levothyrox in 125 mcg/day, will re-check thyroid functions. Copy of her last thyroid functions, free t4, T3 and TSH 12-06-2018 were normal and results provided to patient in this office 12-15-2018 . Acid reflux 316403080 K2 1.9 Stable. Vitamin D deficiency 347 43130 E55.9 Stable. Essential hypertension 18382896 I10 Low salt diet. [id number] Ed Baptiste MD [facility] (Adult Med) [address] [place] [address] [id number] 03/13/2019 09:36:07 03/14/2019 10:11:02 Hypertensive disorder 79168113 I10 On hydralazin e.and HCTZ, will add losartan, she agreed. Hypothyroidism 08686988 E03.9 Discussed with patient, will adjust thr dose and monitor the thyroid functions in 3 months. On levothyrox in 125 mcg/day, will re-check thyroid functions. Copy of her last thyroid functions, free t4, T3 and TSH 12-06-2018 were normal and results provided to patient in this office 12-15-2018 . on levothyrox in 125 mcg/day. Morbid obesity 290687053 E66.01 Low salt diet, exercise and lose weight. May be metabolic syndrom X, discussed with patient, will D/C naltrexone , and to continue wellbutrin . Anxiety 83883061 F41.9 On bupropion. Acid reflux 802219278 K2 1.9 Stable. On famotidine . [id number] MD Jovanna Sauceda (Adult Med) [address] [place] [address] [id number] 0 05/25/2019 15:52:18 05/25/2019 17:02:39 Acid reflux 866269511 K21.9 Stable. On famotidine . Which is back order. Essential hypertension 53828626 I10 Low salt diet. Chronic low back pain 27 5470791 M54.5 Partial relief from cyclobenza carmen. [id number] MD Jovanna Sauceda (Adult Med) [address] [place] [address] [id number] 01/19/2020 08:09:12 01/22/2020 11:47:48 Acid reflux 352642420 K21.9 Stable. On famotidine . Which is back order. Edema of l ower extremity 534981090 R60.0 Hypertensive disorder 38 316788 I10 On hydralazin e.and HCTZ, will add losartan, she agreed. Hypothyroidism 04477572 E03.9 Discussed with patient, will adjust thr dose and monitor the thyroid functions in 3 months. On levothyrox in 125 mcg/day, will re-check thyroid functions. Copy of her last thyroid functions, free t4, T3 and TSH 12-06-2018 were normal and results provided to patient in this office 12-15-2018 . on levothyrox in 125 mcg/day. Essential hypertension 53023679 I10 Low salt diet. [id number] MD Jovanna Sauceda (Adult Med) [address] [place] [address] [phone] 01/30/2020 09:00:13 01/31/2020 10:38:54 Otitis media 41334550 H66.93 Discussed with patient , willing to try antibiotic s. and will keep this office informed. [id number] MD Jovanna Sauceda (Adult Med) [address] [place] [address] [phone] 04/15/2020 09:44:25 04/16/2020 12:58:25 Benign paroxysmal positional vertigo 416688336 H81.13 She is going to see a ENT this week, and will keep this office informed. [id number] Ed Baptiste MD [facility] (Adult Med) [address] [place] [address] [phone] 0 07/30/2020 08:01:37 07/31/2020 14:19:01 Acid reflux 291273485 K21.9 Stable. On famotidine . Which is back order. Anxiety 16039119 F41.9 On bupropion. Chronic low back pain 27 0808412 M54.5 Partial relief from cyclobenza carmen. Edema of l ower extremity 092772533 R60.0 Low salt diet,, also on HCTZ. Hypertensive disorder 38 279830 I10 On hydralazin e.and HCTZ, will add losartan, she agreed. Hypothyroidism 31219864 E03.9 Discussed with patient, will adjust thr dose and monitor the thyroid functions in 3 months. On levothyrox in 125 mcg/day, will re-check thyroid functions. Copy of her last thyroid functions, free t4, T3 and TSH 12-06-2018 were normal and results provided to patient in this office 12-15-2018 . on levothyrox in 125 mcg/day. Morbid obesity 253617470 E66.01 Low salt diet, exercise and lose weight. May be metabolic syndrom X, discussed with patient, will D/C naltrexone , and to continue wellbutrin . Osteoarthr itis of knee 735026872 M17.9 Stable. Hyperlipidemia 56841697 E78.5 Low saturated and low animal fat diet. Benign par oxysmal positional vertigo 830478842 H81.13 She is going to see a ENT this week, and will keep this office informed. [id number] [facility] [address] [place] [address] 11/22/2020 10:32:32 11/25/2020 12:26:17 Acid reflux 920856536 K21.9 Stable. On famotidine . Which is back order. Anxiety 14892098 F41.9 On bupropion. Chronic low back pain 27 4420147 M54.5 Partial relief from cyclobenza carmen. Edema of l ower extremity 321090825 R60.0 Low salt diet,, also on HCTZ. Hypertensive disorder 38 434442 I10 On hydralazin e.and HCTZ, will add losartan, she agreed. Hypothyroidism 36378056 E03.9 Discussed with patient, will adjust thr dose and monitor the thyroid functions in 3 months. On levothyrox in 125 mcg/day, will re-check thyroid functions. Copy of her last thyroid functions, free t4, T3 and TSH 12-06-2018 were normal and results provided to patient in this office 12-15-2018 . on levothyrox in 125 mcg/day. Morbid obesity 500780822 E66.01 Low salt diet, exercise and lose weight. May be metabolic syndrom X, discussed with patient, will D/C naltrexone , and to continue wellbutrin . Lost about 24 pounds since the her living in boyfriend. Hyperlipidemia 00595984 E78.5 Low saturated and low animal fat diet. Benign par oxysmal positional vertigo 336131114 H81.13 She is going to see a ENT this week, and will keep this office informed. [id number] MD Jovanna Sauceda (Adult Med) [address] [place] [address] [id number] 0 06/13/2021 11:19:53 06/17/2021 10:35:00 Screening for malignant neoplasm of colon 817981501 Z12.11 Patient refuses in the past..But now, 06-13-2021 , she agreed to have screening, abdomen soft, no mass felt, old scars from previous gallbladde r and C -section. Screening for malignant neoplasm of cervix 229563070 Z12.4 Patient refuses in the past, .But now , 06-13-2021 agreed to be referred. Screening mammography 24 280051 Z12.31 Patient refuses in the past,. But now , 06-13-2021 she agreed to be done. Bilateral tinnitus 88182 00740 102 H93.13 Will refer to ENT, she agreed. Chronic tremor 209483036 R25.1 Drug-induc ed hypokalemia 552108864 T50.905A Advised her to stop HCTZ, and do BMP today. [id number] [facility] ([facility]) [address] [place] [address] [id number] 0 08/21/2021 09:26:38 08/21/2021 10:35:19 Gynecologic examination 99196292 Z01.419 Normal gynecologi c exam today.Cerv ical cancer screening: Last Pap unknown, updated todayBreas t cancer screening: Last mammogram 07/29/21, BIR[facility] 1.Colonosc opy: scheduled next monthDiet/ exercise: Counseled regarding importance of physical activity, healthy diet and appropriat e calcium intake.RTC in 1yr Obesity 780972794 E66.9 BMI 40.7. Discussed diet high in fruits and vegetables . Limit fat, sugar, and processed foods. Exercise at least 30 minutes 5x/week. [id number] MD Jovanna Sauceda (Adult Med) [address] [place] [address] [phone] 0 09/12/2021 11:21:09 09/23/2021 09:46:22 Acid reflux 478612574 K21.9 Stable. On famotidine . Which is back order. Hypothyroidism 37460660 E03.9 Discussed with patient, will adjust thr dose and monitor the thyroid functions in 3 months. On levothyrox in 125 mcg/day, will re-check thyroid functions. Copy of her last thyroid functions, free t4, T3 and TSH 12-06-2018 were normal and results provided to patient in this office 12-15-2018 . on levothyrox in 125 mcg/day. Morbid obesity 395129721 E66.01 Low salt diet, exercise and lose weight. May be metabolic syndrom X, discussed with patient, will D/C naltrexone , and to continue wellbutrin . Lost about 24 pounds since the her living in boyfriend. [id number] MD Jovanna Sauceda (Adult Med) [address] [place] [address] [phone] 0 12/12/2021 11:18:56 12/16/2021 09:48:11 Acid reflux 768334618 K21.9 Stable. On famotidine . Which is back order. Anxiety 01978724 F41.9 On bupropion. Chronic low back pain 27 4507063 M54.51 Stable, she is able to ambulating without assistance . Edema of l ower extremity 071767240 R60.0 Low salt diet,, also was on HCTZ.. No edema today 12-12-2021 . Hypothyroidism 37189830 E03.9 Discussed with patient, will adjust thr [...] 100 MCG/day as 10-01-- 2. Morbid obesity 550017572 E66.01 Low salt diet, exercise and lose weight. May be metabolic syndrom X, discussed with patient, will D/C naltrexone , and to continue wellbutrin . Lost about 24 pounds since the [place]. Osteoarthr itis of knee 539542849 M17.9 Stable. Hypertensive disorder 38 520944 I10 On hydralazin e.and HCTZ, will add losartan, she agreed.As 12-12-2021 , blood pressure is 112/68. Insomnia 250067743 G47.0 0 Wants some pill for sleep. Dyslipidemia 178706857 E 78.5 Low animal fat diet. [id number] Ed Baptiste MD [facility] (Adult Med) [address] [place] [address] [phone] 0 05/20/2022 12:31:07 05/22/2022 15:07:01 Anxiety 66090160 F41.9 On bupropion. and hydroxyzin e Hypertensive disorder 38 554882 I10 On hydralazin e.and HCTZ, will add losartan, she agreed.As 12-12-2021 , blood pressure is 112/68. As 05-20-2022 BP is 124/80. Hypothyroidism 58065035 E03.9 Discussed with patient, will adjust thr [...] to 100 MCG/day as 2. Morbid obesity 956741889 E66.01 Low salt diet, exercise and lose weight. May be metabolic syndrom X, discussed with patient, will D/C naltrexone , and to continue wellbutrin . Lost about 24 pounds since the her living in boyfriend. Dyslipidemia 741919495 E 78.5 Low animal fat diet. Renewal of prescription 626361475 Z76.0 Benign par oxysmal positional vertigo 108479354 H81.13 She is going to see a ENT this week, and will keep this office informed. Acid reflux 675326135 K2 1.9 Stable. On famotidine . Which is back order. Insomnia 803950887 G47.0 0 Wants some pill for sleep. Screening for osteoporosis 216752459 Z13.820 She agreed. Migraine 73297681 G43.90 9 She agreed to try. Chronic constipation 236 548255 K59.09 Ok to try OTC miralax. [id number] Ed Baptiste MD [facility] (Adult Med) [address] [place] [address] 09/11/2022 09:16:50 09/14/2022 16:28:10 Obesity 528759063 E66.9 BMI is 38. advised her to watch diet, exercise and keep the weight down. Insomnia 565380286 G47.0 0 Trazadone not helping. she would like to try something else. Hypertensive disorder 38 321441 I10 On hydralazin e.and HCTZ, will add losartan, she agreed.As 12-12-2021 , blood pressure is 112/68. As 05-20-2022 BP is 124/80. As 09-11-22, BP is 138/83. will continue med and monitor blood pressure. Hypothyroidism 17601304 E03.9 Discussed with patient, will adjust thr [...] as 2. Administra tion of pneumococcal vaccine 62622479 Z23 She declined today 09-11-22. [id number] Ed Baptiste MD [facility] (Adult [facility]) [address] [place] [address] 02/02/2023 09:22:24 02/05/2023 10:57:29 Ulnar nerve entrapment at elbow 258557462 G56.23 NCS provided to her today 02-02-23. At this time she dose not wants surgery. She got gabapentin from neurologis t for the neuropathy of feet. Acid reflux 838511332 K2 1.9 Stable. On famotidine . Which is back order. Anxiety 15082270 F41.9 On bupropion. and hydroxyzin e Chronic low back pain 27 8430452 M54.51 Stable, she is able to ambulating without assistance . Hypothyroidism 09761023 E03.9 Discussed with patient, will adjust thr [...] to 100 MCG/day as 2. Morbid obesity 677470352 E66.01 Low salt diet, exercise and lose weight. May be metabolic syndrom X, discussed with patient, will D/C naltrexone , and to continue wellbutrin . Lost about 24 pounds since the her living in boyfriend. As 02-02-23, BMI is 38.4 today. Osteoarthr itis of knee 487978747 M17.9 Stable. Ambulating . Influenza vaccination declined 716717248 Z28.21 She declined today, she wants to get at her pharmacy store. 02-02-23. Administra tion of pneumococcal vaccine 52987727 Z23 She declined today 09-11-22. She wants to get it at her pharmacy store, 02-02-23. Dyslipidemia 017609823 E 78.5 Low animal fat diet. Essential hypertension 65309283 I10 Low salt diet. Avoid NSAID or OTC decongesta nt if possible. BP is well controlled , 108/60, No dizziness, no chest pain, no difficulty of breathing. , no palpitatio n. will renew med. Hypertensive disorder 38 508984 I10 On hydralazin e.and HCTZ, will add losartan, she agreed.As 12-12-2021 , blood pressure is 112/68. As 05-20-2022 BP is 124/80. As 09-11-22, BP is 138/83. will continue med and monitor blood pressure. Migraine 98864429 G43.90 9 She agreed to try. Insomnia 332669179 G47.0 0 On bupropion. and hydroxyzin e [id number] MD [facility] (Adult Med) [address] [place] [phone] 05/17/2023 09:25:55 05/19/2023 15:24:06 Pain of left shoulder joint [id number] 4008146 M25.512 Has sling at home ,but it hard manual to put close on. Agreed for muscle relaxant and referral. Informatio n provided. Obesity 171697967 E66.9 BMI is 38. advised her to watch diet, exercise and keep the weight down. BMI is 38.8 today 05-17-23. [id number] MD [facility] (Adult Med) [address] [place] [phone] 10/01/2023 09:26:58 10/04/2023 12:34:47 Body mass index 30+ - obesity 162040331 Z68.38 Will wean off Bupropion. Was put [...] Rupture of rotator cuff of left shoulder 9037734320 3051255 M75.102 Injury to left shoulder last [place]. Did physical therapy. Still has pain and cannot raise arm above shoulder. Likely has a rotator cuff tear. Will proceed with MRI. Takes a muscle relaxer for the pain. Will continue that for now. Essential hypertension 29598596 I10 Will get fasting blood work and urine today. Blood pressure good today. Continue present medication . Hypothyroidism 01807689 E03.9 Will check TSH. Idiopathic peripheral neuropathy 10725026 G60.9 Has seen neurologis t. Takes Gabapentin . Gastroesop hageal reflux disease without esophagitis 151363520 K21.9 Controlled with Omeprazole . Adjustment disorder with depressed mood 89403907 F43.21 Has lost two fci partners. Has support with children and sisters. Takes Citalopram . Still struggles with motivation . Will discuss further at follow up. History of transient ischemic attack 369539135 Z86.73 Continue aspirin a day. Morbid obesity 480414546 E66.01 Dyslipidemia 435709156 E 78.5 Pain of le ft shoulder joint 1413685108 5540332 M25.512 Anxiety 81240978 F41.9 Hypertensive disorder 38 331387 I10 Acid reflux 234457250 K2 1.9 [id number] MD [facility] Thornton (Adult Med) [address] [place] [address] 11/29/2023 16:46:37 12/01/2023 13:02:32 Acute dermatitis 04736428 L30.9 This rash started the day after [...] has a follow up in December. Anxiety 98907051 F41.9 I told her that I do not want to start a new medication until this problem is treated, but [facility] her anxiety [facility]. [id number] MD [facility] Thornton (Adult Med) [address] [place] [phone] 01/07/2024 10:58:12 01/11/2024 11:05:43 Body mass index 40+ - severely obese 197868999 Z68.41 Anxiety 18841902 F41.9 She does not really feel she [...] she will let me know. Weight gain 8156330 R63. 5 Weight gain which she attributes to her anxiety. Will check a TSH. No evidence of fluid overload. Will work on weight loss. Discussed healthy eating. Have her limit carbohydra susannah. Will try walking at [employer] most days of the week. Follow up in three months. Essential hypertension 55200922 I10 Blood pressure controlled . Last had blood work and urine checked in September. Last lipid in September good. Hyperlipidemia 78591138 E78.5 Currently taking Atorvastat in. Hypertensive disorder 38 793445 I10 Hypothyroidism 12846773 E03.9 Will check TSH. Acid reflux 963169208 K2 1.9 [id number] MD [facility] Thornton (Adult Med) [address] [place] [phone] 02/11/2024 11:58:24 02/15/2024 14:43:42 Anxiety 27033492 F41.9 Tolerating the Duloxetine well and it may be providing her some benefit. Will increase to 60 mg daily. Follow up in three months. Body mass index 40+ - severely obese 493430448 Z68.41 Weight stable. Has been working on [...] she gets her thyroid labs done. Hypothyroidism 37570909 E03.9 Last TSH slightly elevated. Increased thyroid medication . Will repeat a TSH in about six weeks. Should not need refill before three month follow up. Had prescripti on january for two months with one refill. Essential hypertension 45973730 I10 Blood pressure controlled . Last had blood work and urine checked in September. Continue present medication . Hyperlipidemia 23856488 E78.5 Currently taking Atorvastat in. Acid reflux 769251646 K2 1.9 [id number] MD [facility] Thornton (Adult Med) [address] [place] [address] 08/28/2024 10:51:37 08/29/2024 11:13:08 Prolonged grief disorder 074702799 F43.29 1712636 Gradually decrease Duloxetine since it is not [...] in six to eight weeks. Essential hypertension 20082388 I10 42447 Blood pressure normal. Has had high readings at home. Using a wrist cuff which is not as reliable. Will bring it in to her next visit so we can calibrate it with our wall cuff. Will get fasting blood work and urine today. Continue present medication . Primary hypothyroidism 34973798 E03.9 76939 Last TSH abnormal. Adjusted thyroid medication . Will recheck today. Wheezing 41686485 R06.2 50277 Notices occasional wheeze at night. Had a sleep study which she said was normal. I need to see those results. Complains of an occasional sound like wheezing at night. I will proceed with PFTs. Body mass index 40+ - severely obese 355905164 Z68.41 773231 Now that the weather is better she is going to try to get outside more and do more activity. Hyperlipidemia 05864966 E78.5 Currently taking Atorvastat in. Checking fasting lipids today. Hypothyroidism 11702699 E03.9 Last TSH slightly elevated. Increased thyroid medication . Will repeat a TSH in about six weeks. Should not need refill before three month follow up. Had prescripti on january for two months with one refill. Acid reflux 207457515 K2 1.9 Health Concerns Section Related Observation LastModified by Organization Detai ls LastModified Time None Recorded Concern Status LastModified by Organization Details LastModified Time None Recorded Advance Directives Directive N: Payers Insurance Date Sequence Insurance Name Policy Number Policy Zarate Covered Member ID Zarate Member ID Guarantor Name 10/21/2024 2 [place] WHEN MEDICARE OR MEDICARE REPLACEMENT PRIMARY) Kyung Roe [id number] Kyung Roe 10/21/2024 1 [place] Kyung Kay Bhupinder [id number] Kyung Roe 11/29/2023 1 [facility] - DOS ON OR AFTER 20 (MEDICAID REPLACEMENT - HMO) Kyung Roe [id number] Kyung Roe 11/29/2023 1 [facility] - DOS PRIOR TO 2020 (MEDICAID REPLACEMENT - HMO) Kyung Roe [id number] Kyung Roe 10/21/2024 [place] [facility] Kyung Roe [id number] Kyung Roe 11/29/2023 1 [place] [facility] Kyung Roe [id number] Kyung Roe Notes Date Note Type Note Provider Name and Address Organization Details Recorded Time 10/01/2023 text/html ROS as noted in the HPI here to establish as new patient, fell on left shoulder [place] Roseanne and can't raise arm all the [...] Prevnar vaccine Allie Lo MD Attn: Accounting,[address] [facility], [place], [address], [facility] 10/01/2023 10:51:00 11/29/2023 text/html ROS as noted in the HPI here for pruritic rash, started Nov 17,was outside weed eating [...] her anxiety Allie Lo MD Attn: Accounting,[address] [place], [address], [facility] 11/29/2023 18:30:52 01/07/2024 text/html ROS as noted in the HPI follow up, skin is better, no itching, [...] is helping Allie Lo MD Attn: Accounting,[address] [place], [address], [facility] 01/07/2024 13:42:08 02/11/2024 text/html ROS as noted in the HPI follow up, tolerating new anxiety medication fine, [...] 207 pounds, Allie Lo MD Attn: Accounting,[address] [place], [address], [facility] 02/11/2024 13:56:25 08/28/2024 text/html follow up, taking higher dose of Duloxetine, if has to [...] sleep apnea Allie Lo MD Attn: Accounting,[address] [place], [address], [facility] 08/28/2024 11:58:12 OBGyn Episode Ob Episode Information Episode Created Date Number of Fetuses Patient Bloodtype Patient rh Status Prepregnancy Weight lbs Domestic Partner Domestic Partner Phone Father Name Muck Miner Blasting Status 08/31/19 25 1 DELETED Fetus Data First Name Last Name Admitted to NICU Weight (g) Sex Living Outcome Pediatric Complications Fetus ID Race Codes Race Delivery Type [id number] Cirilo Calculation Initial Cirilo Date Initial Exam [...]
[2025-01-04 10:13] VITALS: BP 183/90; PULSE 71; RESP 20; TEMP 36.5; O2SAT 100; BMI 47.6
[2025-01-04] MEDS: LACTATED RINGERS 1,000 ML 150 ML IV CONT (10:27)
[2025-01-04 10:28] VITALS: BP 176/77
--- NOTE | 2025-01-04 11:02 | WPDANESEPPF ---
Anes - Initial Pre Proc Eval Procedure: Operation Date: 01/04/25 11:00 Proposed Procedures p Screening Colonoscopy - Tod Hoskins MD Date/Time: 01/04/25 11:02 Surgeon: Tod Hoskins MD Pre Op Diagnosis: Personal history of colon polyps, unspecified Patient Data Age: 69 Gender: F Height: 1.55 m Weight: 114.3 kg Last Vital Signs Temp 36.5 C 01/04/25 10:13 Pulse 71 01/04/25 10:13 Resp 20 01/04/25 10:13 BP 176/77 H 01/04/25 10:28 Pulse Ox 100 01/04/25 10:13 O2 Del Method Room Air 01/04/25 10:13 Allergies Allergy/AdvReac Type Severity Reaction Status Date / Time naltrexone Allergy Intermediate Unknown Verified 01/04/25 10:11 hydromorphone (From Dilaudid) AdvReac Nausea and Verified 01/04/25 10:11 Vomiting Home Medications ?Medication ?Instructions ?Recorded ?Confirmed ?Type hydralazine 25 mg tablet 25 mg PO BID 04/18/20 01/04/25 History losartan 50 mg tablet 50 mg PO DAILY 04/18/20 01/04/25 History omeprazole 40 mg capsule,delayed 40 mg PO BID 04/18/20 01/04/25 History release aspirin 81 mg capsule 81 mg PO DAILY #30 caps 05/27/21 01/04/25 Rx atorvastatin 20 mg tablet 20 mg PO DAILY #90 tabs 08/13/21 01/04/25 Rx levothyroxine 125 mcg capsule 100 mcg PO DAILY 06/12/22 01/04/25 History baclofen 10 mg tablet 10 mg PO QHS 07/06/24 01/04/25 History naproxen 500 mg tablet 500 mg PO BID PRN pain #14 tabs 09/11/24 01/04/25 Rx bupropion HCl 150 mg 24 hr tablet, 150 mg PO QAM #90 tabs 09/26/24 01/04/25 Rx extended release (Wellbutrin XL) buspirone 5 mg tablet 5 mg PO BID 09/26/24 12/19/24 History gabapentin 300 mg capsule 300 mg PO Q12H #180 caps 09/26/24 01/04/25 Rx ferrous sulfate 325 mg (65 mg See Rx Instructions .Route 12/13/24 12/19/24 Rx iron) tablet (Iron (ferrous .COMPLEX #90 tabs sulfate)) budesonide-formoterol HFA 160 2 inh inhalation Q12H 12/19/24 01/04/25 History mcg-4.5 mcg/actuation aerosol inhaler (Breyna) Patient hx anesthesia problems: post op nausea/vomiting Family hx anesthesia problems: none Results Review: All pre-operative results and documents have been reviewed as part of the pre-operative evaluation. [facility] Past Medical History Medical History Insomnia Restless leg syndrome Small fiber neuropathy Colon cancer screening Chronic GERD Anxiety Hypothyroidism Hyperlipidemia Hypertension Surgical History Surgical History Hx of cholecystectomy H/O section Family History Family History Sibling Diabetes mellitus Father Congestive heart failure Social History Social History Social History: the patient is a lifelong nonsmoker. She has 2 children. She is . She is unemployed. She does not use any alcohol marijuana or illicit drugs. She does not have a durable power title attorney for healthcare. Code status full code Smoking status: Never smoker Second hand tobacco smoke exposure: No Alcohol intake: never Substance use: never Substance use type: does not use Do You Feel Safe in your Home?: Yes Lack of Transportation: No Lack of Food: Sometimes True Current Housing: I Have Housing Concerned About Future Housing: No Difficulty Paying Gas/Electric Bills: YES Difficulty Paying for Meds: No Currently Unemployed: Decline to Answer Education: Don't Know Difficulty w/ Childcare or Family Care: No Living arrangements: alone Occupation/Education: retired Gender identity (if verbalized by the patient): Female Spiritual care concerns: No Anes - Eval Final PreProcedure Day of Procedure 01/04/25 11:02 Patient weight: morbidly obese Heart: regular rate and rhythm Lungs: decreased breath sounds Airway: Mallampati scale class III Neurological: alert and oriented Last oral intake: >/= 8 hours ASA classification: III Emergent: no Anesthetic plan: proceed Anesthesia type and monitoring: general GIVS and standard monitoring Results Review: All pre-operative results and documents have been reviewed as part of the pre-operative evaluation. Informed Consent: The patient's anesthetic plan and its attendant risks and benefits were discussed with the patient/family/POA. Questions were solicited and answers provided to the satisfaction of the patient/family/POA.
--- NOTE | 2025-01-04 11:19 | PM.HPGS ---
History of Present Illness History of Present Illness Consent: Risks, benefits, and alternatives have been discussed and questions answered. Patient agrees to proceed with procedure. Chief complaint: Personal history of colon polyps, unspecified Narrative: Kyung Roe is a 69 year old female with colon polyp in 2021 Review of Systems Review of Systems: All systems reviewed & are unremarkable except as noted in HPI and below PMFSH Past Medical History Medical History (Updated 01/04/25 @ 11:20 by Tod Hoskins MD) Adenomatous colon polyp Insomnia Restless leg syndrome Small fiber neuropathy Colon cancer screening Chronic GERD Anxiety Hypothyroidism Hyperlipidemia Hypertension Surgical History Surgical History Hx of cholecystectomy H/O section Family History Family History Sibling Diabetes mellitus Father Congestive heart failure Social History Social History Social History: the patient is a lifelong nonsmoker. She has 2 children. She is . She is unemployed. She does not use any alcohol marijuana or illicit drugs. 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 Code status full code Smoking status: Never smoker Second hand tobacco smoke exposure: No Alcohol intake: never Substance use: never Substance use type: does not use Do You Feel Safe in your Home?: Yes Lack of Transportation: No Lack of Food: Sometimes True Current Housing: I Have Housing Concerned About Future Housing: No Difficulty Paying Gas/Electric Bills: YES Difficulty Paying for Meds: No Currently Unemployed: Decline to Answer Education: Don't Know Difficulty w/ Childcare or Family Care: No Living arrangements: alone Occupation/Education: retired Gender identity (if verbalized by the patient): Female Spiritual care concerns: No Meds Home Medications and Allergies Home Medications ?Medication ?Instructions ?Recorded ?Confirmed ?Type hydralazine 25 mg tablet 25 mg PO BID 04/18/20 01/04/25 History losartan 50 mg tablet 50 mg PO DAILY 04/18/20 01/04/25 History omeprazole 40 mg capsule,delayed 40 mg PO BID 04/18/20 01/04/25 History release aspirin 81 mg capsule 81 mg PO DAILY #30 caps 05/27/21 01/04/25 Rx atorvastatin 20 mg tablet 20 mg PO DAILY #90 tabs 08/13/21 01/04/25 Rx levothyroxine 125 mcg capsule 100 mcg PO DAILY 06/12/22 01/04/25 History baclofen 10 mg tablet 10 mg PO QHS 07/06/24 01/04/25 History naproxen 500 mg tablet 500 mg PO BID PRN pain #14 tabs 09/11/24 01/04/25 Rx bupropion HCl 150 mg 24 hr tablet, 150 mg PO QAM #90 tabs 09/26/24 01/04/25 Rx extended release (Wellbutrin XL) buspirone 5 mg tablet 5 mg PO BID 09/26/24 12/19/24 History gabapentin 300 mg capsule 300 mg PO Q12H #180 caps 09/26/24 01/04/25 Rx ferrous sulfate 325 mg (65 mg See Rx Instructions .Route 12/13/24 12/19/24 Rx iron) tablet (Iron (ferrous .COMPLEX #90 tabs sulfate)) budesonide-formoterol HFA 160 2 inh inhalation Q12H 12/19/24 01/04/25 History mcg-4.5 mcg/actuation aerosol inhaler (Breyna) Allergies Allergy/AdvReac Type Severity Reaction Status Date / Time naltrexone Allergy Intermediate Unknown Verified 01/04/25 10:11 hydromorphone (From Dilaudid) AdvReac Nausea and Verified 01/04/25 10:11 Vomiting Vital Signs Vital Signs - 24 hr 01/04/25 10:13 01/04/25 10:28 Temperature 97.7 F Pulse Rate 71 Respiratory Rate 20 Blood Pressure 183/90 H 176/77 H Pulse Oximetry 100 Oxygen Delivery Room Air Exam Const: General: comfortable and no acute distress HENMT: Face/Nose/Sinus: Normal nares present Eyes: General: appearance normal, both eyes and all related structures Neck: Neck: no JVD Resp: Auscultation: clear to auscultation bilaterally Cardio: Rate: regular rate Rhythm: regular rhythm GI: Inspection: non-distended GI Palp: Yes Soft to palpation Skin: General skin exam: normal color Neuro: Speech: normal speech Extrem: General: normal to inspection Psych: Mental Status: mental status grossly normal Assessment and Plan Assessment and plan (1) Adenomatous colon polyp: Code(s): D12.6 - Benign neoplasm of colon, unspecified Status: Acute Assessment and Plan: colonoscopy
--- NOTE | 2025-01-04 11:47 | SUR.OPER ---
ascending polyp was not retrieved. dr hess make aware, acknowledged.
[2025-01-04 11:51] VITALS: BP 117/61; PULSE 69; RESP 17; O2SAT 93
[2025-01-04 12:01] VITALS: BP 119/64; PULSE 67; RESP 24; O2SAT 99
[2025-01-04 12:11] VITALS: BP 110/59; PULSE 62; RESP 26; O2SAT 100
== END 2025-01-04 12:23 | disposition home or self-care (01) ==
PROVIDERS: PCP Emergency Medicine; Referring Provider Internal Medicine Gastroenterology; Visit Provider Internal Medicine Gastroenterology
PROC: 0DJD8ZZ Inspection of Lower Intestinal Tract, Via Natural or Artificial Opening Endoscopic (ICD-10-PCS; CPT 45378; principal; 2025-01-04 11:00)
DX: Z12.11 Encounter for screening for malignant neoplasm of colon (principal); K63.5 Polyp of colon; K64.8 Other hemorrhoids; K57.30 Diverticulosis of large intestine without perforation or abscess without bleeding; E03.9 Hypothyroidism, unspecified; E78.5 Hyperlipidemia, unspecified; I10 Essential (primary) hypertension; K21.9 Gastro-esophageal reflux disease without esophagitis; F41.9 Anxiety disorder, unspecified; G47.00 Insomnia, unspecified; G25.81 Restless legs syndrome; G62.9 Polyneuropathy, unspecified; E66.01 Morbid (severe) obesity due to excess calories; Z68.42 Body mass index [BMI] 45.0-49.9, adult; Z79.82 Long term (current) use of aspirin; Z79.1 Long term (current) use of non-steroidal anti-inflammatories (NSAID); Z79.51 Long term (current) use of inhaled steroids; Z98.890 Other specified postprocedural states; Z90.49 Acquired absence of other specified parts of digestive tract; Z82.49 Family history of ischemic heart disease and other diseases of the circulatory system
CPT/HCPCS: 45385; J2003; J2704; J7120

== ENCOUNTER 2025-02-08 08:28 | Outpatient (CLI) | payer MEDICARE, MEDICAID, SELFPAY ==
--- NOTE | ~2025-02-08 | XR_ITS ---
XR lumbar spine 2-3V Indication: chronic low back pain wo sciatica Comparison: None Findings: The vertebral heights are intact. No fracture or subluxation. Moderate to severe loss of disc height throughout Soft tissues unremarkable Impression: No acute abnormality. Reviewed, dictated and finalized at location P. Impression: No acute abnormality.
--- OUTSIDE RECORDS SUMMARY | 2025-02-08 08:40 | XMS_ITS | Data Portability ---
Author Organization [place] [facility] [place] [facility], Main Office Address [address] [place] [address] Care Team Providers Care Sanitation Worker Cleaning Equipment Name Role Phone LINUS [place]STON Primary Care Provider [phone] LINUS [place]STON Referring Provider Assessment Encounter Date Assessment Date Assessment LastModified by Organization Details LastModified Time 05/26/2023 05/26/2023 67-year-old female presents for evaluation of her left shoulder she is left-hand dominant. She had a fall on [employer] when she landed her left arm. She [...] left shoulder. She had a fall on [employer] when she landed her left arm. Since [...] referral - CONTINUE PT 2023 024 [email or web address] [facility], [address], [place], [address], 4 16:36:01 physical therapist referral - eval and treat 2023 024 [email or web address] [facility], [address], [place], [address], 4 10:52:13 Procedures injection/a spiration joint/bursa (PROC) - in office procedure, administere d by provider 2023 024 [email or web address] 3 In-Office Order, Internal Use Only DO Not Attach Compendium DO Not Attach Compendium, Do Not Delete/merge, [id number] 11:58:51 Surgeries None recorded. Imaging None recorded. Medication Orders Kenalog 10 mg/mL suspension for injection 2023 024 [email or web address] [facility], [place], [address], 16:36:01 Marcaine (PF) 0.5 % (5 mg/mL) [...] shoul angela No observ ation record ed. [address], [place], [address], 06/02/2023 10:24:47 Result Notes None recorded. Problems Name Problem SNOMED Code Status Onset Date Resolution Date Notes Provider Name and Address Organization Details Recorded Time Pain of left shoulder joint 796048961492693 09 Active 2023 CRISTY Greer [facility] 11:05:25 Problem Notes None recorded. Procedures Surgical History Date Name Laterality Status Provider Name and Address Organization Details Recorded Time Ortho - Cortisone Injection completed Carli Loo NP [address] [facility] [address], [place], [address], [employer] 06/30/2023 12:50:40 section completed CRISTY Greer [employer] 05/26/2023 11:04:30 Gallbladder Surgery completed CRISTY Greer [employer] 05/26/2023 11:04:42 Imaging Results None recorded. Procedure Notes None recorded. Medical Equipment None Reported. Allergies Allergen ID Allergen Name Allergen Category Reaction Reaction Severity Criticality Documentation Date Start Date Code Code System Note Provider Name and Address Organization Details Recorded Time [address] [facility] Not available Not available Not available 05/26/2023 08313 97 RxNorm CRISTY Greer [place] [facility] 4 11:02:14 Medications Name Sig Start [...] suspension for injection IN OFFICE [address] [facility]: 0003- 0494- 20 Not Available Not [...] Updated DateTime 05/26/2023 157.48 cm 39.3 kg/m2 40758.36 g 7 CRISTY Greer [facility] [employer] [facility] 05/26/2023 11:01:52 Date Recorded Body height Body mass index (BMI) Body weight Pain severity - 0-10 verbal numeric rating [Score] - Reported Provider Name and Address Organization Details Last Updated DateTime 06/30/2023 157.48 cm 39.3 kg/m2 21976.36 g 5 CRISTY Greer [facility] [employer] [facility] 06/30/2023 11:41:10 Social History Question Answer Notes LastModified by Organizat ion Details LastModified Time Tobacco Smoking Status Unknown If Ever Smoked CRISTY Greer null, [facility] [employer] [facility] 05/26/2023 11:03:42 What Was The Date Of Your Most Recent Tobacco Screening? 05/26/2023 [email or web address] Information not available 05/26/2023 Sex: Unknown Functional Status Question Answer Note LastModified by Organization D etails LastModified Time What is your level of alcohol consumption? None [email or web address] Information not available 05/26/2023 Mental Status None recorded. Family History Relationship Description Onset Age of this Age Resolved Age Notes LastModified by Organization Details LastModified Time Sister Heart disease Not available 2023 11:03:08 Sister Hypertensive disorder Not available 2023 11:03:20 Sister Diabetes mellitus [email or web address] Not available 2023 11:03:29 Medical History Condition Response ARTHRITIS Y STROKE/TIA Y Gynecological HistoryNo gynecological history recorded. Obstetrics History GPAL:G 0 P 0 0 0 0 Past Encounters Encounter ID Performer Location Encounter Start Date Encounter Closed Date Diagnosis/Indication Diagnosis SNOMED-CT Code Diagnosis ICD10 Code Diagnosis IMO Codes Diagnosis Note [id number] Osman Bird MD [facility] [place] [address] [place] [address] 05/26/2023 10:38:24 05/26/2023 11:53:29 Pain of left shoulder joint [id number] M25.594 [id number] Osman Bird MD [facility] [place] [address] [place] [address] 06/30/2023 11:38:50 06/30/2023 12:08:13 Pain of left shoulder joint 7662009019 8650590 M25.512 Health Concerns Section Related Observation LastModified by Organization Detai ls LastModified Time None Recorded Concern Status LastModified by Organization Details LastModified Time None Recorded Advance Directives Directive None Recorded Payers Insurance Date Sequence Insurance Name Policy Number Policy Zarate Covered Member ID Zarate Member ID Guarantor Name 06/30/2023 1 [place] Kyung Roe [id number] Kyung Roe 06/30/2023 2 [place] [employer] [place] [employer] Kyung Roe [id number] Kyung Roe OBGyn Episode No OBEpisode recorded.
== END 2025-02-08 08:29 | disposition home or self-care (01) ==
PROVIDERS: PCP Emergency Medicine; Visit Provider Emergency Medicine
DX: M54.50 Low back pain, unspecified (principal); G89.29 Other chronic pain
CPT/HCPCS: 72100